=== PATIENT | female | born 1930 ===

== ENCOUNTER 2016-12-27 08:27 | Inpatient (IN) | payer MEDICARE, OTHER ==
[2016-12-27 08:30] VITALS: BMI 22.6
--- NOTE | 2016-12-27 08:39 | C.PDOC ---
History Of Present Illness LIMITED DUE TO CLIN COND BIBA FOR AMS, RESP DIST. PER EMS, PT FROM HOME. FOUND UNRESPONSIVE BY FAMILY THIS MORNING UNK DURATION. PT APNEIC, HYPOTENSIVE, UNRESPONSIVE. "FOAMING AT MOUTH". AFTER NASAL TRUMPET AND O2 SUPPORT PT W IMPROVED RESP, MENTATION. PT W DISTENDED ABD. FS WNL PER EMS. NO FAMILY AVAIL @ THIS TIME. ROS UTO EXAM MOD DIST APPEARS TOXIC HEENT R NASAL TRUMPET IN PLACE; PERRLA; MMM LUNGS TACHYPNIC, RETRACTIONS POOR EFFORT. ?BASILAR RHONCHI VS RALES CV IRREG REG TACHY ABD DISTENDED SOFT SKIN MULT BLOOD BLISTERS B/L LOWER LEGS, NO ACTIVE BLEEDING; +CELLULITIS L FOOT TO MED L THIGH. +CHRONIC WOUND L LOWER LEG. NO PRESSURE SORES EXT +PITTING EDEMA B/L PEDAL TO ABD WALL. AROM WO DIFF; ATRAUM NEURO FOCAL RESPONSE TO NAME, PAIN. NO GROSS FOCAL DEF. REMAINDER NEG Chief Complaint (Nursing): Shortness Of Breath History Per: EMS History/Exam Limitations: clinical condition Current Symptoms Are (Timing): Still Present Past Medical History Reviewed: Historical Data, Nursing Documentation, Vital Signs Vital Signs: Last Vital Signs Temp 101.0 F H 12/27/16 10:30 Pulse 96 H 12/27/16 09:00 Resp 17 12/27/16 09:48 BP 111/48 L 12/27/16 08:47 Pulse Ox 96 12/27/16 09:48 Family History: States: Unknown Family Hx Review Of Systems Review Of Systems: ROS cannot be obtained secondary to pt's inabilty to answer questions. Physical Exam - Physical Exam Appears: Toxic, Other (MODERATE DISTRESS) Skin: Dry, Other (MULT BLOOD BLISTERS B/L LOWER LEGS, NO ACTIVE BLEEDING; + CELLULITIS L FOOT TO MED L THIGH. +CHRONIC WOUND L LOWER LEG TO POSTERIOR CALF - NO EXUDATE, PURULENCE, OR FOCAL FLUCTUANCE. NO PRESSURE SORES ) Head: Atraumatic, Normacephalic Eye(s): bilateral: PERRL Ear(s): Bilateral: Normal Nose: Other (R NASAL TRUMPET IN PLACE) Oral Mucosa: Moist Chest: Symmetrical Cardiovascular: Rhythm Regular (IRREGULARLY, TACHY) Respiratory: Accessory Muscle Use, Other (TACHYPNEIC, POOR EFFORT, ?BASILAR RHONCHI VS RALES) Gastrointestinal/Abdominal: Soft, Distention Extremity: Other (PITTING EDEMA B/L PEDAL TO ABD WALL. AROM WO DIFF; ATRAUM) Neurological/Psych: Other (FOCAL RESPONSE TO NAME, PAIN. NO GROSS FOCAL DEF.) ED Course And Treatment - Laboratory Results Result Diagrams: 12/27/16 09:15 12/27/16 09:15 ECG: Interpreted By Me ECG Rhythm: Sinus Tachycardia Rate From EC - Radiology CXR: Interpreted by Me CXR Interpretation: Yes: Other (complete opacification R LUNG) Progress - Re-Evaluation Re-evaluation Note: 12/27/16 09:20 SON NOW @ BEDSIDE. PT AWOKE 0500 CO "NOT FEELING WELL", TRIED ASSISTING HER TO BATHROOM BUT PASSED OUT WHILE WALKING SO CALLED EMS. +VOMIT X 1 PUBLIC INFORMATION SPECIALIST. PT W NEW ONSET INCR ABD DISTENTION X 1 WEEK. SON STATES "THEY POPPED THIS BLISTER ON HER LEG [address] [facility]", S/P UNK ABX COMPLETED 1 MO AGO. NEW ONSET REDNESS LEFT LEG THIS MORNING. SON STATES PT PREV DX "W ONLY 1 WORKING KIDNEY", PENDING REEVAL THIS WEEK. DOES NOT KNOW IF PLAN FOR DIALYSIS. PT NORMALLY AO3, WALKS W WALKER. PMD P EVGENY ON VAPOTHERM. IMPROVED MENTATION, ALERT INTERACTIVE AND APPROPRIATE. PERSIST TACHYPNEA, IMPROVED ON VAPOTHERM. SON ADVISED NEED FOR POSSIBLE INTUBATION IF PT DETERIORATES. SON WISHES FULL RESUSC. UNABLE TO GIVE FULL CODE SEPSIS IVF PER PROTOCOL DUE TO ABN CXR FINDINGS, SEVERE GEN EDEMA AND CONCERN FOR POSSIBLE WORSENING RENAL FAILURE. 12/27/16 09:47 CODE SEPSIS ACTIVATED. PENDING CALLBACK DR YOUNG ICU 12/27/16 10:12 D/W DR MICHAEL C/F PMD WILL ADMIT. PENDING D/W DR YOUNG. PT ALERT, INTERACTIVE APPROPRIATE. IMPROVED COMPARED TO INITIAL EVAL. STABLE ON VAPOTHERM 12/27/16 10:48 dr young accepts for icu - Data Reviewed Data Reviewed: Lab, Diagnostic imaging, EKG, Old records - Critical Care Citical Care: Excluding Proc Time Critical Care Time: 120 minutes - Continuity of Care Discussed patient case with:: Family-HIPPA compliant, Other (EMS) Disposition Counseled Patient/Family Regarding: Studies Performed, Diagnosis - Disposition Disposition: HOSPITALIZED Disposition Time: 10:12 Condition: CRITICAL Forms: [employer] (Polish) - POA Core Measure Indicators: Code Sepsis - Clinical Impression Clinical Impression: Sepsis, Hypoxemia, Respiratory distress - Scribe Statement The provider has reviewed the documentation as recorded by the Scribe SM All medical record entries made by the Scribe were at my direction and personally dictated by me. I have reviewed the chart and agree that the record accurately reflects my personal performance of the history, physical exam, medical decision making, and the department course for this patient. I have also personally directed, reviewed, and agree with the discharge instructions and disposition. Decision To Admit - Pt Status Changed To: Hospital Disposition Of: Inpatient - Admit Certification Admit to Inpatient:: After my assessment, the patient will require hospitalization for at least two midnights. This is because of the severity of symptoms shown, intensity of services needed, and/or the medical risk in this patient being treated as an outpatient. - InPatient: Physician Admission Certification: I certify that this patient requires 2 or more midnights of care for the following reason:: SEE NOTE - . Bed Request Type: ICU Admitting Physician: Chuck Michael Patient Diagnosis: Sepsis, Hypoxemia, Respiratory distress PROCEDURES - EJ/Peripheral Line Consent Obtained: verbal consent Time Out Performed: Yes Skin Cleansed in Sterile Fashion: Yes Size: 20 IV Secured and Dressing Applied: Yes Patient Tolerated Procedure: Well
[2016-12-27 09:20] LABS: BASO % 0.1 % (0.0-2.0); EOS % 0.1 % (0.0-4.0); HEMATOCRIT 42.2 % (34.0-47.0); LYMPH # 0.2 K/uL (1.0-4.3); LYMPH % 1.7 % (20.0-40.0); MEAN CELL VOLUME 90.1 fL (81.0-99.0); MEAN CORPUSCULAR HEMOGLOBIN 28.3 pg (27.0-31.0); MEAN CORPUSCULAR HGB CONC 31.4 g/dL (33.0-37.0); MEAN PLATELET VOLUME 8.2 fL (7.2-11.7); MONO # 0.5 K/uL (0.0-0.8); NRBC % 0.1 % (0.0-2.0); PLATELET COUNT 174 K/uL (130-400); RED CELL DISTRIBUTION WIDTH 15.9 % (11.5-14.5); WHITE BLOOD COUNT 10.5 K/uL (4.8-10.8)
[2016-12-27 09:30] LABS: ALB/GLOB RATIO 0.9 (1.0-2.1); BILIRUBIN,TOTAL 1.4 mg/dL (0.2-1.3); TOTAL PROTEIN 6.2 g/dL (6.3-8.3)
[2016-12-27] MEDS ORDERED: Vancomycin 1 GM 1 GM/250 ML BAG IV SCH (09:30)
[2016-12-27 09:31] LABS: CALCIUM 8.1 mg/dl (8.6-10.4); MAGNESIUM 2.3 mg/dL (1.6-2.3); PHOSPHOROUS 3.9 mg/dL (2.5-4.5)
[2016-12-27 09:32] LABS: INR 1.4
--- NOTE | 2016-12-27 09:36 | RAD ---
HISTORY: Sepsis Patient COMPARISON: No prior. FINDINGS: LUNGS: Complete opacification of right sherry thorax. Apparent slight midline shift towards the left. This may be artifactual. No left-sided infiltrate. PLEURA: Possible large right pleural effusion versus consolidation or mass. CARDIOVASCULAR: Status post CABG and mitral valve replacement. OSSEOUS STRUCTURES: No significant abnormalities. VISUALIZED UPPER ABDOMEN: Normal. OTHER FINDINGS: None. IMPRESSION: Opacification of right sherry thorax with slight midline shift towards the left. Likely diffuse consolidation versus pleural effusion plus consolidation. Status post CABG and mitral valve replacement.
[2016-12-27 09:42] LABS: RBC URINE 2 /hpf (0-3); URINE BACTERIA RARE (<OCC); URINE BILIRUBIN NEGATIVE (NEGATIVE); URINE BLOOD NEGATIVE (NEGATIVE); URINE COLOR Yellow (YELLOW); URINE GLUCOSE (UA) NORMAL (Normal); URINE KETONE NEGATIVE (NEGATIVE); URINE LEUKOCYTE ESTERASE NEG Leu/uL (Negative); URINE PROTEIN 1+ mg/dL (NEGATIVE); WBC URINE 2 /hpf (0-5)
[2016-12-27 09:45] LABS: ABG ALLEN TEST NA/; DRAW SITE L/B
[2016-12-27 09:48] LABS: NEUTROPHIL 72 % (50-75); REACTIVE LYMPHOCYTES 1 % (0-0); TOTAL CELLS COUNTED 100
[2016-12-27] MEDS ORDERED: cefTRIAXone IV 1 gm in Dextros 50 ML IV ONE (09:49)
[2016-12-27] MEDS ORDERED: Azithromycin 500 MG in Sodium Chloride 0.9% 250 ML IV STA (09:49)
[2016-12-27 10:01] LABS: TROPONIN I 0.128 ng/mL (0.00-0.120)
[2016-12-27] MEDS ORDERED: Vancomycin 1 GM 1 GM/250 ML BAG IVPB ONE (10:05)
[2016-12-27] MEDS ORDERED: Azithromycin 500mg/250ML NS 500 MG/250 ML BAG IVPB ONE (10:33)
[2016-12-27] MEDS ORDERED: Sodium Chloride 0.9% 1,000 ML IV ONE ×4 (11:23→14:19)
[2016-12-27 11:59] LABS: VENOUS BLOOD GAS BASE EXCESS 0.3 mmol/L (0.0-2.0); VENOUS BLOOD GAS MODE BiPAP; VENOUS BLOOD GAS PCO2 81 mmHg (40-60); VENOUS BLOOD PH 7.19 (7.32-7.43)
[2016-12-27] MEDS ORDERED: Etomidate 20 mg/10ml Inj IV ONE (12:55)
--- NOTE | 2016-12-27 13:02 | RAD ---
HISTORY: intubation and line placement COMPARISON: Chest x-ray performed 12/27/16 TECHNIQUE: Chest, one view. FINDINGS: Endotracheal tube terminates approximately 4.9 cm above the julio cesar. Nasogastric tube extends expected location of the stomach. Right-sided central venous catheter extends expected location of the SVC. LUNGS: Extensive opacification of the right sherry thorax with minimal improved aeration within the medial left upper lobe. Left apical pleural thickening. CARDIOVASCULAR: Median sternotomy wires. Evidence of CABG. Prostatic fat cardiac valve. Partially obscured cardiac silhouette. Dense atherosclerotic calcification of the aortic knob. OSSEOUS STRUCTURES: Degenerative changes. VISUALIZED UPPER ABDOMEN: Unremarkable. OTHER FINDINGS: None. IMPRESSION: Endotracheal tube terminates approximately 4.9 cm above the julio cesar. Nasogastric tube extends expected location of the stomach. Right-sided central venous catheter extends expected location of the SVC. Extensive opacification of the right sherry thorax with minimal improved aeration within the medial left upper lobe. Left apical pleural thickening.
--- NOTE | 2016-12-27 13:06 | PCM.SEPTIC ---
Sepsis Progress Note - Reassessment Type Date of Evaluation: 12/27/16 Time of Evaluation: 10:00 Reassessment Type: Invasive reassessment - Non Invasive Reassessment Were the most recent vital sign reviewed: Yes Vital Sign (Latest): Temp Pulse Resp BP Pulse Ox 99.9 F H 90 18 70/17 L 90 L 12/27/16 11:03 12/27/16 12:38 12/27/16 12:38 12/27/16 12:38 12/27/16 12:38 Cardiovascular: Yes: Edema. No: Regular Rate, Rhythm Respiratory: Yes: Other (Intubated). No: Normal Breath Sounds Capillary Refill: Delayed Pulses: Decreased Dorsalis Pedis, Decreased Posterior Tibialis Skin: Warm, Dry Was a bedside cardiovascular ultrasound performed within 6 hours after the presentation of septic shock: Yes Type performed: Echocardiogram Was a passive leg raise performed or was a fluid challenge performed within 6 hrs of the initial fluid bolus: No Fluid Challenge performed: No
[2016-12-27] MEDS ORDERED: Dexmedetomidine Hydrochloride 100 mcg/ml (2ML) IV ONE (13:16)
[2016-12-27 13:24] LABS: ABG ALLEN TEST POS; ABG MECHANICAL RATE 16; ARTERIAL BLOOD GAS MODE PRVC; ATERIAL BLOOD GAS PEEP 5; CARBOXYHEMOGLOBIN 2.6 % (0.5-1.5); DRAW SITE RR; HHB 0.4 % (0.0-5.0)
[2016-12-27] MEDS: Dexmedetomidine Hydrochloride 200 MCG in Sodium Chloride 0.9% 48 ML IV PRN ×4 (13:40→22:16)
[2016-12-27] MEDS ORDERED: Propofol 10 mg/ml Inj (20 ML) IV ONE (13:45)
--- NOTE | 2016-12-27 14:38 | RAD ---
HISTORY: chest tube COMPARISON: Chest x-ray performed 12/27/16 at 1230 hours TECHNIQUE: Chest, one view. FINDINGS: Endotracheal tube, nasogastric tube, right-sided central venous catheter re- identified. Interval addition of right-sided pigtail catheter/chest tube. LUNGS: Small right pleural effusion, markedly decreased since prior study earlier the same day. Patchy opacities in the right sherry thorax may reflect infection or atelectasis. Left basilar atelectasis. No definite pneumothorax. Biapical pleural thickening. Please note that chest x-ray has limited sensitivity for the detection of pulmonary masses. CARDIOVASCULAR: Median sternotomy wires with evidence of CABG. Mitral valve prosthesis. Borderline cardiomegaly. OSSEOUS STRUCTURES: Degenerative changes. VISUALIZED UPPER ABDOMEN: Unremarkable. OTHER FINDINGS: None. IMPRESSION: Endotracheal tube, nasogastric tube, right-sided central venous catheter re- identified. Interval addition of right-sided pigtail catheter/chest tube. Small right pleural effusion, markedly decreased since prior study earlier the same day. Patchy opacities in the right sherry thorax may reflect infection or atelectasis. Left basilar atelectasis. Biapical pleural thickening.
[2016-12-27 14:51] LABS: BODY FLUID TYPE PLEURAL
[2016-12-27] MEDS: Albumin Human 25% (12.5 gm/50 ml) IV SCH ×2 (14:56→21:30)
[2016-12-27] MEDS: Piperacill/Tazo 2.25gm in Dex 2.25 GM/50 ML BAG IVPB SCH ×2 (15:34→23:45)
[2016-12-27 15:42] LABS: BF GROSS APPEARANCE SL CLOUDY (CLEAR)
--- NOTE | 2016-12-27 17:03 | CP.PCM.CON ---
<GemdaphneGaby morrisonSaqib - Last Filed: 12/27/16 16:51> History of Present Illness - History of Present Illness History of Present Illness: 86 year old female with medical history of HTN, CHF, CKD, and CABG, presents to the ED by ambulance with shortness of breath. The patient's son, Polo, reports she felt nauseas, feverish, and had chills this morning. As he was helping her to the restroom, patient urinated on self, passed out, and remained unresponsive. In the ED, patient was hypotensive and in respiratory distress. Code sepsis was called. Patient is consulted in the ICU for respiratory distress , hypotension, and sepsis. Patient's chest xray showed opacification of right hemithorax with midline shift. Review of systems was not obtained due to patients status. PMD: Dr. Smith PMHx: HTN, Mitral valve replacement, CABG (2016), "kidney problems, only 1 works ", CHF (chronic LE edema) SurgHx: CABG (2016), mitral valve replacement FamHx: denies SocHx: denies tobacco, alcohol, and drug use; lives with son, Polo Allergies: Fish (reaction unknown) Medications: "medication for HTN, diueretic, and cholesterol". See EMR Review of Systems - Review of Systems Systems not reviewed;Unavailable: Intubated Past Patient History - Past Social History Smoking Status: Unknown If Ever Smoked - CARDIAC Hx Cardiac Disorders: Yes Hx Hypercholesterolemia: Yes Hx Hypertension: Yes Other/Comment: heart valve surgery as per son - GENITOURINARY/GYNECOLOGICAL Hx Genitourinary Disorders: Yes - PSYCHIATRIC Hx Substance Use: No - SURGICAL HISTORY Hx Surgeries: Yes Other/Comment: cardiac surgery- valve Meds Allergies/Adverse Reactions: Allergies Allergy/AdvReac Type Severity Reaction Status Date / Time SEAFOOD Allergy Uncoded 12/27/16 08:30 - Medications Medications: Current Medications Acetaminophen (Tylenol 325 Mg Supp) 975 mg NJ ONCE PRN PRN Reason: Fever >100.4 F Last Admin: 12/27/16 10:30 Dose: 975 mg Albumin Human (Albumin Human 25% (12.5 Gm/50 Ml)) 12.5 gm IV Q8H ZAHRA Last Admin: 12/27/16 14:56 Dose: 12.5 gm Famotidine (Pepcid) 20 mg IVP DAILY [facility] Last Admin: 12/27/16 14:49 Dose: 20 mg Heparin Sodium (Porcine) (Heparin) 5,000 units SC Q8 [facility] Last Admin: 12/27/16 14:50 Dose: 5,000 units Norepinephrine Bitartrate 4 mg (/ Sodium Chloride) 254 mls @ 15.24 mls/hr IV .[id number] PRN; Protocol; 4 MCG/MIN PRN Reason: TITRATE PER MD ORDER Last Admin: 12/27/16 15:32 Dose: 20 mcg/min, 76.2 mls/hr Dexmedetomidine HCl 200 mcg/ (Sodium Chloride) 50 mls @ 3.17 mls/hr IV TITR PRN ; Protocol; 0.2 MCG/KG/HR PRN Reason: Sedation Last Titration: 12/27/16 15:00 Dose: 1 mcg/kg/hr, 15.87 mls/hr Potassium Chloride (Potassium Chloride 20 Meq/100 Ml) 20 meq in 100 mls @ 50 mls/hr IVPB Q2H [facility] Stop: 12/27/16 19:59 Last Admin: 12/27/16 15:54 Dose: 50 mls/hr Piperacillin Sod/Tazobactam Sod (Zosyn 2.25 Gm Iv Premix) 2.25 gm in 50 mls @ 100 mls/hr IVPB Q8H [facility] Last Admin: 12/27/16 15:34 Dose: 100 mls/hr Vancomycin/Sodium Chloride (Vancocin) 1 gm in 200 mls @ 133.333 mls/hr IVPB DAILY [facility] Stop: 01/02/17 10:01 Lorazepam (Ativan) 1 mg IVP Q4H PRN PRN Reason: Anxiety Last Admin: 12/27/16 16:12 Dose: 1 mg Physical Exam - Head Exam Head Exam: ATRAUMATIC, NORMAL INSPECTION - ENT Exam ENT Exam: Mucous Membranes Moist - Respiratory Exam Respiratory Exam: Rales, Rhonchi, Respiratory Distress. absent: Decreased Breath Sounds, Clear to Auscultation Bilateral - Cardiovascular Exam Cardiovascular Exam: Tachycardia, Irregular Rhythm, +S1, +S2 - GI/Abdominal Exam GI & Abdominal Exam: Distended, Firm. absent: Normal Bowel Sounds, Soft - Extremities Exam Extremities exam: Positive for: pedal edema. Negative for: normal inspection ( chronic changes secondary to edema), pedal pulses present (decreased) - Skin Additional comments: B/L LE: chronic changes secondary to edema Results - Vital Signs Recent Vital Signs: Last Vital Signs Temp 99.9 F H 12/27/16 11:03 Pulse 85 12/27/16 15:32 Resp 29 H 12/27/16 15:32 BP 103/55 L 12/27/16 15:32 Pulse Ox 88 L 12/27/16 15:32 - Labs Result Diagrams: 12/27/16 09:15 12/27/16 09:15 Labs: Laboratory Results - last 24 hr 12/27/16 12/27/16 12/27/16 11:54 13:21 14:49 Puncture Site Rr pCO2 64 H pO2 39 131 H HCO3 23.6 ABG pH 7.23 L ABG Total CO2 28.8 H ABG O2 Saturation 99.6 H ABG Base Excess -1.7 ABG Hemoglobin 11.2 L ABG Carboxyhemoglobin 2.6 H POC ABG HHb (Measured) 0.4 ABG Methemoglobin 1.0 Jordon Test Pos VBG pH 7.19 L* VBG pCO2 81 H* VBG HCO3 24.1 VBG Total CO2 33.4 H VBG O2 Sat (Calc) 70.4 H VBG Base Excess 0.3 VBG Potassium 2.7 L A-a O2 Difference 502.0 Respiratory Index 3.8 Hgb O2 Saturation 96.0 Sodium 138.0 Chloride 99.0 Glucose 77 Lactate 2.1 Vent Mode Prvc Mechanical Rate 16 FiO2 100.0 100.0 Tidal Volume 350 PEEP 5 Crit Value Called To Crit Value Called By zeyad Mac,tanbark laborer Crit Value Read Back Y Blood Gas Notified Time 1155 Venous Blood Potassium 2.7 L Fluid Source Pleural Fluid Appearance Sl cloudy Fluid WBC 99.0 Fluid RBC 2007.0 H Fluid Tot Cell Count TEST NOT PERFORMED Fluid Neutrophils 11.0 H Fluid Lymphocytes 78.0 H Fld Monocyte/Macrophag 10 H Fluid Comment Assessment & Plan - Assessment and Plan (Free Text) Assessment: 86 year old female with medical history of HTN, CHF, CKD, and CABG, presents to the ED by ambulance with shortness of breath. The patient's son, Polo, reports she felt nauseas, feverish, and had chills this morning. As he was helping her to the restroom, patient urinated on self, passed out, and remained unresponsive. In the ED, patient was hypotensive and in respiratory distress. Code sepsis was called. Patient is consulted in the ICU for respiratory distress , hypotension, and sepsis. Patient's chest xray showed opacification of right hemithorax with midline shift. Review of systems was not obtained due to patients status. Patient was intubated, pigtail chest tube placed, waterseal, and pleural fluid drained. Repeat chest xray showed improvement. Underlying infiltrate likely pneumonia- started Zosyn and Vancomycin . Patient was hypotensive, required pressors. Continue to monitor. Neuro: sedated Pulm: Respiratory distress - Intubated - CXR: opacification of right hemithorax with midline shift - Repeat CXR (post Chest tube): markedly decreased pleural effusion; patchy opacities in right hemithorax - Pigtail chest tube placed, drained pleural fluid - Pleural fluid studies: Cloudy, WBC 99, RBC 2007, Neutrophils 11, Lymphocytes 78, Monocyte/Macrophage 10 CV: Hypotensive - Central line placed - Patient on pressors - IV Fluids + Albumin - Troponin: 0.1280 - BNP: 05940 - ECHO: f/u Endo: no acute issues GI: - Distended abdomen - Attempted decompression via OG tube - Abdominal US: f/u Heme: no acute issues - Monitor H/H Renal: history of kidney disease - BUN/Cr: 35/1.7 - Monitor kidney function ID: Code Sepsis - Vandana secondary to pneumonia - Bandemia: 17 - UA: 1+ protein, 2 urobilinogen, 9 squam epith cells - Blood cx: f/u - Urine cx: f/u - Sputum cx: f/u - Started zosyn and vanco Prophylaxis: - DVT: Heparin 5,000units SC - GI: Pepcid <Brayden Chung S - Last Filed: 12/31/16 17:15> Meds - Medications Medications: Current Medications Acetaminophen (Tylenol 325 Mg Supp) 975 mg NJ ONCE PRN PRN Reason: Fever >100.4 F Last Admin: 12/27/16 10:30 Dose: 975 mg Albumin Human (Albumin Human 25% (12.5 Gm/50 Ml)) 12.5 gm IV Q8H ZAHRA Last Admin: 12/27/16 14:56 Dose: 12.5 gm Famotidine (Pepcid) 20 mg IVP DAILY [facility] Last Admin: 12/27/16 14:49 Dose: 20 mg Heparin Sodium (Porcine) (Heparin) 5,000 units SC Q8 [facility] Last Admin: 12/27/16 14:50 Dose: 5,000 units Norepinephrine Bitartrate 4 mg (/ Sodium Chloride) 254 mls @ 15.24 mls/hr IV .[id number] PRN; Protocol; 4 MCG/MIN PRN Reason: TITRATE PER MD ORDER Last Admin: 12/27/16 15:32 Dose: 20 mcg/min, 76.2 mls/hr Dexmedetomidine HCl 200 mcg/ (Sodium Chloride) 50 mls @ 3.17 mls/hr IV TITR PRN ; Protocol; 0.2 MCG/KG/HR PRN Reason: Sedation Last Admin: 12/27/16 16:58 Dose: 1 mcg/kg/hr, 15.87 mls/hr Potassium Chloride (Potassium Chloride 20 Meq/100 Ml) 20 meq in 100 mls @ 50 mls/hr IVPB Q2H [facility] Stop: 12/27/16 19:59 Last Admin: 12/27/16 17:02 Dose: 50 mls/hr Piperacillin Sod/Tazobactam Sod (Zosyn 2.25 Gm Iv Premix) 2.25 gm in 50 mls @ 100 mls/hr IVPB Q8H [facility] Last Admin: 12/27/16 15:34 Dose: 100 mls/hr Vancomycin/Sodium Chloride (Vancocin) 1 gm in 200 mls @ 133.333 mls/hr IVPB DAILY [facility] Stop: 01/02/17 10:01 Lorazepam (Ativan) 1 mg IVP Q4H PRN PRN Reason: Anxiety Last Admin: 12/27/16 16:12 Dose: 1 mg Results - Vital Signs Recent Vital Signs: Last Vital Signs Temp 99.9 F H 12/27/16 11:03 Pulse 85 12/27/16 15:32 Resp 29 H 12/27/16 15:32 BP 103/55 L 12/27/16 15:32 Pulse Ox 88 L 12/27/16 15:32 - Labs Result Diagrams: 12/31/16 06:48 12/31/16 06:48 Labs: Laboratory Results - last 24 hr 12/27/16 12/27/16 12/27/16 11:54 13:21 14:49 Puncture Site Rr pCO2 64 H pO2 39 131 H HCO3 23.6 ABG pH 7.23 L ABG Total CO2 28.8 H ABG O2 Saturation 99.6 H ABG Base Excess -1.7 ABG Hemoglobin 11.2 L ABG Carboxyhemoglobin 2.6 H POC ABG HHb (Measured) 0.4 ABG Methemoglobin 1.0 Jordon Test Pos VBG pH 7.19 L* VBG pCO2 81 H* VBG HCO3 24.1 VBG Total CO2 33.4 H VBG O2 Sat (Calc) 70.4 H VBG Base Excess 0.3 VBG Potassium 2.7 L A-a O2 Difference 502.0 Respiratory Index 3.8 Hgb O2 Saturation 96.0 Sodium 138.0 Chloride 99.0 Glucose 77 Lactate 2.1 Vent Mode Prvc Mechanical Rate 16 FiO2 100.0 100.0 Tidal Volume 350 PEEP 5 Crit Value Called To Crit Value Called By zeyad Mac,tanbark laborer Crit Value Read Back Y Blood Gas Notified Time 1155 Venous Blood Potassium 2.7 L Fluid Source Pleural Fluid Appearance Sl cloudy Fluid WBC 99.0 Fluid RBC 2007.0 H Fluid Tot Cell Count TEST NOT PERFORMED Fluid Neutrophils 11.0 H Fluid Lymphocytes 78.0 H Fld Monocyte/Macrophag 10 H Fluid Comment Attending/Attestation - Attestation I have personally seen and examined this patient.: Yes I have fully participated in the care of the patient.: Yes I have reviewed all pertinent clinical information: Yes Notes (Text): 12/27/16 17:55 Patient seen and examined. 86-year-old female admitted with hypotension, respiratory distress and large right pleural effusion Patient intubated in the intensive care unit for respiratory distress and hypercapnic respiratory failure Triple-lumen catheter inserted in the right subclavian vein under aseptic conditions Because of large right pleural effusion pigtail catheter inserted under aseptic conditions All three procedures performed by me under urgent conditions, after obtaining consent from son, no complications Patient started on IV antibiotics Fluid resuscitation and IV pressors Echocardiogram Continue ventilatory support and reduce FiO2 as tolerated DVT and stress ulcer prophylaxis
--- NOTE | 2016-12-27 17:54 | CP.PCM.HP ---
<UmbertotamikoGaby Sarah. - Last Filed: 12/27/16 17:51> History of Present Illness - History of Present Illness History of Present Illness: CC: respiratory distress, sepsis 86 year old female with medical history of HTN, CHF, CKD, and CABG, presents to the ED by ambulance with shortness of breath. The patient's son, Polo, reports she felt nauseas, feverish, and had chills this morning. As he was helping her to the restroom, patient urinated, passed out, and remained unresponsive. In the ED, patient was hypotensive and in respiratory distress. Code sepsis was called. Patient is in the ICU for respiratory distress, hypotension, and sepsis. Patient's chest xray showed opacification of right hemithorax with midline shift. Review of systems was not obtained due to patients status. PMD: Dr. Smith PMHx: HTN, Mitral valve replacement, CABG (2016), "kidney problems, only 1 works ", CHF (chronic LE edema) SurgHx: CABG (2016), mitral valve replacement FamHx: denies SocHx: denies tobacco, alcohol, and drug use; lives with son, Polo Allergies: Fish (reaction unknown) Medications: "medication for HTN, diueretic, and cholesterol". See EMR Present on Admission - Present on Admission Any Indicators Present on Admission: No Review of Systems - Review of Systems Systems not reviewed;Unavailable: Intubated Past Patient History - Past Medical History & Family History Past Medical History?: Yes - Past Social History Smoking Status: Unknown If Ever Smoked - CARDIAC Hx Cardiac Disorders: Yes Hx Hypercholesterolemia: Yes Hx Hypertension: Yes Other/Comment: heart valve surgery as per son - PULMONARY Hx Respiratory Disorders: No - NEUROLOGICAL Hx Neurological Disorder: No - HEENT Hx HEENT Problems: No - RENAL Hx Chronic Kidney Disease: No - ENDOCRINE/METABOLIC Hx Endocrine Disorders: No - HEMATOLOGICAL/ONCOLOGICAL Hx Blood Disorders: No - INTEGUMENTARY Hx Dermatological Problems: No - MUSCULOSKELETAL/RHEUMATOLOGICAL Hx Musculoskeletal Disorders: No Hx Falls: No - GASTROINTESTINAL Hx Gastrointestinal Disorders: No - GENITOURINARY/GYNECOLOGICAL Hx Genitourinary Disorders: Yes - PSYCHIATRIC Hx Substance Use: No - SURGICAL HISTORY Hx Surgeries: Yes Other/Comment: cardiac surgery- valve - ANESTHESIA Hx Anesthesia: Yes Hx Anesthesia Reactions: No Hx Malignant Hyperthermia: No Has any member of the family had a problem w/ anesthesia?: No Meds Allergies/Adverse Reactions: Allergies Allergy/AdvReac Type Severity Reaction Status Date / Time SEAFOOD Allergy Uncoded 12/27/16 08:30 Physical Exam - Head Exam Head Exam: ATRAUMATIC, NORMAL INSPECTION - ENT Exam ENT Exam: Mucous Membranes Moist Additional comments: Intubated - Respiratory Exam Respiratory Exam: Rales, Respiratory Distress. absent: Clear to Auscultation Bilateral, NORMAL BREATHING PATTERN - Cardiovascular Exam Cardiovascular Exam: Tachycardia, +S1, +S2. absent: REGULAR RHYTHM - GI/Abdominal Exam GI & Abdominal Exam: Diminished Bowel Sounds, Distended, Firm. absent: Normal Bowel Sounds, Soft - Extremities Exam Extremities exam: Positive for: pedal edema. Negative for: normal inspection, pedal pulses present (diminished) - Skin Skin Exam: Erythema, Warm Additional comments: Chronic changes due to B/L LE edema Results - Vital Signs Recent Vital Signs: Last Vital Signs Temp 99.9 F H 12/27/16 11:03 Pulse 85 12/27/16 15:32 Resp 29 H 12/27/16 15:32 BP 103/55 L 12/27/16 15:32 Pulse Ox 88 L 12/27/16 15:32 - Labs Result Diagrams: 12/27/16 09:15 12/27/16 09:15 Labs: Laboratory Results - last 24 hr 12/27/16 12/27/16 12/27/16 11:54 13:21 14:49 Puncture Site Rr pCO2 64 H pO2 39 131 H HCO3 23.6 ABG pH 7.23 L ABG Total CO2 28.8 H ABG O2 Saturation 99.6 H ABG Base Excess -1.7 ABG Hemoglobin 11.2 L ABG Carboxyhemoglobin 2.6 H POC ABG HHb (Measured) 0.4 ABG Methemoglobin 1.0 Jordon Test Pos VBG pH 7.19 L* VBG pCO2 81 H* VBG HCO3 24.1 VBG Total CO2 33.4 H VBG O2 Sat (Calc) 70.4 H VBG Base Excess 0.3 VBG Potassium 2.7 L A-a O2 Difference 502.0 Respiratory Index 3.8 Hgb O2 Saturation 96.0 Sodium 138.0 Chloride 99.0 Glucose 77 Lactate 2.1 Vent Mode Prvc Mechanical Rate 16 FiO2 100.0 100.0 Tidal Volume 350 PEEP 5 Crit Value Called To Crit Value Called By zeyad Mac,sap data analyst Crit Value Read Back Y Blood Gas Notified Time 1155 Venous Blood Potassium 2.7 L Fluid Source Pleural Fluid Appearance Sl cloudy Fluid WBC 99.0 Fluid RBC 2007.0 H Fluid Tot Cell Count TEST NOT PERFORMED Fluid Neutrophils 11.0 H Fluid Lymphocytes 78.0 H Fld Monocyte/Macrophag 10 H Fluid Comment Assessment & Plan (1) Respiratory distress Assessment and Plan: Intubated, Code Sepsis - Likely underlying pneumonia - CXR: opacification of right hemithorax with midline shift, likely diffuse consolidation vs pleural effusion with consolidation - Repeat CXR (post Chest tube): markedly decreased pleural effusion; patchy opacities in right hemithorax - Pigtail chest tube placed, drained approximately 2L of pleural fluid - Pleural fluid studies: Cloudy, WBC 99, RBC 2007, Neutrophils 11, Lymphocytes 78, Monocyte/Macrophage 10 - Pleural fluid glucose: f/u - Pleural fluid cx: f/u - Pleural fluid LDH: f/u - Serum LDH: f/u - Chest CT: f/u - Started Zosyn and Vancomycin - ID consulted: Dr. Ramires, help appreciated Status: Acute (2) Sepsis Assessment and Plan: Code Sepsis - Likely underlying pneumonia - CXR: opacification of right hemithorax with midline shift, likely diffuse consolidation vs pleural effusion with consolidation - Repeat CXR (post Chest tube): markedly decreased pleural effusion; patchy opacities in right hemithorax - Pigtail chest tube placed, drained approximately 2L of pleural fluid - Pleural fluid studies: Cloudy, WBC 99, RBC 2007, Neutrophils 11, Lymphocytes 78, Monocyte/Macrophage 10 - Pleural fluid glucose, LDH, & cx: f/u - Pleural fluid LDH: f/u - Serum LDH: f/u - Bandemia: 17 - UA: 1+ protein, 2 urobilinogen, 9 squam epith cells - Blood cx: f/u - Sputum/trach cx: f/u - Urine Cx: f/u - Started Zosyn and Vancomycin - ID consulted: Dr. Ramires, help appreciated Status: Acute (3) Hypotension Assessment and Plan: - Central line placed - Patient on pressors - IV Fluids + Albumin - Troponin: 0.1280 - BNP: 19291 - ECHO: f/u - Romis x 3: f/u - ASA 81mg - Cardiology consulted: Dr. Hill, help appreciated. Status: Acute (4) Abdominal distension Assessment and Plan: - Decompression via OG tube attempted - Abdominal US: f/u Status: Acute (5) Prophylactic measure Assessment and Plan: - DVT: Heparin 5,000units SC, SCDs - GI: Pepcid - Accuchecks Status: Acute <Chuck Michael M - Last Filed: 12/28/16 16:31> Results - Vital Signs Recent Vital Signs: Last Vital Signs Temp 97.5 F L 12/28/16 12:00 Pulse 72 12/28/16 12:20 Resp 26 H 12/28/16 12:20 BP 107/46 L 12/28/16 12:49 Pulse Ox 100 12/28/16 12:20 - Labs Result Diagrams: 12/28/16 04:35 12/28/16 04:35 Labs: Laboratory Results - last 24 hr 12/27/16 12/27/16 12/27/16 19:08 19:41 19:44 WBC RBC Hgb Hct MCV MCH MCHC RDW Plt Count MPV Neut % (Auto) Lymph % (Auto) Boyd % (Auto) Eos % (Auto) Baso % (Auto) Neut # Lymph # Boyd # Eos # Baso # Neutrophils % (Manual) Band Neutrophils % Lymphocytes % (Manual) Reactive Lymphs % Monocytes % (Manual) Platelet Estimate Large Platelets Anisocytosis (manual) Ovalocytes Puncture Site pCO2 pO2 HCO3 ABG pH ABG Total CO2 ABG O2 Saturation ABG Base Excess ABG Hemoglobin ABG Carboxyhemoglobin POC ABG HHb (Measured) ABG Methemoglobin Jordon Test A-a O2 Difference Respiratory Index Hgb O2 Saturation Vent Mode Mechanical Rate FiO2 Tidal Volume PEEP Sodium Potassium Chloride Carbon Dioxide Anion Gap BUN Creatinine Est GFR ( Amer) Est GFR (Non-Af Amer) POC Glucose (mg/dL) 60 L 162 H Random Glucose Calcium Phosphorus Magnesium Total Bilirubin AST ALT Alkaline Phosphatase Total Creatine Kinase 191 H CK-MB (Mass) 4.53 H Troponin I, Quant 0.4060 H* Total Protein Albumin Globulin Albumin/Globulin Ratio 12/28/16 12/28/16 12/28/16 00:20 04:35 04:35 WBC 16.0 H D RBC 4.55 Hgb 13.3 Hct 40.2 MCV 88.4 MCH 29.2 MCHC 33.1 RDW 15.9 H Plt Count 130 MPV 8.3 Neut % (Auto) 89.1 H Lymph % (Auto) 6.7 L Boyd % (Auto) 2.0 Eos % (Auto) 1.2 Baso % (Auto) 1.0 Neut # 14.3 H Lymph # 1.1 Boyd # 0.3 Eos # 0.2 Baso # 0.2 Neutrophils % (Manual) 75 Band Neutrophils % 18 H* Lymphocytes % (Manual) 3 L Reactive Lymphs % 1 H Monocytes % (Manual) 3 Platelet Estimate Normal Large Platelets Present Anisocytosis (manual) Slight Ovalocytes Moderate Puncture Site pCO2 pO2 HCO3 ABG pH ABG Total CO2 ABG O2 Saturation ABG Base Excess ABG Hemoglobin ABG Carboxyhemoglobin POC ABG HHb (Measured) ABG Methemoglobin Jordon Test A-a O2 Difference Respiratory Index Hgb O2 Saturation Vent Mode Mechanical Rate FiO2 Tidal Volume PEEP Sodium 139 Potassium 3.3 L Chloride 100 Carbon Dioxide 26 Anion Gap 16 BUN 31 H Creatinine 1.5 H Est GFR ( Amer) 40 Est GFR (Non-Af Amer) 33 POC Glucose (mg/dL) 81 Random Glucose 93 Calcium 7.8 L Phosphorus 2.9 Magnesium 1.9 Total Bilirubin 2.8 H AST 27 ALT 19 Alkaline Phosphatase 57 Total Creatine Kinase 153 H CK-MB (Mass) 4.64 H Troponin I, Quant 0.3270 H* Total Protein 5.3 L Albumin 2.5 L Globulin 2.8 Albumin/Globulin Ratio 0.9 L 12/28/16 12/28/16 12/28/16 05:33 06:02 12:01 WBC RBC Hgb Hct MCV MCH MCHC RDW Plt Count MPV Neut % (Auto) Lymph % (Auto) Boyd % (Auto) Eos % (Auto) Baso % (Auto) Neut # Lymph # Boyd # Eos # Baso # Neutrophils % (Manual) Band Neutrophils % Lymphocytes % (Manual) Reactive Lymphs % Monocytes % (Manual) Platelet Estimate Large Platelets Anisocytosis (manual) Ovalocytes Puncture Site Rr pCO2 32 L pO2 481 H HCO3 26.3 ABG pH 7.49 H ABG Total CO2 25.4 ABG O2 Saturation 100.4 H ABG Base Excess 1.7 ABG Hemoglobin 13.9 ABG Carboxyhemoglobin 1.8 H POC ABG HHb (Measured) -0.4 L ABG Methemoglobin 1.1 Jordon Test Pos A-a O2 Difference 192.0 Respiratory Index 0.4 Hgb O2 Saturation 97.4 Vent Mode Prvc Mechanical Rate 16 FiO2 100.0 Tidal Volume 350 PEEP 5 Sodium Potassium Chloride Carbon Dioxide Anion Gap BUN Creatinine Est GFR ( Amer) Est GFR (Non-Af Amer) POC Glucose (mg/dL) 83 79 Random Glucose Calcium Phosphorus Magnesium Total Bilirubin AST ALT Alkaline Phosphatase Total Creatine Kinase CK-MB (Mass) Troponin I, Quant Total Protein Albumin Globulin Albumin/Globulin Ratio Attending/Attestation - Attestation I have personally seen and examined this patient.: Yes I have fully participated in the care of the patient.: Yes I have reviewed all pertinent clinical information: Yes Notes (Text): 12/28/16 16:31 Patient was seen and examined at bedside in ICU Patient is intubated and sedated currently I discussed the plan of care with the ICU attending and with the ICU resident I agree with the history and physical and assessment/plan documented above.
--- NOTE | 2016-12-27 18:25 | CP.PCM.CON ---
History of Present Illness - History of Present Illness History of Present Illness: 86 year old female with medical history of HTN, CHF, CKD, and CABG, presents to the ED by ambulance with shortness of breath. The patient's son, Polo, reports she felt nauseas, feverish, and had chills this morning. As he was helping her to the restroom, patient urinated on self, passed out, and remained unresponsive. In the ED, patient was hypotensive and in respiratory distress. Code sepsis was called. Patient is consulted in the ICU for respiratory distress , hypotension, and sepsis. Patient's chest xray showed opacification of right hemithorax with midline shift. Review of systems was not obtained due to patients status. PMD: Dr. Smith PMHx: HTN, Mitral valve replacement, CABG (2016), "kidney problems, only 1 works ", CHF (chronic LE edema) SurgHx: CABG (2016), mitral valve replacement FamHx: denies SocHx: denies tobacco, alcohol, and drug use; lives with son, Polo Allergies: Fish (reaction unknown) Medications: "medication for HTN, diueretic, and cholesterol". See EMR Review of Systems - Review of Systems Systems not reviewed;Unavailable: Altered Mental Status, Intubated - Constitutional Constitutional: As Per HPI - EENT Eyes: absent: As Per HPI, Blind Spots, Blurred Vision, Change in Vision, Decreased Night Vision, Diplopia, Discharge, Dry Eye, Exophthalmos, Floaters, Irritation, Itchy Eyes, Loss of Peripheral Vision, Pain, Photophobia, Requires Corrective Lenses, Sees Flashes, Spots in Vision, Tunnel Vision, Other Visual Disturbances, Loss of Vision, Other Ears: absent: As Per HPI, Decreased Hearing, Ear Discharge, Ear Pain, Tinnitus, Abnormal Hearing, Disequilibrium, Dizziness, Other Nose/Mouth/Throat: absent: As Per HPI, Epistaxis, Nasal Congestion, Nasal Discharge, Nasal Obstruction, Nasal Trauma, Nose Pain, Post Nasal Drip, Sinus Pain, Sinus Pressure, Bleeding Gums, Change in Voice, Dental Pain, Dry Mouth, Dysphagia, Halitosis, Hoarsness, Lip Swelling, Mouth Lesions, Mouth Pain, Odynophagia, Sore Throat, Throat Swelling, Tongue Swelling, Facial Pain, Neck Pain, Neck Mass, Other - Breasts Breasts: absent: As Per HPI, Change in Shape, Mass, Pain, Nipple Discharge, Nipple Inversion, Skin Changes, Swelling, Other - Cardiovascular Cardiovascular: As Per HPI - Respiratory Respiratory: As Per HPI, Cough, Dyspnea - Gastrointestinal Gastrointestinal: absent: As Per HPI, Abdominal Pain, Belching, Bloating, Change in Bowel Habits, Change in Stool Character, Coffee Ground Emesis, Constipation, Cramping, Diarrhea, Dyspepsia, Dysphagia, Early Satiety, Excessive Flatus, Fecal Incontinence, Heartburn, Hematemesis, Hematochezia, Loose Stools, Melena, Nausea, Odynophagia, Temesmus, Vomiting, Other - Genitourinary Genitourinary: absent: As Per HPI, Change in Urinary Stream, Difficulty Urinating, Dysuria, Flank Pain, Hematuria, Pyuria, Nocturia, Urinary Incontinence, Urinary Frequency, Urinary Hesitance, Urinary Urgency, Voiding Freq/Small Amts, Freq UTI, Hx Renal/Bladder Calculi, Hx /Renal Surgery, Bladder Distension, Other - Reproductive: Female Reproductive:Female: absent: As Per HPI, Amenorrhea, Amenorrhea/ Control, Currently Menstual, Cycle <21 Days, Cycle >35 Days, Cycle Variable, Menses 1-7 Days, Menses >/= 8 Days, Menses Variable, Cycle > 4 Weeks Between, No Menses for 6 Months, Heavy Menses, Light Menses, Normal Menses, Spotting Between Cycles , S/P Hysterectomy, Menopausal, Post Menopausal, Premenarche, Abnormal Vaginal Bleeding, Dysmenorrhea, Dyspareunia, Genital Lesions, Genital Pruritis, Pelvic Pain, Prolapse Symptoms, Sexual Dysfunction, Vaginal Discharge, Vaginal Dryness , Vaginal Odor, Vaginal Pruritis, Other - Menstruation Menstruation: absent: As Per HPI, Amenorrhea, Amenorrhea/ Control, Currently Menstual, Cycle <21 Days, Cycle >35 Days, Cycle Variable, Menses 1-7 Days, Menses >/= 8 Days, Menses Variable, Cycle > 4 Weeks Between, No Menses for 6 Months, Heavy Menses, Light Menses, Normal Menses, Spotting Between Cycles , S/P Hysterectomy, Menopausal, Post Menopausal, Premenarche, Abnormal Vaginal Bleeding, Dysmenorrhea, Other - Musculoskeletal Musculoskeletal: As Per HPI - Integumentary Integumentary: As Per HPI, Skin Pain, Wounds - Neurological Neurological: As Per HPI - Psychiatric Psychiatric: absent: As Per HPI, Abnormal Sleep Pattern, Anhedonia, Anxiety, Auditory Hallucinations, Behavioral Changes, Change in Appetite, Change in Libido, Confusion, Depression, Difficulty Concentrating, Hallucinations, Homicidal Ideation, Hopelessness, Irritability, Memory Loss, Mood Swings, Panic Attacks, Paranoia, Suicidal Ideation, Visual Hallucinations, Tactile Hallucinations, Other - Endocrine Endocrine: absent: As Per HPI, Change in Body Appearance, Change in Libido, Cold Intolorance, Deepening of Voice, Excessive Sweating, Fatigue, Flushing, Heat Intolorance, Increase in Ring/Shoe/Hat Size, Palpitations, Polydipsia, Polyphagia, Polyuria, Other - Hematologic/Lymphatic Hematologic: absent: As Per HPI, Easy Bleeding, Easy Bruising, Lymphadenopathy, Other Past Patient History - Past Medical History & Family History Past Medical History?: Yes - Past Social History Smoking Status: Unknown If Ever Smoked - CARDIAC Hx Cardiac Disorders: Yes Hx Hypercholesterolemia: Yes Hx Hypertension: Yes Other/Comment: heart valve surgery as per son - PULMONARY Hx Respiratory Disorders: No - NEUROLOGICAL Hx Neurological Disorder: No - HEENT Hx HEENT Problems: No - RENAL Hx Chronic Kidney Disease: No - ENDOCRINE/METABOLIC Hx Endocrine Disorders: No - HEMATOLOGICAL/ONCOLOGICAL Hx Blood Disorders: No - INTEGUMENTARY Hx Dermatological Problems: No - MUSCULOSKELETAL/RHEUMATOLOGICAL Hx Musculoskeletal Disorders: No Hx Falls: No - GASTROINTESTINAL Hx Gastrointestinal Disorders: No - GENITOURINARY/GYNECOLOGICAL Hx Genitourinary Disorders: Yes - PSYCHIATRIC Hx Substance Use: No - SURGICAL HISTORY Hx Surgeries: Yes Other/Comment: cardiac surgery- valve - ANESTHESIA Hx Anesthesia: Yes Hx Anesthesia Reactions: No Hx Malignant Hyperthermia: No Has any member of the family had a problem w/ anesthesia?: No Meds Allergies/Adverse Reactions: Allergies Allergy/AdvReac Type Severity Reaction Status Date / Time SEAFOOD Allergy Uncoded 12/27/16 08:30 - Medications Medications: Current Medications Acetaminophen (Tylenol 325 Mg Supp) 975 mg NE ONCE PRN PRN Reason: Fever >100.4 F Last Admin: 12/27/16 10:30 Dose: 975 mg Albumin Human (Albumin Human 25% (12.5 Gm/50 Ml)) 12.5 gm IV Q8H ZAHRA Last Admin: 12/27/16 14:56 Dose: 12.5 gm Aspirin (Aspirin Chewable) 81 mg PO DAILY [facility] Famotidine (Pepcid) 20 mg IVP DAILY [facility] Last Admin: 12/27/16 14:49 Dose: 20 mg Heparin Sodium (Porcine) (Heparin) 5,000 units SC Q8 [facility] Last Admin: 12/27/16 14:50 Dose: 5,000 units Norepinephrine Bitartrate 4 mg (/ Sodium Chloride) 254 mls @ 15.24 mls/hr IV .[id number] PRN; Protocol; 4 MCG/MIN PRN Reason: TITRATE PER MD ORDER Last Admin: 12/27/16 15:32 Dose: 20 mcg/min, 76.2 mls/hr Dexmedetomidine HCl 200 mcg/ (Sodium Chloride) 50 mls @ 3.17 mls/hr IV TITR PRN ; Protocol; 0.2 MCG/KG/HR PRN Reason: Sedation Last Admin: 12/27/16 16:58 Dose: 1 mcg/kg/hr, 15.87 mls/hr Potassium Chloride (Potassium Chloride 20 Meq/100 Ml) 20 meq in 100 mls @ 50 mls/hr IVPB Q2H [facility] Stop: 12/27/16 19:59 Last Admin: 12/27/16 17:02 Dose: 50 mls/hr Piperacillin Sod/Tazobactam Sod (Zosyn 2.25 Gm Iv Premix) 2.25 gm in 50 mls @ 100 mls/hr IVPB Q8H [facility] Last Admin: 12/27/16 15:34 Dose: 100 mls/hr Vancomycin/Sodium Chloride (Vancocin) 1 gm in 200 mls @ 133.333 mls/hr IVPB DAILY [facility] Stop: 01/02/17 10:01 Lorazepam (Ativan) 1 mg IVP Q4H PRN PRN Reason: Anxiety Last Admin: 12/27/16 16:12 Dose: 1 mg Physical Exam - Constitutional Appears: Toxic, Confused, Cachectic, Chronically Ill - Head Exam Head Exam: ATRAUMATIC, NORMAL INSPECTION, NORMOCEPHALIC - Eye Exam Eye Exam: PERRL. absent: Scleral icterus - ENT Exam ENT Exam: Mucous Membranes Dry, Normal External Ear Exam - Neck Exam Neck exam: Negative for: Lymphadenopathy, Thyromegaly - Respiratory Exam Respiratory Exam: Decreased Breath Sounds, Rhonchi - Cardiovascular Exam Cardiovascular Exam: Tachycardia, REGULAR RHYTHM, +S1, +S2 - GI/Abdominal Exam GI & Abdominal Exam: Diminished Bowel Sounds, Distended, Soft. absent: Tenderness - Rectal Exam Rectal Exam: Deferred - Exam Exam: NORMAL INSPECTION - Extremities Exam Extremities exam: Positive for: pedal edema, pedal pulses present. Negative for : calf tenderness Additional comments: SKIN MULT BLOOD BLISTERS B/L LOWER LEGS, NO ACTIVE BLEEDING; +CELLULITIS L FOOT TO MED L THIGH. +CHRONIC WOUND L LOWER LEG. NO PRESSURE SORES EXT +PITTING EDEMA B/L PEDAL TO ABD WALL. A - Back Exam Back exam: absent: CVA tenderness (L), CVA tenderness (R) - Neurological Exam Neurological exam: Altered - Psychiatric Exam Psychiatric exam: Depressed - Skin Skin Exam: Dry, Intact Results - Vital Signs Recent Vital Signs: Last Vital Signs Temp 99.9 F H 12/27/16 11:03 Pulse 85 12/27/16 15:32 Resp 29 H 12/27/16 15:32 BP 103/55 L 12/27/16 15:32 Pulse Ox 88 L 12/27/16 15:32 - Labs Result Diagrams: 12/27/16 09:15 12/27/16 09:15 Labs: Laboratory Results - last 24 hr 12/27/16 12/27/16 12/27/16 11:54 13:21 14:49 Puncture Site Rr pCO2 64 H pO2 39 131 H HCO3 23.6 ABG pH 7.23 L ABG Total CO2 28.8 H ABG O2 Saturation 99.6 H ABG Base Excess -1.7 ABG Hemoglobin 11.2 L ABG Carboxyhemoglobin 2.6 H POC ABG HHb (Measured) 0.4 ABG Methemoglobin 1.0 Jordon Test Pos VBG pH 7.19 L* VBG pCO2 81 H* VBG HCO3 24.1 VBG Total CO2 33.4 H VBG O2 Sat (Calc) 70.4 H VBG Base Excess 0.3 VBG Potassium 2.7 L A-a O2 Difference 502.0 Respiratory Index 3.8 Hgb O2 Saturation 96.0 Sodium 138.0 Chloride 99.0 Glucose 77 Lactate 2.1 Vent Mode Prvc Mechanical Rate 16 FiO2 100.0 100.0 Tidal Volume 350 PEEP 5 Crit Value Called To Crit Value Called By Bubba,patl,marketing systems manager Crit Value Read Back Y Blood Gas Notified Time 1155 Venous Blood Potassium 2.7 L Fluid Source Pleural Fluid Appearance Sl cloudy Fluid WBC 99.0 Fluid RBC 2007.0 H Fluid Tot Cell Count TEST NOT PERFORMED Fluid Neutrophils 11.0 H Fluid Lymphocytes 78.0 H Fld Monocyte/Macrophag 10 H Fluid Comment Assessment & Plan (1) Hypotension Status: Acute (2) Respiratory distress Status: Acute (3) Sepsis Status: Acute (4) Pneumonia Status: Acute (5) Cellulitis and abscess of foot Status: Acute (6) Septic shock Status: Acute (7) Respiratory failure Status: Acute (8) Respiratory failure Status: Acute (9) CHF (congestive heart failure) Status: Acute (10) CHF (congestive heart failure) Status: Acute (11) H/O mitral valve replacement Status: Acute (12) Altered mental status Status: Acute - Assessment and Plan (Free Text) Assessment: multiple possible sourses for fever/ sepsis iv rx in progress
--- NOTE | 2016-12-27 18:31 | US ---
HISTORY: Abdominal distention COMPARISON: None. TECHNIQUE: Grayscale imaging was performed FINDINGS: LIVER: Measures 14.4 cm. There is diffuse increased echogenicity in the liver parenchyma with nodular contour. No mass. No intrahepatic bile duct dilatation. GALLBLADDER: There is diffuse thickening of the gallbladder wall. There are gallstones. COMMON BILE DUCT: Measures 6.0 mm. No stones. No dilatation. PANCREAS: Unremarkable as visualized. No mass. No ductal dilatation. RIGHT KIDNEY: Measures 9.2cm. There is diffuse increased echogenicity. No calculus, mass, or hydronephrosis. LEFT KIDNEY: Measures 8.7cm. There is diffuse increased echogenicity. No calculus, mass, or hydronephrosis. SPLEEN: Normal in size and contour. No mass. AORTA: No aneurysmal dilatation. IVC: Unremarkable. OTHER FINDINGS: There is large abdominal and pelvic ascites. There is also a right pleural effusion. IMPRESSION: 1. Cirrhosis of liver. 2. Large abdominal and pelvic ascites. Small right pleural effusion. 3. Cholelithiasis. Diffuse gallbladder wall thickening is likely secondary to cirrhosis of liver.
[2016-12-27] MEDS ORDERED: Dextrose 50% SYRINGE Inj (50 ml) IV STA (19:10)
[2016-12-27] MEDS ORDERED: Dextrose 50% SYRINGE Inj (50 ml) ONE (19:13)
--- NOTE | 2016-12-27 23:24 | CP.PCM.CON ---
History of Present Illness - History of Present Illness History of Present Illness: CC: Cardiac Evaluation 86 year old female with medical history of HTN, CHF, CKD, and CABG, presents to the ED by ambulance with shortness of breath. The patient's son, Polo, reports she felt nauseas, feverish, and had chills this morning. As he was helping her to the restroom, patient urinated, passed out, and remained unresponsive. In the ED, patient was hypotensive and in respiratory distress. Code sepsis was called. Patient is in the ICU for respiratory distress, hypotension, and sepsis. Patient's chest xray showed opacification of right hemithorax with midline shift. Review of systems was not obtained due to patients status. PMD: Dr. Smith PMHx: HTN, Mitral valve replacement, CABG (2016), "kidney problems, only 1 works ", CHF (chronic LE edema) SurgHx: CABG (2016), mitral valve replacement FamHx: denies SocHx: denies tobacco, alcohol, and drug use; lives with son, Polo Allergies: Fish (reaction unknown) Medications: "medication for HTN, diueretic, and cholesterol". See EMR Present on Admission - Present on Admission Any Indicators Present on Admission: No Review of Systems - Review of Systems Systems not reviewed;Unavailable: Intubated Meds Allergies/Adverse Reactions: Allergies Allergy/AdvReac Type Severity Reaction Status Date / Time SEAFOOD Allergy Uncoded 12/27/16 08:30 Physical Exam - Head Exam Head Exam: ATRAUMATIC, NORMAL INSPECTION - ENT Exam ENT Exam: Mucous Membranes Moist Additional comments: Intubated - Respiratory Exam Respiratory Exam: Rales, Respiratory Distress. absent: Clear to Auscultation Bilateral, NORMAL BREATHING PATTERN - Cardiovascular Exam Cardiovascular Exam: Tachycardia, +S1, +S2. absent: REGULAR RHYTHM - GI/Abdominal Exam GI & Abdominal Exam: Diminished Bowel Sounds, Distended, Firm. absent: Normal Bowel Sounds, Soft - Extremities Exam Extremities exam: Positive for: pedal edema. Negative for: normal inspection, pedal pulses present (diminished) - Skin Skin Exam: Erythema, Warm Additional comments: Chronic changes due to B/L LE edema Past Patient History - Past Medical History & Family History Past Medical History?: Yes - Past Social History Smoking Status: Unknown If Ever Smoked - CARDIAC Hx Cardiac Disorders: Yes Hx Hypercholesterolemia: Yes Hx Hypertension: Yes Other/Comment: heart valve surgery as per son - PULMONARY Hx Respiratory Disorders: No - NEUROLOGICAL Hx Neurological Disorder: No - HEENT Hx HEENT Problems: No - RENAL Hx Chronic Kidney Disease: No - ENDOCRINE/METABOLIC Hx Endocrine Disorders: No - HEMATOLOGICAL/ONCOLOGICAL Hx Blood Disorders: No - INTEGUMENTARY Hx Dermatological Problems: No - MUSCULOSKELETAL/RHEUMATOLOGICAL Hx Musculoskeletal Disorders: No Hx Falls: No - GASTROINTESTINAL Hx Gastrointestinal Disorders: No - GENITOURINARY/GYNECOLOGICAL Hx Genitourinary Disorders: Yes - PSYCHIATRIC Hx Substance Use: No - SURGICAL HISTORY Hx Surgeries: Yes Other/Comment: cardiac surgery- valve - ANESTHESIA Hx Anesthesia: Yes Hx Anesthesia Reactions: No Hx Malignant Hyperthermia: No Has any member of the family had a problem w/ anesthesia?: No Meds Allergies/Adverse Reactions: Allergies Allergy/AdvReac Type Severity Reaction Status Date / Time SEAFOOD Allergy Uncoded 12/27/16 08:30 - Medications Medications: Current Medications Acetaminophen (Tylenol 325 Mg Supp) 975 mg HI ONCE PRN PRN Reason: Fever >100.4 F Last Admin: 12/27/16 10:30 Dose: 975 mg Albumin Human (Albumin Human 25% (12.5 Gm/50 Ml)) 12.5 gm IV Q8H [facility] Last Admin: 12/27/16 21:30 Dose: 12.5 gm Aspirin (Aspirin Chewable) 81 mg PO DAILY [facility] Famotidine (Pepcid) 20 mg IVP DAILY [facility] Last Admin: 12/27/16 14:49 Dose: 20 mg Heparin Sodium (Porcine) (Heparin) 5,000 units SC Q8 [facility] Last Admin: 12/27/16 21:31 Dose: 5,000 units Norepinephrine Bitartrate 4 mg (/ Sodium Chloride) 254 mls @ 15.24 mls/hr IV .[id number] PRN; Protocol; 4 MCG/MIN PRN Reason: TITRATE PER MD ORDER Last Admin: 12/27/16 22:16 Dose: 15.74 mcg/min, 59.96 mls/hr Dexmedetomidine HCl 200 mcg/ (Sodium Chloride) 50 mls @ 3.17 mls/hr IV TITR PRN ; Protocol; 0.2 MCG/KG/HR PRN Reason: Sedation Last Admin: 12/27/16 22:16 Dose: 1 mcg/kg/hr, 15.87 mls/hr Piperacillin Sod/Tazobactam Sod (Zosyn 2.25 Gm Iv Premix) 2.25 gm in 50 mls @ 100 mls/hr IVPB Q8H [facility] Last Admin: 12/27/16 15:34 Dose: 100 mls/hr Vancomycin/Sodium Chloride (Vancocin) 1 gm in 200 mls @ 133.333 mls/hr IVPB DAILY [facility] Stop: 01/02/17 10:01 Lorazepam (Ativan) 1 mg IVP Q4H PRN PRN Reason: Anxiety Last Admin: 12/27/16 16:12 Dose: 1 mg Results - Vital Signs Recent Vital Signs: Last Vital Signs Temp 96.1 F L 12/27/16 20:00 Pulse 62 12/27/16 22:40 Resp 23 12/27/16 22:40 BP 120/53 L 12/27/16 22:36 Pulse Ox 92 L 12/27/16 22:40 - Labs Result Diagrams: 12/27/16 09:15 12/27/16 09:15 Labs: Laboratory Results - last 24 hr 12/27/16 12/27/16 12/27/16 11:54 13:21 14:49 Puncture Site Rr pCO2 64 H pO2 39 131 H HCO3 23.6 ABG pH 7.23 L ABG Total CO2 28.8 H ABG O2 Saturation 99.6 H ABG Base Excess -1.7 ABG Hemoglobin 11.2 L ABG Carboxyhemoglobin 2.6 H POC ABG HHb (Measured) 0.4 ABG Methemoglobin 1.0 Jordon Test Pos VBG pH 7.19 L* VBG pCO2 81 H* VBG HCO3 24.1 VBG Total CO2 33.4 H VBG O2 Sat (Calc) 70.4 H VBG Base Excess 0.3 VBG Potassium 2.7 L A-a O2 Difference 502.0 Respiratory Index 3.8 Hgb O2 Saturation 96.0 Sodium 138.0 Chloride 99.0 Glucose 77 Lactate 2.1 Vent Mode Prvc Mechanical Rate 16 FiO2 100.0 100.0 Tidal Volume 350 PEEP 5 Crit Value Called To Crit Value Called By zeyad Mac,church administrator Crit Value Read Back Y Blood Gas Notified Time 1155 POC Glucose (mg/dL) Total Creatine Kinase CK-MB (Mass) Troponin I, Quant Venous Blood Potassium 2.7 L Fluid Source Pleural Fluid Appearance Sl cloudy Fluid WBC 99.0 Fluid RBC 2007.0 H Fluid Tot Cell Count TEST NOT PERFORMED Fluid Neutrophils 11.0 H Fluid Lymphocytes 78.0 H Fld Monocyte/Macrophag 10 H Fluid Comment 12/27/16 12/27/16 12/27/16 19:08 19:41 19:44 Puncture Site pCO2 pO2 HCO3 ABG pH ABG Total CO2 ABG O2 Saturation ABG Base Excess ABG Hemoglobin ABG Carboxyhemoglobin POC ABG HHb (Measured) ABG Methemoglobin Jordon Test VBG pH VBG pCO2 VBG HCO3 VBG Total CO2 VBG O2 Sat (Calc) VBG Base Excess VBG Potassium A-a O2 Difference Respiratory Index Hgb O2 Saturation Sodium Chloride Glucose Lactate Vent Mode Mechanical Rate FiO2 Tidal Volume PEEP Crit Value Called To Crit Value Called By Crit Value Read Back Blood Gas Notified Time POC Glucose (mg/dL) 60 L 162 H Total Creatine Kinase 191 H CK-MB (Mass) 4.53 H Troponin I, Quant 0.4060 H* Venous Blood Potassium Fluid Source Fluid Appearance Fluid WBC Fluid RBC Fluid Tot Cell Count Fluid Neutrophils Fluid Lymphocytes Fld Monocyte/Macrophag Fluid Comment Assessment & Plan - Assessment and Plan (Free Text) Assessment: 1. Sepsis and Hypotension 2. CAD h/o CABG 3. Mitral valve disease s/p MVR 4. CKD 5. Respiratory failure Check ECHO
[2016-12-28] MEDS: Dexmedetomidine Hydrochloride 200 MCG in Sodium Chloride 0.9% 48 ML IV PRN ×3 (01:40→11:22)
[2016-12-28 04:48] LABS: BASO # 0.2 K/uL (0.0-0.2); EOS # 0.2 K/uL (0.0-0.7); EOS % 1.2 % (0.0-4.0); HEMATOCRIT 40.2 % (34.0-47.0); LYMPH # 1.1 K/uL (1.0-4.3); LYMPH % 6.7 % (20.0-40.0); MEAN CELL VOLUME 88.4 fL (81.0-99.0); MEAN CORPUSCULAR HEMOGLOBIN 29.2 pg (27.0-31.0); MEAN CORPUSCULAR HGB CONC 33.1 g/dL (33.0-37.0); MEAN PLATELET VOLUME 8.3 fL (7.2-11.7); MONO # 0.3 K/uL (0.0-0.8); PLATELET COUNT 130 K/uL (130-400); RED CELL DISTRIBUTION WIDTH 15.9 % (11.5-14.5)
[2016-12-28 04:54] LABS: POTASSIUM 3.3 mmol/L (3.6-5.2)
[2016-12-28 04:56] LABS: ALB/GLOB RATIO 0.9 (1.0-2.1); BILIRUBIN,TOTAL 2.8 mg/dL (0.2-1.3); CALCIUM 7.8 mg/dl (8.6-10.4); PHOSPHOROUS 2.9 mg/dL (2.5-4.5); TOTAL PROTEIN 5.3 g/dL (6.3-8.3)
[2016-12-28 04:57] LABS: MAGNESIUM 1.9 mg/dL (1.6-2.3)
[2016-12-28] MEDS: Albumin Human 25% (12.5 gm/50 ml) IV SCH ×3 (05:23→21:56)
[2016-12-28 05:44] LABS: ABG ALLEN TEST POS; ABG MECHANICAL RATE 16; ARTERIAL BLOOD GAS MODE PRVC; ARTERIAL BLOOD HGB O2 SAT 97.4 % (95.0-98.0); ATERIAL BLOOD GAS PEEP 5; CARBOXYHEMOGLOBIN 1.8 % (0.5-1.5); DRAW SITE RR; HHB -0.4 % (0.0-5.0); METHEMOGLOBIN 1.1 % (0.0-3.0)
[2016-12-28] MEDS: Piperacill/Tazo 2.25gm in Dex 2.25 GM/50 ML BAG IVPB SCH ×3 (06:26→22:48)
[2016-12-28 06:35] LABS: NEUTROPHIL 75 % (50-75); REACTIVE LYMPHOCYTES 1 % (0-0); TOTAL CELLS COUNTED 100
[2016-12-28 06:37] LABS: LARGE PLATELETS PRESENT
--- NOTE | 2016-12-28 09:09 | RAD ---
HISTORY: intubated COMPARISON: 12/27/2016 FINDINGS: The endotracheal tube terminates 3 cm proximal to the julio cesar. There is stable position of a right-sided chest tube The right subclavian line terminates in the SVC. The nasogastric tube terminates in the stomach. LUNGS: There is interval worsening of airspace disease in the right middle and lower lobes and persistent left retrocardiac opacity. There is moderate pulmonary venous congestion. PLEURA: There is a persistent moderate right pleural effusion with a loculated component along the right lateral wall. There is also layering left pleural effusion. CARDIOVASCULAR: There is persistent moderate cardiomegaly. Status post CABG. OSSEOUS STRUCTURES: No significant abnormalities. VISUALIZED UPPER ABDOMEN: Normal. OTHER FINDINGS: None. IMPRESSION: 1. Stable position of lines and tubes. 2. Worsening consolidation in the right middle and lower lobes and suspect left lower lobe atelectasis/pneumonia. Follow-up to resolution is advised. 3. Persistent right pleural effusion with a loculated component along the right lateral chest wall. Also suspected is small layering left pleural effusion.
[2016-12-28] MEDS: Vancomycin 1 gm/NS 200 ml 1 GM/200 ML BAG IVPB SCH (09:23)
--- NOTE | 2016-12-28 16:32 | CP.PCM.PN ---
Subjective - Date & Time of Evaluation Date of Evaluation: 12/29/16 Time of Evaluation: 12:00 - Subjective Subjective: Patient was seen and examined in ICU. Patient is intubated and sedated. Objective - Vital Signs/Intake and Output Vital Signs (last 24 hours): Temp Pulse Resp BP Pulse Ox 97.5 F L 72 26 H 107/46 L 100 12/28/16 12:00 12/28/16 12:20 12/28/16 12:20 12/28/16 12:49 12/28/16 12:20 Intake and Output: 12/28/16 12/28/16 06:59 18:59 Intake Total 1881.9 671 Output Total 1130 695 Balance 751.9 -24 - Medications Medications: Current Medications Acetaminophen (Tylenol 325 Mg Supp) 975 mg FL ONCE PRN PRN Reason: Fever >100.4 F Last Admin: 12/27/16 10:30 Dose: 975 mg Albumin Human (Albumin Human 25% (12.5 Gm/50 Ml)) 12.5 gm IV Q8H [facility] Last Admin: 12/28/16 14:22 Dose: 12.5 gm Aspirin (Aspirin Chewable) 81 mg PO DAILY [facility] Last Admin: 12/28/16 09:22 Dose: 81 mg Famotidine (Pepcid) 20 mg IVP DAILY [facility] Last Admin: 12/28/16 09:22 Dose: 20 mg Heparin Sodium (Porcine) (Heparin) 5,000 units SC Q8 [facility] Last Admin: 12/28/16 14:22 Dose: 5,000 units Norepinephrine Bitartrate 4 mg (/ Sodium Chloride) 254 mls @ 15.24 mls/hr IV .[id number] PRN; Protocol; 4 MCG/MIN PRN Reason: TITRATE PER MD ORDER Last Admin: 12/28/16 12:49 Dose: 12 mcg/min, 45.72 mls/hr Dexmedetomidine HCl 200 mcg/ (Sodium Chloride) 50 mls @ 3.17 mls/hr IV TITR PRN ; Protocol; 0.2 MCG/KG/HR PRN Reason: Sedation Last Admin: 12/28/16 11:22 Dose: 0.31 mcg/kg/hr, 5 mls/hr Piperacillin Sod/Tazobactam Sod (Zosyn 2.25 Gm Iv Premix) 2.25 gm in 50 mls @ 100 mls/hr IVPB Q8H [facility] Last Admin: 12/28/16 15:47 Dose: 100 mls/hr Vancomycin/Sodium Chloride (Vancocin) 1 gm in 200 mls @ 133.333 mls/hr IVPB DAILY [facility] Stop: 01/02/17 10:01 Last Admin: 12/28/16 09:23 Dose: 133.333 mls/hr Potassium Chloride (Potassium Chloride 20 Meq/100 Ml) 20 meq in 100 mls @ 50 mls/hr IVPB Q2H [facility] Stop: 12/28/16 16:59 Last Admin: 12/28/16 15:04 Dose: 50 mls/hr Lorazepam (Ativan) 1 mg IVP Q4H PRN PRN Reason: Anxiety Last Admin: 12/28/16 11:37 Dose: 1 mg - Labs Labs: 12/28/16 04:35 12/28/16 04:35 PT 15.4 SECONDS (9.7-12.2) H 12/27/16 09:15 INR 1.4 12/27/16 09:15 APTT 30 SECONDS (21-34) 12/27/16 09:15 - Head Exam Head Exam: ATRAUMATIC, NORMOCEPHALIC - Respiratory Exam Additional comments: Patient is intubated on ventilator. Transmitted breath sounds audible. - Cardiovascular Exam Cardiovascular Exam: +S1, +S2 - GI/Abdominal Exam GI & Abdominal Exam: Soft - Extremities Exam Additional comments: Bilateral lower extremity edema. Bilateral lower extremity blisters present. Assessment and Plan (1) CHF (congestive heart failure) Status: Acute (2) Cellulitis and abscess of foot Status: Acute (3) H/O mitral valve replacement Status: Acute (4) Hypotension Status: Acute (5) Pneumonia Status: Acute (6) Septic shock Status: Acute - Assessment and Plan (Free Text) Plan: Patient is currently being monitored in ICU. Continue management of septic shock curve with IV antibiotics and pressor support Patient is intubated and not a candidate for weaning at this time I discussed the plan of care with the ICU team and agree with the assessment and plan of the ICU team.
--- NOTE | 2016-12-28 17:05 | CP.CCUPN ---
CCU Objective - Vital Signs / Intake & Output Intake and Output (Last 8hrs): Intake & Output 12/28/16 12/28/16 12/28/16 06:59 14:59 22:59 Intake Total 1281.6 671 Output Total 495 695 Balance 786.6 -24 Weight 145 lb 4.8 oz Intake: IV 618 294 Intake, IV Amount 663.6 377 Right Distal Port 50 30 Subclavian Right Medial Port 480 312 Subclavian Right Proximal Port 133.6 35 Subclavian Oral 0 Output: Chest Tube Drainage 310 Right Posterior Chest 310 Urine 495 385 Urethral (More[place]) 495 385 Other: # Bowel Movements 0 - Medications Active Medications: Active Medications Generic Name Dose Route Start Last Admin Trade Name Freq PRN Reason Stop Dose Admin Acetaminophen 975 mg 12/27/16 08:39 12/27/16 10:30 Tylenol 325 Mg Supp [place] 975 mg ONCE PRN Administration Fever >100.4 F Albumin Human 12.5 gm 12/27/16 14:15 12/28/16 14:22 Albumin Human 25% (12.5 Gm/50 Ml) IV 12.5 gm Q8H [facility] Administration Aspirin 81 mg 12/28/16 10:00 12/28/16 09:22 Aspirin Chewable PO 81 mg DAILY [facility] Administration Famotidine 20 mg 12/27/16 14:30 12/28/16 09:22 Pepcid IVP 20 mg DAILY [facility] Administration Heparin Sodium (Porcine) 5,000 units 12/27/16 14:30 12/28/16 14:22 Heparin SC 5,000 units Q8 [facility] Administration Norepinephrine Bitartrate 4 mg 254 mls @ 15.24 mls/hr 12/27/16 12:10 12:49 / Sodium Chloride IV 12 mcg/min .[id number] PRN 45.72 mls/hr TITRATE PER MD ORDER Administration Protocol 4 MCG/MIN Dexmedetomidine HCl 200 mcg/ 50 mls @ 3.17 mls/hr 12/27/16 14:00 12/28/16 11: 22 Sodium Chloride IV 0.31 mcg/kg/hr TITR PRN 5 mls/hr Sedation Administration Protocol 0.2 MCG/KG/HR Piperacillin Sod/Tazobactam Sod 2.25 gm in 50 mls @ 100 mls/hr 12/27/16 15:00 12/28/16 15:47 Zosyn 2.25 Gm Iv Premix IVPB 100 mls/hr Q8H [facility] Administration Vancomycin/Sodium Chloride 1 gm in 200 mls @ 133.333 mls/hr 12/28/16 10:00 09:23 Vancocin IVPB 01/02/17 10:01 133.333 mls/hr DAILY [facility] Administration Lorazepam 1 mg 12/27/16 15:30 12/28/16 11:37 Ativan IVP 1 mg Q4H PRN Administration Anxiety - Patient Studies Lab Studies: Microbiology Studies 12/27/16 Unknown Gram Stain - Final Leg - Left Wound Culture - Preliminary Staphylococcus Aureus 12/27/16 Unknown Gram Stain - Final Pleural Fluid Body Fluid Culture - Preliminary NO GROWTH AFTER 24 HOURS 12/27/16 Unknown Gram Stain - Final Trachasp Lab Studies 12/28/16 12/28/16 12/28/16 Range/Units 12:01 06:02 05:33 WBC (4.8-10.8) K/uL RBC (3.80-5.20) Mil/uL Hgb (11.0-16.0) g/dL Hct (34.0-47.0) % MCV (81.0-99.0) fL MCH (27.0-31.0) pg MCHC (33.0-37.0) g/dL RDW (11.5-14.5) % Plt Count (130-400) K/uL MPV (7.2-11.7) fL Neut % (Auto) (50.0-75.0) % Lymph % (Auto) (20.0-40.0) % Toole % (Auto) (0.0-10.0) % Eos % (Auto) (0.0-4.0) % Baso % (Auto) (0.0-2.0) % Neut # (1.8-7.0) K/uL Lymph # (1.0-4.3) K/uL Toole # (0.0-0.8) K/uL Eos # (0.0-0.7) K/uL Baso # (0.0-0.2) K/uL Neutrophils % (Manual) (50-75) % Band Neutrophils % (0-2) % Lymphocytes % (Manual) (20-40) % Reactive Lymphs % (0-0) % Monocytes % (Manual) (0-10) % Platelet Estimate (NORMAL) Large Platelets Anisocytosis (manual) Ovalocytes Puncture Site Rr pCO2 32 L (35-45) mm/Hg pO2 481 H (80-100) mm/Hg HCO3 26.3 (21-28) mmol/L ABG pH 7.49 H (7.35-7.45) ABG Total CO2 25.4 (22-28) mmol/L ABG O2 Saturation 100.4 H (95-98) % ABG Base Excess 1.7 (-2.0-3.0) mmol/L ABG Hemoglobin 13.9 (11.7-17.4) g/dL ABG Carboxyhemoglobin 1.8 H (0.5-1.5) % POC ABG HHb (Measured) -0.4 L (0.0-5.0) % ABG Methemoglobin 1.1 (0.0-3.0) % Jordon Test Pos A-a O2 Difference 192.0 mm/Hg Respiratory Index 0.4 Hgb O2 Saturation 97.4 (95.0-98.0) % Vent Mode Prvc Mechanical Rate 16 FiO2 100.0 % Tidal Volume 350 PEEP 5 Sodium (132-148) mmol/L Potassium (3.6-5.2) mmol/L Chloride (98-107) mmol/L Carbon Dioxide (22-30) mmol/L Anion Gap (10-20) BUN (7-17) mg/dL Creatinine (0.7-1.2) MG/DL Est GFR ( Amer) Est GFR (Non-Af Amer) POC Glucose (mg/dL) 79 83 (65-110) mg/dL Random Glucose (65-105) mg/dL Calcium (8.6-10.4) mg/dl Phosphorus (2.5-4.5) mg/dL Magnesium (1.6-2.3) mg/dL Total Bilirubin (0.2-1.3) mg/dL AST (14-36) U/L ALT (9-52) U/L Alkaline Phosphatase (38-126) U/L Total Creatine Kinase (30-135) U/L CK-MB (Mass) (0.0-3.38) ng/mL Troponin I, Quant (0.00-0.120) ng/mL Total Protein (6.3-8.3) g/dL Albumin (3.5-5.0) g/dL Globulin (2.2-3.9) gm/dL Albumin/Globulin Ratio (1.0-2.1) 12/28/16 12/28/16 12/28/16 Range/Units 04:35 04:35 00:20 WBC 16.0 H D (4.8-10.8) K/uL RBC 4.55 (3.80-5.20) Mil/uL Hgb 13.3 (11.0-16.0) g/dL Hct 40.2 (34.0-47.0) % MCV 88.4 (81.0-99.0) fL MCH 29.2 (27.0-31.0) pg MCHC 33.1 (33.0-37.0) g/dL RDW 15.9 H (11.5-14.5) % Plt Count 130 (130-400) K/uL MPV 8.3 (7.2-11.7) fL Neut % (Auto) 89.1 H (50.0-75.0) % Lymph % (Auto) 6.7 L (20.0-40.0) % Toole % (Auto) 2.0 (0.0-10.0) % Eos % (Auto) 1.2 (0.0-4.0) % Baso % (Auto) 1.0 (0.0-2.0) % Neut # 14.3 H (1.8-7.0) K/uL Lymph # 1.1 (1.0-4.3) K/uL Toole # 0.3 (0.0-0.8) K/uL Eos # 0.2 (0.0-0.7) K/uL Baso # 0.2 (0.0-0.2) K/uL Neutrophils % (Manual) 75 (50-75) % Band Neutrophils % 18 H* (0-2) % Lymphocytes % (Manual) 3 L (20-40) % Reactive Lymphs % 1 H (0-0) % Monocytes % (Manual) 3 (0-10) % Platelet Estimate Normal (NORMAL) Large Platelets Present Anisocytosis (manual) Slight Ovalocytes Moderate Puncture Site pCO2 (35-45) mm/Hg pO2 (80-100) mm/Hg HCO3 (21-28) mmol/L ABG pH (7.35-7.45) ABG Total CO2 (22-28) mmol/L ABG O2 Saturation (95-98) % ABG Base Excess (-2.0-3.0) mmol/L ABG Hemoglobin (11.7-17.4) g/dL ABG Carboxyhemoglobin (0.5-1.5) % POC ABG HHb (Measured) (0.0-5.0) % ABG Methemoglobin (0.0-3.0) % Jordon Test A-a O2 Difference mm/Hg Respiratory Index Hgb O2 Saturation (95.0-98.0) % Vent Mode Mechanical Rate FiO2 % Tidal Volume PEEP Sodium 139 (132-148) mmol/L Potassium 3.3 L (3.6-5.2) mmol/L Chloride 100 (98-107) mmol/L Carbon Dioxide 26 (22-30) mmol/L Anion Gap 16 (10-20) BUN 31 H (7-17) mg/dL Creatinine 1.5 H (0.7-1.2) MG/DL Est GFR ( Amer) 40 Est GFR (Non-Af Amer) 33 POC Glucose (mg/dL) 81 (65-110) mg/dL Random Glucose 93 (65-105) mg/dL Calcium 7.8 L (8.6-10.4) mg/dl Phosphorus 2.9 (2.5-4.5) mg/dL Magnesium 1.9 (1.6-2.3) mg/dL Total Bilirubin 2.8 H (0.2-1.3) mg/dL AST 27 (14-36) U/L ALT 19 (9-52) U/L Alkaline Phosphatase 57 (38-126) U/L Total Creatine Kinase 153 H (30-135) U/L CK-MB (Mass) 4.64 H (0.0-3.38) ng/mL Troponin I, Quant 0.3270 H* (0.00-0.120) ng/mL Total Protein 5.3 L (6.3-8.3) g/dL Albumin 2.5 L (3.5-5.0) g/dL Globulin 2.8 (2.2-3.9) gm/dL Albumin/Globulin Ratio 0.9 L (1.0-2.1) 12/27/16 12/27/16 12/27/16 Range/Units 19:44 19:41 19:08 WBC (4.8-10.8) K/uL RBC (3.80-5.20) Mil/uL Hgb (11.0-16.0) g/dL Hct (34.0-47.0) % MCV (81.0-99.0) fL MCH (27.0-31.0) pg MCHC (33.0-37.0) g/dL RDW (11.5-14.5) % Plt Count (130-400) K/uL MPV (7.2-11.7) fL Neut % (Auto) (50.0-75.0) % Lymph % (Auto) (20.0-40.0) % Toole % (Auto) (0.0-10.0) % Eos % (Auto) (0.0-4.0) % Baso % (Auto) (0.0-2.0) % Neut # (1.8-7.0) K/uL Lymph # (1.0-4.3) K/uL Toole # (0.0-0.8) K/uL Eos # (0.0-0.7) K/uL Baso # (0.0-0.2) K/uL Neutrophils % (Manual) (50-75) % Band Neutrophils % (0-2) % Lymphocytes % (Manual) (20-40) % Reactive Lymphs % (0-0) % Monocytes % (Manual) (0-10) % Platelet Estimate (NORMAL) Large Platelets Anisocytosis (manual) Ovalocytes Puncture Site pCO2 (35-45) mm/Hg pO2 (80-100) mm/Hg HCO3 (21-28) mmol/L ABG pH (7.35-7.45) ABG Total CO2 (22-28) mmol/L ABG O2 Saturation (95-98) % ABG Base Excess (-2.0-3.0) mmol/L ABG Hemoglobin (11.7-17.4) g/dL ABG Carboxyhemoglobin (0.5-1.5) % POC ABG HHb (Measured) (0.0-5.0) % ABG Methemoglobin (0.0-3.0) % Jordon Test A-a O2 Difference mm/Hg Respiratory Index Hgb O2 Saturation (95.0-98.0) % Vent Mode Mechanical Rate FiO2 % Tidal Volume PEEP Sodium (132-148) mmol/L Potassium (3.6-5.2) mmol/L Chloride (98-107) mmol/L Carbon Dioxide (22-30) mmol/L Anion Gap (10-20) BUN (7-17) mg/dL Creatinine (0.7-1.2) MG/DL Est GFR ( Amer) Est GFR (Non-Af Amer) POC Glucose (mg/dL) 162 H 60 L (65-110) mg/dL Random Glucose (65-105) mg/dL Calcium (8.6-10.4) mg/dl Phosphorus (2.5-4.5) mg/dL Magnesium (1.6-2.3) mg/dL Total Bilirubin (0.2-1.3) mg/dL AST (14-36) U/L ALT (9-52) U/L Alkaline Phosphatase (38-126) U/L Total Creatine Kinase 191 H (30-135) U/L CK-MB (Mass) 4.53 H (0.0-3.38) ng/mL Troponin I, Quant 0.4060 H* (0.00-0.120) ng/mL Total Protein (6.3-8.3) g/dL Albumin (3.5-5.0) g/dL Globulin (2.2-3.9) gm/dL Albumin/Globulin Ratio (1.0-2.1) Laboratory Results - last 24 hr 12/27/16 12/27/16 12/27/16 19:08 19:41 19:44 WBC RBC Hgb Hct MCV MCH MCHC RDW Plt Count MPV Neut % (Auto) Lymph % (Auto) Toole % (Auto) Eos % (Auto) Baso % (Auto) Neut # Lymph # Toole # Eos # Baso # Neutrophils % (Manual) Band Neutrophils % Lymphocytes % (Manual) Reactive Lymphs % Monocytes % (Manual) Platelet Estimate Large Platelets Anisocytosis (manual) Ovalocytes Puncture Site pCO2 pO2 HCO3 ABG pH ABG Total CO2 ABG O2 Saturation ABG Base Excess ABG Hemoglobin ABG Carboxyhemoglobin POC ABG HHb (Measured) ABG Methemoglobin Jordon Test A-a O2 Difference Respiratory Index Hgb O2 Saturation Vent Mode Mechanical Rate FiO2 Tidal Volume PEEP Sodium Potassium Chloride Carbon Dioxide Anion Gap BUN Creatinine Est GFR ( Amer) Est GFR (Non-Af Amer) POC Glucose (mg/dL) 60 L 162 H Random Glucose Calcium Phosphorus Magnesium Total Bilirubin AST ALT Alkaline Phosphatase Total Creatine Kinase 191 H CK-MB (Mass) 4.53 H Troponin I, Quant 0.4060 H* Total Protein Albumin Globulin Albumin/Globulin Ratio 12/28/16 12/28/16 12/28/16 00:20 04:35 04:35 WBC 16.0 H D RBC 4.55 Hgb 13.3 Hct 40.2 MCV 88.4 MCH 29.2 MCHC 33.1 RDW 15.9 H Plt Count 130 MPV 8.3 Neut % (Auto) 89.1 H Lymph % (Auto) 6.7 L Toole % (Auto) 2.0 Eos % (Auto) 1.2 Baso % (Auto) 1.0 Neut # 14.3 H Lymph # 1.1 Toole # 0.3 Eos # 0.2 Baso # 0.2 Neutrophils % (Manual) 75 Band Neutrophils % 18 H* Lymphocytes % (Manual) 3 L Reactive Lymphs % 1 H Monocytes % (Manual) 3 Platelet Estimate Normal Large Platelets Present Anisocytosis (manual) Slight Ovalocytes Moderate Puncture Site pCO2 pO2 HCO3 ABG pH ABG Total CO2 ABG O2 Saturation ABG Base Excess ABG Hemoglobin ABG Carboxyhemoglobin POC ABG HHb (Measured) ABG Methemoglobin Jordon Test A-a O2 Difference Respiratory Index Hgb O2 Saturation Vent Mode Mechanical Rate FiO2 Tidal Volume PEEP Sodium 139 Potassium 3.3 L Chloride 100 Carbon Dioxide 26 Anion Gap 16 BUN 31 H Creatinine 1.5 H Est GFR ( Amer) 40 Est GFR (Non-Af Amer) 33 POC Glucose (mg/dL) 81 Random Glucose 93 Calcium 7.8 L Phosphorus 2.9 Magnesium 1.9 Total Bilirubin 2.8 H AST 27 ALT 19 Alkaline Phosphatase 57 Total Creatine Kinase 153 H CK-MB (Mass) 4.64 H Troponin I, Quant 0.3270 H* Total Protein 5.3 L Albumin 2.5 L Globulin 2.8 Albumin/Globulin Ratio 0.9 L 12/28/16 12/28/16 12/28/16 05:33 06:02 12:01 WBC RBC Hgb Hct MCV MCH MCHC RDW Plt Count MPV Neut % (Auto) Lymph % (Auto) Toole % (Auto) Eos % (Auto) Baso % (Auto) Neut # Lymph # Toole # Eos # Baso # Neutrophils % (Manual) Band Neutrophils % Lymphocytes % (Manual) Reactive Lymphs % Monocytes % (Manual) Platelet Estimate Large Platelets Anisocytosis (manual) Ovalocytes Puncture Site Rr pCO2 32 L pO2 481 H HCO3 26.3 ABG pH 7.49 H ABG Total CO2 25.4 ABG O2 Saturation 100.4 H ABG Base Excess 1.7 ABG Hemoglobin 13.9 ABG Carboxyhemoglobin 1.8 H POC ABG HHb (Measured) -0.4 L ABG Methemoglobin 1.1 Jordon Test Pos A-a O2 Difference 192.0 Respiratory Index 0.4 Hgb O2 Saturation 97.4 Vent Mode Prvc Mechanical Rate 16 FiO2 100.0 Tidal Volume 350 PEEP 5 Sodium Potassium Chloride Carbon Dioxide Anion Gap BUN Creatinine Est GFR ( Amer) Est GFR (Non-Af Amer) POC Glucose (mg/dL) 83 79 Random Glucose Calcium Phosphorus Magnesium Total Bilirubin AST ALT Alkaline Phosphatase Total Creatine Kinase CK-MB (Mass) Troponin I, Quant Total Protein Albumin Globulin Albumin/Globulin Ratio Fingerstick Blood Sugar Results: 79 Assessment/Plan (1) Respiratory distress Current Visit: Yes Status: Acute (2) Sepsis Current Visit: Yes Status: Acute (3) Hypotension Current Visit: Yes Status: Acute (4) Abdominal distension Current Visit: Yes Status: Acute (5) Prophylactic measure Current Visit: Yes Status: Acute
--- NOTE | 2016-12-28 17:59 | CT ---
CT chest without IV contrast Indication: Pleural effusion versus infiltrate Technique: Contiguous axial images were obtained through the chest without intravenous contrast enhancement. Sagittal and coronal reconstructions were generated and reviewed. This CT exam was performed using 1 or more of the falling dose reduction techniques: Automated exposure control, adjustment of the MAA and/or kV according to patient size, and/or use of iterative reconstruction technique. Radiation dose (DLP): 904.51 MGy-cm. Comparison: Chest x-ray performed 12/28/16 Findings: Tracheostomy tube terminates above the julio cesar. Nasogastric tube extends to the stomach. Right-sided PICC extends to the SVC. Visualized portions of the inferior thyroid gland appear heterogeneous. The unenhanced mediastinal and hilar vascular structures appear grossly unremarkable. Median sternotomy wires. Cardiomegaly. Valvular and coronary artery calcifications. Trace pericardial effusion. Small to moderate right and small left pleural effusions. Patchy airspace opacities within the right middle and right lower lobe compatible with pneumonia. No pneumothorax. Limited visualization of the noncontrast upper abdomen demonstrates moderate to large ascites. Nodular hepatic contour. Atrophic pancreas. IVC filter. Nodular hypertrophy of the left adrenal gland. Cholelithiasis. Degenerative changes. Impression: Tracheostomy tube terminates above the julio cesar. Nasogastric tube extends to the stomach. Right-sided PICC extends to the SVC. Small to moderate right and small left pleural effusions. Patchy airspace opacities within the right middle and right lower lobe compatible with pneumonia. Recommend follow-up to complete resolution.
--- NOTE | 2016-12-28 21:39 | CP.PCM.PN ---
Subjective - Date & Time of Evaluation Date of Evaluation: 12/28/16 Time of Evaluation: 17:00 - Subjective Subjective: Patient seen and evaluated Intubated Not in distress PMHx: HTN, Mitral valve replacement, CABG (2016), "kidney problems, only 1 works ", CHF (chronic LE edema) SurgHx: CABG (2016), mitral valve replacement FamHx: denies SocHx: denies tobacco, alcohol, and drug use; lives with sonPolo Allergies: Fish (reaction unknown) Medications: "medication for HTN, diueretic, and cholesterol". See EMR Review of Systems - Review of Systems Systems not reviewed;Unavailable: Intubated Physical Exam - Head Exam Head Exam: ATRAUMATIC, NORMAL INSPECTION - ENT Exam ENT Exam: Mucous Membranes Moist Additional comments: Intubated - Respiratory Exam Respiratory Exam: Rales, Respiratory Distress. absent: Clear to Auscultation Bilateral, NORMAL BREATHING PATTERN - Cardiovascular Exam Cardiovascular Exam: Tachycardia, +S1, +S2. absent: REGULAR RHYTHM - GI/Abdominal Exam GI & Abdominal Exam: Diminished Bowel Sounds, Distended, Firm. absent: Normal Bowel Sounds, Soft - Extremities Exam Extremities exam: Positive for: pedal edema. Negative for: normal inspection, pedal pulses present (diminished) - Skin Skin Exam: Erythema, Warm Additional comments: Chronic changes due to B/L LE edema Objective - Vital Signs/Intake and Output Vital Signs (last 24 hours): Temp Pulse Resp BP Pulse Ox 97.8 F 81 28 H 115/71 100 12/28/16 16:00 12/28/16 19:05 12/28/16 19:05 12/28/16 19:05 12/28/16 19:05 Intake and Output: 12/28/16 12/29/16 18:59 06:59 Intake Total 1129 Output Total 1560 Balance -431 - Medications Medications: Current Medications Acetaminophen (Tylenol 325 Mg Supp) 975 mg [place] ONCE PRN PRN Reason: Fever >100.4 F Last Admin: 12/27/16 10:30 Dose: 975 mg Albumin Human (Albumin Human 25% (12.5 Gm/50 Ml)) 12.5 gm IV Q8H [facility] Last Admin: 12/28/16 14:22 Dose: 12.5 gm Aspirin (Aspirin Chewable) 81 mg PO DAILY [facility] Last Admin: 12/28/16 09:22 Dose: 81 mg Famotidine (Pepcid) 20 mg IVP DAILY [facility] Last Admin: 12/28/16 09:22 Dose: 20 mg Heparin Sodium (Porcine) (Heparin) 5,000 units SC Q8 [facility] Last Admin: 12/28/16 14:22 Dose: 5,000 units Norepinephrine Bitartrate 4 mg (/ Sodium Chloride) 254 mls @ 15.24 mls/hr IV .[id number] PRN; Protocol; 4 MCG/MIN PRN Reason: TITRATE PER MD ORDER Last Admin: 12/28/16 18:56 Dose: 12 mcg/min, 45.72 mls/hr Dexmedetomidine HCl 200 mcg/ (Sodium Chloride) 50 mls @ 3.17 mls/hr IV TITR PRN ; Protocol; 0.2 MCG/KG/HR PRN Reason: Sedation Last Admin: 12/28/16 11:22 Dose: 0.31 mcg/kg/hr, 5 mls/hr Piperacillin Sod/Tazobactam Sod (Zosyn 2.25 Gm Iv Premix) 2.25 gm in 50 mls @ 100 mls/hr IVPB Q8H [facility] Last Admin: 12/28/16 15:47 Dose: 100 mls/hr Vancomycin/Sodium Chloride (Vancocin) 1 gm in 200 mls @ 133.333 mls/hr IVPB DAILY [facility] Stop: 01/02/17 10:01 Last Admin: 12/28/16 09:23 Dose: 133.333 mls/hr Lorazepam (Ativan) 1 mg IVP Q4H PRN PRN Reason: Anxiety Last Admin: 12/28/16 11:37 Dose: 1 mg - Labs Labs: 12/28/16 04:35 12/28/16 04:35 PT 15.4 SECONDS (9.7-12.2) H 12/27/16 09:15 INR 1.4 12/27/16 09:15 APTT 30 SECONDS (21-34) 12/27/16 09:15 - Head Exam Head Exam: ATRAUMATIC - Eye Exam Eye Exam: PERRL - ENT Exam ENT Exam: Mucous Membranes Moist - Respiratory Exam Respiratory Exam: NORMAL BREATHING PATTERN - Cardiovascular Exam Cardiovascular Exam: REGULAR RHYTHM, +S1, +S2 - GI/Abdominal Exam GI & Abdominal Exam: Soft, Normal Bowel Sounds - Extremities Exam Extremities Exam: Pedal Edema - Neurological Exam Additional comments: Intubated Assessment and Plan - Assessment and Plan (Free Text) Assessment: 1. Sepsis 2. Severe Pulmonary HTN 3. CAD s/p CABG 4. S/P MVR Bio) Continue current meds
[2016-12-29] MEDS: Dexmedetomidine Hydrochloride 200 MCG in Sodium Chloride 0.9% 48 ML IV PRN ×4 (04:33→21:57)
[2016-12-29] MEDS: Albumin Human 25% (12.5 gm/50 ml) IV SCH ×3 (05:18→21:15)
[2016-12-29 05:43] LABS: ABG ALLEN TEST POS; ABG MECHANICAL RATE 16; ARTERIAL BLOOD GAS MODE PRVC; ARTERIAL BLOOD HGB O2 SAT 96.7 % (95.0-98.0); ATERIAL BLOOD GAS PEEP 5; CARBOXYHEMOGLOBIN 1.9 % (0.5-1.5); DRAW SITE RR; HHB 0.1 % (0.0-5.0); METHEMOGLOBIN 1.3 % (0.0-3.0)
[2016-12-29] MEDS: Piperacill/Tazo 2.25gm in Dex 2.25 GM/50 ML BAG IVPB SCH ×3 (06:02→23:57)
[2016-12-29 06:22] LABS: BASO # 0.1 K/uL (0.0-0.2); BASO % 0.5 % (0.0-2.0); EOS # 0.1 K/uL (0.0-0.7); EOS % 0.8 % (0.0-4.0); HEMATOCRIT 37.8 % (34.0-47.0); LYMPH # 0.6 K/uL (1.0-4.3); MEAN CELL VOLUME 88.4 fL (81.0-99.0); MEAN CORPUSCULAR HGB CONC 32.8 g/dL (33.0-37.0); MEAN PLATELET VOLUME 8.5 fL (7.2-11.7); MONO # 0.6 K/uL (0.0-0.8); MONO % 4.4 % (0.0-10.0); PLATELET COUNT 111 K/uL (130-400); WHITE BLOOD COUNT 12.8 K/uL (4.8-10.8)
[2016-12-29 06:41] LABS: ALB/GLOB RATIO 1.1 (1.0-2.1); BILIRUBIN,TOTAL 2.1 mg/dL (0.2-1.3); CALCIUM 8.3 mg/dl (8.6-10.4); PHOSPHOROUS 2.7 mg/dL (2.5-4.5); POTASSIUM 3.6 mmol/L (3.6-5.2); TOTAL PROTEIN 4.7 g/dL (6.3-8.3)
[2016-12-29 08:46] LABS: EOSINOPHIL 1 % (0-4); NEUTROPHIL 67 % (50-75); TOTAL CELLS COUNTED 100
--- NOTE | 2016-12-29 09:42 | RAD ---
HISTORY: vent COMPARISON: 12/28/2016 FINDINGS: The endotracheal tube terminates 4.5 cm proximal to the julio cesar. The right PICC line terminates in the SVC. There is stable position of the right chest tube. The nasogastric tube terminates in the stomach. LUNGS: There is severe pulmonary venous congestion. There is interval significant improved aeration in the right lower lobe. PLEURA: There is a persistent small right pleural effusion with loculation along the lateral wall. There also left pleural effusion. CARDIOVASCULAR: There is persistent moderate cardiomegaly. Status post CABG. OSSEOUS STRUCTURES: No significant abnormalities. VISUALIZED UPPER ABDOMEN: Normal. OTHER FINDINGS: None. IMPRESSION: 1. Improving right lower lobe airspace disease. 2. Stable small right pleural effusion with loculated component along the right lateral wall. 3. Persistent cardiomegaly and small left pleural effusion. 4. Stable position of lines and tubes.
[2016-12-29] MEDS: Vancomycin 1 gm/NS 200 ml 1 GM/200 ML BAG IVPB SCH (09:53)
--- NOTE | 2016-12-29 10:19 | CP.PCM.CON ---
History of Present Illness - History of Present Illness History of Present Illness: Palliative consult Requested by Doctor Chung Reason: goals of care discussion I was asked by Doctor Chung to discuss goals of care with the family. Patient was about to be intubated due to acute respiratory failure and after discussing it with patient's son Mr. Hensley consent obtained. Patient is 86 yo female found at home unresponsive for unknown duration. As per report, patient was apneic with foaming at mouth. The EMS was able to improve condition with nasal trumpet and O2 supply, but abdomen remained distended. Patient than admitted to ICU for further care where her condition declined again and patient was placed on MV support. The CT chest was indicative of pneumonia. The left foot wound was positive for Staph infection. Patient diagnosed with sepsis. IV antibiotics initiated. Levophed on board for BP support. PMH: HTN, CHF, CKD Soc. Hx: single, lives at home with family Fam Hx: not documented and unable to obtain it from the patient. Patient's son is coming in for meeting today and will obtain more info. Review of Systems - Review of Systems Systems not reviewed;Unavailable: Intubated All systems: reviewed and no additional remarkable complaints except Review of Systems: As per nirsing no overnights event. Patient remained afebrile. No ROS obtained from patient due to intubation Past Patient History - Past Medical History & Family History Past Medical History?: Yes - Past Social History Smoking Status: Unknown If Ever Smoked - CARDIAC Hx Cardiac Disorders: Yes Hx Hypercholesterolemia: Yes Hx Hypertension: Yes Other/Comment: heart valve surgery as per son - PULMONARY Hx Respiratory Disorders: No - NEUROLOGICAL Hx Neurological Disorder: No - HEENT Hx HEENT Problems: No - RENAL Hx Chronic Kidney Disease: No - ENDOCRINE/METABOLIC Hx Endocrine Disorders: No - HEMATOLOGICAL/ONCOLOGICAL Hx Blood Disorders: No - INTEGUMENTARY Hx Dermatological Problems: No - MUSCULOSKELETAL/RHEUMATOLOGICAL Hx Musculoskeletal Disorders: No Hx Falls: No - GASTROINTESTINAL Hx Gastrointestinal Disorders: No - GENITOURINARY/GYNECOLOGICAL Hx Genitourinary Disorders: Yes - PSYCHIATRIC Hx Substance Use: No - SURGICAL HISTORY Hx Surgeries: Yes Other/Comment: cardiac surgery- valve - ANESTHESIA Hx Anesthesia: Yes Hx Anesthesia Reactions: No Hx Malignant Hyperthermia: No Has any member of the family had a problem w/ anesthesia?: No Meds Allergies/Adverse Reactions: Allergies Allergy/AdvReac Type Severity Reaction Status Date / Time SEAFOOD Allergy Uncoded 12/27/16 08:30 - Medications Medications: Current Medications Acetaminophen (Tylenol 325 Mg Supp) 975 mg [place] ONCE PRN PRN Reason: Fever >100.4 F Last Admin: 12/27/16 10:30 Dose: 975 mg Albumin Human (Albumin Human 25% (12.5 Gm/50 Ml)) 12.5 gm IV Q8H [facility] Last Admin: 12/29/16 05:18 Dose: 12.5 gm Aspirin (Aspirin Chewable) 81 mg PO DAILY [facility] Last Admin: 12/29/16 09:53 Dose: 81 mg Famotidine (Pepcid) 20 mg IVP DAILY [facility] Last Admin: 12/29/16 09:53 Dose: 20 mg Heparin Sodium (Porcine) (Heparin) 5,000 units SC Q8 [facility] Last Admin: 12/29/16 05:18 Dose: 5,000 units Norepinephrine Bitartrate 4 mg (/ Sodium Chloride) 254 mls @ 15.24 mls/hr IV .[id number] PRN; Protocol; 4 MCG/MIN PRN Reason: TITRATE PER MD ORDER Last Admin: 12/29/16 06:00 Dose: 13.12 mcg/min, 50 mls/hr Dexmedetomidine HCl 200 mcg/ (Sodium Chloride) 50 mls @ 3.17 mls/hr IV TITR PRN ; Protocol; 0.2 MCG/KG/HR PRN Reason: Sedation Last Admin: 12/29/16 09:54 Dose: 0.62 mcg/kg/hr, 9.84 mls/hr Piperacillin Sod/Tazobactam Sod (Zosyn 2.25 Gm Iv Premix) 2.25 gm in 50 mls @ 100 mls/hr IVPB Q8H [facility] Last Admin: 12/29/16 06:02 Dose: 100 mls/hr Vancomycin/Sodium Chloride (Vancocin) 1 gm in 200 mls @ 133.333 mls/hr IVPB DAILY [facility] Stop: 01/02/17 10:01 Last Admin: 12/29/16 09:53 Dose: 133.333 mls/hr Lorazepam (Ativan) 1 mg IVP Q4H PRN PRN Reason: Anxiety Last Admin: 12/29/16 08:03 Dose: 1 mg Physical Exam - Constitutional Appears: In Acute Distress - Head Exam Head Exam: ATRAUMATIC, NORMAL INSPECTION, NORMOCEPHALIC - Eye Exam Additional comments: sedated, not reacting to stimuli - ENT Exam Additional comments: ETT - Neck Exam Additional comments: NGT - Respiratory Exam Additional comments: On MV support - Cardiovascular Exam Cardiovascular Exam: Tachycardia, REGULAR RHYTHM - GI/Abdominal Exam GI & Abdominal Exam: Distended, Hypoactive Bowel Sounds - Rectal Exam Rectal Exam: Deferred - Extremities Exam Additional comments: left foot wound, ultiple bloody blisters to LEs, no active bleeding - Back Exam Back exam: NORMAL INSPECTION - Neurological Exam Neurological exam: Motor Sensory Deficit - Psychiatric Exam Psychiatric exam: Flat Affect - Skin Skin Exam: Normal Color, Warm Results - Vital Signs Recent Vital Signs: Last Vital Signs Temp 98 F 12/29/16 08:00 Pulse 81 12/29/16 08:59 Resp 27 H 12/29/16 08:59 BP 124/65 12/29/16 08:59 Pulse Ox 100 12/29/16 08:59 - Labs Result Diagrams: 12/29/16 06:16 12/29/16 06:16 Labs: Laboratory Results - last 24 hr 12/28/16 12/28/16 12/28/16 12:01 17:46 18:22 WBC RBC Hgb Hct MCV MCH MCHC RDW Plt Count MPV Neut % (Auto) Lymph % (Auto) [place] % (Auto) Eos % (Auto) Baso % (Auto) Neut # Lymph # [place] # Eos # Baso # Neutrophils % (Manual) Band Neutrophils % Lymphocytes % (Manual) Monocytes % (Manual) Eosinophils % (Manual) Platelet Estimate Poikilocytosis (manual Ovalocytes Scroggins Cells Puncture Site pCO2 pO2 HCO3 ABG pH ABG Total CO2 ABG O2 Saturation ABG Base Excess ABG Hemoglobin ABG Carboxyhemoglobin POC ABG HHb (Measured) ABG Methemoglobin Jordon Test A-a O2 Difference Respiratory Index Hgb O2 Saturation Vent Mode Mechanical Rate FiO2 Tidal Volume PEEP Sodium Potassium Chloride Carbon Dioxide Anion Gap BUN Creatinine Est GFR ( Amer) Est GFR (Non-Af Amer) POC Glucose (mg/dL) 79 74 85 Random Glucose Calcium Phosphorus Magnesium Total Bilirubin AST ALT Alkaline Phosphatase Total Protein Albumin Globulin Albumin/Globulin Ratio 12/29/16 12/29/16 12/29/16 00:41 05:23 05:28 WBC RBC Hgb Hct MCV MCH MCHC RDW Plt Count MPV Neut % (Auto) Lymph % (Auto) [place] % (Auto) Eos % (Auto) Baso % (Auto) Neut # Lymph # [place] # Eos # Baso # Neutrophils % (Manual) Band Neutrophils % Lymphocytes % (Manual) Monocytes % (Manual) Eosinophils % (Manual) Platelet Estimate Poikilocytosis (manual Ovalocytes Scroggins Cells Puncture Site Rr pCO2 34 L pO2 157 H HCO3 26.0 ABG pH 7.47 H ABG Total CO2 25.7 ABG O2 Saturation 99.9 H ABG Base Excess 1.4 ABG Hemoglobin 12.5 ABG Carboxyhemoglobin 1.9 H POC ABG HHb (Measured) 0.1 ABG Methemoglobin 1.3 Jordon Test Pos A-a O2 Difference 157.0 Respiratory Index 1.0 Hgb O2 Saturation 96.7 Vent Mode Prvc Mechanical Rate 16 FiO2 50.0 Tidal Volume 350 PEEP 5 Sodium Potassium Chloride Carbon Dioxide Anion Gap BUN Creatinine Est GFR ( Amer) Est GFR (Non-Af Amer) POC Glucose (mg/dL) 107 95 Random Glucose Calcium Phosphorus Magnesium Total Bilirubin AST ALT Alkaline Phosphatase Total Protein Albumin Globulin Albumin/Globulin Ratio 12/29/16 12/29/16 06:16 06:16 WBC 12.8 H RBC 4.27 Hgb 12.4 Hct 37.8 MCV 88.4 MCH 29.0 MCHC 32.8 L RDW 16.0 H Plt Count 111 L MPV 8.5 Neut % (Auto) 89.3 H Lymph % (Auto) 5.0 L [place] % (Auto) 4.4 Eos % (Auto) 0.8 Baso % (Auto) 0.5 Neut # 11.4 H Lymph # 0.6 L [place] # 0.6 Eos # 0.1 Baso # 0.1 Neutrophils % (Manual) 67 Band Neutrophils % 21 H* Lymphocytes % (Manual) 5 L Monocytes % (Manual) 6 Eosinophils % (Manual) 1 Platelet Estimate Decreased L Poikilocytosis (manual Slight Ovalocytes Slight Scroggins Cells Slight Puncture Site pCO2 pO2 HCO3 ABG pH ABG Total CO2 ABG O2 Saturation ABG Base Excess ABG Hemoglobin ABG Carboxyhemoglobin POC ABG HHb (Measured) ABG Methemoglobin Jordon Test A-a O2 Difference Respiratory Index Hgb O2 Saturation Vent Mode Mechanical Rate FiO2 Tidal Volume PEEP Sodium 137 Potassium 3.6 Chloride 101 Carbon Dioxide 24 Anion Gap 16 BUN 29 H Creatinine 1.4 H Est GFR ( Amer) 43 Est GFR (Non-Af Amer) 36 POC Glucose (mg/dL) Random Glucose 87 Calcium 8.3 L Phosphorus 2.7 Magnesium 2.0 Total Bilirubin 2.1 H AST 21 ALT 19 Alkaline Phosphatase 75 Total Protein 4.7 L Albumin 2.4 L Globulin 2.2 Albumin/Globulin Ratio 1.1 Assessment & Plan - Assessment and Plan (Free Text) Assessment: Palliative consult Code status Full Code, no advance directive on chart, PPS 10% I reviewed medical records, all diagnostic studies, eaxamined patient in the bed , discussed her condition with nursing and spoke over the phone with patient's son Mr. Hensley. Patient is intubated and sedated on vasopressors, and MV support, unresponsive to stimuli. Skin is of normal color, Hb 12.4. There are multiple bloody blister to LEs, with no active bleeding and left foot cellulitis and wound. Abdomen is distended, hypoactive bowel sounds. Breathing supported by MV. BP 124/65, RR 27. WBC trending down from 16.0 to 12.8. Zosyn and Vanco IV on board.Alb 2.4 low and is being replaced. I spoke over the phone with patient's son pradeep agreed to a family meeting today at 11 am. Impression * This is acutely ill patient on life support for acute respiratory distress * Patient's wishes for end of life care are not known * Patient unable to advocate for her self due to condition * Patient is at risk for skin injury due to limited mobility, low albumin and poor perfusion Suggestion * Symptoms management * Promote skin integrity * Oral hygiene * Family meeting for goals of care discussion
[2016-12-29 17:17] LABS: GLUCOSE PLEURAL FLUID 100 mg/dL; LDH PLEURAL FLUID 127 U/L
--- NOTE | 2016-12-29 17:37 | CP.PCM.PN ---
Subjective - Date & Time of Evaluation Date of Evaluation: 12/29/16 Time of Evaluation: 10:00 - Subjective Subjective: intubated sedated NAD Objective - Vital Signs/Intake and Output Vital Signs (last 24 hours): Temp Pulse Resp BP Pulse Ox 98.1 F 69 24 107/52 L 100 12/29/16 12:00 12/29/16 16:12 12/29/16 16:12 12/29/16 16:13 12/29/16 16:12 Intake and Output: 12/29/16 12/29/16 06:59 18:59 Intake Total 1493.0 1629 Output Total 909 305 Balance 584.0 1324 - Medications Medications: Current Medications Acetaminophen (Tylenol 325 Mg Supp) 975 mg [place] ONCE PRN PRN Reason: Fever >100.4 F Last Admin: 12/27/16 10:30 Dose: 975 mg Albumin Human (Albumin Human 25% (12.5 Gm/50 Ml)) 12.5 gm IV Q8H [facility] Last Admin: 12/29/16 13:18 Dose: 12.5 gm Aspirin (Aspirin Chewable) 81 mg PO DAILY [facility] Last Admin: 12/29/16 09:53 Dose: 81 mg Famotidine (Pepcid) 20 mg IVP DAILY [facility] Last Admin: 12/29/16 09:53 Dose: 20 mg Heparin Sodium (Porcine) (Heparin) 5,000 units SC Q12 [facility] Norepinephrine Bitartrate 4 mg (/ Sodium Chloride) 254 mls @ 15.24 mls/hr IV .[id number] PRN; Protocol; 4 MCG/MIN PRN Reason: TITRATE PER MD ORDER Last Titration: 12/29/16 14:00 Dose: 7.87 mcg/min, 30 mls/hr Dexmedetomidine HCl 200 mcg/ (Sodium Chloride) 50 mls @ 3.17 mls/hr IV TITR PRN ; Protocol; 0.2 MCG/KG/HR PRN Reason: Sedation Last Admin: 12/29/16 15:39 Dose: 0.62 mcg/kg/hr, 10 mls/hr Piperacillin Sod/Tazobactam Sod (Zosyn 2.25 Gm Iv Premix) 2.25 gm in 50 mls @ 100 mls/hr IVPB Q8H [facility] Last Admin: 12/29/16 14:17 Dose: 100 mls/hr Vancomycin/Sodium Chloride (Vancocin) 1 gm in 200 mls @ 133.333 mls/hr IVPB DAILY [facility] Stop: 01/02/17 10:01 Last Admin: 12/29/16 09:53 Dose: 133.333 mls/hr Lorazepam (Ativan) 1 mg IVP Q4H PRN PRN Reason: Anxiety Last Admin: 12/29/16 16:40 Dose: 1 mg - Labs Labs: 12/29/16 06:16 12/29/16 06:16 PT 15.4 SECONDS (9.7-12.2) H 12/27/16 09:15 INR 1.4 12/27/16 09:15 APTT 30 SECONDS (21-34) 12/27/16 09:15 - Constitutional Appears: Cachectic, Chronically Ill - Head Exam Head Exam: NORMOCEPHALIC - Eye Exam Eye Exam: absent: Scleral icterus - ENT Exam ENT Exam: Mucous Membranes Dry - Neck Exam Neck Exam: absent: Lymphadenopathy - Respiratory Exam Respiratory Exam: Decreased Breath Sounds, Rhonchi - Cardiovascular Exam Cardiovascular Exam: REGULAR RHYTHM - GI/Abdominal Exam GI & Abdominal Exam: Distended, Soft - Rectal Exam Rectal Exam: Deferred - Exam Exam: NORMAL INSPECTION - Extremities Exam Extremities Exam: Pedal Edema. absent: Calf Tenderness - Back Exam Back Exam: absent: CVA tenderness (L), CVA tenderness (R) Assessment and Plan (1) Hypotension Status: Acute (2) Respiratory distress Status: Acute (3) Sepsis Status: Acute (4) Pneumonia Status: Acute (5) Cellulitis and abscess of foot Status: Acute (6) Septic shock Status: Acute (7) Respiratory failure Status: Acute (8) Respiratory failure Status: Acute (9) CHF (congestive heart failure) Status: Acute (10) CHF (congestive heart failure) Status: Acute (11) H/O mitral valve replacement Status: Acute (12) Altered mental status Status: Acute - Assessment and Plan (Free Text) Plan: resp failure/ sepsis/ pneumonia cultures + MSSA wound left leg cont iv rx poor prognosis from outset
--- NOTE | 2016-12-29 18:26 | CP.CCUPN ---
<Gaby Zhou - Last Filed: 12/29/16 18:23> CCU Subjective - Physician Review Subjective (Free Text): Patient was seen and examined at bedside in the morning. Patient is intubated and unresponsive to questions and review of systems. 12/29/16 18:24 CCU Objective - Vital Signs / Intake & Output Vital Signs (Last 4 hours): Vital Signs Pulse Resp BP Pulse Ox 12/29/16 16:13 107/52 L 12/29/16 16:12 69 24 100 12/29/16 16:00 78 22 96 12/29/16 15:00 82 32 H 108/56 L 100 Intake and Output (Last 8hrs): Intake & Output 12/29/16 12/29/16 12/29/16 06:59 14:59 22:59 Intake Total 1231.5 1459 170 Output Total 819 245 60 Balance 412.5 1214 110 Intake: IV 554 424 50 Intake, IV Amount 557.5 775 80 Right Distal Port 50 350 Subclavian Right Medial Port 432.5 345 60 Subclavian Right Proximal Port 75 80 20 Subclavian Tube Feeding 120 160 40 Other 100 Output: Chest Tube Drainage 584 Right Posterior Chest 584 Urine 235 245 60 Urethral ([place]) 235 245 60 - Physical Exam Head: Negative for: Atraumatic, Normocephalic Mouth: Positive for: Moist Mucous Membranes Respiratory/Chest: Negative for: Rales, Rhonchi Abdomen: Positive for: Distention. Negative for: Tenderness, Normal Bowel Sounds (hypoactive) Upper Extremity: Positive for: Normal Inspection Lower Extremity: Positive for: Edema, Swelling, Other (serosanginous fluid draining from burst blister on left LE. Multple blisters notes.). Negative for : Normal Inspection Skin: Positive for: Warm, Erythematous, Other (serosanginous fluid draining from burst blister on left LE. Multple blisters notes.). Negative for: Dry, Normal Color Psychiatric: Negative for: Alert, Oriented x 3, Normal Affect, Normal Mood - Medications Active Medications: Active Medications Generic Name Dose Route Start Last Admin Trade Name Freq PRN Reason Stop Dose Admin Acetaminophen 975 mg 12/27/16 08:39 12/27/16 10:30 Tylenol 325 Mg Supp ME 975 mg ONCE PRN Administration Fever >100.4 F Albumin Human 12.5 gm 12/27/16 14:15 12/29/16 13:18 Albumin Human 25% (12.5 Gm/50 Ml) IV 12.5 gm Q8H ZAHRA Administration Aspirin 81 mg 12/28/16 10:00 12/29/16 09:53 Aspirin Chewable PO 81 mg DAILY ZAHRA Administration Famotidine 20 mg 12/27/16 14:30 12/29/16 09:53 Pepcid IVP 20 mg DAILY ZAHRA Administration Heparin Sodium (Porcine) 5,000 units 12/29/16 22:00 Heparin SC Q12 [facility] Norepinephrine Bitartrate 4 mg 254 mls @ 15.24 mls/hr 12/27/16 12:10 14:00 / Sodium Chloride IV 7.87 mcg/min .[id number] PRN 30 mls/hr TITRATE PER MD ORDER Titration Protocol 4 MCG/MIN Dexmedetomidine HCl 200 mcg/ 50 mls @ 3.17 mls/hr 12/27/16 14:00 12/29/16 15: 39 Sodium Chloride IV 0.62 mcg/kg/hr TITR PRN 10 mls/hr Sedation Administration Protocol 0.2 MCG/KG/HR Piperacillin Sod/Tazobactam Sod 2.25 gm in 50 mls @ 100 mls/hr 12/27/16 15:00 12/29/16 14:17 Zosyn 2.25 Gm Iv Premix IVPB 100 mls/hr Q8H ZAHRA Administration Vancomycin/Sodium Chloride 1 gm in 200 mls @ 133.333 mls/hr 12/28/16 10:00 09:53 Vancocin IVPB 01/02/17 10:01 133.333 mls/hr DAILY ZAHRA Administration Lorazepam 1 mg 12/27/16 15:30 12/29/16 16:40 Ativan IVP 1 mg Q4H PRN Administration Anxiety - Patient Studies Lab Studies: Microbiology Studies 12/27/16 Unknown Gram Stain - Final Trachasp Sputum Culture - Final NORMAL ORAL [place] 12/27/16 Unknown Gram Stain - Final Leg - Left Wound Culture - Final Staphylococcus Aureus 12/27/16 Unknown MRSA Culture (Admit) - Final Naris MRSA NOT DETECTED Lab Studies 12/29/16 12/29/16 12/29/16 Range/Units 17:50 11:54 06:16 WBC (4.8-10.8) K/uL RBC (3.80-5.20) Mil/uL Hgb (11.0-16.0) g/dL Hct (34.0-47.0) % MCV (81.0-99.0) fL MCH (27.0-31.0) pg MCHC (33.0-37.0) g/dL RDW (11.5-14.5) % Plt Count (130-400) K/uL MPV (7.2-11.7) fL Neut % (Auto) (50.0-75.0) % Lymph % (Auto) (20.0-40.0) % [place] % (Auto) (0.0-10.0) % Eos % (Auto) (0.0-4.0) % Baso % (Auto) (0.0-2.0) % Neut # (1.8-7.0) K/uL Lymph # (1.0-4.3) K/uL [place] # (0.0-0.8) K/uL Eos # (0.0-0.7) K/uL Baso # (0.0-0.2) K/uL Neutrophils % (Manual) (50-75) % Band Neutrophils % (0-2) % Lymphocytes % (Manual) (20-40) % Monocytes % (Manual) (0-10) % Eosinophils % (Manual) (0-4) % Platelet Estimate (NORMAL) Poikilocytosis (manual Ovalocytes [place] Cells Puncture Site pCO2 (35-45) mm/Hg pO2 (80-100) mm/Hg HCO3 (21-28) mmol/L ABG pH (7.35-7.45) ABG Total CO2 (22-28) mmol/L ABG O2 Saturation (95-98) % ABG Base Excess (-2.0-3.0) mmol/L ABG Hemoglobin (11.7-17.4) g/dL ABG Carboxyhemoglobin (0.5-1.5) % POC ABG HHb (Measured) (0.0-5.0) % ABG Methemoglobin (0.0-3.0) % Jordon Test A-a O2 Difference mm/Hg Respiratory Index Hgb O2 Saturation (95.0-98.0) % Vent Mode Mechanical Rate FiO2 % Tidal Volume PEEP Sodium 137 (132-148) mmol/L Potassium 3.6 (3.6-5.2) mmol/L Chloride 101 (98-107) mmol/L Carbon Dioxide 24 (22-30) mmol/L Anion Gap 16 (10-20) BUN 29 H (7-17) mg/dL Creatinine 1.4 H (0.7-1.2) MG/DL Est GFR ( Amer) 43 Est GFR (Non-Af Amer) 36 POC Glucose (mg/dL) 127 H 121 H (65-110) mg/dL Random Glucose 87 (65-105) mg/dL Calcium 8.3 L (8.6-10.4) mg/dl Phosphorus 2.7 (2.5-4.5) mg/dL Magnesium 2.0 (1.6-2.3) mg/dL Total Bilirubin 2.1 H (0.2-1.3) mg/dL AST 21 (14-36) U/L ALT 19 (9-52) U/L Alkaline Phosphatase 75 (38-126) U/L Total Protein 4.7 L (6.3-8.3) g/dL Albumin 2.4 L (3.5-5.0) g/dL Globulin 2.2 (2.2-3.9) gm/dL Albumin/Globulin Ratio 1.1 (1.0-2.1) Pleural Total Protein g/dL Pleural LDH U/L Pleural Glucose mg/dL 12/29/16 12/29/16 12/29/16 Range/Units 06:16 05:28 05:23 WBC 12.8 H (4.8-10.8) K/uL RBC 4.27 (3.80-5.20) Mil/uL Hgb 12.4 (11.0-16.0) g/dL Hct 37.8 (34.0-47.0) % MCV 88.4 (81.0-99.0) fL MCH 29.0 (27.0-31.0) pg MCHC 32.8 L (33.0-37.0) g/dL RDW 16.0 H (11.5-14.5) % Plt Count 111 L (130-400) K/uL MPV 8.5 (7.2-11.7) fL Neut % (Auto) 89.3 H (50.0-75.0) % Lymph % (Auto) 5.0 L (20.0-40.0) % [place] % (Auto) 4.4 (0.0-10.0) % Eos % (Auto) 0.8 (0.0-4.0) % Baso % (Auto) 0.5 (0.0-2.0) % Neut # 11.4 H (1.8-7.0) K/uL Lymph # 0.6 L (1.0-4.3) K/uL [place] # 0.6 (0.0-0.8) K/uL Eos # 0.1 (0.0-0.7) K/uL Baso # 0.1 (0.0-0.2) K/uL Neutrophils % (Manual) 67 (50-75) % Band Neutrophils % 21 H* (0-2) % Lymphocytes % (Manual) 5 L (20-40) % Monocytes % (Manual) 6 (0-10) % Eosinophils % (Manual) 1 (0-4) % Platelet Estimate Decreased L (NORMAL) Poikilocytosis (manual Slight Ovalocytes Slight [place] Cells Slight Puncture Site Rr pCO2 34 L (35-45) mm/Hg pO2 157 H (80-100) mm/Hg HCO3 26.0 (21-28) mmol/L ABG pH 7.47 H (7.35-7.45) ABG Total CO2 25.7 (22-28) mmol/L ABG O2 Saturation 99.9 H (95-98) % ABG Base Excess 1.4 (-2.0-3.0) mmol/L ABG Hemoglobin 12.5 (11.7-17.4) g/dL ABG Carboxyhemoglobin 1.9 H (0.5-1.5) % POC ABG HHb (Measured) 0.1 (0.0-5.0) % ABG Methemoglobin 1.3 (0.0-3.0) % Jordon Test Pos A-a O2 Difference 157.0 mm/Hg Respiratory Index 1.0 Hgb O2 Saturation 96.7 (95.0-98.0) % Vent Mode Prvc Mechanical Rate 16 FiO2 50.0 % Tidal Volume 350 PEEP 5 Sodium (132-148) mmol/L Potassium (3.6-5.2) mmol/L Chloride (98-107) mmol/L Carbon Dioxide (22-30) mmol/L Anion Gap (10-20) BUN (7-17) mg/dL Creatinine (0.7-1.2) MG/DL Est GFR ( Amer) Est GFR (Non-Af Amer) POC Glucose (mg/dL) 95 (65-110) mg/dL Random Glucose (65-105) mg/dL Calcium (8.6-10.4) mg/dl Phosphorus (2.5-4.5) mg/dL Magnesium (1.6-2.3) mg/dL Total Bilirubin (0.2-1.3) mg/dL AST (14-36) U/L ALT (9-52) U/L Alkaline Phosphatase (38-126) U/L Total Protein (6.3-8.3) g/dL Albumin (3.5-5.0) g/dL Globulin (2.2-3.9) gm/dL Albumin/Globulin Ratio (1.0-2.1) Pleural Total Protein g/dL Pleural LDH U/L Pleural Glucose mg/dL 12/29/16 12/28/16 12/27/16 Range/Units 00:41 18:22 14:49 WBC (4.8-10.8) K/uL RBC (3.80-5.20) Mil/uL Hgb (11.0-16.0) g/dL Hct (34.0-47.0) % MCV (81.0-99.0) fL MCH (27.0-31.0) pg MCHC (33.0-37.0) g/dL RDW (11.5-14.5) % Plt Count (130-400) K/uL MPV (7.2-11.7) fL Neut % (Auto) (50.0-75.0) % Lymph % (Auto) (20.0-40.0) % [place] % (Auto) (0.0-10.0) % Eos % (Auto) (0.0-4.0) % Baso % (Auto) (0.0-2.0) % Neut # (1.8-7.0) K/uL Lymph # (1.0-4.3) K/uL [place] # (0.0-0.8) K/uL Eos # (0.0-0.7) K/uL Baso # (0.0-0.2) K/uL Neutrophils % (Manual) (50-75) % Band Neutrophils % (0-2) % Lymphocytes % (Manual) (20-40) % Monocytes % (Manual) (0-10) % Eosinophils % (Manual) (0-4) % Platelet Estimate (NORMAL) Poikilocytosis (manual Ovalocytes [place] Cells Puncture Site pCO2 (35-45) mm/Hg pO2 (80-100) mm/Hg HCO3 (21-28) mmol/L ABG pH (7.35-7.45) ABG Total CO2 (22-28) mmol/L ABG O2 Saturation (95-98) % ABG Base Excess (-2.0-3.0) mmol/L ABG Hemoglobin (11.7-17.4) g/dL ABG Carboxyhemoglobin (0.5-1.5) % POC ABG HHb (Measured) (0.0-5.0) % ABG Methemoglobin (0.0-3.0) % Jordon Test A-a O2 Difference mm/Hg Respiratory Index Hgb O2 Saturation (95.0-98.0) % Vent Mode Mechanical Rate FiO2 % Tidal Volume PEEP Sodium (132-148) mmol/L Potassium (3.6-5.2) mmol/L Chloride (98-107) mmol/L Carbon Dioxide (22-30) mmol/L Anion Gap (10-20) BUN (7-17) mg/dL Creatinine (0.7-1.2) MG/DL Est GFR ( Amer) Est GFR (Non-Af Amer) POC Glucose (mg/dL) 107 85 (65-110) mg/dL Random Glucose (65-105) mg/dL Calcium (8.6-10.4) mg/dl Phosphorus (2.5-4.5) mg/dL Magnesium (1.6-2.3) mg/dL Total Bilirubin (0.2-1.3) mg/dL AST (14-36) U/L ALT (9-52) U/L Alkaline Phosphatase (38-126) U/L Total Protein (6.3-8.3) g/dL Albumin (3.5-5.0) g/dL Globulin (2.2-3.9) gm/dL Albumin/Globulin Ratio (1.0-2.1) Pleural Total Protein <3.0 g/dL Pleural LDH 127 U/L Pleural Glucose 100 mg/dL Laboratory Results - last 24 hr 12/27/16 12/28/16 12/29/16 14:49 18:22 00:41 WBC RBC Hgb Hct MCV MCH MCHC RDW Plt Count MPV Neut % (Auto) Lymph % (Auto) [place] % (Auto) Eos % (Auto) Baso % (Auto) Neut # Lymph # [place] # Eos # Baso # Neutrophils % (Manual) Band Neutrophils % Lymphocytes % (Manual) Monocytes % (Manual) Eosinophils % (Manual) Platelet Estimate Poikilocytosis (manual Ovalocytes [place] Cells Puncture Site pCO2 pO2 HCO3 ABG pH ABG Total CO2 ABG O2 Saturation ABG Base Excess ABG Hemoglobin ABG Carboxyhemoglobin POC ABG HHb (Measured) ABG Methemoglobin Jordon Test A-a O2 Difference Respiratory Index Hgb O2 Saturation Vent Mode Mechanical Rate FiO2 Tidal Volume PEEP Sodium Potassium Chloride Carbon Dioxide Anion Gap BUN Creatinine Est GFR ( Amer) Est GFR (Non-Af Amer) POC Glucose (mg/dL) 85 107 Random Glucose Calcium Phosphorus Magnesium Total Bilirubin AST ALT Alkaline Phosphatase Total Protein Albumin Globulin Albumin/Globulin Ratio Pleural Total Protein <3.0 Pleural LDH 127 Pleural Glucose 100 12/29/16 12/29/16 12/29/16 05:23 05:28 06:16 WBC 12.8 H RBC 4.27 Hgb 12.4 Hct 37.8 MCV 88.4 MCH 29.0 MCHC 32.8 L RDW 16.0 H Plt Count 111 L MPV 8.5 Neut % (Auto) 89.3 H Lymph % (Auto) 5.0 L [place] % (Auto) 4.4 Eos % (Auto) 0.8 Baso % (Auto) 0.5 Neut # 11.4 H Lymph # 0.6 L [place] # 0.6 Eos # 0.1 Baso # 0.1 Neutrophils % (Manual) 67 Band Neutrophils % 21 H* Lymphocytes % (Manual) 5 L Monocytes % (Manual) 6 Eosinophils % (Manual) 1 Platelet Estimate Decreased L Poikilocytosis (manual Slight Ovalocytes Slight [place] Cells Slight Puncture Site Rr pCO2 34 L pO2 157 H HCO3 26.0 ABG pH 7.47 H ABG Total CO2 25.7 ABG O2 Saturation 99.9 H ABG Base Excess 1.4 ABG Hemoglobin 12.5 ABG Carboxyhemoglobin 1.9 H POC ABG HHb (Measured) 0.1 ABG Methemoglobin 1.3 Jordon Test Pos A-a O2 Difference 157.0 Respiratory Index 1.0 Hgb O2 Saturation 96.7 Vent Mode Prvc Mechanical Rate 16 FiO2 50.0 Tidal Volume 350 PEEP 5 Sodium Potassium Chloride Carbon Dioxide Anion Gap BUN Creatinine Est GFR ( Amer) Est GFR (Non-Af Amer) POC Glucose (mg/dL) 95 Random Glucose Calcium Phosphorus Magnesium Total Bilirubin AST ALT Alkaline Phosphatase Total Protein Albumin Globulin Albumin/Globulin Ratio Pleural Total Protein Pleural LDH Pleural Glucose 12/29/16 12/29/16 12/29/16 06:16 11:54 17:50 WBC RBC Hgb Hct MCV MCH MCHC RDW Plt Count MPV Neut % (Auto) Lymph % (Auto) [place] % (Auto) Eos % (Auto) Baso % (Auto) Neut # Lymph # [place] # Eos # Baso # Neutrophils % (Manual) Band Neutrophils % Lymphocytes % (Manual) Monocytes % (Manual) Eosinophils % (Manual) Platelet Estimate Poikilocytosis (manual Ovalocytes [place] Cells Puncture Site pCO2 pO2 HCO3 ABG pH ABG Total CO2 ABG O2 Saturation ABG Base Excess ABG Hemoglobin ABG Carboxyhemoglobin POC ABG HHb (Measured) ABG Methemoglobin Jordon Test A-a O2 Difference Respiratory Index Hgb O2 Saturation Vent Mode Mechanical Rate FiO2 Tidal Volume PEEP Sodium 137 Potassium 3.6 Chloride 101 Carbon Dioxide 24 Anion Gap 16 BUN 29 H Creatinine 1.4 H Est GFR ( Amer) 43 Est GFR (Non-Af Amer) 36 POC Glucose (mg/dL) 121 H 127 H Random Glucose 87 Calcium 8.3 L Phosphorus 2.7 Magnesium 2.0 Total Bilirubin 2.1 H AST 21 ALT 19 Alkaline Phosphatase 75 Total Protein 4.7 L Albumin 2.4 L Globulin 2.2 Albumin/Globulin Ratio 1.1 Pleural Total Protein Pleural LDH Pleural Glucose Fingerstick Blood Sugar Results: 121 Review of Systems - Review of Systems Systems not reviewed;Unavailable: Intubated Critical Care Progress Note - Vent Settings TIDAL VOLUME:: 350 RESP RATE:: 16 FIO2:: 40 PEEP:: 5 Assessment/Plan (1) Respiratory distress Assessment and plan: 86 year old female with medical history of HTN, CHF, CKD, and CABG, presents to the ED by ambulance with shortness of breath. The patient's son, Polo, reports she felt nauseas, feverish, and had chills this morning. As he was helping her to the restroom, patient urinated on self, passed out, and remained unresponsive. In the ED, patient was hypotensive and in respiratory distress. Code sepsis was called. Patient is consulted in the ICU for respiratory distress , hypotension, and sepsis. Patient's chest xray showed opacification of right hemithorax with midline shift. Review of systems was not obtained due to patients status. Patient was intubated, pigtail chest tube placed, waterseal, and pleural fluid drained. Repeat chest xray showed improvement. Underlying infiltrate likely pneumonia- started Zosyn and Vancomycin . Patient was hypotensive, required pressors. Continue to monitor. Neuro: sedated Pulm: Respiratory distress - Intubated - CXR: opacification of right hemithorax with midline shift - Repeat CXR (post Chest tube): markedly decreased pleural effusion; patchy opacities in right hemithorax - CXR (12/29/16): improving right lower lobe airspace disease; stable small right pleural effusion with loculated component at right lateral wall, persistent cardiomegaly with small left pleural effusion. - Pigtail chest tube placed, drained pleural fluid - Pleural fluid studies: Cloudy, WBC 99, RBC 2007, Neutrophils 11, Lymphocytes 78, Monocyte/Macrophage 10 CV: Hypotensive - Central line placed - Patient on pressors - IV Fluids + Albumin - Troponin: 0.1280 - BNP: 16316 - ECHO: LVEF 14%, pending official report - Cardiology consulted: Dr. Hill, help appreciated - As per Dr. Hill, patient has severe pulmonary HTN, CAD s/p CABG, s/p MVR Endo: no acute issues GI: - Distended abdomen - Attempted decompression via OG tube - Abdominal US: liver cirrhosis, large abdominal/pelvic ascites, small right pleural effusion, cholelithiasis, diffuse gallbladder wall thickening likely secondary to liver cirrhosis. Heme: no acute issues - Monitor H/H Renal: history of kidney disease - BUN/Cr: 35/1.7 - Monitor kidney function ID: Code Sepsis - Vandana secondary to pneumonia - Bandemia: 17 - UA: 1+ protein, 2 urobilinogen, 9 squam epith cells - Blood cx: no growth x48hr - Urine cx: no growth - Sputum cx: normal oral [place] - Wound cx: Staph aureius + - Wound care consulted - ID consulted- Dr. Ramires, help appreciated - As per ID, Continue zosyn and zyvox; discontinued vancomycin (f/u vanco trough ) Prophylaxis: - DVT: Heparin 5,000units SC - GI: Pepcid Current Visit: Yes Status: Acute (2) Sepsis Current Visit: Yes Status: Acute (3) Hypotension Current Visit: Yes Status: Acute (4) Abdominal distension Current Visit: Yes Status: Acute <PaulaBrien M - Last Filed: 12/30/16 23:29> CCU Objective - Vital Signs / Intake & Output Vital Signs (Last 4 hours): Vital Signs Temp Pulse Resp BP Pulse Ox 12/30/16 22:47 110/53 L 12/30/16 22:00 122 H 27 H 110/53 L 100 12/30/16 21:00 114 H 26 H 108/56 L 77 L 12/30/16 20:01 123 H 29 H 101/62 100 12/30/16 20:00 98.3 F 127 H 28 H 100 Intake and Output (Last 8hrs): Intake & Output 12/30/16 12/30/16 12/31/16 14:59 22:59 06:59 Intake Total 1202.9 660.4 Output Total 485 440 Balance 717.9 220.4 Weight 154 lb 5.177 oz Intake: IV 54 200 Intake, IV Amount 758.9 140.4 Right Distal Port 600 50 Subclavian Right Medial Port 133.9 90.4 Subclavian Right Proximal Port 25 Subclavian Tube Feeding 320 320 Other 70 Output: Chest Tube Drainage 300 300 Right Posterior Chest 300 300 Urine 185 140 Urethral ([place]) 185 140 Emesis 0 0 Other: # Bowel Movements 0 0 - Medications Active Medications: Active Medications Generic Name Dose Route Start Last Admin Trade Name Freq PRN Reason Stop Dose Admin Acetaminophen 975 mg 12/27/16 08:39 12/27/16 10:30 Tylenol 325 Mg Supp ME 975 mg ONCE PRN Administration Fever >100.4 F Albumin Human 12.5 gm 12/27/16 14:15 12/30/16 21:21 Albumin Human 25% (12.5 Gm/50 Ml) IV 12.5 gm Q8H ZAHRA Administration Aspirin 81 mg 12/28/16 10:00 12/30/16 09:23 Aspirin Chewable PO 81 mg DAILY AZHRA Administration Famotidine 20 mg 12/27/16 14:30 12/30/16 09:21 Pepcid IVP 20 mg DAILY ZAHRA Administration Heparin Sodium (Porcine) 5,000 units 12/29/16 22:00 12/30/16 21:14 Heparin SC 5,000 units Q12 ZAHRA Administration Norepinephrine Bitartrate 4 mg 254 mls @ 15.24 mls/hr 12/27/16 12:10 22:47 / Sodium Chloride IV 2.96 mcg/min .[id number] PRN 11.27 mls/hr TITRATE PER MD ORDER Administration Protocol 4 MCG/MIN Piperacillin Sod/Tazobactam Sod 2.25 gm in 50 mls @ 100 mls/hr 12/27/16 15:00 12/30/16 22:49 Zosyn 2.25 Gm Iv Premix IVPB 100 mls/hr Q8H ZAHRA Administration Linezolid 600 mg in 300 mls @ 200 mls/hr 12/29/16 22:00 12/30/16 21:14 Zyvox 600mg/300ml D5w IVPB 200 mls/hr Q12 ZAHRA Administration Lorazepam 1 mg 12/30/16 19:11 12/30/16 20:56 Ativan IVP 1 mg Q2H PRN Administration Anxiety - Patient Studies Lab Studies: Microbiology Studies 12/27/16 Unknown Gram Stain - Final Pleural Fluid Body Fluid Culture - Preliminary NO GROWTH AFTER 2 DAYS Lab Studies 12/30/16 12/30/16 12/30/16 Range/Units 17:48 11:30 06:47 WBC (4.8-10.8) K/uL RBC (3.80-5.20) Mil/uL Hgb (11.0-16.0) g/dL Hct (34.0-47.0) % MCV (81.0-99.0) fL MCH (27.0-31.0) pg MCHC (33.0-37.0) g/dL RDW (11.5-14.5) % Plt Count (130-400) K/uL MPV (7.2-11.7) fL Neut % (Auto) (50.0-75.0) % Lymph % (Auto) (20.0-40.0) % [place] % (Auto) (0.0-10.0) % Eos % (Auto) (0.0-4.0) % Baso % (Auto) (0.0-2.0) % Neut # (1.8-7.0) K/uL Lymph # (1.0-4.3) K/uL [place] # (0.0-0.8) K/uL Eos # (0.0-0.7) K/uL Baso # (0.0-0.2) K/uL Neutrophils % (Manual) (50-75) % Band Neutrophils % (0-2) % Lymphocytes % (Manual) (20-40) % Monocytes % (Manual) (0-10) % Platelet Estimate (NORMAL) Hypochromasia (manual) Anisocytosis (manual) Ovalocytes Puncture Site pCO2 (35-45) mm/Hg pO2 (80-100) mm/Hg HCO3 (21-28) mmol/L ABG pH (7.35-7.45) ABG Total CO2 (22-28) mmol/L ABG O2 Saturation (95-98) % ABG Base Excess (-2.0-3.0) mmol/L ABG Hemoglobin (11.7-17.4) g/dL ABG Carboxyhemoglobin (0.5-1.5) % POC ABG HHb (Measured) (0.0-5.0) % ABG Methemoglobin (0.0-3.0) % Jordon Test A-a O2 Difference mm/Hg Respiratory Index Hgb O2 Saturation (95.0-98.0) % Vent Mode Mechanical Rate FiO2 % Tidal Volume PEEP Sodium 137 (132-148) mmol/L Potassium 3.1 L (3.6-5.2) mmol/L Chloride 102 (98-107) mmol/L Carbon Dioxide 25 (22-30) mmol/L Anion Gap 13 (10-20) BUN 27 H (7-17) mg/dL Creatinine 1.4 H (0.7-1.2) MG/DL Est GFR ( Amer) 43 Est GFR (Non-Af Amer) 36 POC Glucose (mg/dL) 122 H 124 H (65-110) mg/dL Random Glucose 112 H (65-105) mg/dL Calcium 8.1 L (8.6-10.4) mg/dl Phosphorus 2.4 L (2.5-4.5) mg/dL Magnesium 2.0 (1.6-2.3) mg/dL Total Bilirubin 1.9 H (0.2-1.3) mg/dL AST 15 (14-36) U/L ALT 21 (9-52) U/L Alkaline Phosphatase 61 (38-126) U/L Total Protein 4.6 L (6.3-8.3) g/dL Albumin 2.4 L (3.5-5.0) g/dL Globulin 2.2 (2.2-3.9) gm/dL Albumin/Globulin Ratio 1.1 (1.0-2.1) 12/30/16 12/30/16 12/30/16 Range/Units 06:47 05:58 04:40 WBC 10.0 (4.8-10.8) K/uL RBC 3.94 (3.80-5.20) Mil/uL Hgb 11.3 (11.0-16.0) g/dL Hct 34.7 (34.0-47.0) % MCV 87.9 (81.0-99.0) fL MCH 28.7 (27.0-31.0) pg MCHC 32.6 L (33.0-37.0) g/dL RDW 16.3 H (11.5-14.5) % Plt Count 81 L D (130-400) K/uL MPV 8.6 (7.2-11.7) fL Neut % (Auto) 87.3 H (50.0-75.0) % Lymph % (Auto) 5.3 L (20.0-40.0) % [place] % (Auto) 5.0 (0.0-10.0) % Eos % (Auto) 1.7 (0.0-4.0) % Baso % (Auto) 0.7 (0.0-2.0) % Neut # 8.7 H (1.8-7.0) K/uL Lymph # 0.5 L (1.0-4.3) K/uL [place] # 0.5 (0.0-0.8) K/uL Eos # 0.2 (0.0-0.7) K/uL Baso # 0.1 (0.0-0.2) K/uL Neutrophils % (Manual) 71 (50-75) % Band Neutrophils % 20 H* (0-2) % Lymphocytes % (Manual) 6 L (20-40) % Monocytes % (Manual) 3 (0-10) % Platelet Estimate Decreased L (NORMAL) Hypochromasia (manual) Slight Anisocytosis (manual) Slight Ovalocytes Slight Puncture Site Rr pCO2 41 (35-45) mm/Hg pO2 120 H (80-100) mm/Hg HCO3 24.8 (21-28) mmol/L ABG pH 7.39 (7.35-7.45) ABG Total CO2 26.1 (22-28) mmol/L ABG O2 Saturation 99.8 H (95-98) % ABG Base Excess -0.2 (-2.0-3.0) mmol/L ABG Hemoglobin 12.1 (11.7-17.4) g/dL ABG Carboxyhemoglobin 2.2 H (0.5-1.5) % POC ABG HHb (Measured) 0.2 (0.0-5.0) % ABG Methemoglobin 0.7 (0.0-3.0) % Jordon Test Pos A-a O2 Difference 114.0 mm/Hg Respiratory Index 1.0 Hgb O2 Saturation 97.0 (95.0-98.0) % Vent Mode Prvc Mechanical Rate 16 FiO2 40.0 % Tidal Volume 350 PEEP 5 Sodium (132-148) mmol/L Potassium (3.6-5.2) mmol/L Chloride (98-107) mmol/L Carbon Dioxide (22-30) mmol/L Anion Gap (10-20) BUN (7-17) mg/dL Creatinine (0.7-1.2) MG/DL Est GFR ( Amer) Est GFR (Non-Af Amer) POC Glucose (mg/dL) 124 H (65-110) mg/dL Random Glucose (65-105) mg/dL Calcium (8.6-10.4) mg/dl Phosphorus (2.5-4.5) mg/dL Magnesium (1.6-2.3) mg/dL Total Bilirubin (0.2-1.3) mg/dL AST (14-36) U/L ALT (9-52) U/L Alkaline Phosphatase (38-126) U/L Total Protein (6.3-8.3) g/dL Albumin (3.5-5.0) g/dL Globulin (2.2-3.9) gm/dL Albumin/Globulin Ratio (1.0-2.1) 12/30/16 Range/Units 00:01 WBC (4.8-10.8) K/uL RBC (3.80-5.20) Mil/uL Hgb (11.0-16.0) g/dL Hct (34.0-47.0) % MCV (81.0-99.0) fL MCH (27.0-31.0) pg MCHC (33.0-37.0) g/dL RDW (11.5-14.5) % Plt Count (130-400) K/uL MPV (7.2-11.7) fL Neut % (Auto) (50.0-75.0) % Lymph % (Auto) (20.0-40.0) % Hudson % (Auto) (0.0-10.0) % Eos % (Auto) (0.0-4.0) % Baso % (Auto) (0.0-2.0) % Neut # (1.8-7.0) K/uL Lymph # (1.0-4.3) K/uL Hudson # (0.0-0.8) K/uL Eos # (0.0-0.7) K/uL Baso # (0.0-0.2) K/uL Neutrophils % (Manual) (50-75) % Band Neutrophils % (0-2) % Lymphocytes % (Manual) (20-40) % Monocytes % (Manual) (0-10) % Platelet Estimate (NORMAL) Hypochromasia (manual) Anisocytosis (manual) Ovalocytes Puncture Site pCO2 (35-45) mm/Hg pO2 (80-100) mm/Hg HCO3 (21-28) mmol/L ABG pH (7.35-7.45) ABG Total CO2 (22-28) mmol/L ABG O2 Saturation (95-98) % ABG Base Excess (-2.0-3.0) mmol/L ABG Hemoglobin (11.7-17.4) g/dL ABG Carboxyhemoglobin (0.5-1.5) % POC ABG HHb (Measured) (0.0-5.0) % ABG Methemoglobin (0.0-3.0) % Jordon Test A-a O2 Difference mm/Hg Respiratory Index Hgb O2 Saturation (95.0-98.0) % Vent Mode Mechanical Rate FiO2 % Tidal Volume PEEP Sodium (132-148) mmol/L Potassium (3.6-5.2) mmol/L Chloride (98-107) mmol/L Carbon Dioxide (22-30) mmol/L Anion Gap (10-20) BUN (7-17) mg/dL Creatinine (0.7-1.2) MG/DL Est GFR ( Amer) Est GFR (Non-Af Amer) POC Glucose (mg/dL) 180 H (65-110) mg/dL Random Glucose (65-105) mg/dL Calcium (8.6-10.4) mg/dl Phosphorus (2.5-4.5) mg/dL Magnesium (1.6-2.3) mg/dL Total Bilirubin (0.2-1.3) mg/dL AST (14-36) U/L ALT (9-52) U/L Alkaline Phosphatase (38-126) U/L Total Protein (6.3-8.3) g/dL Albumin (3.5-5.0) g/dL Globulin (2.2-3.9) gm/dL Albumin/Globulin Ratio (1.0-2.1) Laboratory Results - last 24 hr 12/30/16 12/30/16 12/30/16 00:01 04:40 05:58 WBC RBC Hgb Hct MCV MCH MCHC RDW Plt Count MPV Neut % (Auto) Lymph % (Auto) Hudson % (Auto) Eos % (Auto) Baso % (Auto) Neut # Lymph # Hudson # Eos # Baso # Neutrophils % (Manual) Band Neutrophils % Lymphocytes % (Manual) Monocytes % (Manual) Platelet Estimate Hypochromasia (manual) Anisocytosis (manual) Ovalocytes Puncture Site Rr pCO2 41 pO2 120 H HCO3 24.8 ABG pH 7.39 ABG Total CO2 26.1 ABG O2 Saturation 99.8 H ABG Base Excess -0.2 ABG Hemoglobin 12.1 ABG Carboxyhemoglobin 2.2 H POC ABG HHb (Measured) 0.2 ABG Methemoglobin 0.7 Jordon Test Pos A-a O2 Difference 114.0 Respiratory Index 1.0 Hgb O2 Saturation 97.0 Vent Mode Prvc Mechanical Rate 16 FiO2 40.0 Tidal Volume 350 PEEP 5 Sodium Potassium Chloride Carbon Dioxide Anion Gap BUN Creatinine Est GFR ( Amer) Est GFR (Non-Af Amer) POC Glucose (mg/dL) 180 H 124 H Random Glucose Calcium Phosphorus Magnesium Total Bilirubin AST ALT Alkaline Phosphatase Total Protein Albumin Globulin Albumin/Globulin Ratio 12/30/16 12/30/16 12/30/16 06:47 06:47 11:30 WBC 10.0 RBC 3.94 Hgb 11.3 Hct 34.7 MCV 87.9 MCH 28.7 MCHC 32.6 L RDW 16.3 H Plt Count 81 L D MPV 8.6 Neut % (Auto) 87.3 H Lymph % (Auto) 5.3 L [place] % (Auto) 5.0 Eos % (Auto) 1.7 Baso % (Auto) 0.7 Neut # 8.7 H Lymph # 0.5 L [place] # 0.5 Eos # 0.2 Baso # 0.1 Neutrophils % (Manual) 71 Band Neutrophils % 20 H* Lymphocytes % (Manual) 6 L Monocytes % (Manual) 3 Platelet Estimate Decreased L Hypochromasia (manual) Slight Anisocytosis (manual) Slight Ovalocytes Slight Puncture Site pCO2 pO2 HCO3 ABG pH ABG Total CO2 ABG O2 Saturation ABG Base Excess ABG Hemoglobin ABG Carboxyhemoglobin POC ABG HHb (Measured) ABG Methemoglobin Jordon Test A-a O2 Difference Respiratory Index Hgb O2 Saturation Vent Mode Mechanical Rate FiO2 Tidal Volume PEEP Sodium 137 Potassium 3.1 L Chloride 102 Carbon Dioxide 25 Anion Gap 13 BUN 27 H Creatinine 1.4 H Est GFR ( Amer) 43 Est GFR (Non-Af Amer) 36 POC Glucose (mg/dL) 124 H Random Glucose 112 H Calcium 8.1 L Phosphorus 2.4 L Magnesium 2.0 Total Bilirubin 1.9 H AST 15 ALT 21 Alkaline Phosphatase 61 Total Protein 4.6 L Albumin 2.4 L Globulin 2.2 Albumin/Globulin Ratio 1.1 12/30/16 17:48 WBC RBC Hgb Hct MCV MCH MCHC RDW Plt Count MPV Neut % (Auto) Lymph % (Auto) [place] % (Auto) Eos % (Auto) Baso % (Auto) Neut # Lymph # [place] # Eos # Baso # Neutrophils % (Manual) Band Neutrophils % Lymphocytes % (Manual) Monocytes % (Manual) Platelet Estimate Hypochromasia (manual) Anisocytosis (manual) Ovalocytes Puncture Site pCO2 pO2 HCO3 ABG pH ABG Total CO2 ABG O2 Saturation ABG Base Excess ABG Hemoglobin ABG Carboxyhemoglobin POC ABG HHb (Measured) ABG Methemoglobin Jordon Test A-a O2 Difference Respiratory Index Hgb O2 Saturation Vent Mode Mechanical Rate FiO2 Tidal Volume PEEP Sodium Potassium Chloride Carbon Dioxide Anion Gap BUN Creatinine Est GFR ( Amer) Est GFR (Non-Af Amer) POC Glucose (mg/dL) 122 H Random Glucose Calcium Phosphorus Magnesium Total Bilirubin AST ALT Alkaline Phosphatase Total Protein Albumin Globulin Albumin/Globulin Ratio Attending/Attestation - Attestation I have personally seen and examined this patient.: Yes I have fully participated in the care of the patient.: Yes I have reviewed all pertinent clinical information: Yes Notes (Text): Today: Sunday, December 29, 2016 The Patient was seen and examined at the bedside, Medical records reviewed, and management issues were discussed and formulated. All clinical/lab/hemodynamic/radiographic data were reviewed Events reviewed Pain issues, skin care, head of the bed elevation, glycemic control were addressed. Agree with above treatment plans as transcribed in Dr. Zhou note
[2016-12-29] MEDS: Linezolid 600 mg in D5W 300 ml 600 MG/300 ML BAG IVPB SCH (21:56)
[2016-12-30] MEDS: Dexmedetomidine Hydrochloride 200 MCG in Sodium Chloride 0.9% 48 ML IV PRN (03:11)
[2016-12-30 05:07] LABS: ABG ALLEN TEST POS; ABG MECHANICAL RATE 16; ARTERIAL BLOOD GAS MODE PRVC; ATERIAL BLOOD GAS PEEP 5; CARBOXYHEMOGLOBIN 2.2 % (0.5-1.5); DRAW SITE RR; HHB 0.2 % (0.0-5.0); METHEMOGLOBIN 0.7 % (0.0-3.0)
[2016-12-30] MEDS: Albumin Human 25% (12.5 gm/50 ml) IV SCH ×3 (05:46→21:21)
[2016-12-30] MEDS: Piperacill/Tazo 2.25gm in Dex 2.25 GM/50 ML BAG IVPB SCH ×3 (06:35→22:49)
[2016-12-30 06:56] LABS: BASO # 0.1 K/uL (0.0-0.2); BASO % 0.7 % (0.0-2.0); EOS # 0.2 K/uL (0.0-0.7); EOS % 1.7 % (0.0-4.0); HEMATOCRIT 34.7 % (34.0-47.0); LYMPH # 0.5 K/uL (1.0-4.3); LYMPH % 5.3 % (20.0-40.0); MEAN CELL VOLUME 87.9 fL (81.0-99.0); MEAN CORPUSCULAR HEMOGLOBIN 28.7 pg (27.0-31.0); MEAN CORPUSCULAR HGB CONC 32.6 g/dL (33.0-37.0); MEAN PLATELET VOLUME 8.6 fL (7.2-11.7); MONO # 0.5 K/uL (0.0-0.8); PLATELET COUNT 81 K/uL (130-400); RED CELL DISTRIBUTION WIDTH 16.3 % (11.5-14.5)
[2016-12-30 07:10] LABS: ALB/GLOB RATIO 1.1 (1.0-2.1); BILIRUBIN,TOTAL 1.9 mg/dL (0.2-1.3); CALCIUM 8.1 mg/dl (8.6-10.4); PHOSPHOROUS 2.4 mg/dL (2.5-4.5); POTASSIUM 3.1 mmol/L (3.6-5.2); TOTAL PROTEIN 4.6 g/dL (6.3-8.3)
[2016-12-30] MEDS: Linezolid 600 mg in D5W 300 ml 600 MG/300 ML BAG IVPB SCH ×2 (09:18→21:14)
[2016-12-30 09:39] LABS: TOTAL CELLS COUNTED 100
[2016-12-30 09:40] LABS: NEUTROPHIL 71 % (50-75)
--- NOTE | 2016-12-30 10:03 | RAD ---
HISTORY: vent COMPARISON: Chest x-ray performed 12/29/16 TECHNIQUE: Chest, one view. FINDINGS: Endotracheal tube terminates approximately 4.8 cm above the level the julio cesar. Nasogastric tube extends expected location of the stomach. Right-sided central venous catheter extends to the cavoatrial junction. Right-sided chest tube. LUNGS: Small to moderate right pleural effusion. Small left pleural effusion. Moderate pulmonary venous congestion. No definite pneumothorax. Please note that chest x-ray has limited sensitivity for the detection of pulmonary masses. CARDIOVASCULAR: Cardiomegaly. Median sternotomy wires with evidence of CABG. Prosthetic cardiac valve. OSSEOUS STRUCTURES: Degenerative changes. Osseous demineralization. VISUALIZED UPPER ABDOMEN: Unremarkable. OTHER FINDINGS: None. IMPRESSION: Endotracheal tube terminates approximately 4.8 cm above the level the julio cesar. Nasogastric tube extends expected location of the stomach. Right-sided central venous catheter extends to the cavoatrial junction. Right-sided chest tube. Small to moderate right pleural effusion. Small left pleural effusion. Moderate pulmonary venous congestion. Cardiomegaly. Median sternotomy wires with evidence of CABG. Prosthetic cardiac valve.
--- NOTE | 2016-12-30 11:33 | CP.CCUPN ---
CCU Subjective - Physician Review Events Since Last Encounter (Free Text): 12/30/16 11:30 Patient seen and examined in the intensive care unit. Case discussed with STAFF in the morning. 86 year old female with medical history of HTN, CHF, CKD, and CABG, presents to the ED by ambulance with shortness of breath. The patient's son, Polo, reports she felt nauseas, feverish, and had chills this morning. As he was helping her to the restroom, patient urinated on self, passed out, and remained unresponsive. In the ED, patient was hypotensive and in respiratory distress. Code sepsis was called. Patient is consulted in the ICU for respiratory distress , hypotension, and sepsis. Patient's chest xray showed opacification of right hemithorax with midline shift. Review of systems was not obtained due to patients status. Patient was intubated, pigtail chest tube placed, waterseal, and pleural fluid drained. Repeat chest xray showed improvement. Underlying infiltrate likely pneumonia- started Zosyn and Vancomycin . Patient was hypotensive, required pressors. Patient is off pressors Not tolerating CPAP Off Precedex drip Pigtail catheter still draining fluid Afebrile CCU Objective - Vital Signs / Intake & Output Vital Signs (Last 4 hours): Vital Signs Temp Pulse Resp BP Pulse Ox 12/30/16 10:00 80 26 H 116/50 L 100 12/30/16 09:00 79 26 H 103/46 L 100 12/30/16 08:01 72 24 112/51 L 100 12/30/16 08:00 97.7 F 78 25 H 100 Intake and Output (Last 8hrs): Intake & Output 12/29/16 12/30/16 12/30/16 22:59 06:59 14:59 Intake Total 1154 1039.0 644 Output Total 761 930 245 Balance 393 109.0 399 Weight 154 lb 5.177 oz Intake: IV 234 304 54 Intake, IV Amount 670 450.0 360 Right Distal Port 350 100 250 Subclavian Right Medial Port 240 270.0 85 Subclavian Right Proximal Port 80 80 25 Subclavian Tube Feeding 200 285 160 Other 50 70 Output: Chest Tube Drainage 516 700 150 Right Posterior Chest 516 700 150 Urine 245 230 95 Urethral ([place]) 245 230 95 Emesis 0 Other: # Bowel Movements 0 - Physical Exam Head: Negative for: Atraumatic, Normocephalic Mouth: Positive for: Moist Mucous Membranes Respiratory/Chest: Negative for: Rales, Rhonchi Abdomen: Positive for: Distention. Negative for: Tenderness, Normal Bowel Sounds (hypoactive) Upper Extremity: Positive for: Normal Inspection Lower Extremity: Positive for: Edema, Swelling, Other (serosanginous fluid draining from burst blister on left LE. Multple blisters notes.). Negative for : Normal Inspection Skin: Positive for: Warm, Erythematous, Other (serosanginous fluid draining from burst blister on left LE. Multple blisters notes.). Negative for: Dry, Normal Color Psychiatric: Negative for: Alert, Oriented x 3, Normal Affect, Normal Mood - Medications Active Medications: Active Medications Generic Name Dose Route Start Last Admin Trade Name Freq PRN Reason Stop Dose Admin Acetaminophen 975 mg 12/27/16 08:39 12/27/16 10:30 Tylenol 325 Mg Supp OK 975 mg ONCE PRN Administration Fever >100.4 F Albumin Human 12.5 gm 12/27/16 14:15 12/30/16 05:46 Albumin Human 25% (12.5 Gm/50 Ml) IV 12.5 gm Q8H ZAHRA Administration Aspirin 81 mg 12/28/16 10:00 12/30/16 09:23 Aspirin Chewable PO 81 mg DAILY ZAHRA Administration Famotidine 20 mg 12/27/16 14:30 12/30/16 09:21 Pepcid IVP 20 mg DAILY ZAHRA Administration Heparin Sodium (Porcine) 5,000 units 12/29/16 22:00 12/30/16 09:20 Heparin SC 5,000 units Q12 ZAHRA Administration Norepinephrine Bitartrate 4 mg 254 mls @ 15.24 mls/hr 12/27/16 12:10 08:44 / Sodium Chloride IV 3.93 mcg/min .[id number] PRN 15 mls/hr TITRATE PER MD ORDER Titration Protocol 4 MCG/MIN Piperacillin Sod/Tazobactam Sod 2.25 gm in 50 mls @ 100 mls/hr 12/27/16 15:00 12/30/16 06:35 Zosyn 2.25 Gm Iv Premix IVPB 100 mls/hr Q8H ZAHRA Administration Linezolid 600 mg in 300 mls @ 200 mls/hr 12/29/16 22:00 12/30/16 09:18 Zyvox 600mg/300ml D5w IVPB 200 mls/hr Q12 ZAHRA Administration Lorazepam 1 mg 12/27/16 15:30 12/30/16 10:22 Ativan IVP 1 mg Q4H PRN Administration Anxiety - Patient Studies Lab Studies: Microbiology Studies 12/27/16 Unknown Gram Stain - Final Pleural Fluid Body Fluid Culture - Preliminary NO GROWTH AFTER 2 DAYS 12/27/16 Unknown Gram Stain - Final Trachasp Sputum Culture - Final NORMAL ORAL CARISA 12/27/16 Unknown Gram Stain - Final Leg - Left Wound Culture - Final Staphylococcus Aureus Lab Studies 12/30/16 12/30/16 12/30/16 Range/Units 06:47 06:47 05:58 WBC 10.0 (4.8-10.8) K/uL RBC 3.94 (3.80-5.20) Mil/uL Hgb 11.3 (11.0-16.0) g/dL Hct 34.7 (34.0-47.0) % MCV 87.9 (81.0-99.0) fL MCH 28.7 (27.0-31.0) pg MCHC 32.6 L (33.0-37.0) g/dL RDW 16.3 H (11.5-14.5) % Plt Count 81 L D (130-400) K/uL MPV 8.6 (7.2-11.7) fL Neut % (Auto) 87.3 H (50.0-75.0) % Lymph % (Auto) 5.3 L (20.0-40.0) % [place] % (Auto) 5.0 (0.0-10.0) % Eos % (Auto) 1.7 (0.0-4.0) % Baso % (Auto) 0.7 (0.0-2.0) % Neut # 8.7 H (1.8-7.0) K/uL Lymph # 0.5 L (1.0-4.3) K/uL [place] # 0.5 (0.0-0.8) K/uL Eos # 0.2 (0.0-0.7) K/uL Baso # 0.1 (0.0-0.2) K/uL Neutrophils % (Manual) 71 (50-75) % Band Neutrophils % 20 H* (0-2) % Lymphocytes % (Manual) 6 L (20-40) % Monocytes % (Manual) 3 (0-10) % Platelet Estimate Decreased L (NORMAL) Hypochromasia (manual) Slight Anisocytosis (manual) Slight Ovalocytes Slight Puncture Site pCO2 (35-45) mm/Hg pO2 (80-100) mm/Hg HCO3 (21-28) mmol/L ABG pH (7.35-7.45) ABG Total CO2 (22-28) mmol/L ABG O2 Saturation (95-98) % ABG Base Excess (-2.0-3.0) mmol/L ABG Hemoglobin (11.7-17.4) g/dL ABG Carboxyhemoglobin (0.5-1.5) % POC ABG HHb (Measured) (0.0-5.0) % ABG Methemoglobin (0.0-3.0) % Jordon Test A-a O2 Difference mm/Hg Respiratory Index Hgb O2 Saturation (95.0-98.0) % Vent Mode Mechanical Rate FiO2 % Tidal Volume PEEP Sodium 137 (132-148) mmol/L Potassium 3.1 L (3.6-5.2) mmol/L Chloride 102 (98-107) mmol/L Carbon Dioxide 25 (22-30) mmol/L Anion Gap 13 (10-20) BUN 27 H (7-17) mg/dL Creatinine 1.4 H (0.7-1.2) MG/DL Est GFR ( Amer) 43 Est GFR (Non-Af Amer) 36 POC Glucose (mg/dL) 124 H (65-110) mg/dL Random Glucose 112 H (65-105) mg/dL Calcium 8.1 L (8.6-10.4) mg/dl Phosphorus 2.4 L (2.5-4.5) mg/dL Magnesium 2.0 (1.6-2.3) mg/dL Total Bilirubin 1.9 H (0.2-1.3) mg/dL AST 15 (14-36) U/L ALT 21 (9-52) U/L Alkaline Phosphatase 61 (38-126) U/L Total Protein 4.6 L (6.3-8.3) g/dL Albumin 2.4 L (3.5-5.0) g/dL Globulin 2.2 (2.2-3.9) gm/dL Albumin/Globulin Ratio 1.1 (1.0-2.1) Pleural Total Protein g/dL Pleural LDH U/L Pleural Glucose mg/dL 12/30/16 12/30/16 12/29/16 Range/Units 04:40 00:01 17:50 WBC (4.8-10.8) K/uL RBC (3.80-5.20) Mil/uL Hgb (11.0-16.0) g/dL Hct (34.0-47.0) % MCV (81.0-99.0) fL MCH (27.0-31.0) pg MCHC (33.0-37.0) g/dL RDW (11.5-14.5) % Plt Count (130-400) K/uL MPV (7.2-11.7) fL Neut % (Auto) (50.0-75.0) % Lymph % (Auto) (20.0-40.0) % [place] % (Auto) (0.0-10.0) % Eos % (Auto) (0.0-4.0) % Baso % (Auto) (0.0-2.0) % Neut # (1.8-7.0) K/uL Lymph # (1.0-4.3) K/uL [place] # (0.0-0.8) K/uL Eos # (0.0-0.7) K/uL Baso # (0.0-0.2) K/uL Neutrophils % (Manual) (50-75) % Band Neutrophils % (0-2) % Lymphocytes % (Manual) (20-40) % Monocytes % (Manual) (0-10) % Platelet Estimate (NORMAL) Hypochromasia (manual) Anisocytosis (manual) Ovalocytes Puncture Site Rr pCO2 41 (35-45) mm/Hg pO2 120 H (80-100) mm/Hg HCO3 24.8 (21-28) mmol/L ABG pH 7.39 (7.35-7.45) ABG Total CO2 26.1 (22-28) mmol/L ABG O2 Saturation 99.8 H (95-98) % ABG Base Excess -0.2 (-2.0-3.0) mmol/L ABG Hemoglobin 12.1 (11.7-17.4) g/dL ABG Carboxyhemoglobin 2.2 H (0.5-1.5) % POC ABG HHb (Measured) 0.2 (0.0-5.0) % ABG Methemoglobin 0.7 (0.0-3.0) % Jordon Test Pos A-a O2 Difference 114.0 mm/Hg Respiratory Index 1.0 Hgb O2 Saturation 97.0 (95.0-98.0) % Vent Mode Prvc Mechanical Rate 16 FiO2 40.0 % Tidal Volume 350 PEEP 5 Sodium (132-148) mmol/L Potassium (3.6-5.2) mmol/L Chloride (98-107) mmol/L Carbon Dioxide (22-30) mmol/L Anion Gap (10-20) BUN (7-17) mg/dL Creatinine (0.7-1.2) MG/DL Est GFR ( Amer) Est GFR (Non-Af Amer) POC Glucose (mg/dL) 180 H 127 H (65-110) mg/dL Random Glucose (65-105) mg/dL Calcium (8.6-10.4) mg/dl Phosphorus (2.5-4.5) mg/dL Magnesium (1.6-2.3) mg/dL Total Bilirubin (0.2-1.3) mg/dL AST (14-36) U/L ALT (9-52) U/L Alkaline Phosphatase (38-126) U/L Total Protein (6.3-8.3) g/dL Albumin (3.5-5.0) g/dL Globulin (2.2-3.9) gm/dL Albumin/Globulin Ratio (1.0-2.1) Pleural Total Protein g/dL Pleural LDH U/L Pleural Glucose mg/dL 12/29/16 12/27/16 Range/Units 11:54 14:49 WBC (4.8-10.8) K/uL RBC (3.80-5.20) Mil/uL Hgb (11.0-16.0) g/dL Hct (34.0-47.0) % MCV (81.0-99.0) fL MCH (27.0-31.0) pg MCHC (33.0-37.0) g/dL RDW (11.5-14.5) % Plt Count (130-400) K/uL MPV (7.2-11.7) fL Neut % (Auto) (50.0-75.0) % Lymph % (Auto) (20.0-40.0) % [place] % (Auto) (0.0-10.0) % Eos % (Auto) (0.0-4.0) % Baso % (Auto) (0.0-2.0) % Neut # (1.8-7.0) K/uL Lymph # (1.0-4.3) K/uL [place] # (0.0-0.8) K/uL Eos # (0.0-0.7) K/uL Baso # (0.0-0.2) K/uL Neutrophils % (Manual) (50-75) % Band Neutrophils % (0-2) % Lymphocytes % (Manual) (20-40) % Monocytes % (Manual) (0-10) % Platelet Estimate (NORMAL) Hypochromasia (manual) Anisocytosis (manual) Ovalocytes Puncture Site pCO2 (35-45) mm/Hg pO2 (80-100) mm/Hg HCO3 (21-28) mmol/L ABG pH (7.35-7.45) ABG Total CO2 (22-28) mmol/L ABG O2 Saturation (95-98) % ABG Base Excess (-2.0-3.0) mmol/L ABG Hemoglobin (11.7-17.4) g/dL ABG Carboxyhemoglobin (0.5-1.5) % POC ABG HHb (Measured) (0.0-5.0) % ABG Methemoglobin (0.0-3.0) % Jordon Test A-a O2 Difference mm/Hg Respiratory Index Hgb O2 Saturation (95.0-98.0) % Vent Mode Mechanical Rate FiO2 % Tidal Volume PEEP Sodium (132-148) mmol/L Potassium (3.6-5.2) mmol/L Chloride (98-107) mmol/L Carbon Dioxide (22-30) mmol/L Anion Gap (10-20) BUN (7-17) mg/dL Creatinine (0.7-1.2) MG/DL Est GFR ( Amer) Est GFR (Non-Af Amer) POC Glucose (mg/dL) 121 H (65-110) mg/dL Random Glucose (65-105) mg/dL Calcium (8.6-10.4) mg/dl Phosphorus (2.5-4.5) mg/dL Magnesium (1.6-2.3) mg/dL Total Bilirubin (0.2-1.3) mg/dL AST (14-36) U/L ALT (9-52) U/L Alkaline Phosphatase (38-126) U/L Total Protein (6.3-8.3) g/dL Albumin (3.5-5.0) g/dL Globulin (2.2-3.9) gm/dL Albumin/Globulin Ratio (1.0-2.1) Pleural Total Protein <3.0 g/dL Pleural LDH 127 U/L Pleural Glucose 100 mg/dL Laboratory Results - last 24 hr 12/27/16 12/29/16 12/29/16 14:49 11:54 17:50 WBC RBC Hgb Hct MCV MCH MCHC RDW Plt Count MPV Neut % (Auto) Lymph % (Auto) [place] % (Auto) Eos % (Auto) Baso % (Auto) Neut # Lymph # [place] # Eos # Baso # Neutrophils % (Manual) Band Neutrophils % Lymphocytes % (Manual) Monocytes % (Manual) Platelet Estimate Hypochromasia (manual) Anisocytosis (manual) Ovalocytes Puncture Site pCO2 pO2 HCO3 ABG pH ABG Total CO2 ABG O2 Saturation ABG Base Excess ABG Hemoglobin ABG Carboxyhemoglobin POC ABG HHb (Measured) ABG Methemoglobin Jordon Test A-a O2 Difference Respiratory Index Hgb O2 Saturation Vent Mode Mechanical Rate FiO2 Tidal Volume PEEP Sodium Potassium Chloride Carbon Dioxide Anion Gap BUN Creatinine Est GFR ( Amer) Est GFR (Non-Af Amer) POC Glucose (mg/dL) 121 H 127 H Random Glucose Calcium Phosphorus Magnesium Total Bilirubin AST ALT Alkaline Phosphatase Total Protein Albumin Globulin Albumin/Globulin Ratio Pleural Total Protein <3.0 Pleural LDH 127 Pleural Glucose 100 12/30/16 12/30/16 12/30/16 00:01 04:40 05:58 WBC RBC Hgb Hct MCV MCH MCHC RDW Plt Count MPV Neut % (Auto) Lymph % (Auto) [place] % (Auto) Eos % (Auto) Baso % (Auto) Neut # Lymph # [place] # Eos # Baso # Neutrophils % (Manual) Band Neutrophils % Lymphocytes % (Manual) Monocytes % (Manual) Platelet Estimate Hypochromasia (manual) Anisocytosis (manual) Ovalocytes Puncture Site Rr pCO2 41 pO2 120 H HCO3 24.8 ABG pH 7.39 ABG Total CO2 26.1 ABG O2 Saturation 99.8 H ABG Base Excess -0.2 ABG Hemoglobin 12.1 ABG Carboxyhemoglobin 2.2 H POC ABG HHb (Measured) 0.2 ABG Methemoglobin 0.7 Jordon Test Pos A-a O2 Difference 114.0 Respiratory Index 1.0 Hgb O2 Saturation 97.0 Vent Mode Prvc Mechanical Rate 16 FiO2 40.0 Tidal Volume 350 PEEP 5 Sodium Potassium Chloride Carbon Dioxide Anion Gap BUN Creatinine Est GFR ( Amer) Est GFR (Non-Af Amer) POC Glucose (mg/dL) 180 H 124 H Random Glucose Calcium Phosphorus Magnesium Total Bilirubin AST ALT Alkaline Phosphatase Total Protein Albumin Globulin Albumin/Globulin Ratio Pleural Total Protein Pleural LDH Pleural Glucose 12/30/16 12/30/16 06:47 06:47 WBC 10.0 RBC 3.94 Hgb 11.3 Hct 34.7 MCV 87.9 MCH 28.7 MCHC 32.6 L RDW 16.3 H Plt Count 81 L D MPV 8.6 Neut % (Auto) 87.3 H Lymph % (Auto) 5.3 L [place] % (Auto) 5.0 Eos % (Auto) 1.7 Baso % (Auto) 0.7 Neut # 8.7 H Lymph # 0.5 L [place] # 0.5 Eos # 0.2 Baso # 0.1 Neutrophils % (Manual) 71 Band Neutrophils % 20 H* Lymphocytes % (Manual) 6 L Monocytes % (Manual) 3 Platelet Estimate Decreased L Hypochromasia (manual) Slight Anisocytosis (manual) Slight Ovalocytes Slight Puncture Site pCO2 pO2 HCO3 ABG pH ABG Total CO2 ABG O2 Saturation ABG Base Excess ABG Hemoglobin ABG Carboxyhemoglobin POC ABG HHb (Measured) ABG Methemoglobin Jordon Test A-a O2 Difference Respiratory Index Hgb O2 Saturation Vent Mode Mechanical Rate FiO2 Tidal Volume PEEP Sodium 137 Potassium 3.1 L Chloride 102 Carbon Dioxide 25 Anion Gap 13 BUN 27 H Creatinine 1.4 H Est GFR ( Amer) 43 Est GFR (Non-Af Amer) 36 POC Glucose (mg/dL) Random Glucose 112 H Calcium 8.1 L Phosphorus 2.4 L Magnesium 2.0 Total Bilirubin 1.9 H AST 15 ALT 21 Alkaline Phosphatase 61 Total Protein 4.6 L Albumin 2.4 L Globulin 2.2 Albumin/Globulin Ratio 1.1 Pleural Total Protein Pleural LDH Pleural Glucose Fingerstick Blood Sugar Results: 124 Review of Systems - Review of Systems Systems not reviewed;Unavailable: Intubated Critical Care Progress Note - Ventilator Checklist Head of Bed 30 Degrees: Yes Daily Sedation Vacation: Yes Daily Spontaneous Breathing Trial: Yes PUD Prophalyxis: Yes DVT Prophylaxis: Yes - Vent Settings MODE:: PRVC Assessment/Plan (1) Respiratory failure Current Visit: Yes Status: Acute Comment: Continue ventilatory support and wean as tolerated. Continue IV antibiotics Follow-up culture and sensitivity Continue with pigtail catheter Increase feeding as tolerated Ativan when necessary for agitation (2) Pneumonia Current Visit: Yes Status: Acute (3) Sepsis Current Visit: Yes Status: Acute (4) Cellulitis and abscess of foot Current Visit: Yes Status: Acute
--- NOTE | 2016-12-30 17:31 | CP.PCM.PN ---
Subjective - Date & Time of Evaluation Date of Evaluation: 12/30/16 Time of Evaluation: 15:00 - Subjective Subjective: Patient seen and examined in ICU. Patient is intubated and sedated. Objective - Vital Signs/Intake and Output Vital Signs (last 24 hours): Temp Pulse Resp BP Pulse Ox 97.4 F L 91 H 29 H 93/45 L 85 L 12/30/16 12:00 12/30/16 15:00 12/30/16 15:00 12/30/16 15:00 12/30/16 15:00 Intake and Output: 12/30/16 12/30/16 06:59 18:59 Intake Total 1719.0 1304.2 Output Total 1055 355 Balance 664.0 949.2 - Medications Medications: Current Medications Acetaminophen (Tylenol 325 Mg Supp) 975 mg MS ONCE PRN PRN Reason: Fever >100.4 F Last Admin: 12/27/16 10:30 Dose: 975 mg Albumin Human (Albumin Human 25% (12.5 Gm/50 Ml)) 12.5 gm IV Q8H [facility] Last Admin: 12/30/16 13:47 Dose: 12.5 gm Aspirin (Aspirin Chewable) 81 mg PO DAILY [facility] Last Admin: 12/30/16 09:23 Dose: 81 mg Famotidine (Pepcid) 20 mg IVP DAILY [facility] Last Admin: 12/30/16 09:21 Dose: 20 mg Heparin Sodium (Porcine) (Heparin) 5,000 units SC Q12 [facility] Last Admin: 12/30/16 09:20 Dose: 5,000 units Norepinephrine Bitartrate 4 mg (/ Sodium Chloride) 254 mls @ 15.24 mls/hr IV .[id number] PRN; Protocol; 4 MCG/MIN PRN Reason: TITRATE PER MD ORDER Last Titration: 12/30/16 12:24 Dose: 2.96 mcg/min, 11.3 mls/hr Piperacillin Sod/Tazobactam Sod (Zosyn 2.25 Gm Iv Premix) 2.25 gm in 50 mls @ 100 mls/hr IVPB Q8H [facility] Last Admin: 12/30/16 14:41 Dose: 100 mls/hr Linezolid (Zyvox 600mg/300ml D5w) 600 mg in 300 mls @ 200 mls/hr IVPB Q12 [facility] Last Admin: 12/30/16 09:18 Dose: 200 mls/hr Lorazepam (Ativan) 1 mg IVP Q4H PRN PRN Reason: Anxiety Last Admin: 12/30/16 14:40 Dose: 1 mg - Labs Labs: 12/30/16 06:47 12/30/16 06:47 PT 15.4 SECONDS (9.7-12.2) H 12/27/16 09:15 INR 1.4 12/27/16 09:15 APTT 30 SECONDS (21-34) 12/27/16 09:15 - Head Exam Head Exam: ATRAUMATIC, NORMOCEPHALIC - Eye Exam Eye Exam: Normal appearance - ENT Exam ENT Exam: Mucous Membranes Moist - Respiratory Exam Additional comments: Chest tube present. Intubated. On ventilator support. - Cardiovascular Exam Cardiovascular Exam: +S1, +S2 - GI/Abdominal Exam GI & Abdominal Exam: Soft - Extremities Exam Extremities Exam: Pedal Edema Assessment and Plan (1) CHF (congestive heart failure) Status: Acute (2) Cellulitis and abscess of foot Status: Acute (3) H/O mitral valve replacement Status: Acute (4) Hypotension Status: Acute (5) Pneumonia Status: Acute (6) Septic shock Status: Acute - Assessment and Plan (Free Text) Plan: Patient on IV antibiotics and pressor support for septic shock Patient remains intubated Not a candidate for weaning at this time Discussed with the ICU attending and agree with the plan
--- NOTE | 2016-12-30 18:18 | CARD ---
APPROVED REPORT EKG Measurement Heart [id number] <Conclusion> Atrial fibrillation with rapid ventricular response Right axis deviation Incomplete right bundle branch block ST & T wave abnormality, consider inferolateral ischemia Abnormal ECG
--- NOTE | 2016-12-30 23:15 | CP.PCM.PN ---
Subjective - Date & Time of Evaluation Date of Evaluation: 12/29/16 Time of Evaluation: 09:05 - Subjective Subjective: Patient seen and evaluated Intubated Stable hemodynamics PMHx: HTN, Mitral valve replacement, CABG (2016), "kidney problems, only 1 works ", CHF (chronic LE edema) SurgHx: CABG (2016), mitral valve replacement FamHx: denies SocHx: denies tobacco, alcohol, and drug use; lives with sonPolo Allergies: Fish (reaction unknown) Medications: "medication for HTN, diueretic, and cholesterol". See EMR Review of Systems - Review of Systems Systems not reviewed;Unavailable: Intubated Physical Exam - Head Exam Head Exam: ATRAUMATIC, NORMAL INSPECTION - ENT Exam ENT Exam: Mucous Membranes Moist Additional comments: Intubated - Respiratory Exam Respiratory Exam: Rales, Respiratory Distress. absent: Clear to Auscultation Bilateral, NORMAL BREATHING PATTERN - Cardiovascular Exam Cardiovascular Exam: Tachycardia, +S1, +S2. absent: REGULAR RHYTHM - GI/Abdominal Exam GI & Abdominal Exam: Diminished Bowel Sounds, Distended, Firm. absent: Normal Bowel Sounds, Soft - Extremities Exam Extremities exam: Positive for: pedal edema. Negative for: normal inspection, pedal pulses present (diminished) - Skin Skin Exam: Erythema, Warm Additional comments: Chronic changes due to B/L LE edema Objective - Vital Signs/Intake and Output Vital Signs (last 24 hours): Temp Pulse Resp BP Pulse Ox 98.3 F 122 H 27 H 110/53 L 100 12/30/16 20:00 12/30/16 22:00 12/30/16 22:00 12/30/16 22:47 12/30/16 22:00 Intake and Output: 12/30/16 12/31/16 18:59 06:59 Intake Total 1458.1 405.2 Output Total 865 60 Balance 593.1 345.2 - Medications Medications: Current Medications Acetaminophen (Tylenol 325 Mg Supp) 975 mg [place] ONCE PRN PRN Reason: Fever >100.4 F Last Admin: 12/27/16 10:30 Dose: 975 mg Albumin Human (Albumin Human 25% (12.5 Gm/50 Ml)) 12.5 gm IV Q8H [facility] Last Admin: 12/30/16 21:21 Dose: 12.5 gm Aspirin (Aspirin Chewable) 81 mg PO DAILY [facility] Last Admin: 12/30/16 09:23 Dose: 81 mg Famotidine (Pepcid) 20 mg IVP DAILY [facility] Last Admin: 12/30/16 09:21 Dose: 20 mg Heparin Sodium (Porcine) (Heparin) 5,000 units SC Q12 [facility] Last Admin: 12/30/16 21:14 Dose: 5,000 units Norepinephrine Bitartrate 4 mg (/ Sodium Chloride) 254 mls @ 15.24 mls/hr IV .[id number] PRN; Protocol; 4 MCG/MIN PRN Reason: TITRATE PER MD ORDER Last Admin: 12/30/16 22:47 Dose: 2.96 mcg/min, 11.27 mls/hr Piperacillin Sod/Tazobactam Sod (Zosyn 2.25 Gm Iv Premix) 2.25 gm in 50 mls @ 100 mls/hr IVPB Q8H [facility] Last Admin: 12/30/16 22:49 Dose: 100 mls/hr Linezolid (Zyvox 600mg/300ml D5w) 600 mg in 300 mls @ 200 mls/hr IVPB Q12 [facility] Last Admin: 12/30/16 21:14 Dose: 200 mls/hr Lorazepam (Ativan) 1 mg IVP Q2H PRN PRN Reason: Anxiety Last Admin: 12/30/16 20:56 Dose: 1 mg - Labs Labs: 12/30/16 06:47 12/30/16 06:47 PT 15.4 SECONDS (9.7-12.2) H 12/27/16 09:15 INR 1.4 12/27/16 09:15 APTT 30 SECONDS (21-34) 12/27/16 09:15 Assessment and Plan - Assessment and Plan (Free Text) Assessment: 1. Sepsis and Hypotension 2. CAD h/o CABG 3. Mitral valve disease s/p MVR 4. CKD 5. Respiratory failure
--- NOTE | 2016-12-30 23:17 | CP.PCM.PN ---
Subjective - Date & Time of Evaluation Date of Evaluation: 12/30/16 Time of Evaluation: 10:10 - Subjective Subjective: Patient seen and evaluated On Mechanical ventilation D/W Son at bedside about the prognosis PMHx: HTN, Mitral valve replacement, CABG (2016), "kidney problems, only 1 works ", CHF (chronic LE edema) SurgHx: CABG (2016), mitral valve replacement FamHx: denies SocHx: denies tobacco, alcohol, and drug use; lives with sonPolo Allergies: Fish (reaction unknown) Medications: "medication for HTN, diueretic, and cholesterol". See EMR Review of Systems - Review of Systems Systems not reviewed;Unavailable: Intubated Physical Exam - Head Exam Head Exam: ATRAUMATIC, NORMAL INSPECTION - ENT Exam ENT Exam: Mucous Membranes Moist Additional comments: Intubated - Respiratory Exam Respiratory Exam: Rales, Respiratory Distress. absent: Clear to Auscultation Bilateral, NORMAL BREATHING PATTERN - Cardiovascular Exam Cardiovascular Exam: Tachycardia, +S1, +S2. absent: REGULAR RHYTHM - GI/Abdominal Exam GI & Abdominal Exam: Diminished Bowel Sounds, Distended, Firm. absent: Normal Bowel Sounds, Soft - Extremities Exam Extremities exam: Positive for: pedal edema. Negative for: normal inspection, pedal pulses present (diminished) - Skin Skin Exam: Erythema, Warm Additional comments: Chronic changes due to B/L LE edema Objective - Vital Signs/Intake and Output Vital Signs (last 24 hours): Temp Pulse Resp BP Pulse Ox 98.3 F 122 H 27 H 110/53 L 100 12/30/16 20:00 12/30/16 22:00 12/30/16 22:00 12/30/16 22:47 12/30/16 22:00 Intake and Output: 12/30/16 12/31/16 18:59 06:59 Intake Total 1458.1 405.2 Output Total 865 60 Balance 593.1 345.2 - Medications Medications: Current Medications Acetaminophen (Tylenol 325 Mg Supp) 975 mg [place] ONCE PRN PRN Reason: Fever >100.4 F Last Admin: 12/27/16 10:30 Dose: 975 mg Albumin Human (Albumin Human 25% (12.5 Gm/50 Ml)) 12.5 gm IV Q8H [facility] Last Admin: 12/30/16 21:21 Dose: 12.5 gm Aspirin (Aspirin Chewable) 81 mg PO DAILY [facility] Last Admin: 12/30/16 09:23 Dose: 81 mg Famotidine (Pepcid) 20 mg IVP DAILY [facility] Last Admin: 12/30/16 09:21 Dose: 20 mg Heparin Sodium (Porcine) (Heparin) 5,000 units SC Q12 [facility] Last Admin: 12/30/16 21:14 Dose: 5,000 units Norepinephrine Bitartrate 4 mg (/ Sodium Chloride) 254 mls @ 15.24 mls/hr IV .[id number] PRN; Protocol; 4 MCG/MIN PRN Reason: TITRATE PER MD ORDER Last Admin: 12/30/16 22:47 Dose: 2.96 mcg/min, 11.27 mls/hr Piperacillin Sod/Tazobactam Sod (Zosyn 2.25 Gm Iv Premix) 2.25 gm in 50 mls @ 100 mls/hr IVPB Q8H [facility] Last Admin: 12/30/16 22:49 Dose: 100 mls/hr Linezolid (Zyvox 600mg/300ml D5w) 600 mg in 300 mls @ 200 mls/hr IVPB Q12 [facility] Last Admin: 12/30/16 21:14 Dose: 200 mls/hr Lorazepam (Ativan) 1 mg IVP Q2H PRN PRN Reason: Anxiety Last Admin: 12/30/16 20:56 Dose: 1 mg - Labs Labs: 12/30/16 06:47 12/30/16 06:47 PT 15.4 SECONDS (9.7-12.2) H 12/27/16 09:15 INR 1.4 12/27/16 09:15 APTT 30 SECONDS (21-34) 12/27/16 09:15 Assessment and Plan - Assessment and Plan (Free Text) Assessment: 1. Sepsis and Hypotension 2. CAD h/o CABG 3. Mitral valve disease s/p MVR 4. CKD 5. Respiratory failure
[2016-12-31] MEDS: Albumin Human 25% (12.5 gm/50 ml) IV SCH ×3 (05:19→21:58)
[2016-12-31 05:40] LABS: ABG ALLEN TEST POS; ABG MECHANICAL RATE 16; ARTERIAL BLOOD GAS MODE PRVC; ARTERIAL BLOOD HGB O2 SAT 96.7 % (95.0-98.0); ATERIAL BLOOD GAS PEEP 5; CARBOXYHEMOGLOBIN 2.2 % (0.5-1.5); DRAW SITE RR
[2016-12-31] MEDS: Piperacill/Tazo 2.25gm in Dex 2.25 GM/50 ML BAG IVPB SCH ×3 (06:07→22:37)
[2016-12-31 06:58] LABS: BASO # 0.1 K/uL (0.0-0.2); BASO % 0.8 % (0.0-2.0); EOS % 0.6 % (0.0-4.0); LYMPH # 0.6 K/uL (1.0-4.3); LYMPH % 8.3 % (20.0-40.0); MEAN CELL VOLUME 88.3 fL (81.0-99.0); MEAN CORPUSCULAR HEMOGLOBIN 28.5 pg (27.0-31.0); MEAN CORPUSCULAR HGB CONC 32.3 g/dL (33.0-37.0); MEAN PLATELET VOLUME 9.2 fL (7.2-11.7); MONO # 0.8 K/uL (0.0-0.8); MONO % 10.5 % (0.0-10.0); PLATELET COUNT 61 K/uL (130-400); WHITE BLOOD COUNT 7.6 K/uL (4.8-10.8)
[2016-12-31 07:10] LABS: POTASSIUM 3.7 mmol/L (3.6-5.2)
[2016-12-31 07:12] LABS: ALB/GLOB RATIO 1.1 (1.0-2.1); BILIRUBIN,TOTAL 2.1 mg/dL (0.2-1.3); PHOSPHOROUS 2.2 mg/dL (2.5-4.5); TOTAL PROTEIN 5.1 g/dL (6.3-8.3)
[2016-12-31 07:13] LABS: CALCIUM 8.1 mg/dl (8.6-10.4); MAGNESIUM 1.9 mg/dL (1.6-2.3)
[2016-12-31 08:12] LABS: BASOPHIL 1 % (0-2); NEUTROPHIL 74 % (50-75); TOTAL CELLS COUNTED 100
--- NOTE | 2016-12-31 09:07 | CP.PCM.PN ---
Subjective - Date & Time of Evaluation Date of Evaluation: 12/31/16 Time of Evaluation: 13:35 - Subjective Subjective: Patient was seen and examined at bedside in ICU. Patient is intubated and sedated. Objective - Vital Signs/Intake and Output Vital Signs (last 24 hours): Temp Pulse Resp BP Pulse Ox 98 F 103 H 26 H 111/53 L 100 12/31/16 04:00 12/31/16 08:00 12/31/16 08:00 12/31/16 08:00 12/31/16 08:00 Intake and Output: 12/31/16 12/31/16 06:59 18:59 Intake Total 882.1 58.8 Output Total 694 Balance 188.1 58.8 - Medications Medications: Current Medications Acetaminophen (Tylenol 325 Mg Supp) 975 mg [place] ONCE PRN PRN Reason: Fever >100.4 F Last Admin: 12/27/16 10:30 Dose: 975 mg Albumin Human (Albumin Human 25% (12.5 Gm/50 Ml)) 12.5 gm IV Q8H [facility] Last Admin: 12/31/16 05:19 Dose: 12.5 gm Aspirin (Aspirin Chewable) 81 mg PO DAILY [facility] Last Admin: 12/30/16 09:23 Dose: 81 mg Famotidine (Pepcid) 20 mg IVP DAILY [facility] Last Admin: 12/30/16 09:21 Dose: 20 mg Heparin Sodium (Porcine) (Heparin) 5,000 units SC Q12 [facility] Last Admin: 12/30/16 21:14 Dose: 5,000 units Norepinephrine Bitartrate 4 mg (/ Sodium Chloride) 254 mls @ 15.24 mls/hr IV .[id number] PRN; Protocol; 4 MCG/MIN PRN Reason: TITRATE PER MD ORDER Last Titration: 12/31/16 00:00 Dose: 4.93 mcg/min, 18.78 mls/hr Piperacillin Sod/Tazobactam Sod (Zosyn 2.25 Gm Iv Premix) 2.25 gm in 50 mls @ 100 mls/hr IVPB Q8H [facility] Last Admin: 12/31/16 06:07 Dose: 100 mls/hr Linezolid (Zyvox 600mg/300ml D5w) 600 mg in 300 mls @ 200 mls/hr IVPB Q12 [facility] Last Admin: 12/30/16 21:14 Dose: 200 mls/hr Potassium Phosphate 15 mmole/ (Sodium Chloride) 255 mls @ 42.5 mls/hr IVPB ONCE ONE Stop: 12/31/16 15:29 Lorazepam (Ativan) 1 mg IVP Q2H PRN PRN Reason: Anxiety Last Admin: 12/31/16 06:05 Dose: 1 mg - Labs Labs: 12/31/16 06:48 12/31/16 06:48 PT 15.4 SECONDS (9.7-12.2) H 12/27/16 09:15 INR 1.4 12/27/16 09:15 APTT 30 SECONDS (21-34) 12/27/16 09:15 - Head Exam Head Exam: ATRAUMATIC, NORMOCEPHALIC - Eye Exam Eye Exam: PERRL - ENT Exam ENT Exam: Mucous Membranes Moist - Respiratory Exam Additional comments: Patient is on ventilator support. Transmitted breath sounds audible. Chest tube is present. - Cardiovascular Exam Cardiovascular Exam: Tachycardia, +S1, +S2 - GI/Abdominal Exam GI & Abdominal Exam: Soft - Extremities Exam Extremities Exam: Pedal Edema Additional comments: Bilateral pitting edema noted. Blisters on the legs noted. - Skin Skin Exam: Vesicles Additional comments: Blisters and vesicles on the lower extremities. Assessment and Plan (1) CHF (congestive heart failure) Assessment & Plan: Follow-up echocardiogram report. Patient is on pressor support. Status: Acute (2) Cellulitis and abscess of foot Assessment & Plan: Patient is on Zosyn. We will consider surgical evaluation if no improvement. Status: Acute (3) H/O mitral valve replacement Status: Acute (4) Hypotension Assessment & Plan: Patient is on pressor support. Status: Acute (5) Pneumonia Assessment & Plan: Continue IV antibiotics as per recommendation of ID. Patient is on Zosyn. Status: Acute (6) Septic shock Assessment & Plan: Patient remains intubated and on pressor support. Not a candidate for weaning at this time. Status: Acute
[2016-12-31] MEDS ORDERED: Potassium Phosphate 15 MMOLE in Sodium Chloride 0.9% 250 ML IVPB ONE (09:30)
--- NOTE | 2016-12-31 09:31 | RAD ---
HISTORY: vent/chest tube COMPARISON: Multiple prior chest x-rays, the most recent performed 12/30/16 TECHNIQUE: Chest, one view. FINDINGS: Endotracheal tube terminates approximately 2.9 cm above the julio cesar. Terminates within the distal esophagus with the side hole terminating in the mid esophagus ; this should be repositioned to extend the on the hemidiaphragm and terminate within the stomach. Right-sided central venous catheter extends to the cavoatrial junction. Right-sided chest tube. LUNGS: Small to moderate right pleural effusion. Trace left pleural effusion. Moderate pulmonary venous congestion. No definite pneumothorax. CARDIOVASCULAR: Median sternotomy wires with evidence of CABG. Cardiomegaly. Prosthetic cardiac valve. Atherosclerotic calcification of the aortic knob. OSSEOUS STRUCTURES: Osseous demineralization. Degenerative changes. VISUALIZED UPPER ABDOMEN: Unremarkable. OTHER FINDINGS: None. IMPRESSION: Endotracheal tube terminates approximately 2.9 cm above the julio cesar. The nasogastric tube terminates within the distal esophagus with the side hole terminating in the mid esophagus ; this should be repositioned to extend to the stomach. Right-sided central venous catheter extends to the cavoatrial junction. Right-sided chest tube. Small to moderate right pleural effusion. Trace left pleural effusion. Moderate pulmonary venous congestion. NG tube placement discussed with the [place] on 12/31/16 at 9:14 a.m..
--- NOTE | 2016-12-31 13:30 | CP.CCUPN ---
CCU Subjective - Physician Review Events Since Last Encounter (Free Text): 12/31/16 13:28 Patient seen and examined in the intensive care unit. Case discussed with the staff in the morning. Remains intubated on ventilatory support not tolerating weaning Afebrile Pigtail catheter in place draining fluid On antibiotics Sedated on Ativan Tolerating feeding CCU Objective - Vital Signs / Intake & Output Intake and Output (Last 8hrs): Intake & Output 12/30/16 12/31/16 12/31/16 22:59 06:59 14:59 Intake Total 660.4 476.9 232.8 Output Total 460 614 Balance 200.4 -137.1 232.8 Intake: IV 200 14 174 Intake, IV Amount 140.4 142.9 18.8 Right Distal Port 50 Subclavian Right Medial Port 90.4 142.9 18.8 Subclavian Tube Feeding 320 320 40 Output: Chest Tube Drainage 300 454 Right Posterior Chest 300 454 Urine 160 160 Urethral ([place]) 160 160 Emesis 0 Other: # Bowel Movements 0 - Physical Exam Head: Negative for: Atraumatic, Normocephalic Mouth: Positive for: Moist Mucous Membranes Neck: Positive for: Trachea Midline Respiratory/Chest: Positive for: Decreased Breath Sounds. Negative for: Rales, Rhonchi Abdomen: Positive for: Distention. Negative for: Tenderness, Normal Bowel Sounds (hypoactive) Upper Extremity: Positive for: Normal Inspection Lower Extremity: Positive for: Edema, Swelling, Other (serosanginous fluid draining from burst blister on left LE. Multple blisters notes.). Negative for : Normal Inspection Skin: Positive for: Warm, Erythematous, Other (serosanginous fluid draining from burst blister on left LE. Multple blisters notes.). Negative for: Dry, Normal Color Psychiatric: Negative for: Alert, Oriented x 3, Normal Affect, Normal Mood - Medications Active Medications: Active Medications Generic Name Dose Route Start Last Admin Trade Name Freq PRN Reason Stop Dose Admin Acetaminophen 975 mg 12/27/16 08:39 12/27/16 10:30 Tylenol 325 Mg Supp VT 975 mg ONCE PRN Administration Fever >100.4 F Albumin Human 12.5 gm 12/27/16 14:15 12/31/16 05:19 Albumin Human 25% (12.5 Gm/50 Ml) IV 12.5 gm Q8H [facility] Administration Famotidine 20 mg 12/27/16 14:30 12/31/16 10:07 Pepcid IVP 20 mg DAILY [facility] Administration Norepinephrine Bitartrate 4 mg 254 mls @ 15.24 mls/hr 12/27/16 12:10 10:00 / Sodium Chloride IV 2.96 mcg/min .[id number] PRN 11.3 mls/hr TITRATE PER MD ORDER Titration Protocol 4 MCG/MIN Piperacillin Sod/Tazobactam Sod 2.25 gm in 50 mls @ 100 mls/hr 12/27/16 15:00 12/31/16 06:07 Zosyn 2.25 Gm Iv Premix IVPB 100 mls/hr Q8H [facility] Administration Potassium Phosphate 15 mmole/ 255 mls @ 42.5 mls/hr 12/31/16 09:30 12/31/16 10:07 Sodium Chloride IVPB 12/31/16 15:29 42.5 mls/hr ONCE ONE Administration Lorazepam 1 mg 12/30/16 19:11 12/31/16 11:55 Ativan IVP 1 mg Q2H PRN Administration Anxiety - Patient Studies Lab Studies: Microbiology Studies 12/27/16 Unknown Gram Stain - Final Pleural Fluid Body Fluid Culture - Preliminary No growth. Lab Studies 12/31/16 12/31/16 12/31/16 Range/Units 11:46 06:48 06:48 WBC 7.6 (4.8-10.8) K/uL RBC 3.62 L (3.80-5.20) Mil/uL Hgb 10.3 L (11.0-16.0) g/dL Hct 32.0 L (34.0-47.0) % MCV 88.3 (81.0-99.0) fL MCH 28.5 (27.0-31.0) pg MCHC 32.3 L (33.0-37.0) g/dL RDW 16.0 H (11.5-14.5) % Plt Count 61 L D (130-400) K/uL MPV 9.2 (7.2-11.7) fL Neut % (Auto) 79.8 H (50.0-75.0) % Lymph % (Auto) 8.3 L (20.0-40.0) % [place] % (Auto) 10.5 H (0.0-10.0) % Eos % (Auto) 0.6 (0.0-4.0) % Baso % (Auto) 0.8 (0.0-2.0) % Neut # 6.0 (1.8-7.0) K/uL Lymph # 0.6 L (1.0-4.3) K/uL [place] # 0.8 (0.0-0.8) K/uL Eos # 0.0 (0.0-0.7) K/uL Baso # 0.1 (0.0-0.2) K/uL Neutrophils % (Manual) 74 (50-75) % Band Neutrophils % 7 H (0-2) % Lymphocytes % (Manual) 12 L (20-40) % Monocytes % (Manual) 6 (0-10) % Basophils % (Manual) 1 (0-2) % Platelet Estimate Decreased L (NORMAL) Poikilocytosis (manual Slight Anisocytosis (manual) Slight Ovalocytes Slight Puncture Site pCO2 (35-45) mm/Hg pO2 (80-100) mm/Hg HCO3 (21-28) mmol/L ABG pH (7.35-7.45) ABG Total CO2 (22-28) mmol/L ABG O2 Saturation (95-98) % ABG Base Excess (-2.0-3.0) mmol/L ABG Hemoglobin (11.7-17.4) g/dL ABG Carboxyhemoglobin (0.5-1.5) % POC ABG HHb (Measured) (0.0-5.0) % ABG Methemoglobin (0.0-3.0) % Jordon Test A-a O2 Difference mm/Hg Respiratory Index Hgb O2 Saturation (95.0-98.0) % Vent Mode Mechanical Rate FiO2 % Tidal Volume PEEP Sodium 139 (132-148) mmol/L Potassium 3.7 (3.6-5.2) mmol/L Chloride 100 (98-107) mmol/L Carbon Dioxide 26 (22-30) mmol/L Anion Gap 17 (10-20) BUN 26 H (7-17) mg/dL Creatinine 1.5 H (0.7-1.2) MG/DL Est GFR ( Amer) 40 Est GFR (Non-Af Amer) 33 POC Glucose (mg/dL) 127 H (65-110) mg/dL Random Glucose 100 (65-105) mg/dL Calcium 8.1 L (8.6-10.4) mg/dl Phosphorus 2.2 L (2.5-4.5) mg/dL Magnesium 1.9 (1.6-2.3) mg/dL Total Bilirubin 2.1 H (0.2-1.3) mg/dL AST 19 (14-36) U/L ALT 25 (9-52) U/L Alkaline Phosphatase 73 (38-126) U/L Total Protein 5.1 L (6.3-8.3) g/dL Albumin 2.7 L (3.5-5.0) g/dL Globulin 2.4 (2.2-3.9) gm/dL Albumin/Globulin Ratio 1.1 (1.0-2.1) 12/31/16 12/31/16 12/30/16 Range/Units 05:25 05:22 23:43 WBC (4.8-10.8) K/uL RBC (3.80-5.20) Mil/uL Hgb (11.0-16.0) g/dL Hct (34.0-47.0) % MCV (81.0-99.0) fL MCH (27.0-31.0) pg MCHC (33.0-37.0) g/dL RDW (11.5-14.5) % Plt Count (130-400) K/uL MPV (7.2-11.7) fL Neut % (Auto) (50.0-75.0) % Lymph % (Auto) (20.0-40.0) % [place] % (Auto) (0.0-10.0) % Eos % (Auto) (0.0-4.0) % Baso % (Auto) (0.0-2.0) % Neut # (1.8-7.0) K/uL Lymph # (1.0-4.3) K/uL [place] # (0.0-0.8) K/uL Eos # (0.0-0.7) K/uL Baso # (0.0-0.2) K/uL Neutrophils % (Manual) (50-75) % Band Neutrophils % (0-2) % Lymphocytes % (Manual) (20-40) % Monocytes % (Manual) (0-10) % Basophils % (Manual) (0-2) % Platelet Estimate (NORMAL) Poikilocytosis (manual Anisocytosis (manual) Ovalocytes Puncture Site Rr pCO2 40 (35-45) mm/Hg pO2 147 H (80-100) mm/Hg HCO3 25.9 (21-28) mmol/L ABG pH 7.42 (7.35-7.45) ABG Total CO2 27.1 (22-28) mmol/L ABG O2 Saturation 100.0 H (95-98) % ABG Base Excess 1.3 (-2.0-3.0) mmol/L ABG Hemoglobin 10.4 L (11.7-17.4) g/dL ABG Carboxyhemoglobin 2.2 H (0.5-1.5) % POC ABG HHb (Measured) 0.0 (0.0-5.0) % ABG Methemoglobin 1.0 (0.0-3.0) % Jordon Test Pos A-a O2 Difference 88.0 mm/Hg Respiratory Index 0.6 Hgb O2 Saturation 96.7 (95.0-98.0) % Vent Mode Prvc Mechanical Rate 16 FiO2 40.0 % Tidal Volume 350 PEEP 5 Sodium (132-148) mmol/L Potassium (3.6-5.2) mmol/L Chloride (98-107) mmol/L Carbon Dioxide (22-30) mmol/L Anion Gap (10-20) BUN (7-17) mg/dL Creatinine (0.7-1.2) MG/DL Est GFR ( Amer) Est GFR (Non-Af Amer) POC Glucose (mg/dL) 129 H 133 H (65-110) mg/dL Random Glucose (65-105) mg/dL Calcium (8.6-10.4) mg/dl Phosphorus (2.5-4.5) mg/dL Magnesium (1.6-2.3) mg/dL Total Bilirubin (0.2-1.3) mg/dL AST (14-36) U/L ALT (9-52) U/L Alkaline Phosphatase (38-126) U/L Total Protein (6.3-8.3) g/dL Albumin (3.5-5.0) g/dL Globulin (2.2-3.9) gm/dL Albumin/Globulin Ratio (1.0-2.1) 12/30/16 Range/Units 17:48 WBC (4.8-10.8) K/uL RBC (3.80-5.20) Mil/uL Hgb (11.0-16.0) g/dL Hct (34.0-47.0) % MCV (81.0-99.0) fL MCH (27.0-31.0) pg MCHC (33.0-37.0) g/dL RDW (11.5-14.5) % Plt Count (130-400) K/uL MPV (7.2-11.7) fL Neut % (Auto) (50.0-75.0) % Lymph % (Auto) (20.0-40.0) % [place] % (Auto) (0.0-10.0) % Eos % (Auto) (0.0-4.0) % Baso % (Auto) (0.0-2.0) % Neut # (1.8-7.0) K/uL Lymph # (1.0-4.3) K/uL [place] # (0.0-0.8) K/uL Eos # (0.0-0.7) K/uL Baso # (0.0-0.2) K/uL Neutrophils % (Manual) (50-75) % Band Neutrophils % (0-2) % Lymphocytes % (Manual) (20-40) % Monocytes % (Manual) (0-10) % Basophils % (Manual) (0-2) % Platelet Estimate (NORMAL) Poikilocytosis (manual Anisocytosis (manual) Ovalocytes Puncture Site pCO2 (35-45) mm/Hg pO2 (80-100) mm/Hg HCO3 (21-28) mmol/L ABG pH (7.35-7.45) ABG Total CO2 (22-28) mmol/L ABG O2 Saturation (95-98) % ABG Base Excess (-2.0-3.0) mmol/L ABG Hemoglobin (11.7-17.4) g/dL ABG Carboxyhemoglobin (0.5-1.5) % POC ABG HHb (Measured) (0.0-5.0) % ABG Methemoglobin (0.0-3.0) % Jordon Test A-a O2 Difference mm/Hg Respiratory Index Hgb O2 Saturation (95.0-98.0) % Vent Mode Mechanical Rate FiO2 % Tidal Volume PEEP Sodium (132-148) mmol/L Potassium (3.6-5.2) mmol/L Chloride (98-107) mmol/L Carbon Dioxide (22-30) mmol/L Anion Gap (10-20) BUN (7-17) mg/dL Creatinine (0.7-1.2) MG/DL Est GFR ( Amer) Est GFR (Non-Af Amer) POC Glucose (mg/dL) 122 H (65-110) mg/dL Random Glucose (65-105) mg/dL Calcium (8.6-10.4) mg/dl Phosphorus (2.5-4.5) mg/dL Magnesium (1.6-2.3) mg/dL Total Bilirubin (0.2-1.3) mg/dL AST (14-36) U/L ALT (9-52) U/L Alkaline Phosphatase (38-126) U/L Total Protein (6.3-8.3) g/dL Albumin (3.5-5.0) g/dL Globulin (2.2-3.9) gm/dL Albumin/Globulin Ratio (1.0-2.1) Laboratory Results - last 24 hr 12/30/16 12/30/16 12/31/16 17:48 23:43 05:22 WBC RBC Hgb Hct MCV MCH MCHC RDW Plt Count MPV Neut % (Auto) Lymph % (Auto) [place] % (Auto) Eos % (Auto) Baso % (Auto) Neut # Lymph # [place] # Eos # Baso # Neutrophils % (Manual) Band Neutrophils % Lymphocytes % (Manual) Monocytes % (Manual) Basophils % (Manual) Platelet Estimate Poikilocytosis (manual Anisocytosis (manual) Ovalocytes Puncture Site pCO2 pO2 HCO3 ABG pH ABG Total CO2 ABG O2 Saturation ABG Base Excess ABG Hemoglobin ABG Carboxyhemoglobin POC ABG HHb (Measured) ABG Methemoglobin Jordon Test A-a O2 Difference Respiratory Index Hgb O2 Saturation Vent Mode Mechanical Rate FiO2 Tidal Volume PEEP Sodium Potassium Chloride Carbon Dioxide Anion Gap BUN Creatinine Est GFR ( Amer) Est GFR (Non-Af Amer) POC Glucose (mg/dL) 122 H 133 H 129 H Random Glucose Calcium Phosphorus Magnesium Total Bilirubin AST ALT Alkaline Phosphatase Total Protein Albumin Globulin Albumin/Globulin Ratio 12/31/16 12/31/16 12/31/16 05:25 06:48 06:48 WBC 7.6 RBC 3.62 L Hgb 10.3 L Hct 32.0 L MCV 88.3 MCH 28.5 MCHC 32.3 L RDW 16.0 H Plt Count 61 L D MPV 9.2 Neut % (Auto) 79.8 H Lymph % (Auto) 8.3 L [place] % (Auto) 10.5 H Eos % (Auto) 0.6 Baso % (Auto) 0.8 Neut # 6.0 Lymph # 0.6 L [place] # 0.8 Eos # 0.0 Baso # 0.1 Neutrophils % (Manual) 74 Band Neutrophils % 7 H Lymphocytes % (Manual) 12 L Monocytes % (Manual) 6 Basophils % (Manual) 1 Platelet Estimate Decreased L Poikilocytosis (manual Slight Anisocytosis (manual) Slight Ovalocytes Slight Puncture Site Rr pCO2 40 pO2 147 H HCO3 25.9 ABG pH 7.42 ABG Total CO2 27.1 ABG O2 Saturation 100.0 H ABG Base Excess 1.3 ABG Hemoglobin 10.4 L ABG Carboxyhemoglobin 2.2 H POC ABG HHb (Measured) 0.0 ABG Methemoglobin 1.0 Jordon Test Pos A-a O2 Difference 88.0 Respiratory Index 0.6 Hgb O2 Saturation 96.7 Vent Mode Prvc Mechanical Rate 16 FiO2 40.0 Tidal Volume 350 PEEP 5 Sodium 139 Potassium 3.7 Chloride 100 Carbon Dioxide 26 Anion Gap 17 BUN 26 H Creatinine 1.5 H Est GFR ( Amer) 40 Est GFR (Non-Af Amer) 33 POC Glucose (mg/dL) Random Glucose 100 Calcium 8.1 L Phosphorus 2.2 L Magnesium 1.9 Total Bilirubin 2.1 H AST 19 ALT 25 Alkaline Phosphatase 73 Total Protein 5.1 L Albumin 2.7 L Globulin 2.4 Albumin/Globulin Ratio 1.1 12/31/16 11:46 WBC RBC Hgb Hct MCV MCH MCHC RDW Plt Count MPV Neut % (Auto) Lymph % (Auto) [place] % (Auto) Eos % (Auto) Baso % (Auto) Neut # Lymph # [place] # Eos # Baso # Neutrophils % (Manual) Band Neutrophils % Lymphocytes % (Manual) Monocytes % (Manual) Basophils % (Manual) Platelet Estimate Poikilocytosis (manual Anisocytosis (manual) Ovalocytes Puncture Site pCO2 pO2 HCO3 ABG pH ABG Total CO2 ABG O2 Saturation ABG Base Excess ABG Hemoglobin ABG Carboxyhemoglobin POC ABG HHb (Measured) ABG Methemoglobin Jordon Test A-a O2 Difference Respiratory Index Hgb O2 Saturation Vent Mode Mechanical Rate FiO2 Tidal Volume PEEP Sodium Potassium Chloride Carbon Dioxide Anion Gap BUN Creatinine Est GFR ( Amer) Est GFR (Non-Af Amer) POC Glucose (mg/dL) 127 H Random Glucose Calcium Phosphorus Magnesium Total Bilirubin AST ALT Alkaline Phosphatase Total Protein Albumin Globulin Albumin/Globulin Ratio Fingerstick Blood Sugar Results: 133 Review of Systems - Review of Systems Systems not reviewed;Unavailable: Intubated Critical Care Progress Note - Ventilator Checklist Head of Bed 30 Degrees: Yes Daily Sedation Vacation: Yes Daily Spontaneous Breathing Trial: Yes Assessment/Plan (1) Respiratory failure Current Visit: Yes Status: Acute Comment: Continue ventilatory support and wean as tolerated. Continue IV antibiotics Continue with pigtail catheter Increase feeding as tolerated Ativan when necessary for agitation Case discussed with son at length Potassium and magnesium supplements (2) Pneumonia Current Visit: Yes Status: Acute (3) Sepsis Current Visit: Yes Status: Acute (4) Cellulitis and abscess of foot Current Visit: Yes Status: Acute
--- NOTE | 2016-12-31 15:14 | CP.PCM.PN ---
Subjective - Date & Time of Evaluation Date of Evaluation: 12/31/16 Time of Evaluation: 08:00 - Subjective Subjective: Remains intubated on ventilatory support not tolerating weaning Afebrile Pigtail catheter in place draining fluid On antibiotics Objective - Vital Signs/Intake and Output Vital Signs (last 24 hours): Temp Pulse Resp BP Pulse Ox 98.4 F 101 H 25 H 138/57 L 94 L 12/31/16 12:00 12/31/16 15:00 12/31/16 15:00 12/31/16 15:00 12/31/16 15:00 Intake and Output: 12/31/16 12/31/16 06:59 18:59 Intake Total 882.1 232.8 Output Total 694 Balance 188.1 232.8 - Medications Medications: Current Medications Acetaminophen (Tylenol 325 Mg Supp) 975 mg [place] ONCE PRN PRN Reason: Fever >100.4 F Last Admin: 12/27/16 10:30 Dose: 975 mg Albumin Human (Albumin Human 25% (12.5 Gm/50 Ml)) 12.5 gm IV Q8H [facility] Last Admin: 12/31/16 13:54 Dose: 12.5 gm Famotidine (Pepcid) 20 mg IVP DAILY [facility] Last Admin: 12/31/16 10:07 Dose: 20 mg Norepinephrine Bitartrate 4 mg (/ Sodium Chloride) 254 mls @ 15.24 mls/hr IV .[id number] PRN; Protocol; 4 MCG/MIN PRN Reason: TITRATE PER MD ORDER Last Titration: 12/31/16 10:00 Dose: 2.96 mcg/min, 11.3 mls/hr Piperacillin Sod/Tazobactam Sod (Zosyn 2.25 Gm Iv Premix) 2.25 gm in 50 mls @ 100 mls/hr IVPB Q8H [facility] Last Admin: 12/31/16 14:44 Dose: 100 mls/hr Potassium Phosphate 15 mmole/ (Sodium Chloride) 255 mls @ 42.5 mls/hr IVPB ONCE ONE Stop: 12/31/16 15:29 Last Admin: 12/31/16 10:07 Dose: 42.5 mls/hr Lorazepam (Ativan) 1 mg IVP Q2H PRN PRN Reason: Anxiety Last Admin: 12/31/16 11:55 Dose: 1 mg - Labs Labs: 12/31/16 06:48 12/31/16 06:48 PT 15.4 SECONDS (9.7-12.2) H 12/27/16 09:15 INR 1.4 12/27/16 09:15 APTT 30 SECONDS (21-34) 12/27/16 09:15 - Constitutional Appears: Non-toxic, Chronically Ill - Head Exam Head Exam: NORMOCEPHALIC - Eye Exam Eye Exam: PERRL - ENT Exam ENT Exam: Mucous Membranes Dry, Normal External Ear Exam - Neck Exam Neck Exam: absent: Lymphadenopathy - Respiratory Exam Respiratory Exam: Decreased Breath Sounds, Rhonchi - Cardiovascular Exam Cardiovascular Exam: REGULAR RHYTHM, +S1, +S2 - GI/Abdominal Exam GI & Abdominal Exam: Distended, Soft. absent: Tenderness - Rectal Exam Rectal Exam: Deferred - Exam Exam: NORMAL INSPECTION - Extremities Exam Extremities Exam: absent: Pedal Edema - Back Exam Back Exam: absent: CVA tenderness (L), CVA tenderness (R) - Neurological Exam Neurological Exam: Altered, Awake - Psychiatric Exam Psychiatric exam: Normal Mood - Skin Skin Exam: Dry Assessment and Plan (1) Hypotension Status: Acute (2) Respiratory distress Status: Acute (3) Sepsis Status: Acute (4) Pneumonia Status: Acute (5) Cellulitis and abscess of foot Status: Acute (6) Septic shock Status: Acute (7) Respiratory failure Status: Acute (8) Respiratory failure Status: Acute (9) CHF (congestive heart failure) Status: Acute (10) CHF (congestive heart failure) Status: Acute (11) H/O mitral valve replacement Status: Acute (12) Altered mental status Status: Acute - Assessment and Plan (Free Text) Assessment: iv antibiotics renewed zyvox d/c'd
--- NOTE | 2016-12-31 23:21 | CP.PCM.PN ---
Subjective - Date & Time of Evaluation Date of Evaluation: 12/31/16 Time of Evaluation: 08:35 - Subjective Subjective: Patient seen and evaluated Intubated Does not follow commands ECHO shows severely dilated Right heart and severe pulmonary HTN likely chronic Continue current meds' Over all prognosis is poor PMHx: HTN, Mitral valve replacement, CABG (2015), "kidney problems, only 1 works ", CHF (chronic LE edema) SurgHx: CABG (2016), mitral valve replacement FamHx: denies SocHx: denies tobacco, alcohol, and drug use; lives with sonPolo Allergies: Fish (reaction unknown) Medications: "medication for HTN, diueretic, and cholesterol". See EMR Review of Systems - Review of Systems Systems not reviewed;Unavailable: Intubated Physical Exam - Head Exam Head Exam: ATRAUMATIC, NORMAL INSPECTION - ENT Exam ENT Exam: Mucous Membranes Moist Additional comments: Intubated - Respiratory Exam Respiratory Exam: Rales, Respiratory Distress. absent: Clear to Auscultation Bilateral, NORMAL BREATHING PATTERN - Cardiovascular Exam Cardiovascular Exam: Tachycardia, +S1, +S2. absent: REGULAR RHYTHM - GI/Abdominal Exam GI & Abdominal Exam: Diminished Bowel Sounds, Distended, Firm. absent: Normal Bowel Sounds, Soft - Extremities Exam Extremities exam: Positive for: pedal edema. Negative for: normal inspection, pedal pulses present (diminished) - Skin Skin Exam: Erythema, Warm Additional comments: Chronic changes due to B/L LE edema Objective - Vital Signs/Intake and Output Vital Signs (last 24 hours): Temp Pulse Resp BP Pulse Ox 98 F 103 H 26 H 107/65 100 12/31/16 16:00 12/31/16 19:00 12/31/16 19:00 12/31/16 19:00 12/31/16 19:00 Intake and Output: 12/31/16 01/01/17 18:59 06:59 Intake Total 1242.1 120 Output Total 851 Balance 391.1 120 - Medications Medications: Current Medications Acetaminophen (Tylenol 325 Mg Supp) 975 mg [place] ONCE PRN PRN Reason: Fever >100.4 F Last Admin: 12/27/16 10:30 Dose: 975 mg Albumin Human (Albumin Human 25% (12.5 Gm/50 Ml)) 12.5 gm IV Q8H [facility] Last Admin: 12/31/16 21:58 Dose: 12.5 gm Famotidine (Pepcid) 20 mg IVP DAILY [facility] Last Admin: 12/31/16 10:07 Dose: 20 mg Norepinephrine Bitartrate 4 mg (/ Sodium Chloride) 254 mls @ 15.24 mls/hr IV .[id number] PRN; Protocol; 4 MCG/MIN PRN Reason: TITRATE PER MD ORDER Last Titration: 12/31/16 17:00 Dose: Infused Piperacillin Sod/Tazobactam Sod (Zosyn 2.25 Gm Iv Premix) 2.25 gm in 50 mls @ 100 mls/hr IVPB Q8H [facility] Last Admin: 12/31/16 22:37 Dose: 100 mls/hr Lorazepam (Ativan) 1 mg IVP Q2H PRN PRN Reason: Anxiety Last Admin: 12/31/16 21:58 Dose: 1 mg - Labs Labs: 12/31/16 06:48 12/31/16 06:48 PT 15.4 SECONDS (9.7-12.2) H 12/27/16 09:15 INR 1.4 12/27/16 09:15 APTT 30 SECONDS (21-34) 12/27/16 09:15 Assessment and Plan - Assessment and Plan (Free Text) Assessment: 1. Sepsis and Hypotension 2. CAD h/o CABG 3. Mitral valve disease s/p MVR 4. CKD 5. Respiratory failure
[2017-01-01] MEDS: Albumin Human 25% (12.5 gm/50 ml) IV SCH ×3 (05:34→22:21)
[2017-01-01] MEDS: Piperacill/Tazo 2.25gm in Dex 2.25 GM/50 ML BAG IVPB SCH ×3 (06:04→22:19)
[2017-01-01 06:16] LABS: ABG MECHANICAL RATE 16; ARTERIAL BLOOD GAS MODE PRVC; ARTERIAL BLOOD HGB O2 SAT 72.6 % (95.0-98.0); ATERIAL BLOOD GAS PEEP 5; CARBOXYHEMOGLOBIN 2.4 % (0.5-1.5); DRAW SITE LB; HHB 24.1 % (0.0-5.0); METHEMOGLOBIN 0.9 % (0.0-3.0)
[2017-01-01 06:24] LABS: BASO % 0.8 % (0.0-2.0); EOS # 0.1 K/uL (0.0-0.7); EOS % 1.6 % (0.0-4.0); HEMATOCRIT 29.3 % (34.0-47.0); LYMPH # 0.4 K/uL (1.0-4.3); LYMPH % 6.7 % (20.0-40.0); MEAN CELL VOLUME 88.5 fL (81.0-99.0); MEAN CORPUSCULAR HEMOGLOBIN 27.9 pg (27.0-31.0); MEAN CORPUSCULAR HGB CONC 31.6 g/dL (33.0-37.0); MEAN PLATELET VOLUME 9.9 fL (7.2-11.7); MONO # 0.7 K/uL (0.0-0.8); MONO % 11.6 % (0.0-10.0); PLATELET COUNT 46 K/uL (130-400); RED CELL DISTRIBUTION WIDTH 15.7 % (11.5-14.5); WHITE BLOOD COUNT 6.2 K/uL (4.8-10.8)
[2017-01-01 06:39] LABS: ALB/GLOB RATIO 1.3 (1.0-2.1); BILIRUBIN,TOTAL 1.5 mg/dL (0.2-1.3); POTASSIUM 3.6 mmol/L (3.6-5.2); TOTAL PROTEIN 4.9 g/dL (6.3-8.3)
[2017-01-01 08:20] LABS: NEUTROPHIL 90 % (50-75); TOTAL CELLS COUNTED 100
--- NOTE | 2017-01-01 08:53 | CP.PCM.PN ---
Subjective - Date & Time of Evaluation Date of Evaluation: 01/01/17 Time of Evaluation: 08:30 - Subjective Subjective: Patient was seen and examined by me. This is my first time meeting patient. Currently patient is intubated, she is not responsive to commands at this time and is on pressor medications when I examined patient. She was admitted on 12/27 with respiratory failure from sepsis as well as a large right side pleural effusion/consolidation. She now has a right chest tube. Family members were not at bedside when I came this morning, Per review of previous notes it appears the prognosis is poor at this time. Objective - Vital Signs/Intake and Output Vital Signs (last 24 hours): Temp Pulse Resp BP Pulse Ox 98.5 F 102 H 17 97/70 L 99 01/01/17 04:00 01/01/17 07:00 01/01/17 07:00 01/01/17 07:00 01/01/17 07:00 Intake and Output: 01/01/17 01/01/17 06:59 18:59 Intake Total 680 40 Output Total 270 Balance 410 40 - Medications Medications: Current Medications Acetaminophen (Tylenol 325 Mg Supp) 975 mg [place] ONCE PRN PRN Reason: Fever >100.4 F Last Admin: 12/27/16 10:30 Dose: 975 mg Albumin Human (Albumin Human 25% (12.5 Gm/50 Ml)) 12.5 gm IV Q8H [facility] Last Admin: 01/01/17 05:34 Dose: 12.5 gm Famotidine (Pepcid) 20 mg IVP DAILY [facility] Last Admin: 12/31/16 10:07 Dose: 20 mg Norepinephrine Bitartrate 4 mg (/ Sodium Chloride) 254 mls @ 15.24 mls/hr IV .[id number] PRN; Protocol; 4 MCG/MIN PRN Reason: TITRATE PER MD ORDER Last Titration: 12/31/16 17:00 Dose: Infused Piperacillin Sod/Tazobactam Sod (Zosyn 2.25 Gm Iv Premix) 2.25 gm in 50 mls @ 100 mls/hr IVPB Q8H [facility] Last Admin: 01/01/17 06:04 Dose: 100 mls/hr Lorazepam (Ativan) 1 mg IVP Q2H PRN PRN Reason: Anxiety Last Admin: 08/20/17 21:58 Dose: 1 mg - Labs Labs: 01/01/17 06:14 01/01/17 06:14 PT 15.4 SECONDS (9.7-12.2) H 12/27/16 09:15 INR 1.4 12/27/16 09:15 APTT 30 SECONDS (21-34) 12/27/16 09:15 - Constitutional Appears: Chronically Ill - Head Exam Additional comments: Intubated, subclaivian line and also OGT - ENT Exam ENT Exam: Mucous Membranes Moist - Respiratory Exam Respiratory Exam: Decreased Breath Sounds, Rales, Rhonchi Additional comments: Decreased breaths ounds and rales and rhonci right side. Chest tube - GI/Abdominal Exam GI & Abdominal Exam: Soft - Neurological Exam Neurological Exam: absent: Alert, Altered, Awake - Skin Skin Exam: Pallor, Pallor Assessment and Plan - Assessment and Plan (Free Text) Assessment: Assessment and Plan 1 Acute respiratory failure from sepsis and pleural effusion/consolidations on lungs Remains intubated at this time on PRVC settings. She currently has a chest tube at this time. The CXRAYs seem to show improvment on the right lung however the patient still appears to be very ill. There was last week a meeting with pallitative care and the patient's son. She requires IV pressor medications 2 Pneumonia Currently on IV Zosyn WBC decreased, also bandemia has decreased to 6 this morning. Prognosis is still very poor. The blood cultures have been negative 4 days and the sputum and pleural fluid negative. There is a positive from a wound culture 3 Septic shock Patient remains intubated and on pressor support. Urine output was recorded as 1150 cc yesterday 4 CHF (congestive heart failure), history of CAD and vavlular replacement Follow-up echocardiogram report. There is a preliminary reading of 14% EF Patient is on pressor support. 5 Cellulitis and abscess of foot Patient is on Zosyn. We will consider surgical evaluation if no improvement.
--- NOTE | 2017-01-01 11:27 | CARD ---
APPROVED REPORT EXAM: Two-dimensional and M-mode echocardiogram with Doppler and color Doppler. Other Information Quality : GoodRhythm : NSR INDICATION Congestive Heart Failure SEPSIS, HX OF MVR, CABG, M-Mode DIMENSIONS RVDd3.83 (2.1-3.2cm)Left Atrium (MM)5.44 (2.5-4.0cm) IVSd0.85 (0.7-1.1cm)Aortic Root2.40 (2.2-3.7cm) LVDd4.43 (4.0-5.6cm)Aortic Cusp Exc.1.64 (1.5-2.0cm) PWd0.79 (0.7-1.1cm)FS (%) 6 % LVDs4.16 (2.0-3.8cm)LVEF (%)14 (>50%) Mitral Valve MV E Ofvusfqu70.7cm/sMV E Peak Gr.3mmHgMV E Mean Gr.2mmHg MV PRE706zbY/A ratio0.0MVA (PHT)1.65cm2 TDI E/Lateral E'0.0E/Medial E'0.0 Tricuspid Valve TR Peak Onhdvymh992df/sTR Peak Gr.45cgQuQUPD38iaJg LEFT VENTRICLE The left ventricle is normal size. There is normal left ventricular wall thickness. The left ventricular function is normal. The left ventricular ejection fraction is within the normal range. There is a flattened septum consistent with right ventricle volume and pressure overload. Transmitral Doppler flow pattern is abnormal. RIGHT VENTRICLE The right ventricle is severely dilated. The right ventricle is mildly hypertrophied. Systolic function is mildly to moderately reduced. ATRIA The left atrium is severely dilated. The right atrium is severely dilated. The interatrial septum is intact with no evidence for an atrial septal defect. AORTIC VALVE The aortic valve is normal in structure. No aortic regurgitation is present. There is no aortic valvular stenosis. There is no aortic valvular vegetation. MITRAL VALVE Mitral annular calcification is moderate. The mitral valve is moderately thickened. Restriction of tne posterior mv leaflet noted. without evidence of stenosis. There is no evidence of mitral valve prolapse. There is no mitral valve stenosis. Mitral regurgitation is mild. TRICUSPID VALVE The tricuspid valve is normal in structure. There is severe tricuspid regurgitation. There is severe pulmonary hypertension. There is no tricuspid valve prolapse or vegetation. There is no tricuspid valve stenosis. PULMONIC VALVE The pulmonary valve is normal in structure. There is mild to moderate pulmonic valvular regurgitation. There is no pulmonic valvular stenosis. GREAT VESSELS The aortic root is normal in size. The ascending aorta is normal in size. There is moderate pulmonary artery dilatation. severely dilated ivc with minimal change with inspiration. <Conclusion> The left ventricular ejection fraction is within the normal range. There is a flattened septum consistent with right ventricle volume and pressure overload. Transmitral Doppler flow pattern is abnormal. The right ventricle is severely dilated. The right ventricle is mildly hypertrophied. RV Systolic function is mildly to moderately reduced. The left atrium is severely dilated. The right atrium is severely dilated. Restriction of tne posterior mv leaflet noted. without evidence of stenosis. Mitral regurgitation is mild. There is severe tricuspid regurgitation. There is severe pulmonary hypertension. There is mild to moderate pulmonic valvular regurgitation. There is moderate pulmonary artery dilatation. severely dilated ivc with minimal change with inspiration.
--- NOTE | 2017-01-01 12:07 | CP.PCM.PN ---
Subjective - Date & Time of Evaluation Date of Evaluation: 01/01/17 Time of Evaluation: 10:00 - Subjective Subjective: intubated off vanco plts low cont rx Objective - Vital Signs/Intake and Output Vital Signs (last 24 hours): Temp Pulse Resp BP Pulse Ox 98.5 F 109 H 23 95/58 L 100 01/01/17 04:00 01/01/17 10:00 01/01/17 10:00 01/01/17 10:00 01/01/17 10:00 Intake and Output: 01/01/17 01/01/17 06:59 18:59 Intake Total 680 160 Output Total 270 60 Balance 410 100 - Medications Medications: Current Medications Acetaminophen (Tylenol 325 Mg Supp) 975 mg [place] ONCE PRN PRN Reason: Fever >100.4 F Last Admin: 12/27/16 10:30 Dose: 975 mg Albumin Human (Albumin Human 25% (12.5 Gm/50 Ml)) 12.5 gm IV Q8H [facility] Last Admin: 01/01/17 05:34 Dose: 12.5 gm Famotidine (Pepcid) 20 mg IVP DAILY [facility] Last Admin: 12/31/16 10:07 Dose: 20 mg Norepinephrine Bitartrate 4 mg (/ Sodium Chloride) 254 mls @ 15.24 mls/hr IV .[id number] PRN; Protocol; 4 MCG/MIN PRN Reason: TITRATE PER MD ORDER Last Titration: 12/31/16 17:00 Dose: Infused Piperacillin Sod/Tazobactam Sod (Zosyn 2.25 Gm Iv Premix) 2.25 gm in 50 mls @ 100 mls/hr IVPB Q8H [facility] Last Admin: 01/01/17 06:04 Dose: 100 mls/hr - Labs Labs: 01/01/17 06:14 01/01/17 06:14 PT 15.4 SECONDS (9.7-12.2) H 12/27/16 09:15 INR 1.4 12/27/16 09:15 APTT 30 SECONDS (21-34) 12/27/16 09:15 - Constitutional Appears: Non-toxic, Chronically Ill - Head Exam Head Exam: NORMOCEPHALIC - Eye Exam Eye Exam: PERRL - ENT Exam ENT Exam: Normal External Ear Exam - Neck Exam Neck Exam: absent: Lymphadenopathy - Respiratory Exam Respiratory Exam: Decreased Breath Sounds - Cardiovascular Exam Cardiovascular Exam: REGULAR RHYTHM Assessment and Plan (1) Hypotension Status: Acute (2) Respiratory distress Status: Acute (3) Sepsis Status: Acute (4) Pneumonia Status: Acute (5) Cellulitis and abscess of foot Status: Acute (6) Septic shock Status: Acute (7) Respiratory failure Status: Acute (8) Respiratory failure Status: Acute (9) CHF (congestive heart failure) Status: Acute (10) CHF (congestive heart failure) Status: Acute (11) H/O mitral valve replacement Status: Acute (12) Altered mental status Status: Acute
--- NOTE | 2017-01-01 12:56 | RAD ---
HISTORY: PLEURAL EFFUSION, PNEUMONIA COMPARISON: Multiple prior chest x-rays, the most recent performed 12/31/16 TECHNIQUE: Chest, one view. FINDINGS: Endotracheal tube, nasogastric tube, right-sided central venous catheter, and right-sided chest tube are re-identified in satisfactory position. LUNGS: Moderate pulmonary venous congestion. Moderate right lower lobe consolidation and pleural effusion. Left basilar atelectasis/infiltrate. Probable small left pleural effusion. No definite pneumothorax. CARDIOVASCULAR: Median sternotomy wires with evidence of CABG. Cardiomegaly. Prosthetic cardiac valve. Dense atherosclerotic calcifications of the aortic knob. OSSEOUS STRUCTURES: Osseous demineralization. Degenerative changes. VISUALIZED UPPER ABDOMEN: Unremarkable. OTHER FINDINGS: None. IMPRESSION: Moderate pulmonary venous congestion. Moderate right lower lobe consolidation and pleural effusion. Left basilar atelectasis/infiltrate. Probable small left pleural effusion. Endotracheal tube, nasogastric tube, right-sided central venous catheter, and right-sided chest tube are re-identified in satisfactory position.
--- NOTE | 2017-01-01 14:34 | CT ---
PROCEDURE: CT HEAD WITHOUT CONTRAST. HISTORY: R/O STROKE COMPARISON: None available. TECHNIQUE: Axial computed tomography images were obtained through the head/brain without intravenous contrast. Radiation dose: Total exam DLP = 1162.23 mGy-cm. This CT exam was performed using one or more of the following dose reduction techniques: Automated exposure control, adjustment of the mA and/or kV according to patient size, and/or use of iterative reconstruction technique. FINDINGS: HEMORRHAGE: No intracranial hemorrhage. BRAIN: No mass effect or edema. Mild diffuse age-appropriate cerebral atrophy. Mild periventricular white matter lucency consistent with chronic microvascular ischemic change. No evidence of acute infarct. VENTRICLES: Unremarkable. No hydrocephalus. CALVARIUM: Unremarkable. PARANASAL SINUSES: Unremarkable as visualized. No significant inflammatory changes. MASTOID AIR CELLS: Unremarkable as visualized. No inflammatory changes. OTHER FINDINGS: Orotracheal and orogastric tubes noted. IMPRESSION: No evidence of acute infarct. No intracranial mass or hemorrhage. Age-appropriate involutional change.
--- NOTE | 2017-01-01 15:04 | CT ---
PROCEDURE: CT Chest without contrast HISTORY: pleural effusion COMPARISON: 12/28/2016 TECHNIQUE: Contiguous axial images were obtained through the chest without intravenous contrast enhancement. Sagittal and coronal reconstructions were performed. Radiation dose (DLP): 787.00 mGy-cm. This CT exam was performed using one or more of the following dose reduction techniques: Automated exposure control, adjustment of the mA and/or kV according to patient size, and/or use of iterative reconstruction technique. FINDINGS: LUNGS: Increasing atelectasis of right lower lobe compared to prior examination. Subsegmental atelectasis right middle lobe. Patchy opacities in lingular segment left upper lobe, possible pneumonia, possible atelectasis. Minimal compressive atelectasis left lower lobe. MEDIASTINUM: Unremarkable thoracic aorta. No aneurysm. Multi chamber cardiac enlargement. No pericardial effusion. CABG. Dilatation of main pulmonary artery to approximately 3.5 cm diameter. This may correlate with pulmonary arterial hypertension. No lymphadenopathy. Endotracheal tube tip 4.1 cm above tracheal julio cesar. Nasogastric tube traversing thoracic esophagus. Right internal jugular central venous catheter. PLEURA: Increasing right pleural effusion. There is mild hydro pneumothorax right anterior, grossly unchanged from prior. Right pleural pigtail catheter noted. Small left pleural effusion, unchanged. No left pneumothorax. BONES: No fracture. No destructive lesion. UPPER ABDOMEN: Ascites. Small nodular hepatic calcifications consistent with old granulomatous disease. Nodular hepatic contour suggestive of hepatic cirrhosis. OTHER FINDINGS: None. IMPRESSION: Increasing right pleural effusion. Increasing right lower lobe atelectasis. Subsegmental right middle lobe atelectasis. Patchy opacity in lingula, atelectasis versus infiltrate. Small right hydro pneumothorax, grossly unchanged. Right pleural pigtail catheter. ET tube. NG tube. Right internal jugular central venous catheter. Ascites. Hepatic cirrhosis.
--- NOTE | 2017-01-01 16:09 | CP.CCUPN ---
<Gaby Zhou - Last Filed: 01/01/17 20:32> CCU Subjective - Physician Review Subjective (Free Text): Patient was seen and examined at bedside in the morning. Patient is intubated and unresponsive to questions and review of systems. 01/01/17 16:05 CCU Objective - Vital Signs / Intake & Output Vital Signs (Last 4 hours): Vital Signs Pulse Resp BP Pulse Ox 01/01/17 15:00 97 H 18 01/01/17 14:00 106 H 12 01/01/17 13:00 103 H 22 117/61 99 Intake and Output (Last 8hrs): Intake & Output 01/01/17 01/01/17 01/01/17 06:59 14:59 22:59 Intake Total 470 370 40 Output Total 200 140 20 Balance 270 230 20 Weight 157 lb Intake: Intake, IV Amount 150 50 Right Distal Port 150 50 Subclavian Tube Feeding 320 320 40 Output: Chest Tube Drainage 20 Right Posterior Chest 20 Urine 180 140 20 Urethral (More[place]) 180 140 20 Other: # Bowel Movements 1 - Physical Exam Head: Negative for: Atraumatic, Normocephalic Extroacular Muscles: Positive for: EOMI Mouth: Positive for: Moist Mucous Membranes Neck: Positive for: Trachea Midline Respiratory/Chest: Positive for: Decreased Breath Sounds. Negative for: Rales, Rhonchi Abdomen: Positive for: Distention. Negative for: Tenderness, Normal Bowel Sounds (hypoactive) Upper Extremity: Positive for: Normal Inspection Lower Extremity: Positive for: Edema, Swelling, Other (serosanginous fluid draining from burst blister on left LE. Multple blisters notes.). Negative for : Normal Inspection Skin: Positive for: Warm, Erythematous, Other (serosanginous fluid draining from burst blister on left LE. Multple blisters notes.). Negative for: Dry, Normal Color Psychiatric: Negative for: Alert, Oriented x 3, Normal Affect, Normal Mood - Medications Active Medications: Active Medications Generic Name Dose Route Start Last Admin Trade Name Freq PRN Reason Stop Dose Admin Acetaminophen 975 mg 12/27/16 08:39 12/27/16 10:30 Tylenol 325 Mg Supp NE 975 mg ONCE PRN Administration Fever >100.4 F Albumin Human 12.5 gm 12/27/16 14:15 01/01/17 05:34 Albumin Human 25% (12.5 Gm/50 Ml) IV 12.5 gm Q8H ZAHRA Administration Famotidine 20 mg 12/27/16 14:30 12/31/16 10:07 Pepcid IVP 20 mg DAILY ZAHRA Administration Norepinephrine Bitartrate 4 mg 254 mls @ 15.24 mls/hr 12/27/16 12:10 17:00 / Sodium Chloride IV Infused .[id number] PRN Titration TITRATE PER MD ORDER Protocol 4 MCG/MIN Piperacillin Sod/Tazobactam Sod 2.25 gm in 50 mls @ 100 mls/hr 12/27/16 15:00 01/01/17 06:04 Zosyn 2.25 Gm Iv Premix IVPB 100 mls/hr Q8H ZAHRA Administration - Patient Studies Lab Studies: Microbiology Studies 12/27/16 Unknown Gram Stain - Final Pleural Fluid Body Fluid Culture - Final No growth. Lab Studies 01/01/17 01/01/17 01/01/17 Range/Units 06:14 06:14 05:28 WBC 6.2 (4.8-10.8) K/uL RBC 3.31 L (3.80-5.20) Mil/uL Hgb 9.2 L (11.0-16.0) g/dL Hct 29.3 L (34.0-47.0) % MCV 88.5 (81.0-99.0) fL MCH 27.9 (27.0-31.0) pg MCHC 31.6 L (33.0-37.0) g/dL RDW 15.7 H (11.5-14.5) % Plt Count 46 L (130-400) K/uL MPV 9.9 (7.2-11.7) fL Neut % (Auto) 79.3 H (50.0-75.0) % Lymph % (Auto) 6.7 L (20.0-40.0) % Traill % (Auto) 11.6 H (0.0-10.0) % Eos % (Auto) 1.6 (0.0-4.0) % Baso % (Auto) 0.8 (0.0-2.0) % Neut # 4.9 (1.8-7.0) K/uL Lymph # 0.4 L (1.0-4.3) K/uL Traill # 0.7 (0.0-0.8) K/uL Eos # 0.1 (0.0-0.7) K/uL Baso # 0.0 (0.0-0.2) K/uL Neutrophils % (Manual) 90 H (50-75) % Lymphocytes % (Manual) 2 L (20-40) % Monocytes % (Manual) 8 (0-10) % Platelet Estimate Decreased L (NORMAL) Hypochromasia (manual) Slight Anisocytosis (manual) Slight Ovalocytes Slight Puncture Site Lb pCO2 48 H (35-45) mm/Hg pO2 35 L* (80-100) mm/Hg HCO3 24.4 (21-28) mmol/L ABG pH 7.34 L (7.35-7.45) ABG Total CO2 27.4 (22-28) mmol/L ABG O2 Saturation 75.1 L (95-98) % ABG Base Excess -0.1 (-2.0-3.0) mmol/L ABG Hemoglobin 9.3 L (11.7-17.4) g/dL ABG Carboxyhemoglobin 2.4 H (0.5-1.5) % POC ABG HHb (Measured) 24.1 H (0.0-5.0) % ABG Methemoglobin 0.9 (0.0-3.0) % Jordon Test Na A-a O2 Difference 190.0 mm/Hg Respiratory Index 5.4 Hgb O2 Saturation 72.6 L (95.0-98.0) % Vent Mode Prvc Mechanical Rate 16 FiO2 40.0 % Tidal Volume 350 PEEP 5 Blood Gas Comments Attempted several times...mixed venous saple Crit Value Called To Callie hernandez rn Crit Value Called By Himanshu debt and budget counselor Crit Value Read Back Y Blood Gas Notified Time 615 Sodium 137 (132-148) mmol/L Potassium 3.6 (3.6-5.2) mmol/L Chloride 101 (98-107) mmol/L Carbon Dioxide 24 (22-30) mmol/L Anion Gap 16 (10-20) BUN 25 H (7-17) mg/dL Creatinine 1.5 H (0.7-1.2) MG/DL Est GFR ( Amer) 40 Est GFR (Non-Af Amer) 33 POC Glucose (mg/dL) (65-110) mg/dL Random Glucose 106 H (65-105) mg/dL Calcium 8.0 L (8.6-10.4) mg/dl Phosphorus 3.0 (2.5-4.5) mg/dL Magnesium 2.0 (1.6-2.3) mg/dL Total Bilirubin 1.5 H (0.2-1.3) mg/dL AST 18 (14-36) U/L ALT 18 (9-52) U/L Alkaline Phosphatase 58 (38-126) U/L Total Protein 4.9 L (6.3-8.3) g/dL Albumin 2.7 L (3.5-5.0) g/dL Globulin 2.1 L (2.2-3.9) gm/dL Albumin/Globulin Ratio 1.3 (1.0-2.1) 12/31/16 Range/Units 17:45 WBC (4.8-10.8) K/uL RBC (3.80-5.20) Mil/uL Hgb (11.0-16.0) g/dL Hct (34.0-47.0) % MCV (81.0-99.0) fL MCH (27.0-31.0) pg MCHC (33.0-37.0) g/dL RDW (11.5-14.5) % Plt Count (130-400) K/uL MPV (7.2-11.7) fL Neut % (Auto) (50.0-75.0) % Lymph % (Auto) (20.0-40.0) % Traill % (Auto) (0.0-10.0) % Eos % (Auto) (0.0-4.0) % Baso % (Auto) (0.0-2.0) % Neut # (1.8-7.0) K/uL Lymph # (1.0-4.3) K/uL Traill # (0.0-0.8) K/uL Eos # (0.0-0.7) K/uL Baso # (0.0-0.2) K/uL Neutrophils % (Manual) (50-75) % Lymphocytes % (Manual) (20-40) % Monocytes % (Manual) (0-10) % Platelet Estimate (NORMAL) Hypochromasia (manual) Anisocytosis (manual) Ovalocytes Puncture Site pCO2 (35-45) mm/Hg pO2 (80-100) mm/Hg HCO3 (21-28) mmol/L ABG pH (7.35-7.45) ABG Total CO2 (22-28) mmol/L ABG O2 Saturation (95-98) % ABG Base Excess (-2.0-3.0) mmol/L ABG Hemoglobin (11.7-17.4) g/dL ABG Carboxyhemoglobin (0.5-1.5) % POC ABG HHb (Measured) (0.0-5.0) % ABG Methemoglobin (0.0-3.0) % Jordon Test A-a O2 Difference mm/Hg Respiratory Index Hgb O2 Saturation (95.0-98.0) % Vent Mode Mechanical Rate FiO2 % Tidal Volume PEEP Blood Gas Comments Crit Value Called To Crit Value Called By Crit Value Read Back Blood Gas Notified Time Sodium (132-148) mmol/L Potassium (3.6-5.2) mmol/L Chloride (98-107) mmol/L Carbon Dioxide (22-30) mmol/L Anion Gap (10-20) BUN (7-17) mg/dL Creatinine (0.7-1.2) MG/DL Est GFR ( Amer) Est GFR (Non-Af Amer) POC Glucose (mg/dL) 124 H (65-110) mg/dL Random Glucose (65-105) mg/dL Calcium (8.6-10.4) mg/dl Phosphorus (2.5-4.5) mg/dL Magnesium (1.6-2.3) mg/dL Total Bilirubin (0.2-1.3) mg/dL AST (14-36) U/L ALT (9-52) U/L Alkaline Phosphatase (38-126) U/L Total Protein (6.3-8.3) g/dL Albumin (3.5-5.0) g/dL Globulin (2.2-3.9) gm/dL Albumin/Globulin Ratio (1.0-2.1) Laboratory Results - last 24 hr 12/31/16 01/01/1701/01/17 17:45 05:28 06:14 WBC 6.2 RBC 3.31 L Hgb 9.2 L Hct 29.3 L MCV 88.5 MCH 27.9 MCHC 31.6 L RDW 15.7 H Plt Count 46 L MPV 9.9 Neut % (Auto) 79.3 H Lymph % (Auto) 6.7 L Traill % (Auto) 11.6 H Eos % (Auto) 1.6 Baso % (Auto) 0.8 Neut # 4.9 Lymph # 0.4 L Traill # 0.7 Eos # 0.1 Baso # 0.0 Neutrophils % (Manual) 90 H Lymphocytes % (Manual) 2 L Monocytes % (Manual) 8 Platelet Estimate Decreased L Hypochromasia (manual) Slight Anisocytosis (manual) Slight Ovalocytes Slight Puncture Site Lb pCO2 48 H pO2 35 L* HCO3 24.4 ABG pH 7.34 L ABG Total CO2 27.4 ABG O2 Saturation 75.1 L ABG Base Excess -0.1 ABG Hemoglobin 9.3 L ABG Carboxyhemoglobin 2.4 H POC ABG HHb (Measured) 24.1 H ABG Methemoglobin 0.9 Jordon Test Na A-a O2 Difference 190.0 Respiratory Index 5.4 Hgb O2 Saturation 72.6 L Vent Mode Prvc Mechanical Rate 16 FiO2 40.0 Tidal Volume 350 PEEP 5 Blood Gas Comments Attempted several times...mixed venous saple Crit Value Called To Callie hernandez rn Crit Value Called By Himanshu debt and budget counselor Crit Value Read Back Y Blood Gas Notified Time 615 Sodium Potassium Chloride Carbon Dioxide Anion Gap BUN Creatinine Est GFR ( Amer) Est GFR (Non-Af Amer) POC Glucose (mg/dL) 124 H Random Glucose Calcium Phosphorus Magnesium Total Bilirubin AST ALT Alkaline Phosphatase Total Protein Albumin Globulin Albumin/Globulin Ratio 01/01/17 06:14 WBC RBC Hgb Hct MCV MCH MCHC RDW Plt Count MPV Neut % (Auto) Lymph % (Auto) Traill % (Auto) Eos % (Auto) Baso % (Auto) Neut # Lymph # Traill # Eos # Baso # Neutrophils % (Manual) Lymphocytes % (Manual) Monocytes % (Manual) Platelet Estimate Hypochromasia (manual) Anisocytosis (manual) Ovalocytes Puncture Site pCO2 pO2 HCO3 ABG pH ABG Total CO2 ABG O2 Saturation ABG Base Excess ABG Hemoglobin ABG Carboxyhemoglobin POC ABG HHb (Measured) ABG Methemoglobin Jordon Test A-a O2 Difference Respiratory Index Hgb O2 Saturation Vent Mode Mechanical Rate FiO2 Tidal Volume PEEP Blood Gas Comments Crit Value Called To Crit Value Called By Crit Value Read Back Blood Gas Notified Time Sodium 137 Potassium 3.6 Chloride 101 Carbon Dioxide 24 Anion Gap 16 BUN 25 H Creatinine 1.5 H Est GFR ( Amer) 40 Est GFR (Non-Af Amer) 33 POC Glucose (mg/dL) Random Glucose 106 H Calcium 8.0 L Phosphorus 3.0 Magnesium 2.0 Total Bilirubin 1.5 H AST 18 ALT 18 Alkaline Phosphatase 58 Total Protein 4.9 L Albumin 2.7 L Globulin 2.1 L Albumin/Globulin Ratio 1.3 Fingerstick Blood Sugar Results: 124 Review of Systems - Review of Systems Systems not reviewed;Unavailable: Intubated Critical Care Progress Note - Vent Settings TIDAL VOLUME:: 350 RESP RATE:: 16 FIO2:: 40 PEEP:: 5 Assessment/Plan (1) Respiratory distress Assessment and plan: 86 year old female with medical history of HTN, CHF, CKD, and CABG, presents to the ED by ambulance with shortness of breath. The patient's son, Polo, reports she felt nauseas, feverish, and had chills this morning. As he was helping her to the restroom, patient urinated on self, passed out, and remained unresponsive. In the ED, patient was hypotensive and in respiratory distress. Code sepsis was called. Patient is consulted in the ICU for respiratory distress , hypotension, and sepsis. Patient's chest xray showed opacification of right hemithorax with midline shift. Review of systems was not obtained due to patients status. Patient was intubated, pigtail chest tube placed, waterseal, and pleural fluid drained. Repeat chest xray showed improvement. Underlying infiltrate likely pneumonia- started Zosyn and Vancomycin . Patient was hypotensive, required pressors. Patient has persistent pleural effusion (01/01/17 )- pigtail chest tube likely improperly placed and/or occluded- Dr. Aragon consulted. Continue to monitor. Neuro: off sedation - prn versed for agitation Pulm: Respiratory distress - Intubated - CXR: opacification of right hemithorax with midline shift - Repeat CXR (post Chest tube): markedly decreased pleural effusion; patchy opacities in right hemithorax - CXR (12/29/16): improving right lower lobe airspace disease; stable small right pleural effusion with loculated component at right lateral wall, persistent cardiomegaly with small left pleural effusion. - Pigtail chest tube placed, drained pleural fluid - Pleural fluid studies: Cloudy, WBC 99, RBC 2007, Neutrophils 11, Lymphocytes 78, Monocyte/Macrophage 10 - Chest CT: increasing right pleural effusiong, increasing right lower lobw atelectasis; patchy opacity in lingula; small right hydro-pneumothorax; ascites , hepatic cirrhosis - Consulted Thoracis surgery regarding persistent pleural effusion: Dr. Aragon, help appreciated - Will likely replace chest tube. Current pigtail chest tube likely occluded and/or improperly placed- unable to drain residual pleural effusion CV: Hypotensive - Central line placed - Patient on pressors - IV Fluids + Albumin - Troponin: 0.1280 - BNP: 23763 - ECHO: LVEF 14%, severely dilated and mildly hypertrophied RV, RV systolic function mild-mod reduced; LA/RA severely dilated, restriction of posterior MV leaflet; mild MR; severe TR, pulm HTN, mild-mod pulmonic valvular regurgitation , mod pulmonary artery dilatation; severely dilated IVC. - Cardiology consulted: Dr. Hill, help appreciated - As per Dr. Hill, patient has severe pulmonary HTN, CAD s/p CABG, s/p MVR Endo: no acute issues GI: - Distended abdomen - Abdominal US: liver cirrhosis, large abdominal/pelvic ascites, small right pleural effusion, cholelithiasis, diffuse gallbladder wall thickening likely secondary to liver cirrhosis. Heme: thrombocytopenic - Hematology consulted- Dr. Posey, help appreciated Renal: history of kidney disease - BUN/Cr: 25/1.5 - Monitor kidney function ID: Code Sepsis - Likley secondary to pneumonia and/or LE wounds - Bandemia: 17 - UA: 1+ protein, 2 urobilinogen, 9 squam epith cells - Blood cx: no growth x5days - Urine cx: no growth - Sputum cx: normal oral [place] - Wound cx: Staph aureius + - Wound care consulted - ID consulted- Dr. Ramires, help appreciated - As per ID, Continue zosyn Prophylaxis: - DVT: Discontinued Heparin 5,000units SC (thrombocytopenia) - GI: Pepcid Current Visit: Yes Status: Acute (2) Sepsis Current Visit: Yes Status: Acute (3) Hypotension Current Visit: Yes Status: Acute (4) Abdominal distension Current Visit: Yes Status: Acute <Brien Mitchell - Last Filed: 01/04/17 16:18> CCU Objective - Vital Signs / Intake & Output Vital Signs (Last 4 hours): Vital Signs Pulse Resp BP Pulse Ox 01/04/17 14:24 105 H 15 105/64 92 L 01/04/17 14:00 107 H 18 01/04/17 13:07 126 H 14 118/87 94 L 01/04/17 13:00 96 H 18 98 01/04/17 12:06 98 H 18 110/36 L 98 Intake and Output (Last 8hrs): Intake & Output 01/04/17 01/04/17 01/04/17 06:59 14:59 22:59 Intake Total 470 470 Output Total 190 150 Balance 280 320 Weight 153 lb Intake: Intake, IV Amount 150 150 Right Distal Port 150 150 Subclavian Tube Feeding 320 320 Output: Urine 190 150 Urethral (More[place]) 190 150 Other: # Bowel Movements 1 - Medications Active Medications: Active Medications Generic Name Dose Route Start Last Admin Trade Name Freq PRN Reason Stop Dose Admin Acetaminophen 975 mg 12/27/16 08:39 12/27/16 10:30 Tylenol 325 Mg Supp NE 975 mg ONCE PRN Administration Fever >100.4 F Albumin Human 12.5 gm 12/27/16 14:15 01/04/17 14:13 Albumin Human 25% (12.5 Gm/50 Ml) IV 12.5 gm Q8H ZAHRA Administration Norepinephrine Bitartrate 4 mg 254 mls @ 15.24 mls/hr 12/27/16 12:10 17:00 / Sodium Chloride IV Infused .[id number] PRN Titration TITRATE PER MD ORDER Protocol 4 MCG/MIN Piperacillin Sod/Tazobactam Sod 2.25 gm in 50 mls @ 100 mls/hr 12/27/16 15:00 01/04/17 14:14 Zosyn 2.25 Gm Iv Premix IVPB 100 mls/hr Q8H ZAHRA Administration Lorazepam 2 mg 01/02/17 00:17 01/03/17 17:04 Ativan IVP 2 mg Q6H PRN Administration Agitation Midazolam HCl 1 mg 01/01/17 18:42 01/03/17 10:16 Versed Inj IVP 1 mg Q2H PRN Administration Agitation Morphine Sulfate 1 mg 01/04/17 11:05 01/04/17 11:49 Morphine IV 1 mg Q4 PRN Administration Pain, moderate (4-7) Pantoprazole Sodium 40 mg 01/04/17 10:00 01/04/17 09:26 Protonix Inj IVP 40 mg DAILY ZAHRA Administration - Patient Studies Lab Studies: Microbiology Studies 01/02/17 14:07 Gram Stain - Final Ascitic Fluid Body Fluid Culture - Preliminary NO GROWTH AFTER 2 DAYS Lab Studies 01/04/17 01/04/17 01/04/17 Range/Units 06:27 06:27 05:08 WBC 6.7 (4.8-10.8) K/uL RBC 3.00 L (3.80-5.20) Mil/uL Hgb 8.6 L (11.0-16.0) g/dL Hct 26.7 L (34.0-47.0) % MCV 89.0 (81.0-99.0) fL MCH 28.7 (27.0-31.0) pg MCHC 32.2 L (33.0-37.0) g/dL RDW 15.7 H (11.5-14.5) % Plt Count 63 L (130-400) K/uL MPV 9.8 (7.2-11.7) fL Neut % (Auto) 82.0 H (50.0-75.0) % Lymph % (Auto) 6.2 L (20.0-40.0) % Traill % (Auto) 8.2 (0.0-10.0) % Eos % (Auto) 2.4 (0.0-4.0) % Baso % (Auto) 1.2 (0.0-2.0) % Neut # 5.4 (1.8-7.0) K/uL Lymph # 0.4 L (1.0-4.3) K/uL Traill # 0.5 (0.0-0.8) K/uL Eos # 0.2 (0.0-0.7) K/uL Baso # 0.1 (0.0-0.2) K/uL Neutrophils % (Manual) 80 H (50-75) % Band Neutrophils % 1 (0-2) % Lymphocytes % (Manual) 7 L (20-40) % Monocytes % (Manual) 7 (0-10) % Eosinophils % (Manual) 4 (0-4) % Basophils % (Manual) 1 (0-2) % Platelet Estimate Decreased L (NORMAL) Large Platelets Present Giant Platelets Present Hypochromasia (manual) Slight Poikilocytosis (manual Slight Basophilic Stippling Slight Anisocytosis (manual) Slight Ovalocytes Slight Puncture Site R rad pCO2 43 (35-45) mm/Hg pO2 145 H (80-100) mm/Hg HCO3 25.6 (21-28) mmol/L ABG pH 7.39 (7.35-7.45) ABG Total CO2 27.3 (22-28) mmol/L ABG O2 Saturation 99.6 H (95-98) % ABG Base Excess 0.9 (-2.0-3.0) mmol/L ABG Hemoglobin 9.0 L (11.7-17.4) g/dL ABG Carboxyhemoglobin 2.2 H (0.5-1.5) % POC ABG HHb (Measured) 0.4 (0.0-5.0) % ABG Methemoglobin 1.1 (0.0-3.0) % Jordon Test Pos A-a O2 Difference 86.0 mm/Hg Respiratory Index 0.6 Hgb O2 Saturation 96.3 (95.0-98.0) % Vent Mode Prvc Mechanical Rate 16 FiO2 40.0 % Tidal Volume 350 PEEP 5 Sodium 139 (132-148) mmol/L Potassium 3.5 L (3.6-5.2) mmol/L Chloride 103 (98-107) mmol/L Carbon Dioxide 25 (22-30) mmol/L Anion Gap 15 (10-20) BUN 29 H (7-17) mg/dL Creatinine 1.4 H (0.7-1.2) MG/DL Est GFR ( Amer) 43 Est GFR (Non-Af Amer) 36 Random Glucose 101 (65-105) mg/dL Calcium 8.4 L (8.6-10.4) mg/dl Phosphorus 2.6 (2.5-4.5) mg/dL Magnesium 2.3 (1.6-2.3) mg/dL Total Bilirubin 1.2 (0.2-1.3) mg/dL AST 18 (14-36) U/L ALT 22 (9-52) U/L Alkaline Phosphatase 60 (38-126) U/L Total Protein 5.0 L (6.3-8.3) g/dL Albumin 2.9 L (3.5-5.0) g/dL Globulin 2.2 (2.2-3.9) gm/dL Albumin/Globulin Ratio 1.3 (1.0-2.1) Laboratory Results - last 24 hr 01/04/17 01/04/17 01/04/17 05:08 06:27 06:27 WBC 6.7 RBC 3.00 L Hgb 8.6 L Hct 26.7 L MCV 89.0 MCH 28.7 MCHC 32.2 L RDW 15.7 H Plt Count 63 L MPV 9.8 Neut % (Auto) 82.0 H Lymph % (Auto) 6.2 L Traill % (Auto) 8.2 Eos % (Auto) 2.4 Baso % (Auto) 1.2 Neut # 5.4 Lymph # 0.4 L Traill # 0.5 Eos # 0.2 Baso # 0.1 Neutrophils % (Manual) 80 H Band Neutrophils % 1 Lymphocytes % (Manual) 7 L Monocytes % (Manual) 7 Eosinophils % (Manual) 4 Basophils % (Manual) 1 Platelet Estimate Decreased L Large Platelets Present Giant Platelets Present Hypochromasia (manual) Slight Poikilocytosis (manual Slight Basophilic Stippling Slight Anisocytosis (manual) Slight Ovalocytes Slight Puncture Site R rad pCO2 43 pO2 145 H HCO3 25.6 ABG pH 7.39 ABG Total CO2 27.3 ABG O2 Saturation 99.6 H ABG Base Excess 0.9 ABG Hemoglobin 9.0 L ABG Carboxyhemoglobin 2.2 H POC ABG HHb (Measured) 0.4 ABG Methemoglobin 1.1 Jordon Test Pos A-a O2 Difference 86.0 Respiratory Index 0.6 Hgb O2 Saturation 96.3 Vent Mode Prvc Mechanical Rate 16 FiO2 40.0 Tidal Volume 350 PEEP 5 Sodium 139 Potassium 3.5 L Chloride 103 Carbon Dioxide 25 Anion Gap 15 BUN 29 H Creatinine 1.4 H Est GFR ( Amer) 43 Est GFR (Non-Af Amer) 36 Random Glucose 101 Calcium 8.4 L Phosphorus 2.6 Magnesium 2.3 Total Bilirubin 1.2 AST 18 ALT 22 Alkaline Phosphatase 60 Total Protein 5.0 L Albumin 2.9 L Globulin 2.2 Albumin/Globulin Ratio 1.3 Attending/Attestation - Attestation I have personally seen and examined this patient.: Yes I have fully participated in the care of the patient.: Yes I have reviewed all pertinent clinical information: Yes Notes (Text): 01/04/17 16:05 Today: Sunday, January 01, 2017 The Patient was seen and examined at the bedside, Medical records reviewed, and management issues were discussed and formulated with the house staff. I have reviewed all the relevant clinical, laboratory, hemodynamic, radiographic data and medications Events reviewed Pain issues, skin care, head of the bed elevation, glycemic control were addressed. Agree with above treatment plans as transcribed in note I concur with resident's assessment and plan of care as transcribed in Dr. Zhou note.
--- NOTE | 2017-01-01 17:44 | CP.PCM.CON ---
History of Present Illness - History of Present Illness History of Present Illness: Reason for consult: Respiratory Failure The patient is an 86 year old female who presented to the emergency department on 12/27/16 for shortness of breath, fever, altered mental status, and a syncopal episode. While in the ED the patient was hypotensive and apneic. Code sepsis was called and the patient was admitted to the ICU for sepsis and respiratory distress. CXR revealed a right sided pleural effusion. The patient was intubated and a pigtail catheter was placed to drain pleural fluid. IJ central line was also placed at that time and pressors and IV antibiotics were started for suspected pneumonia. WBC and bands have been improving since admission, but she required pressors today. Presently patient remains intubated. Loculated pleural effusion remains and chest tube drainage has decreased. Chest CT ordered and CT surgery consulted. PMHx: HTN, CHF, CKD SHx: mitral valve replacement, CABG (2016) Social Hx: denied tobacco, drug, and ETOH use Family Hx: noncontributory Allergies: Fish CXR (01/01/17): Moderate pulmonary venous congestion. Moderate right lower lobe consolidation and pleural effusion. Left basilar atelectasis/infiltrate. Probable small left pleural effusion. CXR (12/31/16): Small to moderate right pleural effusion. Trace left pleural effusion. Moderate pulmonary venous congestion. CXR (12/27/16): Extensive opacification of the right sherry thorax with minimal improved aeration within the medial left upper lobe. Left apical pleural thickening. CT Chest (12/27/16): Small to moderate right and small left pleural effusions. Patchy airspace opacities within the right middle and right lower lobe compatible with pneumonia. Recommend follow-up to complete resolution. Review of Systems - Review of Systems Systems not reviewed;Unavailable: Intubated Past Patient History - Past Medical History & Family History Past Medical History?: Yes - Past Social History Smoking Status: Unknown If Ever Smoked - CARDIAC Hx Cardiac Disorders: Yes Hx Hypercholesterolemia: Yes Hx Hypertension: Yes Other/Comment: heart valve surgery as per son - PULMONARY Hx Respiratory Disorders: No - NEUROLOGICAL Hx Neurological Disorder: No - HEENT Hx HEENT Problems: No - RENAL Hx Chronic Kidney Disease: No - ENDOCRINE/METABOLIC Hx Endocrine Disorders: No - HEMATOLOGICAL/ONCOLOGICAL Hx Blood Disorders: No - INTEGUMENTARY Hx Dermatological Problems: No - MUSCULOSKELETAL/RHEUMATOLOGICAL Hx Musculoskeletal Disorders: No Hx Falls: No - GASTROINTESTINAL Hx Gastrointestinal Disorders: No - GENITOURINARY/GYNECOLOGICAL Hx Genitourinary Disorders: Yes - PSYCHIATRIC Hx Substance Use: No - SURGICAL HISTORY Hx Surgeries: Yes Other/Comment: cardiac surgery- valve - ANESTHESIA Hx Anesthesia: Yes Hx Anesthesia Reactions: No Hx Malignant Hyperthermia: No Has any member of the family had a problem w/ anesthesia?: No Meds Allergies/Adverse Reactions: Allergies Allergy/AdvReac Type Severity Reaction Status Date / Time SEAFOOD Allergy Uncoded 12/27/16 08:30 - Medications Medications: Current Medications Acetaminophen (Tylenol 325 Mg Supp) 975 mg [place] ONCE PRN PRN Reason: Fever >100.4 F Last Admin: 12/27/16 10:30 Dose: 975 mg Albumin Human (Albumin Human 25% (12.5 Gm/50 Ml)) 12.5 gm IV Q8H [facility] Last Admin: 01/01/17 05:34 Dose: 12.5 gm Famotidine (Pepcid) 20 mg IVP DAILY [facility] Last Admin: 12/31/16 10:07 Dose: 20 mg Norepinephrine Bitartrate 4 mg (/ Sodium Chloride) 254 mls @ 15.24 mls/hr IV .[id number] PRN; Protocol; 4 MCG/MIN PRN Reason: TITRATE PER MD ORDER Last Titration: 12/31/16 17:00 Dose: Infused Piperacillin Sod/Tazobactam Sod (Zosyn 2.25 Gm Iv Premix) 2.25 gm in 50 mls @ 100 mls/hr IVPB Q8H [facility] Last Admin: 01/01/17 06:04 Dose: 100 mls/hr Physical Exam - Head Exam Head Exam: ATRAUMATIC, NORMOCEPHALIC - ENT Exam ENT Exam: Mucous Membranes Moist - Neck Exam Neck exam: Positive for: Normal Inspection - Respiratory Exam Respiratory Exam: Decreased Breath Sounds - Cardiovascular Exam Cardiovascular Exam: REGULAR RHYTHM - GI/Abdominal Exam GI & Abdominal Exam: Normal Bowel Sounds Results - Vital Signs Recent Vital Signs: Last Vital Signs Temp 98.1 F 01/01/17 16:00 Pulse 95 H 01/01/17 17:00 Resp 19 01/01/17 17:00 BP 109/58 L 01/01/17 17:00 Pulse Ox 100 01/01/17 17:00 - Labs Result Diagrams: 01/01/17 06:14 01/01/17 06:14 Labs: Laboratory Results - last 24 hr 12/31/16 01/01/17 01/01/17 17:45 05:28 06:14 WBC 6.2 RBC 3.31 L Hgb 9.2 L Hct 29.3 L MCV 88.5 MCH 27.9 MCHC 31.6 L RDW 15.7 H Plt Count 46 L MPV 9.9 Neut % (Auto) 79.3 H Lymph % (Auto) 6.7 L [place] % (Auto) 11.6 H Eos % (Auto) 1.6 Baso % (Auto) 0.8 Neut # 4.9 Lymph # 0.4 L Early # 0.7 Eos # 0.1 Baso # 0.0 Neutrophils % (Manual) 90 H Lymphocytes % (Manual) 2 L Monocytes % (Manual) 8 Platelet Estimate Decreased L Hypochromasia (manual) Slight Anisocytosis (manual) Slight Ovalocytes Slight Puncture Site Lb pCO2 48 H pO2 35 L* HCO3 24.4 ABG pH 7.34 L ABG Total CO2 27.4 ABG O2 Saturation 75.1 L ABG Base Excess -0.1 ABG Hemoglobin 9.3 L ABG Carboxyhemoglobin 2.4 H POC ABG HHb (Measured) 24.1 H ABG Methemoglobin 0.9 Jordon Test Na A-a O2 Difference 190.0 Respiratory Index 5.4 Hgb O2 Saturation 72.6 L Vent Mode Prvc Mechanical Rate 16 FiO2 40.0 Tidal Volume 350 PEEP 5 Blood Gas Comments Attempted several times...mixed venous saple Crit Value Called To Callie hernandez rn Crit Value Called By Himanshu director corporate communications Crit Value Read Back Y Blood Gas Notified Time 615 Sodium Potassium Chloride Carbon Dioxide Anion Gap BUN Creatinine Est GFR ( Amer) Est GFR (Non-Af Amer) POC Glucose (mg/dL) 124 H Random Glucose Calcium Phosphorus Magnesium Total Bilirubin AST ALT Alkaline Phosphatase Total Protein Albumin Globulin Albumin/Globulin Ratio 01/01/17 06:14 WBC RBC Hgb Hct MCV MCH MCHC RDW Plt Count MPV Neut % (Auto) Lymph % (Auto) Early % (Auto) Eos % (Auto) Baso % (Auto) Neut # Lymph # Early # Eos # Baso # Neutrophils % (Manual) Lymphocytes % (Manual) Monocytes % (Manual) Platelet Estimate Hypochromasia (manual) Anisocytosis (manual) Ovalocytes Puncture Site pCO2 pO2 HCO3 ABG pH ABG Total CO2 ABG O2 Saturation ABG Base Excess ABG Hemoglobin ABG Carboxyhemoglobin POC ABG HHb (Measured) ABG Methemoglobin Jordon Test A-a O2 Difference Respiratory Index Hgb O2 Saturation Vent Mode Mechanical Rate FiO2 Tidal Volume PEEP Blood Gas Comments Crit Value Called To Crit Value Called By Crit Value Read Back Blood Gas Notified Time Sodium 137 Potassium 3.6 Chloride 101 Carbon Dioxide 24 Anion Gap 16 BUN 25 H Creatinine 1.5 H Est GFR ( Amer) 40 Est GFR (Non-Af Amer) 33 POC Glucose (mg/dL) Random Glucose 106 H Calcium 8.0 L Phosphorus 3.0 Magnesium 2.0 Total Bilirubin 1.5 H AST 18 ALT 18 Alkaline Phosphatase 58 Total Protein 4.9 L Albumin 2.7 L Globulin 2.1 L Albumin/Globulin Ratio 1.3 Assessment & Plan (1) Pneumonia Status: Acute (2) Respiratory failure Status: Acute (3) Sepsis Status: Acute
[2017-01-01] MEDS: Midazolam 2 MG/2 ML VIAL IVP PRN ×2 (19:48→22:28)
--- NOTE | 2017-01-01 20:40 | CP.PCM.PN ---
Subjective - Date & Time of Evaluation Date of Evaluation: 01/01/17 Time of Evaluation: 11:20 - Subjective Subjective: Patient seen and evaluated Intubated Agitated and trying to pull out the tubes Hemodynamically stable Objective - Vital Signs/Intake and Output Vital Signs (last 24 hours): Temp Pulse Resp BP Pulse Ox 98.1 F 97 H 18 100/68 100 01/01/17 16:00 01/01/17 19:00 01/01/17 19:00 01/01/17 19:00 01/01/17 19:00 Intake and Output: 01/01/17 01/02/17 18:59 06:59 Intake Total 580 80 Output Total 220 60 Balance 360 20 - Medications Medications: Current Medications Acetaminophen (Tylenol 325 Mg Supp) 975 mg [place] ONCE PRN PRN Reason: Fever >100.4 F Last Admin: 12/27/16 10:30 Dose: 975 mg Albumin Human (Albumin Human 25% (12.5 Gm/50 Ml)) 12.5 gm IV Q8H [facility] Last Admin: 01/01/17 13:49 Dose: 12.5 gm Famotidine (Pepcid) 20 mg IVP DAILY [facility] Last Admin: 01/01/17 09:50 Dose: 20 mg Norepinephrine Bitartrate 4 mg (/ Sodium Chloride) 254 mls @ 15.24 mls/hr IV .[id number] PRN; Protocol; 4 MCG/MIN PRN Reason: TITRATE PER MD ORDER Last Titration: 12/31/16 17:00 Dose: Infused Piperacillin Sod/Tazobactam Sod (Zosyn 2.25 Gm Iv Premix) 2.25 gm in 50 mls @ 100 mls/hr IVPB Q8H [facility] Last Admin: 01/01/17 15:49 Dose: 100 mls/hr Midazolam HCl (Versed Inj) 1 mg IVP Q2H PRN PRN Reason: Agitation Last Admin: 01/01/17 19:48 Dose: 1 mg - Labs Labs: 01/01/17 06:14 01/01/17 06:14 PT 15.4 SECONDS (9.7-12.2) H 12/27/16 09:15 INR 1.4 12/27/16 09:15 APTT 30 SECONDS (21-34) 12/27/16 09:15 - Head Exam Head Exam: ATRAUMATIC, NORMAL INSPECTION - Eye Exam Eye Exam: PERRL Pupil Exam: NORMAL ACCOMODATION - ENT Exam ENT Exam: Mucous Membranes Moist - Neck Exam Neck Exam: Full ROM - Respiratory Exam Respiratory Exam: Rales - Cardiovascular Exam Cardiovascular Exam: Irregular Rhythm, +S1, +S2 - GI/Abdominal Exam GI & Abdominal Exam: Soft, Normal Bowel Sounds - Extremities Exam Extremities Exam: Full ROM - Neurological Exam Neurological Exam: Alert - Skin Skin Exam: Warm Assessment and Plan - Assessment and Plan (Free Text) Assessment: 1. 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 Respitratory Failure 3. Diastolic CHF 4. Ascites 5. Sepsis 6. A Fib Recommend r/o PE Anticoagulation for A Fib
--- NOTE | 2017-01-01 22:59 | CP.PCM.CON ---
History of Present Illness - History of Present Illness History of Present Illness: 86F w/ PMHx of HTN, CHF, CKD, presented to ED on 12/27/16 w/ SOB, AMS, and witnessed syncopal episode by her son. Code sepsis was called in ED. CXR and chest CT scan demonstrated extensive right pleural effusion. A right pigtail cathether was inserted which to date has drained ~1L of serosanguinous fluid. Cardiothoracic surgery was consulted for right pleural effusion. Pigtail catheter output has decreased over time however no improvement is visualized in imagining. Patient is currently intubated, FIO2 40%, PEEP 5. Patient is currently alert. PMHx: as stated above PSurgHx: CABG, mitral valve replacement Allergies: Seafood Review of Systems - Review of Systems Systems not reviewed;Unavailable: Intubated Past Patient History - Past Medical History & Family History Past Medical History?: Yes - Past Social History Smoking Status: Unknown If Ever Smoked - CARDIAC Hx Cardiac Disorders: Yes Hx Hypercholesterolemia: Yes Hx Hypertension: Yes Other/Comment: heart valve surgery as per son - PULMONARY Hx Respiratory Disorders: No - NEUROLOGICAL Hx Neurological Disorder: No - HEENT Hx HEENT Problems: No - RENAL Hx Chronic Kidney Disease: No - ENDOCRINE/METABOLIC Hx Endocrine Disorders: No - HEMATOLOGICAL/ONCOLOGICAL Hx Blood Disorders: No - INTEGUMENTARY Hx Dermatological Problems: No - MUSCULOSKELETAL/RHEUMATOLOGICAL Hx Musculoskeletal Disorders: No Hx Falls: No - GASTROINTESTINAL Hx Gastrointestinal Disorders: No - GENITOURINARY/GYNECOLOGICAL Hx Genitourinary Disorders: Yes - PSYCHIATRIC Hx Substance Use: No - SURGICAL HISTORY Hx Surgeries: Yes Other/Comment: cardiac surgery- valve - ANESTHESIA Hx Anesthesia: Yes Hx Anesthesia Reactions: No Hx Malignant Hyperthermia: No Has any member of the family had a problem w/ anesthesia?: No Meds Allergies/Adverse Reactions: Allergies Allergy/AdvReac Type Severity Reaction Status Date / Time SEAFOOD Allergy Uncoded 12/27/16 08:30 - Medications Medications: Current Medications Acetaminophen (Tylenol 325 Mg Supp) 975 mg [place] ONCE PRN PRN Reason: Fever >100.4 F Last Admin: 12/27/16 10:30 Dose: 975 mg Albumin Human (Albumin Human 25% (12.5 Gm/50 Ml)) 12.5 gm IV Q8H [facility] Last Admin: 01/01/17 22:21 Dose: 12.5 gm Famotidine (Pepcid) 20 mg IVP DAILY [facility] Last Admin: 01/01/17 09:50 Dose: 20 mg Norepinephrine Bitartrate 4 mg (/ Sodium Chloride) 254 mls @ 15.24 mls/hr IV .[id number] PRN; Protocol; 4 MCG/MIN PRN Reason: TITRATE PER MD ORDER Last Titration: 12/31/16 17:00 Dose: Infused Piperacillin Sod/Tazobactam Sod (Zosyn 2.25 Gm Iv Premix) 2.25 gm in 50 mls @ 100 mls/hr IVPB Q8H [facility] Last Admin: 01/01/17 22:19 Dose: 100 mls/hr Midazolam HCl (Versed Inj) 1 mg IVP Q2H PRN PRN Reason: Agitation Last Admin: 01/01/17 22:28 Dose: 1 mg Physical Exam - Constitutional Appears: No Acute Distress Additional comments: intubated - Head Exam Head Exam: NORMOCEPHALIC - Eye Exam Eye Exam: Normal appearance - ENT Exam ENT Exam: Mucous Membranes Moist - Respiratory Exam Respiratory Exam: Decreased Breath Sounds - Cardiovascular Exam Cardiovascular Exam: +S1, +S2 - GI/Abdominal Exam GI & Abdominal Exam: Distended, Hernia Additional comments: +ascites - Neurological Exam Neurological exam: Alert - Skin Skin Exam: Erythema Additional comments: B/l LE cellulitis w/ presence of anterior sanders hematomas Results - Vital Signs Recent Vital Signs: Last Vital Signs Temp 98.1 F 01/01/17 16:00 Pulse 93 H 01/01/17 22:00 Resp 18 01/01/17 22:00 BP 107/59 L 01/01/17 22:00 Pulse Ox 100 01/01/17 22:00 - Labs Result Diagrams: 01/01/17 06:14 01/01/17 06:14 Labs: Laboratory Results - last 24 hr 01/01/17 01/01/17 01/01/17 05:28 06:14 06:14 WBC 6.2 RBC 3.31 L Hgb 9.2 L Hct 29.3 L MCV 88.5 MCH 27.9 MCHC 31.6 L RDW 15.7 H Plt Count 46 L MPV 9.9 Neut % (Auto) 79.3 H Lymph % (Auto) 6.7 L [place] % (Auto) 11.6 H Eos % (Auto) 1.6 Baso % (Auto) 0.8 Neut # 4.9 Lymph # 0.4 L [place] # 0.7 Eos # 0.1 Baso # 0.0 Neutrophils % (Manual) 90 H Lymphocytes % (Manual) 2 L Monocytes % (Manual) 8 Platelet Estimate Decreased L Hypochromasia (manual) Slight Anisocytosis (manual) Slight Ovalocytes Slight Puncture Site Lb pCO2 48 H pO2 35 L* HCO3 24.4 ABG pH 7.34 L ABG Total CO2 27.4 ABG O2 Saturation 75.1 L ABG Base Excess -0.1 ABG Hemoglobin 9.3 L ABG Carboxyhemoglobin 2.4 H POC ABG HHb (Measured) 24.1 H ABG Methemoglobin 0.9 Jordon Test Na A-a O2 Difference 190.0 Respiratory Index 5.4 Hgb O2 Saturation 72.6 L Vent Mode Prvc Mechanical Rate 16 FiO2 40.0 Tidal Volume 350 PEEP 5 Blood Gas Comments Attempted several times...mixed venous saple Crit Value Called To Callie hernandez rn Crit Value Called By Himanshu office associate Crit Value Read Back Y Blood Gas Notified Time 615 Sodium 137 Potassium 3.6 Chloride 101 Carbon Dioxide 24 Anion Gap 16 BUN 25 H Creatinine 1.5 H Est GFR ( Amer) 40 Est GFR (Non-Af Amer) 33 Random Glucose 106 H Calcium 8.0 L Phosphorus 3.0 Magnesium 2.0 Total Bilirubin 1.5 H AST 18 ALT 18 Alkaline Phosphatase 58 Total Protein 4.9 L Albumin 2.7 L Globulin 2.1 L Albumin/Globulin Ratio 1.3 - Imaging and Cardiology CT scan - chest Status: Image reviewed by me, Report reviewed by me Assessment & Plan - Assessment and Plan (Free Text) Assessment: 86F w/ increasing right pleural effusion s/p pigtail catheter insertion -Recommend insertion of 28FR chest tube -Due to patient's current medical state, Insertion of chest tube may have to be done in [place] -Medical management as per ICU team -Further recs per Dr. Aragon -D/w Dr. Mahesh Pittman PGY-2
--- NOTE | 2017-01-02 04:35 | CP.PCM.CON ---
History of Present Illness - History of Present Illness History of Present Illness: 86 year old female with a history of HTN, CKD, CAD s/p CAGG, admitted post syncopal episode, AMS, respiratory failure, currently vented s/p pigtail catheter for large pleural effusion, code sepsis, with anemia and thrombocytopenia. The patient is currently vented and I am unable to obtain a history. Review of her records shows she was admitted with a normal plt count which has nadired today at 47,000. She does have scatterred ecchymosis but no overt signs of bleeding. Past medical, surgical, family, social history cannot be obtained from the patient. Allergies: Per documentation seafood Review of systems cannot be obtained. Past Patient History - Past Medical History & Family History Past Medical History?: Yes - Past Social History Smoking Status: Unknown If Ever Smoked - CARDIAC Hx Cardiac Disorders: Yes Hx Hypercholesterolemia: Yes Hx Hypertension: Yes Other/Comment: heart valve surgery as per son - PULMONARY Hx Respiratory Disorders: No - NEUROLOGICAL Hx Neurological Disorder: No - HEENT Hx HEENT Problems: No - RENAL Hx Chronic Kidney Disease: No - ENDOCRINE/METABOLIC Hx Endocrine Disorders: No - HEMATOLOGICAL/ONCOLOGICAL Hx Blood Disorders: No - INTEGUMENTARY Hx Dermatological Problems: No - MUSCULOSKELETAL/RHEUMATOLOGICAL Hx Musculoskeletal Disorders: No Hx Falls: No - GASTROINTESTINAL Hx Gastrointestinal Disorders: No - GENITOURINARY/GYNECOLOGICAL Hx Genitourinary Disorders: Yes - PSYCHIATRIC Hx Substance Use: No - SURGICAL HISTORY Hx Surgeries: Yes Other/Comment: cardiac surgery- valve - ANESTHESIA Hx Anesthesia: Yes Hx Anesthesia Reactions: No Hx Malignant Hyperthermia: No Has any member of the family had a problem w/ anesthesia?: No Meds Allergies/Adverse Reactions: Allergies Allergy/AdvReac Type Severity Reaction Status Date / Time SEAFOOD Allergy Uncoded 12/27/16 08:30 - Medications Medications: Current Medications Acetaminophen (Tylenol 325 Mg Supp) 975 mg [place] ONCE PRN PRN Reason: Fever >100.4 F Last Admin: 12/27/16 10:30 Dose: 975 mg Albumin Human (Albumin Human 25% (12.5 Gm/50 Ml)) 12.5 gm IV Q8H [facility] Last Admin: 01/01/17 22:21 Dose: 12.5 gm Famotidine (Pepcid) 20 mg IVP DAILY [facility] Last Admin: 01/01/17 09:50 Dose: 20 mg Norepinephrine Bitartrate 4 mg (/ Sodium Chloride) 254 mls @ 15.24 mls/hr IV .[id number] PRN; Protocol; 4 MCG/MIN PRN Reason: TITRATE PER MD ORDER Last Titration: 12/31/16 17:00 Dose: Infused Piperacillin Sod/Tazobactam Sod (Zosyn 2.25 Gm Iv Premix) 2.25 gm in 50 mls @ 100 mls/hr IVPB Q8H [facility] Last Admin: 01/01/17 22:19 Dose: 100 mls/hr Lorazepam (Ativan) 2 mg IVP Q6H PRN PRN Reason: Agitation Last Admin: 01/02/17 00:58 Dose: 2 mg Midazolam HCl (Versed Inj) 1 mg IVP Q2H PRN PRN Reason: Agitation Last Admin: 01/01/17 22:28 Dose: 1 mg Physical Exam - Head Exam Head Exam: ATRAUMATIC - Eye Exam Eye Exam: Normal appearance - ENT Exam ENT Exam: Mucous Membranes Dry - Respiratory Exam Respiratory Exam: NORMAL BREATHING PATTERN - Cardiovascular Exam Cardiovascular Exam: +S1, +S2 - GI/Abdominal Exam GI & Abdominal Exam: Normal Bowel Sounds - Extremities Exam Extremities exam: Positive for: pedal edema - Skin Skin Exam: Warm Results - Vital Signs Recent Vital Signs: Last Vital Signs Temp 97.5 F L 01/02/17 04:00 Pulse 89 01/02/17 04:00 Resp 17 01/02/17 04:00 BP 113/61 01/02/17 04:00 Pulse Ox 100 01/02/17 04:00 - Labs Result Diagrams: 01/01/17 06:14 01/01/17 06:14 Labs: Laboratory Results - last 24 hr 01/01/17 01/01/17 01/01/17 05:28 06:14 06:14 WBC 6.2 RBC 3.31 L Hgb 9.2 L Hct 29.3 L MCV 88.5 MCH 27.9 MCHC 31.6 L RDW 15.7 H Plt Count 46 L MPV 9.9 Neut % (Auto) 79.3 H Lymph % (Auto) 6.7 L [place] % (Auto) 11.6 H Eos % (Auto) 1.6 Baso % (Auto) 0.8 Neut # 4.9 Lymph # 0.4 L [place] # 0.7 Eos # 0.1 Baso # 0.0 Neutrophils % (Manual) 90 H Lymphocytes % (Manual) 2 L Monocytes % (Manual) 8 Platelet Estimate Decreased L Hypochromasia (manual) Slight Anisocytosis (manual) Slight Ovalocytes Slight Puncture Site Lb pCO2 48 H pO2 35 L* HCO3 24.4 ABG pH 7.34 L ABG Total CO2 27.4 ABG O2 Saturation 75.1 L ABG Base Excess -0.1 ABG Hemoglobin 9.3 L ABG Carboxyhemoglobin 2.4 H POC ABG HHb (Measured) 24.1 H ABG Methemoglobin 0.9 Jordon Test Na A-a O2 Difference 190.0 Respiratory Index 5.4 Hgb O2 Saturation 72.6 L Vent Mode Prvc Mechanical Rate 16 FiO2 40.0 Tidal Volume 350 PEEP 5 Blood Gas Comments Attempted several times...mixed venous saple Crit Value Called To Callie hernandez rn Crit Value Called By Himanshu art editor Crit Value Read Back Y Blood Gas Notified Time 615 Sodium 137 Potassium 3.6 Chloride 101 Carbon Dioxide 24 Anion Gap 16 BUN 25 H Creatinine 1.5 H Est GFR ( Amer) 40 Est GFR (Non-Af Amer) 33 Random Glucose 106 H Calcium 8.0 L Phosphorus 3.0 Magnesium 2.0 Total Bilirubin 1.5 H AST 18 ALT 18 Alkaline Phosphatase 58 Total Protein 4.9 L Albumin 2.7 L Globulin 2.1 L Albumin/Globulin Ratio 1.3 Assessment & Plan (1) Thrombocytopenia Assessment and Plan: suspect sepsis related rule out DIC; will check coags and fibrinogen med history shows heparin ordered and discontinued; will check heparin Ab will review peripheral smear Status: Acute (2) Coagulopathy Assessment and Plan: rule out DIC repeat PT/PTT and fibrinogen may have nutritional component Status: Acute (3) Anemia Assessment and Plan: will check ferritin, retic count, b12, folate to further characterize element of anemia of CKD Thank you for this interesting consult. Status: Acute
[2017-01-02 05:56] LABS: ABG MECHANICAL RATE 16; ARTERIAL BLOOD GAS MODE PRVC; ARTERIAL BLOOD HGB O2 SAT 96.1 % (95.0-98.0); ATERIAL BLOOD GAS PEEP 5; CARBOXYHEMOGLOBIN 2.7 % (0.5-1.5); DRAW SITE RB; METHEMOGLOBIN 1.3 % (0.0-3.0)
[2017-01-02] MEDS: Piperacill/Tazo 2.25gm in Dex 2.25 GM/50 ML BAG IVPB SCH ×3 (06:42→22:30)
[2017-01-02] MEDS: Albumin Human 25% (12.5 gm/50 ml) IV SCH ×3 (06:42→21:20)
[2017-01-02 06:43] LABS: BASO # 0.1 K/uL (0.0-0.2); BASO % 1.1 % (0.0-2.0); EOS # 0.2 K/uL (0.0-0.7); EOS % 3.6 % (0.0-4.0); HEMATOCRIT 31.6 % (34.0-47.0); LYMPH # 0.5 K/uL (1.0-4.3); LYMPH % 9.3 % (20.0-40.0); MEAN CELL VOLUME 89.5 fL (81.0-99.0); MEAN CORPUSCULAR HEMOGLOBIN 28.2 pg (27.0-31.0); MEAN CORPUSCULAR HGB CONC 31.5 g/dL (33.0-37.0); MEAN PLATELET VOLUME 9.2 fL (7.2-11.7); MONO # 0.6 K/uL (0.0-0.8); MONO % 10.3 % (0.0-10.0); NRBC % 0.1 % (0.0-2.0); PLATELET COUNT 46 K/uL (130-400); RED CELL DISTRIBUTION WIDTH 16.4 % (11.5-14.5); WHITE BLOOD COUNT 5.6 K/uL (4.8-10.8)
[2017-01-02 06:50] LABS: INR 1.2
[2017-01-02 07:05] LABS: ALB/GLOB RATIO 1.2 (1.0-2.1); BILIRUBIN,DIRECT 0.7 mg/dL (0.0-0.4); BILIRUBIN,TOTAL 1.5 mg/dL (0.2-1.3); CALCIUM 8.3 mg/dl (8.6-10.4); MAGNESIUM 2.2 mg/dL (1.6-2.3); PHOSPHOROUS 3.2 mg/dL (2.5-4.5); POTASSIUM 3.6 mmol/L (3.6-5.2); TOTAL PROTEIN 5.3 g/dL (6.3-8.3)
[2017-01-02 08:01] LABS: FOLATE 10.4 ng/mL
[2017-01-02 08:21] LABS: EOSINOPHIL 6 % (0-4); NEUTROPHIL 75 % (50-75); TOTAL CELLS COUNTED 100
--- NOTE | 2017-01-02 10:18 | RAD ---
HISTORY: intubated COMPARISON: Portable chest 01/01/2017 FINDINGS: LUNGS: Endotracheal tube and right central venous line unchanged in position. Right-sided chest tube is unchanged in position as well. Nasogastric tube is again identified placed. Bilateral basilar opacity is not significantly changed in the interval dominated by a right pleural effusion with a minimal left pleural effusion not excluded. Atelectasis or infiltrate at the right base persists and remains limited at the left base medially. No interval pneumothorax. PLEURA: As per above CARDIOVASCULAR: Cardiac silhouette appears stable with likely diminishing pulmonary venous congestion. Sternotomy wires and prosthetic cardiac valve again evident. OSSEOUS STRUCTURES: No significant abnormalities. VISUALIZED UPPER ABDOMEN: Normal. OTHER FINDINGS: None. IMPRESSION: Improved CHF pattern is present. No significant interval change in moderate right pleural effusion and potential minimal left pleural effusion. Right basilar atelectasis or infiltrate persists with limited low similar but lesser changes at the left base.
[2017-01-02] MEDS: Midazolam 2 MG/2 ML VIAL IVP PRN ×2 (10:40→21:21)
[2017-01-02] MEDS ORDERED: Midazolam 2 MG/2 ML VIAL IVP ONE (11:34)
--- NOTE | 2017-01-02 12:28 | CP.PCM.PN ---
Subjective - Date & Time of Evaluation Date of Evaluation: 01/02/17 Time of Evaluation: 12:30 - Subjective Subjective: Patient remains intubated at this time. Per discussion with staff pending CT surgery evaluation due to the persistent pleural effusion of right lung, she had a CT scan of chest yesterday. The chest tube R had 300 drainage. Echo results also showing a lot of findings: severe dilatation of right ventricle and hypertrophy. There is severe pulmonary HTN found as well. Furthermore there was findings of severe regurgitation tricupsid and pulmonary valves. Objective - Vital Signs/Intake and Output Vital Signs (last 24 hours): Temp Pulse Resp BP Pulse Ox 98 F 97 H 25 H 101/50 L 74 L 01/02/17 12:00 01/02/17 12:00 01/02/17 12:00 01/02/17 12:00 01/02/17 12:00 Intake and Output: 01/02/17 01/02/17 06:59 18:59 Intake Total 720 200 Output Total 580 145 Balance 140 55 - Medications Medications: Current Medications Acetaminophen (Tylenol 325 Mg Supp) 975 mg CA ONCE PRN PRN Reason: Fever >100.4 F Last Admin: 12/27/16 10:30 Dose: 975 mg Albumin Human (Albumin Human 25% (12.5 Gm/50 Ml)) 12.5 gm IV Q8H [facility] Last Admin: 01/02/17 06:42 Dose: 12.5 gm Famotidine (Pepcid) 20 mg IVP DAILY [facility] Last Admin: 01/02/17 11:03 Dose: 20 mg Norepinephrine Bitartrate 4 mg (/ Sodium Chloride) 254 mls @ 15.24 mls/hr IV .[id number] PRN; Protocol; 4 MCG/MIN PRN Reason: TITRATE PER MD ORDER Last Titration: 12/31/16 17:00 Dose: Infused Piperacillin Sod/Tazobactam Sod (Zosyn 2.25 Gm Iv Premix) 2.25 gm in 50 mls @ 100 mls/hr IVPB Q8H [facility] Last Admin: 01/02/17 06:42 Dose: 100 mls/hr Lorazepam (Ativan) 2 mg IVP Q6H PRN PRN Reason: Agitation Last Admin: 01/02/17 00:58 Dose: 2 mg Midazolam HCl (Versed Inj) 1 mg IVP Q2H PRN PRN Reason: Agitation Last Admin: 01/02/17 10:40 Dose: 1 mg - Labs Labs: 01/02/17 06:32 01/02/17 06:32 PT 13.5 SECONDS (9.7-12.2) H 01/02/17 06:32 INR 1.2 01/02/17 06:32 APTT 42 SECONDS (21-34) H 01/02/17 06:32 - Constitutional Appears: Chronically Ill - ENT Exam ENT Exam: Mucous Membranes Moist - Respiratory Exam Respiratory Exam: Decreased Breath Sounds - Cardiovascular Exam Cardiovascular Exam: Irregular Rhythm - GI/Abdominal Exam GI & Abdominal Exam: Soft, Normal Bowel Sounds. absent: Guarding, Rigid, Tenderness - Neurological Exam Neurological Exam: Altered - Skin Skin Exam: Pallor, Pallor Assessment and Plan - Assessment and Plan (Free Text) Assessment: Assessment and Plan 1 Acute respiratory failure from sepsis and pleural effusion/consolidations on lungs 01/02: Pending CT surgery evaluation. Imaging showing persistent right pleural fluid. 01/01:Remains intubated at this time on PRVC settings. She currently has a chest tube at this time. The CXRAYs seem to show improvment on the right lung however the patient still appears to be very ill. There was last week a meeting with pallitative care and the patient's son. She requires IV pressor medications 2 Pneumonia 01/02 WBC decreased, afebrile. No left shift on lab work today 01/01:Currently on IV Zosyn WBC decreased, also bandemia has decreased to 6 this morning. Prognosis is still very poor. The blood cultures have been negative 4 days and the sputum and pleural fluid negative. There is a positive from a wound culture 3 Septic shock 01/02: IV albumin given today. Systolic BPs in the 100s 01/01: Patient remains intubated and on pressor support. Urine output was recorded as 1150 cc yesterday 4 CHF (congestive heart failure), history of CAD and mitral vavlular replacement 01/02: Echo showing severe dilatation of right ventricle and hypertrophy. There is severe pulmonary HTN found as well. Furthermore there was findings of severe regurgitation tricupsid and pulmonary valves. 5 Cellulitis and abscess of foot Patient is on Zosyn. We will consider surgical evaluation if no improvement.
--- NOTE | 2017-01-02 13:58 | CP.PCM.PN ---
Subjective - Date & Time of Evaluation Date of Evaluation: 01/02/17 Time of Evaluation: 07:40 - Subjective Subjective: Pt S&E this AM. Remains intubated FIO2 40%, PEEP5. Patient is alert. Pigtail catheter output: 300ccs/24hr serosanguinous. No acute events over night. Objective - Vital Signs/Intake and Output Vital Signs (last 24 hours): Temp Pulse Resp BP Pulse Ox 98 F 97 H 25 H 101/50 L 74 L 01/02/17 12:00 01/02/17 12:00 01/02/17 12:00 01/02/17 12:00 01/02/17 12:00 Intake and Output: 01/02/17 01/02/17 06:59 18:59 Intake Total 720 200 Output Total 580 145 Balance 140 55 - Medications Medications: Current Medications Acetaminophen (Tylenol 325 Mg Supp) 975 mg [place] ONCE PRN PRN Reason: Fever >100.4 F Last Admin: 12/27/16 10:30 Dose: 975 mg Albumin Human (Albumin Human 25% (12.5 Gm/50 Ml)) 12.5 gm IV Q8H [facility] Last Admin: 01/02/17 06:42 Dose: 12.5 gm Famotidine (Pepcid) 20 mg IVP DAILY [facility] Last Admin: 01/02/17 11:03 Dose: 20 mg Norepinephrine Bitartrate 4 mg (/ Sodium Chloride) 254 mls @ 15.24 mls/hr IV .[id number] PRN; Protocol; 4 MCG/MIN PRN Reason: TITRATE PER MD ORDER Last Titration: 12/31/16 17:00 Dose: Infused Piperacillin Sod/Tazobactam Sod (Zosyn 2.25 Gm Iv Premix) 2.25 gm in 50 mls @ 100 mls/hr IVPB Q8H [facility] Last Admin: 01/02/17 06:42 Dose: 100 mls/hr Lorazepam (Ativan) 2 mg IVP Q6H PRN PRN Reason: Agitation Last Admin: 01/02/17 00:58 Dose: 2 mg Midazolam HCl (Versed Inj) 1 mg IVP Q2H PRN PRN Reason: Agitation Last Admin: 01/02/17 10:40 Dose: 1 mg - Labs Labs: 01/02/17 06:32 01/02/17 06:32 PT 13.5 SECONDS (9.7-12.2) H 01/02/17 06:32 INR 1.2 01/02/17 06:32 APTT 42 SECONDS (21-34) H 01/02/17 06:32 - Constitutional Appears: No Acute Distress - Head Exam Head Exam: NORMOCEPHALIC - Eye Exam Eye Exam: Normal appearance - ENT Exam ENT Exam: Mucous Membranes Moist - Respiratory Exam Respiratory Exam: Decreased Breath Sounds, NORMAL BREATHING PATTERN - Cardiovascular Exam Cardiovascular Exam: +S1, +S2 - Extremities Exam Additional comments: Blisters along anterior sanders b/l. - Neurological Exam Neurological Exam: Alert, Awake - Skin Skin Exam: Erythema, Warm Assessment and Plan - Assessment and Plan (Free Text) Assessment: 86F w/ right pleural effusion s/p pigtail catheter insertion -After reviewing images, insertion of chest tube will not improve patient's condition. Pigtail catheter is still draining. -If patient were to develop empyema a decortication would be indicated. At this point in time there is no indication for thoracic surgery. -Will sign off, please re-consult as needed, thank you. -Medical management as per ICU team -Further recs per Dr. Aragon -D/w Dr. Mahesh Pittman PGY-2
[2017-01-02 14:53] LABS: BODY FLUID TYPE PERITONEAL/ASCITES
[2017-01-02 15:24] LABS: BF GROSS APPEARANCE SL CLOUDY (CLEAR)
[2017-01-02 15:25] LABS: BODY FLUID TOTAL COUNT 100 (0-0)
--- NOTE | 2017-01-02 18:30 | CP.CCUPN ---
CCU Subjective - Physician Review Events Since Last Encounter (Free Text): 01/02/17 18:27 Patient seen and examined in the intensive care unit. Case discussed with house staff in the morning rounds. Remains intubated on ventilatory support not tolerating weaning Chest tube in place draining fluid Status post paracentesis and 2 L of fluid removed Response to vocal commands by opening eyes Tolerating feeding CCU Objective - Vital Signs / Intake & Output Vital Signs (Last 4 hours): Vital Signs Temp Pulse Resp BP Pulse Ox 01/02/17 17:00 98 H 16 100 01/02/17 16:00 97.4 F L 96 H 16 100 01/02/17 15:00 102 H 11 L 120/60 100 Intake and Output (Last 8hrs): Intake & Output 01/02/17 01/02/17 01/02/17 06:59 14:59 22:59 Intake Total 510 200 220 Output Total 480 2200 65 Balance 30 -1999 155 Weight 151 lb 3.794 oz 151 lb 3 oz Intake: Intake, IV Amount 100 100 Right Distal Port 100 Subclavian Right Medial Port 50 Subclavian Right Proximal Port 50 Subclavian Oral 40 120 Tube Feeding 360 160 Other 50 Output: Chest Tube Drainage 320 Right Posterior Chest 320 Urine 160 200 65 Urethral ([place]) 160 200 65 Other 2000 Other: # Bowel Movements 1 - Physical Exam Head: Negative for: Atraumatic, Normocephalic Extroacular Muscles: Positive for: EOMI Mouth: Positive for: Moist Mucous Membranes Neck: Positive for: Trachea Midline Respiratory/Chest: Positive for: Decreased Breath Sounds. Negative for: Rales, Rhonchi Abdomen: Positive for: Distention. Negative for: Tenderness, Normal Bowel Sounds (hypoactive) Upper Extremity: Positive for: Normal Inspection Lower Extremity: Positive for: Edema, Swelling, Other (serosanginous fluid draining from burst blister on left LE. Multple blisters notes.). Negative for : Normal Inspection Skin: Positive for: Warm, Erythematous, Other (serosanginous fluid draining from burst blister on left LE. Multple blisters notes.). Negative for: Dry, Normal Color Psychiatric: Negative for: Alert, Oriented x 3, Normal Affect, Normal Mood - Medications Active Medications: Active Medications Generic Name Dose Route Start Last Admin Trade Name Freq PRN Reason Stop Dose Admin Acetaminophen 975 mg 12/27/16 08:39 08/16/17 10:30 Tylenol 325 Mg Supp [place] 975 mg ONCE PRN Administration Fever >100.4 F Albumin Human 12.5 gm 12/27/16 14:15 01/02/17 15:02 Albumin Human 25% (12.5 Gm/50 Ml) IV 12.5 gm Q8H [facility] Administration Famotidine 20 mg 12/27/16 14:30 01/02/17 11:03 Pepcid IVP 20 mg DAILY [facility] Administration Norepinephrine Bitartrate 4 mg 254 mls @ 15.24 mls/hr 12/27/16 12:10 17:00 / Sodium Chloride IV Infused .[id number] PRN Titration TITRATE PER MD ORDER Protocol 4 MCG/MIN Piperacillin Sod/Tazobactam Sod 2.25 gm in 50 mls @ 100 mls/hr 12/27/16 15:00 01/02/17 15:03 Zosyn 2.25 Gm Iv Premix IVPB 100 mls/hr Q8H [facility] Administration Lorazepam 2 mg 01/02/17 00:17 01/02/17 00:58 Ativan IVP 2 mg Q6H PRN Administration Agitation Midazolam HCl 1 mg 01/01/17 18:42 01/02/17 10:40 Versed Inj IVP 1 mg Q2H PRN Administration Agitation - Patient Studies Lab Studies: Lab Studies 01/02/17 01/02/17 01/02/17 Range/Units 14:52 06:32 06:32 WBC (4.8-10.8) K/uL RBC (3.80-5.20) Mil/uL Hgb (11.0-16.0) g/dL Hct (34.0-47.0) % MCV (81.0-99.0) fL MCH (27.0-31.0) pg MCHC (33.0-37.0) g/dL RDW (11.5-14.5) % Plt Count (130-400) K/uL MPV (7.2-11.7) fL Neut % (Auto) (50.0-75.0) % Lymph % (Auto) (20.0-40.0) % [place] % (Auto) (0.0-10.0) % Eos % (Auto) (0.0-4.0) % Baso % (Auto) (0.0-2.0) % Neut # (1.8-7.0) K/uL Lymph # (1.0-4.3) K/uL [place] # (0.0-0.8) K/uL Eos # (0.0-0.7) K/uL Baso # (0.0-0.2) K/uL Neutrophils % (Manual) (50-75) % Lymphocytes % (Manual) (20-40) % Monocytes % (Manual) (0-10) % Eosinophils % (Manual) (0-4) % Platelet Estimate (NORMAL) Hypochromasia (manual) Poikilocytosis (manual Anisocytosis (manual) Tear Drop Cells Ovalocytes Retic Count 0.8 (0.5-1.5) % PT 13.5 H (9.7-12.2) SECONDS INR 1.2 APTT 42 H (21-34) SECONDS Fibrinogen 303 (200-400) mg/dL Puncture Site pCO2 (35-45) mm/Hg pO2 (80-100) mm/Hg HCO3 (21-28) mmol/L ABG pH (7.35-7.45) ABG Total CO2 (22-28) mmol/L ABG O2 Saturation (95-98) % ABG Base Excess (-2.0-3.0) mmol/L ABG Hemoglobin (11.7-17.4) g/dL ABG Carboxyhemoglobin (0.5-1.5) % POC ABG HHb (Measured) (0.0-5.0) % ABG Methemoglobin (0.0-3.0) % Jordon Test A-a O2 Difference mm/Hg Respiratory Index Hgb O2 Saturation (95.0-98.0) % Vent Mode Mechanical Rate FiO2 % Tidal Volume PEEP Sodium (132-148) mmol/L Potassium (3.6-5.2) mmol/L Chloride (98-107) mmol/L Carbon Dioxide (22-30) mmol/L Anion Gap (10-20) BUN (7-17) mg/dL Creatinine (0.7-1.2) MG/DL Est GFR ( Amer) Est GFR (Non-Af Amer) Random Glucose (65-105) mg/dL Calcium (8.6-10.4) mg/dl Phosphorus (2.5-4.5) mg/dL Magnesium (1.6-2.3) mg/dL Ferritin ng/mL Total Bilirubin (0.2-1.3) mg/dL Direct Bilirubin (0.0-0.4) mg/dL AST (14-36) U/L ALT (9-52) U/L Alkaline Phosphatase (38-126) U/L Total Protein (6.3-8.3) g/dL Albumin (3.5-5.0) g/dL Globulin (2.2-3.9) gm/dL Albumin/Globulin Ratio (1.0-2.1) Vitamin B12 (239-931) pg/mL Folate ng/mL Fluid Source Peritoneal/ascites Fluid Appearance Sl cloudy (CLEAR) Fluid WBC 98.0 (0.0-300.0) /mm3 Fluid RBC 8529.0 H (0.0-0.0) /mm3 Fluid Tot Cell Count 100 H (0-0) Fluid Neutrophils 69.0 H (0-0) % Fluid Lymphocytes 30.0 H (0-0) % Fld Monocyte/Macrophag 1 H (0-0) % Fluid Comment 01/02/17 01/02/17 01/02/17 Range/Units 06:32 06:32 05:42 WBC 5.6 (4.8-10.8) K/uL RBC 3.53 L (3.80-5.20) Mil/uL Hgb 9.9 L (11.0-16.0) g/dL Hct 31.6 L (34.0-47.0) % MCV 89.5 (81.0-99.0) fL MCH 28.2 (27.0-31.0) pg MCHC 31.5 L (33.0-37.0) g/dL RDW 16.4 H (11.5-14.5) % Plt Count 46 L (130-400) K/uL MPV 9.2 (7.2-11.7) fL Neut % (Auto) 75.7 H (50.0-75.0) % Lymph % (Auto) 9.3 L (20.0-40.0) % [place] % (Auto) 10.3 H (0.0-10.0) % Eos % (Auto) 3.6 (0.0-4.0) % Baso % (Auto) 1.1 (0.0-2.0) % Neut # 4.2 (1.8-7.0) K/uL Lymph # 0.5 L (1.0-4.3) K/uL [place] # 0.6 (0.0-0.8) K/uL Eos # 0.2 (0.0-0.7) K/uL Baso # 0.1 (0.0-0.2) K/uL Neutrophils % (Manual) 75 (50-75) % Lymphocytes % (Manual) 10 L (20-40) % Monocytes % (Manual) 9 (0-10) % Eosinophils % (Manual) 6 H (0-4) % Platelet Estimate Decreased L (NORMAL) Hypochromasia (manual) Slight Poikilocytosis (manual Slight Anisocytosis (manual) Slight Tear Drop Cells Slight Ovalocytes Slight Retic Count (0.5-1.5) % PT (9.7-12.2) SECONDS INR APTT (21-34) SECONDS Fibrinogen (200-400) mg/dL Puncture Site Rb pCO2 41 (35-45) mm/Hg pO2 148 H (80-100) mm/Hg HCO3 24.8 (21-28) mmol/L ABG pH 7.39 (7.35-7.45) ABG Total CO2 26.1 (22-28) mmol/L ABG O2 Saturation 100.0 H (95-98) % ABG Base Excess -0.2 (-2.0-3.0) mmol/L ABG Hemoglobin 9.6 L (11.7-17.4) g/dL ABG Carboxyhemoglobin 2.7 H (0.5-1.5) % POC ABG HHb (Measured) 0.0 (0.0-5.0) % ABG Methemoglobin 1.3 (0.0-3.0) % Jordon Test Na A-a O2 Difference 86.0 mm/Hg Respiratory Index 0.6 Hgb O2 Saturation 96.1 (95.0-98.0) % Vent Mode Prvc Mechanical Rate 16 FiO2 40.0 % Tidal Volume 350 PEEP 5 Sodium 138 (132-148) mmol/L Potassium 3.6 (3.6-5.2) mmol/L Chloride 100 (98-107) mmol/L Carbon Dioxide 26 (22-30) mmol/L Anion Gap 15 (10-20) BUN 26 H (7-17) mg/dL Creatinine 1.5 H (0.7-1.2) MG/DL Est GFR ( Amer) 40 Est GFR (Non-Af Amer) 33 Random Glucose 97 (65-105) mg/dL Calcium 8.3 L (8.6-10.4) mg/dl Phosphorus 3.2 (2.5-4.5) mg/dL Magnesium 2.2 (1.6-2.3) mg/dL Ferritin 62.4 ng/mL Total Bilirubin 1.5 H (0.2-1.3) mg/dL Direct Bilirubin 0.7 H (0.0-0.4) mg/dL AST 17 (14-36) U/L ALT 20 (9-52) U/L Alkaline Phosphatase 61 (38-126) U/L Total Protein 5.3 L (6.3-8.3) g/dL Albumin 2.9 L (3.5-5.0) g/dL Globulin 2.4 (2.2-3.9) gm/dL Albumin/Globulin Ratio 1.2 (1.0-2.1) Vitamin B12 868 (239-931) pg/mL Folate 10.4 ng/mL Fluid Source Fluid Appearance (CLEAR) Fluid WBC (0.0-300.0) /mm3 Fluid RBC (0.0-0.0) /mm3 Fluid Tot Cell Count (0-0) Fluid Neutrophils (0-0) % Fluid Lymphocytes (0-0) % Fld Monocyte/Macrophag (0-0) % Fluid Comment Laboratory Results - last 24 hr 01/02/17 01/02/17 01/02/17 05:42 06:32 06:32 WBC 5.6 RBC 3.53 L Hgb 9.9 L Hct 31.6 L MCV 89.5 MCH 28.2 MCHC 31.5 L RDW 16.4 H Plt Count 46 L MPV 9.2 Neut % (Auto) 75.7 H Lymph % (Auto) 9.3 L [place] % (Auto) 10.3 H Eos % (Auto) 3.6 Baso % (Auto) 1.1 Neut # 4.2 Lymph # 0.5 L [place] # 0.6 Eos # 0.2 Baso # 0.1 Neutrophils % (Manual) 75 Lymphocytes % (Manual) 10 L Monocytes % (Manual) 9 Eosinophils % (Manual) 6 H Platelet Estimate Decreased L Hypochromasia (manual) Slight Poikilocytosis (manual Slight Anisocytosis (manual) Slight Tear Drop Cells Slight Ovalocytes Slight Retic Count PT INR APTT Fibrinogen Puncture Site Rb pCO2 41 pO2 148 H HCO3 24.8 ABG pH 7.39 ABG Total CO2 26.1 ABG O2 Saturation 100.0 H ABG Base Excess -0.2 ABG Hemoglobin 9.6 L ABG Carboxyhemoglobin 2.7 H POC ABG HHb (Measured) 0.0 ABG Methemoglobin 1.3 Jordon Test Na A-a O2 Difference 86.0 Respiratory Index 0.6 Hgb O2 Saturation 96.1 Vent Mode Prvc Mechanical Rate 16 FiO2 40.0 Tidal Volume 350 PEEP 5 Sodium 138 Potassium 3.6 Chloride 100 Carbon Dioxide 26 Anion Gap 15 BUN 26 H Creatinine 1.5 H Est GFR ( Amer) 40 Est GFR (Non-Af Amer) 33 Random Glucose 97 Calcium 8.3 L Phosphorus 3.2 Magnesium 2.2 Ferritin 62.4 Total Bilirubin 1.5 H Direct Bilirubin 0.7 H AST 17 ALT 20 Alkaline Phosphatase 61 Total Protein 5.3 L Albumin 2.9 L Globulin 2.4 Albumin/Globulin Ratio 1.2 Vitamin B12 868 Folate 10.4 Fluid Source Fluid Appearance Fluid WBC Fluid RBC Fluid Tot Cell Count Fluid Neutrophils Fluid Lymphocytes Fld Monocyte/Macrophag Fluid Comment 01/02/17 01/02/17 01/02/17 06:32 06:32 14:52 WBC RBC Hgb Hct MCV MCH MCHC RDW Plt Count MPV Neut % (Auto) Lymph % (Auto) [place] % (Auto) Eos % (Auto) Baso % (Auto) Neut # Lymph # [place] # Eos # Baso # Neutrophils % (Manual) Lymphocytes % (Manual) Monocytes % (Manual) Eosinophils % (Manual) Platelet Estimate Hypochromasia (manual) Poikilocytosis (manual Anisocytosis (manual) Tear Drop Cells Ovalocytes Retic Count 0.8 PT 13.5 H INR 1.2 APTT 42 H Fibrinogen 303 Puncture Site pCO2 pO2 HCO3 ABG pH ABG Total CO2 ABG O2 Saturation ABG Base Excess ABG Hemoglobin ABG Carboxyhemoglobin POC ABG HHb (Measured) ABG Methemoglobin Jordon Test A-a O2 Difference Respiratory Index Hgb O2 Saturation Vent Mode Mechanical Rate FiO2 Tidal Volume PEEP Sodium Potassium Chloride Carbon Dioxide Anion Gap BUN Creatinine Est GFR ( Amer) Est GFR (Non-Af Amer) Random Glucose Calcium Phosphorus Magnesium Ferritin Total Bilirubin Direct Bilirubin AST ALT Alkaline Phosphatase Total Protein Albumin Globulin Albumin/Globulin Ratio Vitamin B12 Folate Fluid Source Peritoneal/ascites Fluid Appearance Sl cloudy Fluid WBC 98.0 Fluid RBC 8529.0 H Fluid Tot Cell Count 100 H Fluid Neutrophils 69.0 H Fluid Lymphocytes 30.0 H Fld Monocyte/Macrophag 1 H Fluid Comment Fingerstick Blood Sugar Results: 124 Review of Systems - Review of Systems Systems not reviewed;Unavailable: Intubated Critical Care Progress Note - Ventilator Checklist Head of Bed 30 Degrees: Yes Daily Sedation Vacation: Yes Daily Spontaneous Breathing Trial: Yes PUD Prophalyxis: Yes DVT Prophylaxis: Yes Assessment/Plan (1) Respiratory failure Current Visit: Yes Status: Acute Comment: Continue ventilatory support and wean as tolerated. Continue IV antibiotics Continue with pigtail catheter Increase feeding as tolerated Status post paracentesis NG feeding IV albumin Case discussed with son at length Potassium and magnesium supplements (2) Pneumonia Current Visit: Yes Status: Acute (3) Sepsis Current Visit: Yes Status: Acute
--- NOTE | 2017-01-02 18:56 | US ---
PROCEDURE: Limited abdominal ultrasound HISTORY: ASCITES COMPARISON: Not available TECHNIQUE: Transabdominal FINDINGS: The examination was performed to kamran an appropriate point of entry for percutaneous paracentesis. This was not performed by the Radiology Department. Images of ascites in the lower abdomen are supplied. IMPRESSION: Ascites.
--- NOTE | 2017-01-02 20:52 | CP.PCM.PN ---
Subjective - Date & Time of Evaluation Date of Evaluation: 01/02/17 Time of Evaluation: 13:05 - Subjective Subjective: Patient seen and evaluated Intubated Unresponsive to verbal commands Objective - Vital Signs/Intake and Output Vital Signs (last 24 hours): Temp Pulse Resp BP Pulse Ox 98.1 F 100 H 17 102/50 L 100 01/02/17 20:00 01/02/17 20:00 01/02/17 20:00 01/02/17 19:42 01/02/17 20:00 Intake and Output: 01/02/17 01/03/17 18:59 06:59 Intake Total 460 80 Output Total 2265 50 Balance -1805 30 - Medications Medications: Current Medications Acetaminophen (Tylenol 325 Mg Supp) 975 mg [place] ONCE PRN PRN Reason: Fever >100.4 F Last Admin: 12/27/16 10:30 Dose: 975 mg Albumin Human (Albumin Human 25% (12.5 Gm/50 Ml)) 12.5 gm IV Q8H [facility] Last Admin: 01/02/17 15:02 Dose: 12.5 gm Famotidine (Pepcid) 20 mg IVP DAILY [facility] Last Admin: 01/02/17 11:03 Dose: 20 mg Norepinephrine Bitartrate 4 mg (/ Sodium Chloride) 254 mls @ 15.24 mls/hr IV .[id number] PRN; Protocol; 4 MCG/MIN PRN Reason: TITRATE PER MD ORDER Last Titration: 12/31/16 17:00 Dose: Infused Piperacillin Sod/Tazobactam Sod (Zosyn 2.25 Gm Iv Premix) 2.25 gm in 50 mls @ 100 mls/hr IVPB Q8H [facility] Last Admin: 01/02/17 15:03 Dose: 100 mls/hr Lorazepam (Ativan) 2 mg IVP Q6H PRN PRN Reason: Agitation Last Admin: 01/02/17 00:58 Dose: 2 mg Midazolam HCl (Versed Inj) 1 mg IVP Q2H PRN PRN Reason: Agitation Last Admin: 01/02/17 10:40 Dose: 1 mg - Labs Labs: 01/02/17 06:32 01/02/17 06:32 PT 13.5 SECONDS (9.7-12.2) H 01/02/17 06:32 INR 1.2 01/02/17 06:32 APTT 42 SECONDS (21-34) H 01/02/17 06:32 - Head Exam Head Exam: ATRAUMATIC - Eye Exam Eye Exam: EOMI, PERRL - ENT Exam ENT Exam: Mucous Membranes Moist - Respiratory Exam Additional comments: Decreased breath sounds - Cardiovascular Exam Cardiovascular Exam: Irregular Rhythm, +S1, +S2 - GI/Abdominal Exam GI & Abdominal Exam: Soft - Skin Skin Exam: Warm Assessment and Plan - Assessment and Plan (Free Text) Assessment: 1. Respiratory failure/Vent dependant 2. Sepsis 3. A Fib 4. CAD 5. Severe Pulmonary HTN Poor prognosis D/W son at bedside
[2017-01-03] MEDS: Albumin Human 25% (12.5 gm/50 ml) IV SCH ×3 (05:16→21:15)
[2017-01-03 06:11] LABS: BASO # 0.1 K/uL (0.0-0.2); BASO % 0.9 % (0.0-2.0); EOS # 0.2 K/uL (0.0-0.7); EOS % 3.9 % (0.0-4.0); HEMATOCRIT 28.2 % (34.0-47.0); LYMPH # 0.4 K/uL (1.0-4.3); LYMPH % 7.6 % (20.0-40.0); MEAN CELL VOLUME 89.1 fL (81.0-99.0); MEAN CORPUSCULAR HEMOGLOBIN 28.5 pg (27.0-31.0); MEAN PLATELET VOLUME 9.7 fL (7.2-11.7); MONO # 0.4 K/uL (0.0-0.8); MONO % 7.4 % (0.0-10.0); NRBC % 0.1 % (0.0-2.0); PLATELET COUNT 52 K/uL (130-400); RED CELL DISTRIBUTION WIDTH 15.9 % (11.5-14.5); WHITE BLOOD COUNT 5.4 K/uL (4.8-10.8)
[2017-01-03] MEDS: Piperacill/Tazo 2.25gm in Dex 2.25 GM/50 ML BAG IVPB SCH ×3 (06:23→23:45)
[2017-01-03 06:32] LABS: ALB/GLOB RATIO 1.3 (1.0-2.1); BILIRUBIN,TOTAL 1.2 mg/dL (0.2-1.3); CALCIUM 8.4 mg/dl (8.6-10.4); MAGNESIUM 2.2 mg/dL (1.6-2.3); PHOSPHOROUS 3.2 mg/dL (2.5-4.5); POTASSIUM 3.3 mmol/L (3.6-5.2); TOTAL PROTEIN 5.1 g/dL (6.3-8.3)
[2017-01-03 06:34] LABS: ABG ALLEN TEST POS; ABG MECHANICAL RATE 16; ARTERIAL BLOOD GAS MODE PRVC; ARTERIAL BLOOD HGB O2 SAT 96.8 % (95.0-98.0); ATERIAL BLOOD GAS PEEP 5; CARBOXYHEMOGLOBIN 2.7 % (0.5-1.5); DRAW SITE R RAD; HHB -0.4 % (0.0-5.0)
[2017-01-03 08:21] LABS: EOSINOPHIL 2 % (0-4); NEUTROPHIL 85 % (50-75); TOTAL CELLS COUNTED 100
--- NOTE | 2017-01-03 10:09 | RAD ---
HISTORY: Restore insufficiency COMPARISON: Portable chest 01/02/2017 FINDINGS: LUNGS: [id number] pleural effusions not simply changed. No definite left pleural effusion is appreciate this time. Patchy infiltrate or atelectasis in the right base appears somewhat less prominent. Limited linear atelectasis is appreciate the medial left base. No definite left-sided infiltrate. No pneumothorax bilaterally. Endotracheal tube and NG tube again identified not grossly changed in position as well as right central venous line. PLEURA: As discussed above CARDIOVASCULAR: Prominent cardiac silhouette is unchanged with prosthetic cardiac valve again noted. Right wires. OSSEOUS STRUCTURES: No significant abnormalities. VISUALIZED UPPER ABDOMEN: Normal. OTHER FINDINGS: None. IMPRESSION: Mild decrease in right basilar atelectasis or infiltrate with unchanged right pleural effusion. No definite left pleural effusion is appreciated however. Additional findings as noted above.
[2017-01-03] MEDS: Midazolam 2 MG/2 ML VIAL IVP PRN (10:16)
--- NOTE | 2017-01-03 12:06 | CP.PCM.PN ---
Subjective - Date & Time of Evaluation Date of Evaluation: 01/03/17 Time of Evaluation: 11:30 - Subjective Subjective: Patient remains intubated at this time. When I saw and examined the patient she was only responsive to sternal rub. She moved her hand to try to prevent this. According to the medical staff the patient was more awake and interactive earlier. The pig tail catheter did not have any output. As mentioned previously, prognosis appears to be very poor at this time. Objective - Vital Signs/Intake and Output Vital Signs (last 24 hours): Temp Pulse Resp BP Pulse Ox 97.9 F 100 H 20 107/50 L 98 01/03/17 08:00 01/03/17 11:06 01/03/17 11:06 01/03/17 11:06 01/03/17 11:06 Intake and Output: 01/03/17 01/03/17 06:59 18:59 Intake Total 630 250 Output Total 300 105 Balance 330 145 - Medications Medications: Current Medications Acetaminophen (Tylenol 325 Mg Supp) 975 mg MA ONCE PRN PRN Reason: Fever >100.4 F Last Admin: 12/27/16 10:30 Dose: 975 mg Albumin Human (Albumin Human 25% (12.5 Gm/50 Ml)) 12.5 gm IV Q8H [facility] Last Admin: 01/03/17 05:16 Dose: 12.5 gm Famotidine (Pepcid) 20 mg IVP DAILY [facility] Last Admin: 01/03/17 10:19 Dose: 20 mg Norepinephrine Bitartrate 4 mg (/ Sodium Chloride) 254 mls @ 15.24 mls/hr IV .[id number] PRN; Protocol; 4 MCG/MIN PRN Reason: TITRATE PER MD ORDER Last Titration: 12/31/16 17:00 Dose: Infused Piperacillin Sod/Tazobactam Sod (Zosyn 2.25 Gm Iv Premix) 2.25 gm in 50 mls @ 100 mls/hr IVPB Q8H [facility] Last Admin: 01/03/17 06:23 Dose: 100 mls/hr Potassium Chloride (Potassium Chloride 20 Meq/100 Ml) 20 meq in 100 mls @ 50 mls/hr IVPB Q2H [facility] Stop: 01/03/17 13:59 Last Admin: 01/03/17 10:25 Dose: 50 mls/hr Lorazepam (Ativan) 2 mg IVP Q6H PRN PRN Reason: Agitation Last Admin: 01/03/17 10:30 Dose: 2 mg Midazolam HCl (Versed Inj) 1 mg IVP Q2H PRN PRN Reason: Agitation Last Admin: 01/03/17 10:16 Dose: 1 mg - Labs Labs: 01/03/17 05:59 01/03/17 05:59 PT 13.5 SECONDS (9.7-12.2) H 01/02/17 06:32 INR 1.2 01/02/17 06:32 APTT 42 SECONDS (21-34) H 01/02/17 06:32 - Constitutional Appears: Unkempt, Cachectic, Chronically Ill - ENT Exam ENT Exam: Mucous Membranes Moist - Respiratory Exam Respiratory Exam: Decreased Breath Sounds, Rales, Rhonchi Additional comments: Decreased bilateral breath sounds, R > L - Cardiovascular Exam Cardiovascular Exam: Tachycardia - GI/Abdominal Exam GI & Abdominal Exam: Soft Additional comments: S/P paracentesis - Neurological Exam Neurological Exam: absent: Alert, Awake, Oriented x3 - Skin Skin Exam: Pallor, Warm Assessment and Plan - Assessment and Plan (Free Text) Assessment: Assessment and Plan 1 Acute respiratory failure from sepsis and pleural effusion/consolidations on lungs 01/03: The out put from the pig tail catheter is zero today. Possible replacement of catheter 01/02: Pending CT surgery evaluation. Imaging showing persistent right pleural fluid. 01/01:Remains intubated at this time on PRVC settings. She currently has a chest tube at this time. The CXRAYs seem to show improvment on the right lung however the patient still appears to be very ill. There was last week a meeting with pallitative care and the patient's son. She requires IV pressor medications 2 Pneumonia 01/03 WBC again decreased. 01/02 WBC decreased, afebrile. No left shift on lab work today 01/01:Currently on IV Zosyn WBC decreased, also bandemia has decreased to 6 this morning. Prognosis is still very poor. The blood cultures have been negative 4 days and the sputum and pleural fluid negative. There is a positive from a wound culture 3 Septic shock 01/02: IV albumin given today. Systolic BPs in the 100s 01/01: Patient remains intubated and on pressor support. Urine output was recorded as 1150 cc yesterday 4 CHF (congestive heart failure), history of CAD and mitral vavlular replacement 01/02: Echo showing severe dilatation of right ventricle and hypertrophy. There is severe pulmonary HTN found as well. Furthermore there was findings of severe regurgitation tricupsid and pulmonary valves. 5 Cellulitis and abscess of foot Patient is on Zosyn. We will consider surgical evaluation if no improvement.
--- NOTE | 2017-01-03 16:46 | CP.CCUPN ---
<Gaby Zhou - Last Filed: 01/03/17 16:43> CCU Subjective - Physician Review Subjective (Free Text): Patient was seen and examined at bedside in the morning. Patient is awake and alert. Patient is intubated, unable to obtain review of systems. 01/03/17 16:43 CCU Objective - Vital Signs / Intake & Output Vital Signs (Last 4 hours): Vital Signs Temp Pulse Resp BP Pulse Ox 01/03/17 16:06 105 H 24 104/74 01/03/17 16:00 98.3 F 110 H 20 98 01/03/17 15:06 105 H 21 115/66 01/03/17 15:00 98 H 17 100 01/03/17 14:06 110 H 15 107/58 L 01/03/17 14:00 104 H 19 100 01/03/17 13:06 106 H 18 109/65 100 01/03/17 13:00 106 H 20 100 Intake and Output (Last 8hrs): Intake & Output 01/03/17 01/03/17 01/03/17 06:59 14:59 22:59 Intake Total 420 620 90 Output Total 185 145 Balance 235 475 90 Intake: Intake, IV Amount 100 300 50 Right Distal Port 100 300 50 Subclavian Tube Feeding 320 320 40 Output: Urine 185 145 Urethral ([place]) 185 145 - Physical Exam Head: Negative for: Atraumatic, Normocephalic Extroacular Muscles: Positive for: EOMI Mouth: Positive for: Moist Mucous Membranes, Other (intubated) Respiratory/Chest: Positive for: Decreased Breath Sounds. Negative for: Rales, Rhonchi Cardiovascular: Positive for: Normal S1, S2, Irregular Rhythm, Tachycardic Abdomen: Positive for: Distention. Negative for: Tenderness, Normal Bowel Sounds (hypoactive) Upper Extremity: Positive for: Normal Inspection Lower Extremity: Positive for: Edema, Swelling, Other (serosanginous fluid draining from blisters on LE). Negative for: Normal Inspection Skin: Positive for: Warm, Erythematous, Other (serosanginous fluid draining blisters on LE.). Negative for: Dry, Normal Color Psychiatric: Positive for: Alert - Medications Active Medications: Active Medications Generic Name Dose Route Start Last Admin Trade Name Freq PRN Reason Stop Dose Admin Acetaminophen 975 mg 12/27/16 08:39 12/27/16 10:30 Tylenol 325 Mg Supp VT 975 mg ONCE PRN Administration Fever >100.4 F Albumin Human 12.5 gm 12/27/16 14:15 01/03/17 13:43 Albumin Human 25% (12.5 Gm/50 Ml) IV 12.5 gm Q8H ZAHRA Administration Famotidine 20 mg 12/27/16 14:30 01/03/17 10:19 Pepcid IVP 20 mg DAILY ZAHRA Administration Norepinephrine Bitartrate 4 mg 254 mls @ 15.24 mls/hr 12/27/16 12:10 17:00 / Sodium Chloride IV Infused .[id number] PRN Titration TITRATE PER MD ORDER Protocol 4 MCG/MIN Piperacillin Sod/Tazobactam Sod 2.25 gm in 50 mls @ 100 mls/hr 12/27/16 15:00 01/03/17 15:24 Zosyn 2.25 Gm Iv Premix IVPB 100 mls/hr Q8H ZAHRA Administration Lorazepam 2 mg 01/02/17 00:17 01/03/17 10:30 Ativan IVP 2 mg Q6H PRN Administration Agitation Midazolam HCl 1 mg 01/01/17 18:42 01/03/17 10:16 Versed Inj IVP 1 mg Q2H PRN Administration Agitation - Patient Studies Lab Studies: Microbiology Studies 01/02/17 14:07 Gram Stain - Final Ascitic Fluid Lab Studies 01/03/17 01/03/17 01/03/17 Range/Units 05:59 05:59 05:59 WBC 5.4 (4.8-10.8) K/uL RBC 3.16 L (3.80-5.20) Mil/uL Hgb 9.0 L (11.0-16.0) g/dL Hct 28.2 L (34.0-47.0) % MCV 89.1 (81.0-99.0) fL MCH 28.5 (27.0-31.0) pg MCHC 32.0 L (33.0-37.0) g/dL RDW 15.9 H (11.5-14.5) % Plt Count 52 L (130-400) K/uL MPV 9.7 (7.2-11.7) fL Neut % (Auto) 80.2 H (50.0-75.0) % Lymph % (Auto) 7.6 L (20.0-40.0) % [place] % (Auto) 7.4 (0.0-10.0) % Eos % (Auto) 3.9 (0.0-4.0) % Baso % (Auto) 0.9 (0.0-2.0) % Neut # 4.4 (1.8-7.0) K/uL Lymph # 0.4 L (1.0-4.3) K/uL [place] # 0.4 (0.0-0.8) K/uL Eos # 0.2 (0.0-0.7) K/uL Baso # 0.1 (0.0-0.2) K/uL Neutrophils % (Manual) 85 H (50-75) % Lymphocytes % (Manual) 6 L (20-40) % Monocytes % (Manual) 7 (0-10) % Eosinophils % (Manual) 2 (0-4) % Platelet Estimate Decreased L (NORMAL) Hypochromasia (manual) Slight Anisocytosis (manual) Slight Ovalocytes Slight Puncture Site pCO2 (35-45) mm/Hg pO2 (80-100) mm/Hg HCO3 (21-28) mmol/L ABG pH (7.35-7.45) ABG Total CO2 (22-28) mmol/L ABG O2 Saturation (95-98) % ABG Base Excess (-2.0-3.0) mmol/L ABG Hemoglobin (11.7-17.4) g/dL ABG Carboxyhemoglobin (0.5-1.5) % POC ABG HHb (Measured) (0.0-5.0) % ABG Methemoglobin (0.0-3.0) % Jordon Test A-a O2 Difference mm/Hg Respiratory Index Hgb O2 Saturation (95.0-98.0) % Vent Mode Mechanical Rate FiO2 % Tidal Volume PEEP Sodium 138 (132-148) mmol/L Potassium 3.3 L (3.6-5.2) mmol/L Chloride 101 (98-107) mmol/L Carbon Dioxide 26 (22-30) mmol/L Anion Gap 14 (10-20) BUN 28 H (7-17) mg/dL Creatinine 1.5 H (0.7-1.2) MG/DL Est GFR ( Amer) 40 Est GFR (Non-Af Amer) 33 Random Glucose 89 (65-105) mg/dL Calcium 8.4 L (8.6-10.4) mg/dl Phosphorus 3.2 (2.5-4.5) mg/dL Magnesium 2.2 (1.6-2.3) mg/dL Total Bilirubin 1.2 (0.2-1.3) mg/dL AST 15 (14-36) U/L ALT 17 (9-52) U/L Alkaline Phosphatase 55 (38-126) U/L Lactate Dehydrogenase 259 L (313-618) U/L Total Protein 5.1 L (6.3-8.3) g/dL Albumin 2.9 L (3.5-5.0) g/dL Globulin 2.2 (2.2-3.9) gm/dL Albumin/Globulin Ratio 1.3 (1.0-2.1) 01/03/17 Range/Units 05:10 WBC (4.8-10.8) K/uL RBC (3.80-5.20) Mil/uL Hgb (11.0-16.0) g/dL Hct (34.0-47.0) % MCV (81.0-99.0) fL MCH (27.0-31.0) pg MCHC (33.0-37.0) g/dL RDW (11.5-14.5) % Plt Count (130-400) K/uL MPV (7.2-11.7) fL Neut % (Auto) (50.0-75.0) % Lymph % (Auto) (20.0-40.0) % [place] % (Auto) (0.0-10.0) % Eos % (Auto) (0.0-4.0) % Baso % (Auto) (0.0-2.0) % Neut # (1.8-7.0) K/uL Lymph # (1.0-4.3) K/uL [place] # (0.0-0.8) K/uL Eos # (0.0-0.7) K/uL Baso # (0.0-0.2) K/uL Neutrophils % (Manual) (50-75) % Lymphocytes % (Manual) (20-40) % Monocytes % (Manual) (0-10) % Eosinophils % (Manual) (0-4) % Platelet Estimate (NORMAL) Hypochromasia (manual) Anisocytosis (manual) Ovalocytes Puncture Site R rad pCO2 41 (35-45) mm/Hg pO2 189 H (80-100) mm/Hg HCO3 24.3 (21-28) mmol/L ABG pH 7.38 (7.35-7.45) ABG Total CO2 25.6 (22-28) mmol/L ABG O2 Saturation 100.4 H (95-98) % ABG Base Excess -0.8 (-2.0-3.0) mmol/L ABG Hemoglobin 8.6 L (11.7-17.4) g/dL ABG Carboxyhemoglobin 2.7 H (0.5-1.5) % POC ABG HHb (Measured) -0.4 L (0.0-5.0) % ABG Methemoglobin 1.0 (0.0-3.0) % Jordon Test Pos A-a O2 Difference 45.0 mm/Hg Respiratory Index 0.2 Hgb O2 Saturation 96.8 (95.0-98.0) % Vent Mode Prvc Mechanical Rate 16 FiO2 40.0 % Tidal Volume 350 PEEP 5 Sodium (132-148) mmol/L Potassium (3.6-5.2) mmol/L Chloride (98-107) mmol/L Carbon Dioxide (22-30) mmol/L Anion Gap (10-20) BUN (7-17) mg/dL Creatinine (0.7-1.2) MG/DL Est GFR ( Amer) Est GFR (Non-Af Amer) Random Glucose (65-105) mg/dL Calcium (8.6-10.4) mg/dl Phosphorus (2.5-4.5) mg/dL Magnesium (1.6-2.3) mg/dL Total Bilirubin (0.2-1.3) mg/dL AST (14-36) U/L ALT (9-52) U/L Alkaline Phosphatase (38-126) U/L Lactate Dehydrogenase (313-618) U/L Total Protein (6.3-8.3) g/dL Albumin (3.5-5.0) g/dL Globulin (2.2-3.9) gm/dL Albumin/Globulin Ratio (1.0-2.1) Laboratory Results - last 24 hr 01/03/17 01/03/17 01/03/17 05:10 05:59 05:59 WBC 5.4 RBC 3.16 L Hgb 9.0 L Hct 28.2 L MCV 89.1 MCH 28.5 MCHC 32.0 L RDW 15.9 H Plt Count 52 L MPV 9.7 Neut % (Auto) 80.2 H Lymph % (Auto) 7.6 L [place] % (Auto) 7.4 Eos % (Auto) 3.9 Baso % (Auto) 0.9 Neut # 4.4 Lymph # 0.4 L [place] # 0.4 Eos # 0.2 Baso # 0.1 Neutrophils % (Manual) 85 H Lymphocytes % (Manual) 6 L Monocytes % (Manual) 7 Eosinophils % (Manual) 2 Platelet Estimate Decreased L Hypochromasia (manual) Slight Anisocytosis (manual) Slight Ovalocytes Slight Puncture Site R rad pCO2 41 pO2 189 H HCO3 24.3 ABG pH 7.38 ABG Total CO2 25.6 ABG O2 Saturation 100.4 H ABG Base Excess -0.8 ABG Hemoglobin 8.6 L ABG Carboxyhemoglobin 2.7 H POC ABG HHb (Measured) -0.4 L ABG Methemoglobin 1.0 Jordon Test Pos A-a O2 Difference 45.0 Respiratory Index 0.2 Hgb O2 Saturation 96.8 Vent Mode Prvc Mechanical Rate 16 FiO2 40.0 Tidal Volume 350 PEEP 5 Sodium Potassium Chloride Carbon Dioxide Anion Gap BUN Creatinine Est GFR ( Amer) Est GFR (Non-Af Amer) Random Glucose Calcium Phosphorus Magnesium Total Bilirubin AST ALT Alkaline Phosphatase Lactate Dehydrogenase 259 L Total Protein Albumin Globulin Albumin/Globulin Ratio 01/03/17 05:59 WBC RBC Hgb Hct MCV MCH MCHC RDW Plt Count MPV Neut % (Auto) Lymph % (Auto) [place] % (Auto) Eos % (Auto) Baso % (Auto) Neut # Lymph # [place] # Eos # Baso # Neutrophils % (Manual) Lymphocytes % (Manual) Monocytes % (Manual) Eosinophils % (Manual) Platelet Estimate Hypochromasia (manual) Anisocytosis (manual) Ovalocytes Puncture Site pCO2 pO2 HCO3 ABG pH ABG Total CO2 ABG O2 Saturation ABG Base Excess ABG Hemoglobin ABG Carboxyhemoglobin POC ABG HHb (Measured) ABG Methemoglobin Jordon Test A-a O2 Difference Respiratory Index Hgb O2 Saturation Vent Mode Mechanical Rate FiO2 Tidal Volume PEEP Sodium 138 Potassium 3.3 L Chloride 101 Carbon Dioxide 26 Anion Gap 14 BUN 28 H Creatinine 1.5 H Est GFR ( Amer) 40 Est GFR (Non-Af Amer) 33 Random Glucose 89 Calcium 8.4 L Phosphorus 3.2 Magnesium 2.2 Total Bilirubin 1.2 AST 15 ALT 17 Alkaline Phosphatase 55 Lactate Dehydrogenase Total Protein 5.1 L Albumin 2.9 L Globulin 2.2 Albumin/Globulin Ratio 1.3 Fingerstick Blood Sugar Results: 124 Review of Systems - Review of Systems Systems not reviewed;Unavailable: Intubated Critical Care Progress Note - Vent Settings TIDAL VOLUME:: 350 RESP RATE:: 16 FIO2:: 40 PEEP:: 5 Assessment/Plan (1) Respiratory distress Assessment and plan: 86 year old female with medical history of HTN, CHF, CKD, and CABG, presents to the ED by ambulance with shortness of breath. The patient's son, Polo, reports she felt nauseas, feverish, and had chills this morning. As he was helping her to the restroom, patient urinated on self, passed out, and remained unresponsive. In the ED, patient was hypotensive and in respiratory distress. Code sepsis was called. Patient is consulted in the ICU for respiratory distress , hypotension, and sepsis. Patient's chest xray showed opacification of right hemithorax with midline shift. Review of systems was not obtained due to patients status. Patient was intubated, pigtail chest tube placed, waterseal, and pleural fluid drained. Repeat chest xray showed improvement. Underlying infiltrate likely pneumonia- started Zosyn and Vancomycin . Patient was hypotensive, required pressors. Patient has persistent pleural effusion - consider chest tube replacement if drainage of residual pleural effusion stops. Patient's leukocytosis and bandemia are improving. Patient still poor prognosis. Continue to monitor. Neuro: off sedation - prn versed for agitation Pulm: Respiratory distress - Intubated - CXR: opacification of right hemithorax with midline shift - Repeat CXR (post Chest tube): markedly decreased pleural effusion; patchy opacities in right hemithorax - CXR (12/29/16): improving right lower lobe airspace disease; stable small right pleural effusion with loculated component at right lateral wall, persistent cardiomegaly with small left pleural effusion. - Pigtail chest tube placed, drained pleural fluid - Pleural fluid studies: Cloudy, WBC 99, RBC 2007, Neutrophils 11, Lymphocytes 78, Monocyte/Macrophage 10 - Chest CT: increasing right pleural effusion, increasing right lower lobe atelectasis; patchy opacity in lingula; small right hydro-pneumothorax; ascites , hepatic cirrhosis - Consulted Thoracic surgery regarding persistent pleural effusion: Dr. Aragon, help appreciated - No intervention at this time. - Consider chest tube replacement if current tube does not drain residual pleural effusion CV: Hypotensive, CHF - Central line placed - Patient on pressors - IV Fluids + Albumin - Troponin: 0.1280 - BNP: 82252 - ECHO: LVEF 14%, severely dilated and mildly hypertrophied RV, RV systolic function mild-mod reduced; LA/RA severely dilated, restriction of posterior MV leaflet; mild MR; severe TR, pulm HTN, mild-mod pulmonic valvular regurgitation , mod pulmonary artery dilatation; severely dilated IVC. - Cardiology consulted: Dr. Hill, help appreciated - As per Dr. Hill, patient has severe pulmonary HTN, CAD s/p CABG, s/p MVR Endo: no acute issues GI: - Tube feeding - Distended abdomen - Abdominal US: liver cirrhosis, large abdominal/pelvic ascites, small right pleural effusion, cholelithiasis, diffuse gallbladder wall thickening likely secondary to liver cirrhosis. - s/p Paracentesis (01/02/17)- removed 2L fluid. - Fluid analysis: pending LDH, albumin, cx; Fluid RBCs- 8529, Total cell count- 100, Neutrophil- 69, Lymphocytes-30, monocyte/macro 1. Heme: thrombocytopenic - Hematology consulted- Dr. Posey, help appreciated Renal: history of kidney disease - BUN/Cr: 28/1.5 - Monitor kidney function - Hypokalemic- gave KCl ID: Code Sepsis - Likley secondary to pneumonia and/or LE cellulitis - Bandemia: improving - UA: 1+ protein, 2 urobilinogen, 9 squam epith cells - Blood cx: no growth x5days - Urine cx: no growth - Sputum cx: normal oral [place] - Wound cx: Staph aureius + - Wound care consulted - ID consulted- Dr. Ramires, help appreciated - As per ID, Continue zosyn Prophylaxis: - DVT: Discontinued Heparin 5,000units SC (thrombocytopenia) - GI: Protonix Current Visit: Yes Status: Acute (2) Sepsis Current Visit: Yes Status: Acute (3) Hypotension Current Visit: Yes Status: Acute (4) Abdominal distension Current Visit: Yes Status: Acute <Danelle Chungudhry S - Last Filed: 01/03/17 17:58> CCU Objective - Vital Signs / Intake & Output Vital Signs (Last 4 hours): Vital Signs Temp Pulse Resp BP Pulse Ox 01/03/17 17:06 130 H 35 H 122/77 98 01/03/17 17:00 122 H 29 H 99 01/03/17 16:06 105 H 24 104/74 01/03/17 16:00 98.3 F 110 H 20 98 01/03/17 15:06 105 H 21 115/66 01/03/17 15:00 98 H 17 100 01/03/17 14:06 110 H 15 107/58 L 01/03/17 14:00 104 H 19 100 Intake and Output (Last 8hrs): Intake & Output 01/03/17 01/03/17 01/03/17 06:59 14:59 22:59 Intake Total 420 620 170 Output Total 185 175 70 Balance 235 445 100 Intake: Intake, IV Amount 100 300 50 Right Distal Port 100 300 50 Subclavian Tube Feeding 320 320 120 Output: Urine 185 175 70 Urethral ([place]) 185 175 70 Other: # Bowel Movements 1 1 - Medications Active Medications: Active Medications Generic Name Dose Route Start Last Admin Trade Name Freq PRN Reason Stop Dose Admin Acetaminophen 975 mg 12/27/16 08:39 12/27/16 10:30 Tylenol 325 Mg Supp VT 975 mg ONCE PRN Administration Fever >100.4 F Albumin Human 12.5 gm 12/27/16 14:15 01/03/17 13:43 Albumin Human 25% (12.5 Gm/50 Ml) IV 12.5 gm Q8H ZAHRA Administration Famotidine 20 mg 12/27/16 14:30 01/03/17 10:19 Pepcid IVP 20 mg DAILY ZAHRA Administration Norepinephrine Bitartrate 4 mg 254 mls @ 15.24 mls/hr 12/27/16 12:10 17:00 / Sodium Chloride IV Infused .[id number] PRN Titration TITRATE PER MD ORDER Protocol 4 MCG/MIN Piperacillin Sod/Tazobactam Sod 2.25 gm in 50 mls @ 100 mls/hr 12/27/16 15:00 01/03/17 15:24 Zosyn 2.25 Gm Iv Premix IVPB 100 mls/hr Q8H ZAHRA Administration Lorazepam 2 mg 01/02/17 00:17 01/03/17 17:04 Ativan IVP 2 mg Q6H PRN Administration Agitation Midazolam HCl 1 mg 01/01/17 18:42 01/03/17 10:16 Versed Inj IVP 1 mg Q2H PRN Administration Agitation Pantoprazole Sodium 40 mg 01/04/17 10:00 Protonix Inj IVP DAILY ZAHRA - Patient Studies Lab Studies: Microbiology Studies 01/02/17 14:07 Gram Stain - Final Ascitic Fluid Lab Studies 01/03/17 01/03/17 01/03/17 Range/Units 05:59 05:59 05:59 WBC 5.4 (4.8-10.8) K/uL RBC 3.16 L (3.80-5.20) Mil/uL Hgb 9.0 L (11.0-16.0) g/dL Hct 28.2 L (34.0-47.0) % MCV 89.1 (81.0-99.0) fL MCH 28.5 (27.0-31.0) pg MCHC 32.0 L (33.0-37.0) g/dL RDW 15.9 H (11.5-14.5) % Plt Count 52 L (130-400) K/uL MPV 9.7 (7.2-11.7) fL Neut % (Auto) 80.2 H (50.0-75.0) % Lymph % (Auto) 7.6 L (20.0-40.0) % [place] % (Auto) 7.4 (0.0-10.0) % Eos % (Auto) 3.9 (0.0-4.0) % Baso % (Auto) 0.9 (0.0-2.0) % Neut # 4.4 (1.8-7.0) K/uL Lymph # 0.4 L (1.0-4.3) K/uL [place] # 0.4 (0.0-0.8) K/uL Eos # 0.2 (0.0-0.7) K/uL Baso # 0.1 (0.0-0.2) K/uL Neutrophils % (Manual) 85 H (50-75) % Lymphocytes % (Manual) 6 L (20-40) % Monocytes % (Manual) 7 (0-10) % Eosinophils % (Manual) 2 (0-4) % Platelet Estimate Decreased L (NORMAL) Hypochromasia (manual) Slight Anisocytosis (manual) Slight Ovalocytes Slight Puncture Site pCO2 (35-45) mm/Hg pO2 (80-100) mm/Hg HCO3 (21-28) mmol/L ABG pH (7.35-7.45) ABG Total CO2 (22-28) mmol/L ABG O2 Saturation (95-98) % ABG Base Excess (-2.0-3.0) mmol/L ABG Hemoglobin (11.7-17.4) g/dL ABG Carboxyhemoglobin (0.5-1.5) % POC ABG HHb (Measured) (0.0-5.0) % ABG Methemoglobin (0.0-3.0) % Jordon Test A-a O2 Difference mm/Hg Respiratory Index Hgb O2 Saturation (95.0-98.0) % Vent Mode Mechanical Rate FiO2 % Tidal Volume PEEP Sodium 138 (132-148) mmol/L Potassium 3.3 L (3.6-5.2) mmol/L Chloride 101 (98-107) mmol/L Carbon Dioxide 26 (22-30) mmol/L Anion Gap 14 (10-20) BUN 28 H (7-17) mg/dL Creatinine 1.5 H (0.7-1.2) MG/DL Est GFR ( Amer) 40 Est GFR (Non-Af Amer) 33 Random Glucose 89 (65-105) mg/dL Calcium 8.4 L (8.6-10.4) mg/dl Phosphorus 3.2 (2.5-4.5) mg/dL Magnesium 2.2 (1.6-2.3) mg/dL Total Bilirubin 1.2 (0.2-1.3) mg/dL AST 15 (14-36) U/L ALT 17 (9-52) U/L Alkaline Phosphatase 55 (38-126) U/L Lactate Dehydrogenase 259 L (313-618) U/L Total Protein 5.1 L (6.3-8.3) g/dL Albumin 2.9 L (3.5-5.0) g/dL Globulin 2.2 (2.2-3.9) gm/dL Albumin/Globulin Ratio 1.3 (1.0-2.1) 01/03/17 Range/Units 05:10 WBC (4.8-10.8) K/uL RBC (3.80-5.20) Mil/uL Hgb (11.0-16.0) g/dL Hct (34.0-47.0) % MCV (81.0-99.0) fL MCH (27.0-31.0) pg MCHC (33.0-37.0) g/dL RDW (11.5-14.5) % Plt Count (130-400) K/uL MPV (7.2-11.7) fL Neut % (Auto) (50.0-75.0) % Lymph % (Auto) (20.0-40.0) % [place] % (Auto) (0.0-10.0) % Eos % (Auto) (0.0-4.0) % Baso % (Auto) (0.0-2.0) % Neut # (1.8-7.0) K/uL Lymph # (1.0-4.3) K/uL [place] # (0.0-0.8) K/uL Eos # (0.0-0.7) K/uL Baso # (0.0-0.2) K/uL Neutrophils % (Manual) (50-75) % Lymphocytes % (Manual) (20-40) % Monocytes % (Manual) (0-10) % Eosinophils % (Manual) (0-4) % Platelet Estimate (NORMAL) Hypochromasia (manual) Anisocytosis (manual) Ovalocytes Puncture Site R rad pCO2 41 (35-45) mm/Hg pO2 189 H (80-100) mm/Hg HCO3 24.3 (21-28) mmol/L ABG pH 7.38 (7.35-7.45) ABG Total CO2 25.6 (22-28) mmol/L ABG O2 Saturation 100.4 H (95-98) % ABG Base Excess -0.8 (-2.0-3.0) mmol/L ABG Hemoglobin 8.6 L (11.7-17.4) g/dL ABG Carboxyhemoglobin 2.7 H (0.5-1.5) % POC ABG HHb (Measured) -0.4 L (0.0-5.0) % ABG Methemoglobin 1.0 (0.0-3.0) % Jordon Test Pos A-a O2 Difference 45.0 mm/Hg Respiratory Index 0.2 Hgb O2 Saturation 96.8 (95.0-98.0) % Vent Mode Prvc Mechanical Rate 16 FiO2 40.0 % Tidal Volume 350 PEEP 5 Sodium (132-148) mmol/L Potassium (3.6-5.2) mmol/L Chloride (98-107) mmol/L Carbon Dioxide (22-30) mmol/L Anion Gap (10-20) BUN (7-17) mg/dL Creatinine (0.7-1.2) MG/DL Est GFR ( Amer) Est GFR (Non-Af Amer) Random Glucose (65-105) mg/dL Calcium (8.6-10.4) mg/dl Phosphorus (2.5-4.5) mg/dL Magnesium (1.6-2.3) mg/dL Total Bilirubin (0.2-1.3) mg/dL AST (14-36) U/L ALT (9-52) U/L Alkaline Phosphatase (38-126) U/L Lactate Dehydrogenase (313-618) U/L Total Protein (6.3-8.3) g/dL Albumin (3.5-5.0) g/dL Globulin (2.2-3.9) gm/dL Albumin/Globulin Ratio (1.0-2.1) Laboratory Results - last 24 hr 01/03/17 01/03/17 01/03/17 05:10 05:59 05:59 WBC 5.4 RBC 3.16 L Hgb 9.0 L Hct 28.2 L MCV 89.1 MCH 28.5 MCHC 32.0 L RDW 15.9 H Plt Count 52 L MPV 9.7 Neut % (Auto) 80.2 H Lymph % (Auto) 7.6 L [place] % (Auto) 7.4 Eos % (Auto) 3.9 Baso % (Auto) 0.9 Neut # 4.4 Lymph # 0.4 L [place] # 0.4 Eos # 0.2 Baso # 0.1 Neutrophils % (Manual) 85 H Lymphocytes % (Manual) 6 L Monocytes % (Manual) 7 Eosinophils % (Manual) 2 Platelet Estimate Decreased L Hypochromasia (manual) Slight Anisocytosis (manual) Slight Ovalocytes Slight Puncture Site R rad pCO2 41 pO2 189 H HCO3 24.3 ABG pH 7.38 ABG Total CO2 25.6 ABG O2 Saturation 100.4 H ABG Base Excess -0.8 ABG Hemoglobin 8.6 L ABG Carboxyhemoglobin 2.7 H POC ABG HHb (Measured) -0.4 L ABG Methemoglobin 1.0 Jordon Test Pos A-a O2 Difference 45.0 Respiratory Index 0.2 Hgb O2 Saturation 96.8 Vent Mode Prvc Mechanical Rate 16 FiO2 40.0 Tidal Volume 350 PEEP 5 Sodium Potassium Chloride Carbon Dioxide Anion Gap BUN Creatinine Est GFR ( Amer) Est GFR (Non-Af Amer) Random Glucose Calcium Phosphorus Magnesium Total Bilirubin AST ALT Alkaline Phosphatase Lactate Dehydrogenase 259 L Total Protein Albumin Globulin Albumin/Globulin Ratio 01/03/17 05:59 WBC RBC Hgb Hct MCV MCH MCHC RDW Plt Count MPV Neut % (Auto) Lymph % (Auto) [place] % (Auto) Eos % (Auto) Baso % (Auto) Neut # Lymph # [place] # Eos # Baso # Neutrophils % (Manual) Lymphocytes % (Manual) Monocytes % (Manual) Eosinophils % (Manual) Platelet Estimate Hypochromasia (manual) Anisocytosis (manual) Ovalocytes Puncture Site pCO2 pO2 HCO3 ABG pH ABG Total CO2 ABG O2 Saturation ABG Base Excess ABG Hemoglobin ABG Carboxyhemoglobin POC ABG HHb (Measured) ABG Methemoglobin Jordon Test A-a O2 Difference Respiratory Index Hgb O2 Saturation Vent Mode Mechanical Rate FiO2 Tidal Volume PEEP Sodium 138 Potassium 3.3 L Chloride 101 Carbon Dioxide 26 Anion Gap 14 BUN 28 H Creatinine 1.5 H Est GFR ( Amer) 40 Est GFR (Non-Af Amer) 33 Random Glucose 89 Calcium 8.4 L Phosphorus 3.2 Magnesium 2.2 Total Bilirubin 1.2 AST 15 ALT 17 Alkaline Phosphatase 55 Lactate Dehydrogenase Total Protein 5.1 L Albumin 2.9 L Globulin 2.2 Albumin/Globulin Ratio 1.3 Assessment/Plan (1) Respiratory failure Current Visit: Yes Status: Acute Comment: Continue ventilatory support and wean as tolerated. Continue IV antibiotics Continue with pigtail catheter Increase feeding as tolerated Status post paracentesis NG feeding IV albumin Case discussed with son at length Potassium and magnesium supplements (2) Pneumonia Current Visit: Yes Status: Acute (3) Sepsis Current Visit: Yes Status: Acute Attending/Attestation - Attestation I have personally seen and examined this patient.: Yes I have fully participated in the care of the patient.: Yes I have reviewed all pertinent clinical information: Yes Notes (Text): 01/03/17 17:57 Patient seen and examined in the intensive care unit. Case discussed with all staff in the morning. He remains intubated on ventilatory support Increased drainage of fluid noted from RIGHT pigtail catheter after it was flushed Continue antibiotics Continue NG tube feeding Follow-up culture and sensitivity of peritoneal fluid
--- NOTE | 2017-01-03 21:00 | CP.PCM.PN ---
Subjective - Date & Time of Evaluation Date of Evaluation: 01/03/17 Time of Evaluation: 11:10 - Subjective Subjective: Patient seen and evaluated On Mechanical ventilation No response to verbal commands Objective - Vital Signs/Intake and Output Vital Signs (last 24 hours): Temp Pulse Resp BP Pulse Ox 98 F 103 H 18 108/64 100 01/03/17 20:00 01/03/17 20:06 01/03/17 20:06 01/03/17 20:06 01/03/17 20:00 Intake and Output: 01/03/17 01/04/17 18:59 06:59 Intake Total 830 80 Output Total 280 Balance 550 80 - Medications Medications: Current Medications Acetaminophen (Tylenol 325 Mg Supp) 975 mg [place] ONCE PRN PRN Reason: Fever >100.4 F Last Admin: 12/27/16 10:30 Dose: 975 mg Albumin Human (Albumin Human 25% (12.5 Gm/50 Ml)) 12.5 gm IV Q8H [facility] Last Admin: 01/03/17 13:43 Dose: 12.5 gm Famotidine (Pepcid) 20 mg IVP DAILY [facility] Last Admin: 01/03/17 10:19 Dose: 20 mg Norepinephrine Bitartrate 4 mg (/ Sodium Chloride) 254 mls @ 15.24 mls/hr IV .[id number] PRN; Protocol; 4 MCG/MIN PRN Reason: TITRATE PER MD ORDER Last Titration: 12/31/16 17:00 Dose: Infused Piperacillin Sod/Tazobactam Sod (Zosyn 2.25 Gm Iv Premix) 2.25 gm in 50 mls @ 100 mls/hr IVPB Q8H [facility] Last Admin: 01/03/17 15:24 Dose: 100 mls/hr Lorazepam (Ativan) 2 mg IVP Q6H PRN PRN Reason: Agitation Last Admin: 01/03/17 17:04 Dose: 2 mg Midazolam HCl (Versed Inj) 1 mg IVP Q2H PRN PRN Reason: Agitation Last Admin: 01/03/17 10:16 Dose: 1 mg Pantoprazole Sodium (Protonix Inj) 40 mg IVP DAILY [facility] - Labs Labs: 01/03/17 05:59 01/03/17 05:59 PT 13.5 SECONDS (9.7-12.2) H 01/02/17 06:32 INR 1.2 01/02/17 06:32 APTT 42 SECONDS (21-34) H 01/02/17 06:32 - Head Exam Head Exam: ATRAUMATIC - Eye Exam Eye Exam: PERRL - ENT Exam ENT Exam: Mucous Membranes Moist - Neck Exam Neck Exam: Normal Inspection - Respiratory Exam Additional comments: Decreased beasl breath sounds - Cardiovascular Exam Cardiovascular Exam: Irregular Rhythm, +S1, +S2 - GI/Abdominal Exam GI & Abdominal Exam: Distended - Skin Skin Exam: Warm Assessment and Plan - Assessment and Plan (Free Text) Assessment: 1, Res[facility] 2. Sepsis 3. CHF 4. Severe Pulmonary HTN 5. S/P MVR (Bio) 6. Encephalopathy Guarded prognosis Continue all meds
[2017-01-04] MEDS: Albumin Human 25% (12.5 gm/50 ml) IV SCH ×3 (05:43→22:02)
[2017-01-04] MEDS: Piperacill/Tazo 2.25gm in Dex 2.25 GM/50 ML BAG IVPB SCH ×3 (06:10→22:06)
[2017-01-04 06:34] LABS: ABG ALLEN TEST POS; ABG MECHANICAL RATE 16; ARTERIAL BLOOD GAS MODE PRVC; ARTERIAL BLOOD HGB O2 SAT 96.3 % (95.0-98.0); ATERIAL BLOOD GAS PEEP 5; CARBOXYHEMOGLOBIN 2.2 % (0.5-1.5); DRAW SITE R RAD; HHB 0.4 % (0.0-5.0); METHEMOGLOBIN 1.1 % (0.0-3.0)
[2017-01-04 06:40] LABS: BASO # 0.1 K/uL (0.0-0.2); BASO % 1.2 % (0.0-2.0); EOS # 0.2 K/uL (0.0-0.7); EOS % 2.4 % (0.0-4.0); HEMATOCRIT 26.7 % (34.0-47.0); LYMPH # 0.4 K/uL (1.0-4.3); LYMPH % 6.2 % (20.0-40.0); MEAN CORPUSCULAR HEMOGLOBIN 28.7 pg (27.0-31.0); MEAN CORPUSCULAR HGB CONC 32.2 g/dL (33.0-37.0); MEAN PLATELET VOLUME 9.8 fL (7.2-11.7); MONO # 0.5 K/uL (0.0-0.8); MONO % 8.2 % (0.0-10.0); PLATELET COUNT 63 K/uL (130-400); RED CELL DISTRIBUTION WIDTH 15.7 % (11.5-14.5); WHITE BLOOD COUNT 6.7 K/uL (4.8-10.8)
[2017-01-04 06:59] LABS: ALB/GLOB RATIO 1.3 (1.0-2.1); BILIRUBIN,TOTAL 1.2 mg/dL (0.2-1.3); CALCIUM 8.4 mg/dl (8.6-10.4); MAGNESIUM 2.3 mg/dL (1.6-2.3); PHOSPHOROUS 2.6 mg/dL (2.5-4.5)
[2017-01-04 07:02] LABS: POTASSIUM 3.5 mmol/L (3.6-5.2)
[2017-01-04 08:55] LABS: BASOPHIL 1 % (0-2); EOSINOPHIL 4 % (0-4); TOTAL CELLS COUNTED 100
[2017-01-04 08:56] LABS: NEUTROPHIL 80 % (50-75)
[2017-01-04 08:57] LABS: GIANT PLATELETS PRESENT; LARGE PLATELETS PRESENT
--- NOTE | 2017-01-04 09:14 | RAD ---
HISTORY: intubation COMPARISON: Portable chest 01/03/2017 FINDINGS: LUNGS: Right central venous line and right-sided chest tube are unchanged in position as well as endotracheal tube. A nasogastric tube is again identified entering into the left sherry abdomen with the tip again not identified off the inferior margins of the image. Prostatic cardiac valve is again noted as well as sternotomy. A small right pleural effusion is unchanged. Trace of pleural effusion difficult to exclude at this time. No definite left-sided infiltrate. Underlying atelectasis or infiltrate is not excluded the right base. Cardiac size remains prominent. Pulmonary vascular pattern appears stable no gross cephalization. PLEURA: No significant pleural effusion identified, no pneumothorax apparent. CARDIOVASCULAR: As above OSSEOUS STRUCTURES: As above VISUALIZED UPPER ABDOMEN: As above. OTHER FINDINGS: None. IMPRESSION: Stable chest radiography is identified identifying a mild right pleural effusion with unchanged apparent right chest tube placement. Underlying atelectasis infiltrate remains with to exclude the right base. Trace of pleural effusion is in question.
--- NOTE | 2017-01-04 10:46 | CP.PCM.PN ---
Subjective - Date & Time of Evaluation Date of Evaluation: 01/04/17 Time of Evaluation: 09:00 - Subjective Subjective: patient seen and examined in the intensive care unit. Recommend intubated on ventilatory support No drainage from right pigtail catheter Afebrile Sedated Poor urine output Objective - Vital Signs/Intake and Output Vital Signs (last 24 hours): Temp Pulse Resp BP Pulse Ox 98 F 95 H 17 110/58 L 99 01/04/17 08:00 01/04/17 10:00 01/04/17 10:00 01/04/17 09:06 01/04/17 10:00 Intake and Output: 01/04/17 01/04/17 06:59 18:59 Intake Total 630 210 Output Total 265 105 Balance 365 105 - Medications Medications: Current Medications Acetaminophen (Tylenol 325 Mg Supp) 975 mg [place] ONCE PRN PRN Reason: Fever >100.4 F Last Admin: 12/27/16 10:30 Dose: 975 mg Albumin Human (Albumin Human 25% (12.5 Gm/50 Ml)) 12.5 gm IV Q8H [facility] Last Admin: 01/04/17 05:43 Dose: 12.5 gm Famotidine (Pepcid) 20 mg IVP DAILY [facility] Last Admin: 01/03/17 10:19 Dose: 20 mg Norepinephrine Bitartrate 4 mg (/ Sodium Chloride) 254 mls @ 15.24 mls/hr IV .[id number] PRN; Protocol; 4 MCG/MIN PRN Reason: TITRATE PER MD ORDER Last Titration: 12/31/16 17:00 Dose: Infused Piperacillin Sod/Tazobactam Sod (Zosyn 2.25 Gm Iv Premix) 2.25 gm in 50 mls @ 100 mls/hr IVPB Q8H [facility] Last Admin: 01/04/17 06:10 Dose: 100 mls/hr Lorazepam (Ativan) 2 mg IVP Q6H PRN PRN Reason: Agitation Last Admin: 01/03/17 17:04 Dose: 2 mg Midazolam HCl (Versed Inj) 1 mg IVP Q2H PRN PRN Reason: Agitation Last Admin: 01/03/17 10:16 Dose: 1 mg Pantoprazole Sodium (Protonix Inj) 40 mg IVP DAILY [facility] Last Admin: 01/04/17 09:26 Dose: 40 mg - Labs Labs: 01/04/17 06:27 01/04/17 06:27 PT 13.5 SECONDS (9.7-12.2) H 01/02/17 06:32 INR 1.2 01/02/17 06:32 APTT 42 SECONDS (21-34) H 01/02/17 06:32 - Head Exam Head Exam: ATRAUMATIC, NORMOCEPHALIC - ENT Exam ENT Exam: Mucous Membranes Moist - Neck Exam Neck Exam: Normal Inspection - Respiratory Exam Respiratory Exam: Decreased Breath Sounds - Cardiovascular Exam Cardiovascular Exam: REGULAR RHYTHM - GI/Abdominal Exam GI & Abdominal Exam: Soft, Normal Bowel Sounds - Extremities Exam Extremities Exam: Pedal Edema Assessment and Plan (1) Respiratory failure Assessment & Plan: Continue ventilatory support and try weaning as tolerated Continue NG tube feeding Consider to change it to chest tube Internal antibiotics, albumin Status: Acute (2) Pneumonia Status: Acute (3) Sepsis Status: Acute
[2017-01-04] MEDS ORDERED: Potassium Chloride 20 mEq/15 ml LIQ UD PO ONE (11:45)
--- NOTE | 2017-01-04 11:46 | CP.PCM.PN ---
Subjective - Date & Time of Evaluation Date of Evaluation: 01/04/17 Time of Evaluation: 11:30 - Subjective Subjective: Patient remains intubated at this time on PRVC settings Patient was awake today - this is my first time seeing the patient awake. She was able to look at me when name called. I spoke with the patient's son at bedside today. To help explain the situation I jasmin out a diagram to show the pleural effsion with the catheter to help answer some of his questions. I explained to the patient's son that the patient had a very weak right side heart function, including severely dialted atrium and ventricles and that there were many valvular problems contributing to this as well. Of note is the history of valve replacement. Son understands the prognosis is very poor. I very carefully asked him about code status and he explains that he wants to continue patient as full code at this time. Objective - Vital Signs/Intake and Output Vital Signs (last 24 hours): Temp Pulse Resp BP Pulse Ox 98 F 95 H 17 110/58 L 99 01/04/17 08:00 01/04/17 10:00 01/04/17 10:00 01/04/17 09:06 01/04/17 10:00 Intake and Output: 01/04/17 01/04/17 06:59 18:59 Intake Total 630 210 Output Total 265 105 Balance 365 105 - Medications Medications: Current Medications Acetaminophen (Tylenol 325 Mg Supp) 975 mg [place] ONCE PRN PRN Reason: Fever >100.4 F Last Admin: 12/27/16 10:30 Dose: 975 mg Albumin Human (Albumin Human 25% (12.5 Gm/50 Ml)) 12.5 gm IV Q8H [facility] Last Admin: 01/04/17 05:43 Dose: 12.5 gm Norepinephrine Bitartrate 4 mg (/ Sodium Chloride) 254 mls @ 15.24 mls/hr IV .[id number] PRN; Protocol; 4 MCG/MIN PRN Reason: TITRATE PER MD ORDER Last Titration: 12/31/16 17:00 Dose: Infused Piperacillin Sod/Tazobactam Sod (Zosyn 2.25 Gm Iv Premix) 2.25 gm in 50 mls @ 100 mls/hr IVPB Q8H [facility] Last Admin: 01/04/17 06:10 Dose: 100 mls/hr Lorazepam (Ativan) 2 mg IVP Q6H PRN PRN Reason: Agitation Last Admin: 01/03/17 17:04 Dose: 2 mg Midazolam HCl (Versed Inj) 1 mg IVP Q2H PRN PRN Reason: Agitation Last Admin: 01/03/17 10:16 Dose: 1 mg Morphine Sulfate (Morphine) 1 mg IV Q4 PRN PRN Reason: Pain, moderate (4-7) Pantoprazole Sodium (Protonix Inj) 40 mg IVP DAILY [facility] Last Admin: 01/04/17 09:26 Dose: 40 mg Potassium Chloride (Potassium Chloride Oral Soln) 40 meq PO ONCE ONE Stop: 01/04/17 11:46 - Labs Labs: 01/04/17 06:27 01/04/17 06:27 PT 13.5 SECONDS (9.7-12.2) H 01/02/17 06:32 INR 1.2 01/02/17 06:32 APTT 42 SECONDS (21-34) H 01/02/17 06:32 - Constitutional Appears: In Acute Distress, Unkempt, Cachectic, Chronically Ill - Head Exam Head Exam: absent: NORMAL INSPECTION, NORMOCEPHALIC - Eye Exam Eye Exam: absent: EOMI, Normal appearance - ENT Exam ENT Exam: Mucous Membranes Moist - Respiratory Exam Respiratory Exam: Decreased Breath Sounds, Rales, Rhonchi - GI/Abdominal Exam GI & Abdominal Exam: Soft. absent: Firm, Guarding, Rigid, Tenderness - Neurological Exam Neurological Exam: Altered, Awake - Skin Skin Exam: Pallor, Pallor Assessment and Plan - Assessment and Plan (Free Text) Assessment: 1 Acute respiratory failure from sepsis and pleural effusion/consolidations on lungs 01/04: Again output of the right cathter is zero. I discussed with the patient's son at bedside and explained to him the overall prognosis is not. Good, he states he understands but wants her to remain full code at this time. 01/03: The out put from the pig tail catheter is zero today. Possible replacement of catheter 01/02: Pending CT surgery evaluation. Imaging showing persistent right pleural fluid. 01/01:Remains intubated at this time on PRVC settings. She currently has a chest tube at this time. The CXRAYs seem to show improvment on the right lung however the patient still appears to be very ill. There was last week a meeting with pallitative care and the patient's son. She requires IV pressor medications 2 Pneumonia 01/03 WBC again decreased. 01/02 WBC decreased, afebrile. No left shift on lab work today 01/01:Currently on IV Zosyn WBC decreased, also bandemia has decreased to 6 this morning. Prognosis is still very poor. The blood cultures have been negative 4 days and the sputum and pleural fluid negative. There is a positive from a wound culture 3 Septic shock 01/02: IV albumin given today. Systolic BPs in the 100s 01/01: Patient remains intubated and on pressor support. Urine output was recorded as 1150 cc yesterday 4 CHF (congestive heart failure), history of CAD and mitral vavlular replacement 01/02: Echo showing severe dilatation of right ventricle and hypertrophy. There is severe pulmonary HTN found as well. Furthermore there was findings of severe regurgitation tricupsid and pulmonary valves. 5 Cellulitis and abscess of foot Patient is on Zosyn. We will consider surgical evaluation if no improvement.
--- NOTE | 2017-01-04 14:23 | CP.PCM.PN ---
Subjective - Date & Time of Evaluation Date of Evaluation: 01/04/17 Time of Evaluation: 12:00 - Subjective Subjective: Patient remains unresponsive to stimulus Objective - Vital Signs/Intake and Output Vital Signs (last 24 hours): Temp Pulse Resp BP Pulse Ox 98.5 F 98 H 18 110/36 L 98 01/04/17 12:00 01/04/17 12:06 01/04/17 12:06 01/04/17 12:06 01/04/17 12:06 Intake and Output: 01/04/17 01/04/17 06:59 18:59 Intake Total 630 290 Output Total 265 125 Balance 365 165 - Medications Medications: Current Medications Acetaminophen (Tylenol 325 Mg Supp) 975 mg [place] ONCE PRN PRN Reason: Fever >100.4 F Last Admin: 12/27/16 10:30 Dose: 975 mg Albumin Human (Albumin Human 25% (12.5 Gm/50 Ml)) 12.5 gm IV Q8H [facility] Last Admin: 01/04/17 05:43 Dose: 12.5 gm Norepinephrine Bitartrate 4 mg (/ Sodium Chloride) 254 mls @ 15.24 mls/hr IV .[id number] PRN; Protocol; 4 MCG/MIN PRN Reason: TITRATE PER MD ORDER Last Titration: 12/31/16 17:00 Dose: Infused Piperacillin Sod/Tazobactam Sod (Zosyn 2.25 Gm Iv Premix) 2.25 gm in 50 mls @ 100 mls/hr IVPB Q8H [facility] Last Admin: 01/04/17 06:10 Dose: 100 mls/hr Lorazepam (Ativan) 2 mg IVP Q6H PRN PRN Reason: Agitation Last Admin: 01/03/17 17:04 Dose: 2 mg Midazolam HCl (Versed Inj) 1 mg IVP Q2H PRN PRN Reason: Agitation Last Admin: 01/03/17 10:16 Dose: 1 mg Morphine Sulfate (Morphine) 1 mg IV Q4 PRN PRN Reason: Pain, moderate (4-7) Last Admin: 01/04/17 11:49 Dose: 1 mg Pantoprazole Sodium (Protonix Inj) 40 mg IVP DAILY [facility] Last Admin: 01/04/17 09:26 Dose: 40 mg - Labs Labs: 01/04/17 06:27 01/04/17 06:27 PT 13.5 SECONDS (9.7-12.2) H 01/02/17 06:32 INR 1.2 01/02/17 06:32 APTT 42 SECONDS (21-34) H 01/02/17 06:32 - Constitutional Appears: In Acute Distress - Head Exam Head Exam: ATRAUMATIC, NORMAL INSPECTION, NORMOCEPHALIC - Eye Exam Eye Exam: Normal appearance, PERRL Pupil Exam: NORMAL ACCOMODATION - ENT Exam Additional comments: gag reflex absent - Neck Exam Neck Exam: Normal Inspection - Respiratory Exam Additional comments: On MV - Cardiovascular Exam Cardiovascular Exam: Tachycardia, Irregular Rhythm - GI/Abdominal Exam GI & Abdominal Exam: Normal Bowel Sounds - Rectal Exam Rectal Exam: Deferred - Extremities Exam Extremities Exam: Pedal Edema - Back Exam Back Exam: NORMAL INSPECTION - Neurological Exam Neurological Exam: Motor Sensory Deficit Neuro motor strength exam: Left Upper Extremity: 0, Right Upper Extremity: 0, Left Lower Extremity: 0, Right Lower Extremity: 0 - Psychiatric Exam Psychiatric exam: Flat Affect - Skin Skin Exam: Pallor Assessment and Plan - Assessment and Plan (Free Text) Assessment: patient remains on full life support unresponsive ro stimulus. Pupils are reactive to light but gag reflex is absent. Family was here yesterday and was under the impression that patient was responding to them by eye moments. They feel patient was trying hard to fight her disease. I discuss patient's presentation with Doctor Pulido, than with son Cole. I explained to the son that at this point we had to run a few more exams before any decision is made. I especially discussed the possibility of trach and PEG insertion as patient most likely was not to resume her ability to swallow and maintain airway open. The son showed understanding and hope. Impression * Patient remains unresponsive , on full life support * Family is very realistic and cooperative * No any final decision made yet regarding goals of care; Doctor Olga is suggesting the fallow up CT brain Suggestion * Supportive treatment * promote skin integrity * Prevent aspiration I will fallow up ith family during this decision making process
--- NOTE | 2017-01-04 17:59 | CP.PCM.PN ---
Subjective - Date & Time of Evaluation Date of Evaluation: 01/04/17 Time of Evaluation: 08:00 - Subjective Subjective: events noted iv rx in prgress opens eyes responds to name intubated Objective - Vital Signs/Intake and Output Vital Signs (last 24 hours): Temp Pulse Resp BP Pulse Ox 98.1 F 96 H 15 100/44 L 97 01/04/17 16:00 01/04/17 16:06 01/04/17 16:06 01/04/17 16:06 01/04/17 16:06 Intake and Output: 01/04/17 01/04/17 06:59 18:59 Intake Total 630 550 Output Total 265 180 Balance 365 370 - Medications Medications: Current Medications Acetaminophen (Tylenol 325 Mg Supp) 975 mg [place] ONCE PRN PRN Reason: Fever >100.4 F Last Admin: 12/27/16 10:30 Dose: 975 mg Albumin Human (Albumin Human 25% (12.5 Gm/50 Ml)) 12.5 gm IV Q8H [facility] Last Admin: 01/04/17 14:13 Dose: 12.5 gm Norepinephrine Bitartrate 4 mg (/ Sodium Chloride) 254 mls @ 15.24 mls/hr IV .[id number] PRN; Protocol; 4 MCG/MIN PRN Reason: TITRATE PER MD ORDER Last Titration: 12/31/16 17:00 Dose: Infused Piperacillin Sod/Tazobactam Sod (Zosyn 2.25 Gm Iv Premix) 2.25 gm in 50 mls @ 100 mls/hr IVPB Q8H [facility] Last Admin: 01/04/17 14:14 Dose: 100 mls/hr Lorazepam (Ativan) 2 mg IVP Q6H PRN PRN Reason: Agitation Last Admin: 01/03/17 17:04 Dose: 2 mg Midazolam HCl (Versed Inj) 1 mg IVP Q2H PRN PRN Reason: Agitation Last Admin: 01/03/17 10:16 Dose: 1 mg Morphine Sulfate (Morphine) 1 mg IV Q4 PRN PRN Reason: Pain, moderate (4-7) Last Admin: 01/04/17 11:49 Dose: 1 mg Pantoprazole Sodium (Protonix Inj) 40 mg IVP DAILY [facility] Last Admin: 01/04/17 09:26 Dose: 40 mg - Labs Labs: 01/04/17 06:27 01/04/17 06:27 PT 13.5 SECONDS (9.7-12.2) H 01/02/17 06:32 INR 1.2 01/02/17 06:32 APTT 42 SECONDS (21-34) H 01/02/17 06:32 - Constitutional Appears: Non-toxic - Head Exam Head Exam: NORMOCEPHALIC - Eye Exam Eye Exam: PERRL - ENT Exam ENT Exam: Mucous Membranes Dry - Neck Exam Neck Exam: absent: Lymphadenopathy - Respiratory Exam Respiratory Exam: Decreased Breath Sounds - Cardiovascular Exam Cardiovascular Exam: REGULAR RHYTHM - GI/Abdominal Exam GI & Abdominal Exam: Distended - Rectal Exam Rectal Exam: Deferred - Exam Exam: NORMAL INSPECTION - Extremities Exam Extremities Exam: absent: Pedal Edema - Back Exam Back Exam: absent: CVA tenderness (L), CVA tenderness (R) - Neurological Exam Neurological Exam: Altered - Skin Skin Exam: Dry, Erythema Additional comments: bilat leg swelling/erythema Assessment and Plan (1) Hypotension Status: Acute (2) Respiratory distress Status: Acute (3) Sepsis Status: Acute (4) Pneumonia Status: Acute (5) Cellulitis and abscess of foot Status: Acute (6) Septic shock Status: Acute (7) Respiratory failure Status: Acute (8) Respiratory failure Status: Acute (9) CHF (congestive heart failure) Status: Acute (10) CHF (congestive heart failure) Status: Acute (11) H/O mitral valve replacement Status: Acute (12) Altered mental status Status: Acute
--- NOTE | 2017-01-04 18:36 | CP.CCUPN ---
<Gaby Zhou - Last Filed: 01/04/17 18:29> CCU Subjective - Physician Review Subjective (Free Text): Patient was seen and examined at bedside in the morning. Patient is sleeping during examination. Patient is intubated, unable to obtain review of systems. 01/04/17 18:29 CCU Objective - Vital Signs / Intake & Output Vital Signs (Last 4 hours): Vital Signs Temp Pulse Resp BP Pulse Ox 01/04/17 16:06 96 H 15 100/44 L 97 01/04/17 16:00 98.1 F 93 H 18 98 01/04/17 15:06 113 H 17 96/45 L 93 L 01/04/17 15:00 107 H 18 100 Intake and Output (Last 8hrs): Intake & Output 01/04/17 01/04/17 01/04/17 06:59 14:59 22:59 Intake Total 470 470 80 Output Total 190 150 30 Balance 280 320 50 Weight 153 lb Intake: Intake, IV Amount 150 150 Right Distal Port 150 150 Subclavian Tube Feeding 320 320 80 Output: Urine 190 150 30 Urethral (Moreno) 190 150 30 Other: # Bowel Movements 1 - Physical Exam Head: Negative for: Atraumatic, Normocephalic Extroacular Muscles: Positive for: EOMI Mouth: Positive for: Moist Mucous Membranes Respiratory/Chest: Positive for: Decreased Breath Sounds. Negative for: Rales, Rhonchi Cardiovascular: Positive for: Normal S1, S2, Irregular Rhythm, Tachycardic Abdomen: Positive for: Distention. Negative for: Tenderness, Normal Bowel Sounds (hypoactive) Upper Extremity: Positive for: Normal Inspection Lower Extremity: Positive for: Edema, Swelling, Other (serosanginous fluid blisters on LE B/L). Negative for: Normal Inspection Skin: Positive for: Warm, Erythematous, Other (serosanginous fluid blisters on LE B/L). Negative for: Dry, Normal Color Psychiatric: Negative for: Alert, Oriented x 3, Normal Affect, Normal Mood - Medications Active Medications: Active Medications Generic Name Dose Route Start Last Admin Trade Name Freq PRN Reason Stop Dose Admin Acetaminophen 975 mg 12/27/16 08:39 12/27/16 10:30 Tylenol 325 Mg Supp MN 975 mg ONCE PRN Administration Fever >100.4 F Albumin Human 12.5 gm 12/27/16 14:15 01/04/17 14:13 Albumin Human 25% (12.5 Gm/50 Ml) IV 12.5 gm Q8H ZAHRA Administration Norepinephrine Bitartrate 4 mg 254 mls @ 15.24 mls/hr 12/27/16 12:10 17:00 / Sodium Chloride IV Infused .[id number] PRN Titration TITRATE PER MD ORDER Protocol 4 MCG/MIN Piperacillin Sod/Tazobactam Sod 2.25 gm in 50 mls @ 100 mls/hr 12/27/16 15:00 01/04/17 14:14 Zosyn 2.25 Gm Iv Premix IVPB 100 mls/hr Q8H ZAHRA Administration Lorazepam 2 mg 01/02/17 00:17 01/03/17 17:04 Ativan IVP 2 mg Q6H PRN Administration Agitation Midazolam HCl 1 mg 01/01/17 18:42 01/03/17 10:16 Versed Inj IVP 1 mg Q2H PRN Administration Agitation Morphine Sulfate 1 mg 01/04/17 11:05 01/04/17 11:49 Morphine IV 1 mg Q4 PRN Administration Pain, moderate (4-7) Pantoprazole Sodium 40 mg 01/04/17 10:00 01/04/17 09:26 Protonix Inj IVP 40 mg DAILY ZAHRA Administration - Patient Studies Lab Studies: Microbiology Studies 01/02/17 14:07 Gram Stain - Final Ascitic Fluid Body Fluid Culture - Preliminary NO GROWTH AFTER 2 DAYS Lab Studies 01/04/17 01/04/17 01/04/17 Range/Units 06:27 06:27 05:08 WBC 6.7 (4.8-10.8) K/uL RBC 3.00 L (3.80-5.20) Mil/uL Hgb 8.6 L (11.0-16.0) g/dL Hct 26.7 L (34.0-47.0) % MCV 89.0 (81.0-99.0) fL MCH 28.7 (27.0-31.0) pg MCHC 32.2 L (33.0-37.0) g/dL RDW 15.7 H (11.5-14.5) % Plt Count 63 L (130-400) K/uL MPV 9.8 (7.2-11.7) fL Neut % (Auto) 82.0 H (50.0-75.0) % Lymph % (Auto) 6.2 L (20.0-40.0) % Childress % (Auto) 8.2 (0.0-10.0) % Eos % (Auto) 2.4 (0.0-4.0) % Baso % (Auto) 1.2 (0.0-2.0) % Neut # 5.4 (1.8-7.0) K/uL Lymph # 0.4 L (1.0-4.3) K/uL Childress # 0.5 (0.0-0.8) K/uL Eos # 0.2 (0.0-0.7) K/uL Baso # 0.1 (0.0-0.2) K/uL Neutrophils % (Manual) 80 H (50-75) % Band Neutrophils % 1 (0-2) % Lymphocytes % (Manual) 7 L (20-40) % Monocytes % (Manual) 7 (0-10) % Eosinophils % (Manual) 4 (0-4) % Basophils % (Manual) 1 (0-2) % Platelet Estimate Decreased L (NORMAL) Large Platelets Present Giant Platelets Present Hypochromasia (manual) Slight Poikilocytosis (manual Slight Basophilic Stippling Slight Anisocytosis (manual) Slight Ovalocytes Slight Puncture Site R rad pCO2 43 (35-45) mm/Hg pO2 145 H (80-100) mm/Hg HCO3 25.6 (21-28) mmol/L ABG pH 7.39 (7.35-7.45) ABG Total CO2 27.3 (22-28) mmol/L ABG O2 Saturation 99.6 H (95-98) % ABG Base Excess 0.9 (-2.0-3.0) mmol/L ABG Hemoglobin 9.0 L (11.7-17.4) g/dL ABG Carboxyhemoglobin 2.2 H (0.5-1.5) % POC ABG HHb (Measured) 0.4 (0.0-5.0) % ABG Methemoglobin 1.1 (0.0-3.0) % Jordon Test Pos A-a O2 Difference 86.0 mm/Hg Respiratory Index 0.6 Hgb O2 Saturation 96.3 (95.0-98.0) % Vent Mode Prvc Mechanical Rate 16 FiO2 40.0 % Tidal Volume 350 PEEP 5 Sodium 139 (132-148) mmol/L Potassium 3.5 L (3.6-5.2) mmol/L Chloride 103 (98-107) mmol/L Carbon Dioxide 25 (22-30) mmol/L Anion Gap 15 (10-20) BUN 29 H (7-17) mg/dL Creatinine 1.4 H (0.7-1.2) MG/DL Est GFR ( Amer) 43 Est GFR (Non-Af Amer) 36 Random Glucose 101 (65-105) mg/dL Calcium 8.4 L (8.6-10.4) mg/dl Phosphorus 2.6 (2.5-4.5) mg/dL Magnesium 2.3 (1.6-2.3) mg/dL Total Bilirubin 1.2 (0.2-1.3) mg/dL AST 18 (14-36) U/L ALT 22 (9-52) U/L Alkaline Phosphatase 60 (38-126) U/L Total Protein 5.0 L (6.3-8.3) g/dL Albumin 2.9 L (3.5-5.0) g/dL Globulin 2.2 (2.2-3.9) gm/dL Albumin/Globulin Ratio 1.3 (1.0-2.1) Laboratory Results - last 24 hr 01/04/17 01/04/17 01/04/17 05:08 06:27 06:27 WBC 6.7 RBC 3.00 L Hgb 8.6 L Hct 26.7 L MCV 89.0 MCH 28.7 MCHC 32.2 L RDW 15.7 H Plt Count 63 L MPV 9.8 Neut % (Auto) 82.0 H Lymph % (Auto) 6.2 L Childress % (Auto) 8.2 Eos % (Auto) 2.4 Baso % (Auto) 1.2 Neut # 5.4 Lymph # 0.4 L Childress # 0.5 Eos # 0.2 Baso # 0.1 Neutrophils % (Manual) 80 H Band Neutrophils % 1 Lymphocytes % (Manual) 7 L Monocytes % (Manual) 7 Eosinophils % (Manual) 4 Basophils % (Manual) 1 Platelet Estimate Decreased L Large Platelets Present Giant Platelets Present Hypochromasia (manual) Slight Poikilocytosis (manual Slight Basophilic Stippling Slight Anisocytosis (manual) Slight Ovalocytes Slight Puncture Site R rad pCO2 43 pO2 145 H HCO3 25.6 ABG pH 7.39 ABG Total CO2 27.3 ABG O2 Saturation 99.6 H ABG Base Excess 0.9 ABG Hemoglobin 9.0 L ABG Carboxyhemoglobin 2.2 H POC ABG HHb (Measured) 0.4 ABG Methemoglobin 1.1 Jordon Test Pos A-a O2 Difference 86.0 Respiratory Index 0.6 Hgb O2 Saturation 96.3 Vent Mode Prvc Mechanical Rate 16 FiO2 40.0 Tidal Volume 350 PEEP 5 Sodium 139 Potassium 3.5 L Chloride 103 Carbon Dioxide 25 Anion Gap 15 BUN 29 H Creatinine 1.4 H Est GFR ( Amer) 43 Est GFR (Non-Af Amer) 36 Random Glucose 101 Calcium 8.4 L Phosphorus 2.6 Magnesium 2.3 Total Bilirubin 1.2 AST 18 ALT 22 Alkaline Phosphatase 60 Total Protein 5.0 L Albumin 2.9 L Globulin 2.2 Albumin/Globulin Ratio 1.3 Fingerstick Blood Sugar Results: 124 Review of Systems - Review of Systems Systems not reviewed;Unavailable: Intubated Assessment/Plan (1) Respiratory distress Assessment and plan: 86 year old female with medical history of HTN, CHF, CKD, and CABG, presents to the ED by ambulance with shortness of breath. The patient's son, Polo, reports she felt nauseas, feverish, and had chills this morning. As he was helping her to the restroom, patient urinated on self, passed out, and remained unresponsive. In the ED, patient was hypotensive and in respiratory distress. Code sepsis was called. Patient is consulted in the ICU for respiratory distress , hypotension, and sepsis. Patient's chest xray showed opacification of right hemithorax with midline shift. Review of systems was not obtained due to patients status. Patient was intubated, pigtail chest tube placed, waterseal, and pleural fluid drained. Repeat chest xray showed improvement. Underlying infiltrate likely pneumonia- started Zosyn and Vancomycin . Patient was hypotensive, required pressors. Patient has persistent pleural effusion - consider chest tube replacement if drainage of residual pleural effusion stops. Patient's leukocytosis and bandemia are improving. As per cardiology, patient may go for CT angio to rule out PE, and if negative, possibly start patient on inotropic medication for CHF/Right heart dysfunction. Decision pending on discussion with family. Patient still poor prognosis. Continue to monitor. Neuro: off sedation - prn versed for agitation Pulm: Respiratory distress - Intubated - CXR: opacification of right hemithorax with midline shift - Repeat CXR (post Chest tube): markedly decreased pleural effusion; patchy opacities in right hemithorax - CXR (12/29/16): improving right lower lobe airspace disease; stable small right pleural effusion with loculated component at right lateral wall, persistent cardiomegaly with small left pleural effusion. - Pigtail chest tube placed, drained pleural fluid - Pleural fluid studies: Cloudy, WBC 99, RBC 2007, Neutrophils 11, Lymphocytes 78, Monocyte/Macrophage 10 - Chest CT: increasing right pleural effusion, increasing right lower lobe atelectasis; patchy opacity in lingula; small right hydro-pneumothorax; ascites , hepatic cirrhosis - Consulted Thoracic surgery regarding persistent pleural effusion: Dr. Aragon, help appreciated - No intervention at this time. - Consider chest tube replacement if current tube does not drain residual pleural effusion CV: Hypotensive, CHF - Central line placed - Patient on pressors - IV Fluids + Albumin - Troponin: 0.1280 - BNP: 03089 - ECHO: LVEF 14%, severely dilated and mildly hypertrophied RV, RV systolic function mild-mod reduced; LA/RA severely dilated, restriction of posterior MV leaflet; mild MR; severe TR, pulm HTN, mild-mod pulmonic valvular regurgitation , mod pulmonary artery dilatation; severely dilated IVC. - Cardiology consulted: Dr. Hill, help appreciated - As per Dr. Hill, patient has severe pulmonary HTN, CAD s/p CABG, s/p MVR - Venous dupluex LE B/L: no DVTs Endo: no acute issues GI: - Tube feeding - Distended abdomen - Abdominal US: liver cirrhosis, large abdominal/pelvic ascites, small right pleural effusion, cholelithiasis, diffuse gallbladder wall thickening likely secondary to liver cirrhosis. - s/p Paracentesis (01/02/17)- removed 2L fluid. - Fluid analysis: pending LDH, albumin, cx; Fluid RBCs- 8529, Total cell count- 100, Neutrophil- 69, Lymphocytes-30, monocyte/macro 1. Heme: thrombocytopenic - Hematology consulted- Dr. oPsey, help appreciated Renal: history of kidney disease - BUN/Cr: 28/1.5 - Monitor kidney function - Hypokalemic- gave KCl ID: Code Sepsis - Shivaley secondary to pneumonia and/or LE cellulitis - Bandemia: improving - UA: 1+ protein, 2 urobilinogen, 9 squam epith cells - Blood cx: no growth x5days - Urine cx: no growth - Sputum cx: normal oral [place] - Wound cx: Staph aureius + - Wound care consulted - ID consulted- Dr. Ramires, help appreciated - As per ID, Continue zosyn Prophylaxis: - DVT: Discontinued Heparin 5,000units SC (thrombocytopenia) - GI: Protonix Current Visit: Yes Status: Acute (2) Sepsis Current Visit: Yes Status: Acute (3) Hypotension Current Visit: Yes Status: Acute (4) Abdominal distension Current Visit: Yes Status: Acute <Sj Dorsey P - Last Filed: 01/05/17 01:14> CCU Objective - Vital Signs / Intake & Output Vital Signs (Last 4 hours): Vital Signs Temp Pulse Resp BP Pulse Ox 01/05/17 00:06 90 16 92/38 L 96 01/05/17 00:00 98.2 F 01/04/17 23:06 94 H 16 90/42 L 95 01/04/17 22:06 90 16 89/42 L 94 L 01/04/17 21:07 114 H 14 115/70 86 L Intake and Output (Last 8hrs): Intake & Output 01/04/17 01/04/17 01/05/17 14:59 22:59 06:59 Intake Total 470 410 130 Output Total 200 193 35 Balance 270 217 95 Intake: Intake, IV Amount 150 50 50 Right Distal Port 150 50 50 Subclavian Tube Feeding 320 360 80 Output: Chest Tube Drainage 18 Right Posterior Chest 18 Urine 200 175 35 Urethral (Moreno) 200 175 35 - Medications Active Medications: Active Medications Generic Name Dose Route Start Last Admin Trade Name Freq PRN Reason Stop Dose Admin Acetaminophen 975 mg 12/27/16 08:39 12/27/16 10:30 Tylenol 325 Mg Supp MN 975 mg ONCE PRN Administration Fever >100.4 F Albumin Human 12.5 gm 12/27/16 14:15 01/04/17 22:02 Albumin Human 25% (12.5 Gm/50 Ml) IV 12.5 gm Q8H ZAHRA Administration Norepinephrine Bitartrate 4 mg 254 mls @ 15.24 mls/hr 12/27/16 12:10 17:00 / Sodium Chloride IV Infused .[id number] PRN Titration TITRATE PER MD ORDER Protocol 4 MCG/MIN Piperacillin Sod/Tazobactam Sod 2.25 gm in 50 mls @ 100 mls/hr 12/27/16 15:00 01/04/17 22:06 Zosyn 2.25 Gm Iv Premix IVPB 100 mls/hr Q8H ZAHRA Administration Lorazepam 2 mg 01/02/17 00:17 01/03/17 17:04 Ativan IVP 2 mg Q6H PRN Administration Agitation Midazolam HCl 1 mg 01/01/17 18:42 01/03/17 10:16 Versed Inj IVP 1 mg Q2H PRN Administration Agitation Morphine Sulfate 1 mg 01/04/17 11:05 01/04/17 20:29 Morphine IV 1 mg Q4 PRN Administration Pain, moderate (4-7) Pantoprazole Sodium 40 mg 01/04/17 10:00 01/04/17 09:26 Protonix Inj IVP 40 mg DAILY ZAHRA Administration - Patient Studies Lab Studies: Microbiology Studies 01/02/17 14:07 Gram Stain - Final Ascitic Fluid Body Fluid Culture - Preliminary NO GROWTH AFTER 2 DAYS Lab Studies 01/04/17 01/04/17 01/04/17 Range/Units 06:27 06:27 05:08 WBC 6.7 (4.8-10.8) K/uL RBC 3.00 L (3.80-5.20) Mil/uL Hgb 8.6 L (11.0-16.0) g/dL Hct 26.7 L (34.0-47.0) % MCV 89.0 (81.0-99.0) fL MCH 28.7 (27.0-31.0) pg MCHC 32.2 L (33.0-37.0) g/dL RDW 15.7 H (11.5-14.5) % Plt Count 63 L (130-400) K/uL MPV 9.8 (7.2-11.7) fL Neut % (Auto) 82.0 H (50.0-75.0) % Lymph % (Auto) 6.2 L (20.0-40.0) % Childress % (Auto) 8.2 (0.0-10.0) % Eos % (Auto) 2.4 (0.0-4.0) % Baso % (Auto) 1.2 (0.0-2.0) % Neut # 5.4 (1.8-7.0) K/uL Lymph # 0.4 L (1.0-4.3) K/uL Childress # 0.5 (0.0-0.8) K/uL Eos # 0.2 (0.0-0.7) K/uL Baso # 0.1 (0.0-0.2) K/uL Neutrophils % (Manual) 80 H (50-75) % Band Neutrophils % 1 (0-2) % Lymphocytes % (Manual) 7 L (20-40) % Monocytes % (Manual) 7 (0-10) % Eosinophils % (Manual) 4 (0-4) % Basophils % (Manual) 1 (0-2) % Platelet Estimate Decreased L (NORMAL) Large Platelets Present Giant Platelets Present Hypochromasia (manual) Slight Poikilocytosis (manual Slight Basophilic Stippling Slight Anisocytosis (manual) Slight Ovalocytes Slight Puncture Site R rad pCO2 43 (35-45) mm/Hg pO2 145 H (80-100) mm/Hg HCO3 25.6 (21-28) mmol/L ABG pH 7.39 (7.35-7.45) ABG Total CO2 27.3 (22-28) mmol/L ABG O2 Saturation 99.6 H (95-98) % ABG Base Excess 0.9 (-2.0-3.0) mmol/L ABG Hemoglobin 9.0 L (11.7-17.4) g/dL ABG Carboxyhemoglobin 2.2 H (0.5-1.5) % POC ABG HHb (Measured) 0.4 (0.0-5.0) % ABG Methemoglobin 1.1 (0.0-3.0) % Jordon Test Pos A-a O2 Difference 86.0 mm/Hg Respiratory Index 0.6 Hgb O2 Saturation 96.3 (95.0-98.0) % Vent Mode Prvc Mechanical Rate 16 FiO2 40.0 % Tidal Volume 350 PEEP 5 Sodium 139 (132-148) mmol/L Potassium 3.5 L (3.6-5.2) mmol/L Chloride 103 (98-107) mmol/L Carbon Dioxide 25 (22-30) mmol/L Anion Gap 15 (10-20) BUN 29 H (7-17) mg/dL Creatinine 1.4 H (0.7-1.2) MG/DL Est GFR ( Amer) 43 Est GFR (Non-Af Amer) 36 Random Glucose 101 (65-105) mg/dL Calcium 8.4 L (8.6-10.4) mg/dl Phosphorus 2.6 (2.5-4.5) mg/dL Magnesium 2.3 (1.6-2.3) mg/dL Total Bilirubin 1.2 (0.2-1.3) mg/dL AST 18 (14-36) U/L ALT 22 (9-52) U/L Alkaline Phosphatase 60 (38-126) U/L Total Protein 5.0 L (6.3-8.3) g/dL Albumin 2.9 L (3.5-5.0) g/dL Globulin 2.2 (2.2-3.9) gm/dL Albumin/Globulin Ratio 1.3 (1.0-2.1) Heparin-induced Plt Ab (Negative) 01/02/17 Range/Units 07:33 WBC (4.8-10.8) K/uL RBC (3.80-5.20) Mil/uL Hgb (11.0-16.0) g/dL Hct (34.0-47.0) % MCV (81.0-99.0) fL MCH (27.0-31.0) pg MCHC (33.0-37.0) g/dL RDW (11.5-14.5) % Plt Count (130-400) K/uL MPV (7.2-11.7) fL Neut % (Auto) (50.0-75.0) % Lymph % (Auto) (20.0-40.0) % Childress % (Auto) (0.0-10.0) % Eos % (Auto) (0.0-4.0) % Baso % (Auto) (0.0-2.0) % Neut # (1.8-7.0) K/uL Lymph # (1.0-4.3) K/uL Childress # (0.0-0.8) K/uL Eos # (0.0-0.7) K/uL Baso # (0.0-0.2) K/uL Neutrophils % (Manual) (50-75) % Band Neutrophils % (0-2) % Lymphocytes % (Manual) (20-40) % Monocytes % (Manual) (0-10) % Eosinophils % (Manual) (0-4) % Basophils % (Manual) (0-2) % Platelet Estimate (NORMAL) Large Platelets Giant Platelets Hypochromasia (manual) Poikilocytosis (manual Basophilic Stippling Anisocytosis (manual) Ovalocytes Puncture Site pCO2 (35-45) mm/Hg pO2 (80-100) mm/Hg HCO3 (21-28) mmol/L ABG pH (7.35-7.45) ABG Total CO2 (22-28) mmol/L ABG O2 Saturation (95-98) % ABG Base Excess (-2.0-3.0) mmol/L ABG Hemoglobin (11.7-17.4) g/dL ABG Carboxyhemoglobin (0.5-1.5) % POC ABG HHb (Measured) (0.0-5.0) % ABG Methemoglobin (0.0-3.0) % Jordon Test A-a O2 Difference mm/Hg Respiratory Index Hgb O2 Saturation (95.0-98.0) % Vent Mode Mechanical Rate FiO2 % Tidal Volume PEEP Sodium (132-148) mmol/L Potassium (3.6-5.2) mmol/L Chloride (98-107) mmol/L Carbon Dioxide (22-30) mmol/L Anion Gap (10-20) BUN (7-17) mg/dL Creatinine (0.7-1.2) MG/DL Est GFR ( Amer) Est GFR (Non-Af Amer) Random Glucose (65-105) mg/dL Calcium (8.6-10.4) mg/dl Phosphorus (2.5-4.5) mg/dL Magnesium (1.6-2.3) mg/dL Total Bilirubin (0.2-1.3) mg/dL AST (14-36) U/L ALT (9-52) U/L Alkaline Phosphatase (38-126) U/L Total Protein (6.3-8.3) g/dL Albumin (3.5-5.0) g/dL Globulin (2.2-3.9) gm/dL Albumin/Globulin Ratio (1.0-2.1) Heparin-induced Plt Ab Negative (Negative) Laboratory Results - last 24 hr 01/02/17 01/04/17 01/04/17 07:33 05:08 06:27 WBC 6.7 RBC 3.00 L Hgb 8.6 L Hct 26.7 L MCV 89.0 MCH 28.7 MCHC 32.2 L RDW 15.7 H Plt Count 63 L MPV 9.8 Neut % (Auto) 82.0 H Lymph % (Auto) 6.2 L Child[place] % (Auto) 8.2 Eos % (Auto) 2.4 Baso % (Auto) 1.2 Neut # 5.4 Lymph # 0.4 L Childress # 0.5 Eos # 0.2 Baso # 0.1 Neutrophils % (Manual) 80 H Band Neutrophils % 1 Lymphocytes % (Manual) 7 L Monocytes % (Manual) 7 Eosinophils % (Manual) 4 Basophils % (Manual) 1 Platelet Estimate Decreased L Large Platelets Present Giant Platelets Present Hypochromasia (manual) Slight Poikilocytosis (manual Slight Basophilic Stippling Slight Anisocytosis (manual) Slight Ovalocytes Slight Puncture Site R rad pCO2 43 pO2 145 H HCO3 25.6 ABG pH 7.39 ABG Total CO2 27.3 ABG O2 Saturation 99.6 H ABG Base Excess 0.9 ABG Hemoglobin 9.0 L ABG Carboxyhemoglobin 2.2 H POC ABG HHb (Measured) 0.4 ABG Methemoglobin 1.1 Jordon Test Pos A-a O2 Difference 86.0 Respiratory Index 0.6 Hgb O2 Saturation 96.3 Vent Mode Prvc Mechanical Rate 16 FiO2 40.0 Tidal Volume 350 PEEP 5 Sodium Potassium Chloride Carbon Dioxide Anion Gap BUN Creatinine Est GFR ( Amer) Est GFR (Non-Af Amer) Random Glucose Calcium Phosphorus Magnesium Total Bilirubin AST ALT Alkaline Phosphatase Total Protein Albumin Globulin Albumin/Globulin Ratio Heparin-induced Plt Ab Negative 01/04/17 06:27 WBC RBC Hgb Hct MCV MCH MCHC RDW Plt Count MPV Neut % (Auto) Lymph % (Auto) Childress % (Auto) Eos % (Auto) Baso % (Auto) Neut # Lymph # Childress # Eos # Baso # Neutrophils % (Manual) Band Neutrophils % Lymphocytes % (Manual) Monocytes % (Manual) Eosinophils % (Manual) Basophils % (Manual) Platelet Estimate Large Platelets Giant Platelets Hypochromasia (manual) Poikilocytosis (manual Basophilic Stippling Anisocytosis (manual) Ovalocytes Puncture Site pCO2 pO2 HCO3 ABG pH ABG Total CO2 ABG O2 Saturation ABG Base Excess ABG Hemoglobin ABG Carboxyhemoglobin POC ABG HHb (Measured) ABG Methemoglobin Jordon Test A-a O2 Difference Respiratory Index Hgb O2 Saturation Vent Mode Mechanical Rate FiO2 Tidal Volume PEEP Sodium 139 Potassium 3.5 L Chloride 103 Carbon Dioxide 25 Anion Gap 15 BUN 29 H Creatinine 1.4 H Est GFR ( Amer) 43 Est GFR (Non-Af Amer) 36 Random Glucose 101 Calcium 8.4 L Phosphorus 2.6 Magnesium 2.3 Total Bilirubin 1.2 AST 18 ALT 22 Alkaline Phosphatase 60 Total Protein 5.0 L Albumin 2.9 L Globulin 2.2 Albumin/Globulin Ratio 1.3 Heparin-induced Plt Ab Attending/Attestation - Attestation I have personally seen and examined this patient.: Yes I have fully participated in the care of the patient.: Yes I have reviewed all pertinent clinical information: Yes Notes (Text): Patient presented with severe 3rd spacing with right complete pl effusion, ascitis, leg edema and hypotension. W/u showed severe RV failure and normal LV on echo this admission. Pleural ascitic tap has been done but noticed reaccumulation of the fluid. Patient has hemorrhagic blisters in the leg likely due to severe back pressure. Patient remained on vent. Weaning trial once 3rd spacing is more in control. D/w Dr Hill may benefit with ionotrpic meds but RV obstruction will need to be r/u. CTA PE study will be needed to r/u, worrisome about reduced renal function, but RV failure treatment could not be started otherwise. CTA will be ordered for the am.
--- NOTE | 2017-01-04 23:26 | CP.PCM.PN ---
Subjective - Date & Time of Evaluation Date of Evaluation: 01/04/17 Time of Evaluation: 09:35 - Subjective Subjective: Patient seen and evaluated No improvement in progress noted Objective - Vital Signs/Intake and Output Vital Signs (last 24 hours): Temp Pulse Resp BP Pulse Ox 98.5 F 90 16 89/42 L 94 L 01/04/17 20:00 01/04/17 22:06 01/04/17 22:06 01/04/17 22:06 01/04/17 22:06 Intake and Output: 01/04/17 01/05/17 18:59 06:59 Intake Total 670 40 Output Total 318 10 Balance 352 30 - Medications Medications: Current Medications Acetaminophen (Tylenol 325 Mg Supp) 975 mg [place] ONCE PRN PRN Reason: Fever >100.4 F Last Admin: 12/27/16 10:30 Dose: 975 mg Albumin Human (Albumin Human 25% (12.5 Gm/50 Ml)) 12.5 gm IV Q8H [facility] Last Admin: 01/04/17 22:02 Dose: 12.5 gm Norepinephrine Bitartrate 4 mg (/ Sodium Chloride) 254 mls @ 15.24 mls/hr IV .[id number] PRN; Protocol; 4 MCG/MIN PRN Reason: TITRATE PER MD ORDER Last Titration: 12/31/16 17:00 Dose: Infused Piperacillin Sod/Tazobactam Sod (Zosyn 2.25 Gm Iv Premix) 2.25 gm in 50 mls @ 100 mls/hr IVPB Q8H [facility] Last Admin: 01/04/17 22:06 Dose: 100 mls/hr Lorazepam (Ativan) 2 mg IVP Q6H PRN PRN Reason: Agitation Last Admin: 01/03/17 17:04 Dose: 2 mg Midazolam HCl (Versed Inj) 1 mg IVP Q2H PRN PRN Reason: Agitation Last Admin: 01/03/17 10:16 Dose: 1 mg Morphine Sulfate (Morphine) 1 mg IV Q4 PRN PRN Reason: Pain, moderate (4-7) Last Admin: 01/04/17 20:29 Dose: 1 mg Pantoprazole Sodium (Protonix Inj) 40 mg IVP DAILY [facility] Last Admin: 01/04/17 09:26 Dose: 40 mg - Labs Labs: 01/04/17 06:27 01/04/17 06:27 PT 13.5 SECONDS (9.7-12.2) H 01/02/17 06:32 INR 1.2 01/02/17 06:32 APTT 42 SECONDS (21-34) H 01/02/17 06:32 - Head Exam Head Exam: ATRAUMATIC - Eye Exam Eye Exam: EOMI, PERRL - ENT Exam ENT Exam: Mucous Membranes Moist - Neck Exam Neck Exam: Full ROM - Respiratory Exam Respiratory Exam: NORMAL BREATHING PATTERN - Cardiovascular Exam Cardiovascular Exam: REGULAR RHYTHM, +S1, +S2 - Neurological Exam Neurological Exam: Alert - Skin Skin Exam: Warm Assessment and Plan - Assessment and Plan (Free Text) Assessment: 1. Respiratory failure/Vent dependant 2. Sepsis 3. A Fib 4. CAD 5. Severe Pulmonary HTN
[2017-01-05 00:04] LABS: HEPARIN-IND PLATELET AB Negative (Negative)
[2017-01-05] MEDS: Midazolam 2 MG/2 ML VIAL IVP PRN ×2 (03:54→22:39)
[2017-01-05 06:14] LABS: BASO # 0.1 K/uL (0.0-0.2); BASO % 0.9 % (0.0-2.0); EOS # 0.2 K/uL (0.0-0.7); HEMATOCRIT 28.2 % (34.0-47.0); LYMPH # 0.5 K/uL (1.0-4.3); LYMPH % 5.5 % (20.0-40.0); MEAN CELL VOLUME 89.3 fL (81.0-99.0); MEAN CORPUSCULAR HEMOGLOBIN 28.4 pg (27.0-31.0); MEAN CORPUSCULAR HGB CONC 31.8 g/dL (33.0-37.0); MEAN PLATELET VOLUME 9.7 fL (7.2-11.7); MONO # 0.6 K/uL (0.0-0.8); MONO % 7.2 % (0.0-10.0); NRBC % 0.1 % (0.0-2.0); PLATELET COUNT 77 K/uL (130-400); RED CELL DISTRIBUTION WIDTH 16.2 % (11.5-14.5); WHITE BLOOD COUNT 8.3 K/uL (4.8-10.8)
[2017-01-05] MEDS: Piperacill/Tazo 2.25gm in Dex 2.25 GM/50 ML BAG IVPB SCH ×3 (06:17→22:30)
[2017-01-05] MEDS: Albumin Human 25% (12.5 gm/50 ml) IV SCH ×3 (06:18→22:00)
[2017-01-05 06:32] LABS: ABG ALLEN TEST POS; ABG MECHANICAL RATE 16; ARTERIAL BLOOD GAS MODE PRVC; ARTERIAL BLOOD HGB O2 SAT 96.2 % (95.0-98.0); ATERIAL BLOOD GAS PEEP 5; CARBOXYHEMOGLOBIN 2.7 % (0.5-1.5); DRAW SITE R RA; HHB 0.2 % (0.0-5.0); METHEMOGLOBIN 0.8 % (0.0-3.0)
[2017-01-05 06:38] LABS: ALB/GLOB RATIO 1.2 (1.0-2.1); BILIRUBIN,TOTAL 1.1 mg/dL (0.2-1.3); TOTAL PROTEIN 5.3 g/dL (6.3-8.3)
[2017-01-05 06:39] LABS: CALCIUM 8.2 mg/dl (8.6-10.4); MAGNESIUM 2.2 mg/dL (1.6-2.3); PHOSPHOROUS 2.7 mg/dL (2.5-4.5)
[2017-01-05 07:01] LABS: UFH SRA RESULT Negative (Negative)
[2017-01-05 08:46] LABS: EOSINOPHIL 2 % (0-4); NEUTROPHIL 85 % (50-75); TOTAL CELLS COUNTED 100
--- NOTE | 2017-01-05 09:45 | RAD ---
HISTORY: intubated COMPARISON: 01/04/2017 FINDINGS: LUNGS: There is mild consolidation of the right lung base, unchanged. Air bronchograms are identified. There is no left-sided consolidation appreciated. PLEURA: There is small to moderate right pleural effusion. There is no left pleural effusion. There is no pneumothorax. CARDIOVASCULAR: Mild cardiomegaly. Status post CABG. Status post mitral valve replacement. ET tube, NG tube and right PICC catheter are all unchanged. OSSEOUS STRUCTURES: No significant abnormalities. VISUALIZED UPPER ABDOMEN: Normal. OTHER FINDINGS: None. IMPRESSION: Small to moderate right pleural effusion unchanged. Consolidation at right base unchanged. Cardiomegaly. CABG. Lines and tubes unchanged.
--- NOTE | 2017-01-05 09:52 | CP.PCM.PN ---
Subjective - Date & Time of Evaluation Date of Evaluation: 01/05/17 Time of Evaluation: 09:30 - Subjective Subjective: Patient remains intubated at this time on PRVC settings She was awake and alert - she also was able to move her hands and seemed to appear to indicate she wanted her intubation out. When asked if she had chest pain she seemed to indicate no. Also seemed to indicate that she did not have abdominal pain. I asked in both [place]ian and [place]an. This being said I was not able to communicate more with patient. Yesterday I spoke with the son. Currently family not present. The out put from the right chest cathter was recorded as 18 cc yesterday Objective - Vital Signs/Intake and Output Vital Signs (last 24 hours): Temp Pulse Resp BP Pulse Ox 98 F 90 16 89/47 L 100 01/05/17 08:00 01/05/17 07:06 01/05/17 07:06 01/05/17 07:06 01/05/17 07:06 Intake and Output: 01/05/17 01/05/17 06:59 18:59 Intake Total 680 80 Output Total 280 30 Balance 400 50 - Medications Medications: Current Medications Acetaminophen (Tylenol 325 Mg Supp) 975 mg DE ONCE PRN PRN Reason: Fever >100.4 F Last Admin: 12/27/16 10:30 Dose: 975 mg Albumin Human (Albumin Human 25% (12.5 Gm/50 Ml)) 12.5 gm IV Q8H [facility] Last Admin: 01/05/17 06:18 Dose: 12.5 gm Norepinephrine Bitartrate 4 mg (/ Sodium Chloride) 254 mls @ 15.24 mls/hr IV .[id number] PRN; Protocol; 4 MCG/MIN PRN Reason: TITRATE PER MD ORDER Last Titration: 12/31/16 17:00 Dose: Infused Piperacillin Sod/Tazobactam Sod (Zosyn 2.25 Gm Iv Premix) 2.25 gm in 50 mls @ 100 mls/hr IVPB Q8H [facility] Last Admin: 01/05/17 06:17 Dose: 100 mls/hr Lorazepam (Ativan) 2 mg IVP Q6H PRN PRN Reason: Agitation Last Admin: 01/03/17 17:04 Dose: 2 mg Midazolam HCl (Versed Inj) 1 mg IVP Q2H PRN PRN Reason: Agitation Last Admin: 01/05/17 03:54 Dose: 1 mg Morphine Sulfate (Morphine) 1 mg IV Q4 PRN PRN Reason: Pain, moderate (4-7) Last Admin: 01/04/17 20:29 Dose: 1 mg Pantoprazole Sodium (Protonix Inj) 40 mg IVP DAILY [facility] Last Admin: 01/05/17 09:33 Dose: 40 mg - Labs Labs: 01/05/17 06:08 01/05/17 06:10 PT 13.5 SECONDS (9.7-12.2) H 01/02/17 06:32 INR 1.2 01/02/17 06:32 APTT 42 SECONDS (21-34) H 01/02/17 06:32 - Constitutional Appears: Unkempt, Older Than Stated Age, Confused, Cachectic, Chronically Ill - ENT Exam ENT Exam: Mucous Membranes Dry - Respiratory Exam Respiratory Exam: Decreased Breath Sounds, Rales, Rhonchi - Cardiovascular Exam Cardiovascular Exam: Irregular Rhythm, Murmur - GI/Abdominal Exam GI & Abdominal Exam: Distended, Soft. absent: Firm, Guarding, Rigid, Tenderness - Neurological Exam Neurological Exam: Alert, Altered, Awake Neuro motor strength exam: Left Upper Extremity: 3, Right Upper Extremity: 3 - Psychiatric Exam Psychiatric exam: Depressed - Skin Skin Exam: Pallor, Pallor Assessment and Plan - Assessment and Plan (Free Text) Assessment: Overall: 86 year old female with acute respiratory failure with unfortunately very prognosis at this time. She has extensive right heart disease that is contributing to CHF/pleural effusions. Despite chest tube drainage there is still some pleural effusion on CXRAY making it harder to wean off of ventilator. Family is aware of the poor prognosis at this time. They still want full code. Palliative care has spoken with them twice. 1 Acute respiratory failure from sepsis and pleural effusion/consolidations on lungs 01/05: 18 cc output recorded for yesterday total. There is a CTA ordered by ICU 01/04: Again output of the right cathter is zero. I discussed with the patient's son at bedside and explained to him the overall prognosis is not. Good, he states he understands but wants her to remain full code at this time. 01/03: The out put from the pig tail catheter is zero today. Possible replacement of catheter 01/02: Pending CT surgery evaluation. Imaging showing persistent right pleural fluid. 01/01:Remains intubated at this time on PRVC settings. She currently has a chest tube at this time. The CXRAYs seem to show improvment on the right lung however the patient still appears to be very ill. There was last week a meeting with pallitative care and the patient's son. She requires IV pressor medications 2 Pneumonia 01/03 WBC again decreased. 01/02 WBC decreased, afebrile. No left shift on lab work today 01/01:Currently on IV Zosyn WBC decreased, also bandemia has decreased to 6 this morning. Prognosis is still very poor. The blood cultures have been negative 4 days and the sputum and pleural fluid negative. There is a positive from a wound culture 3 Septic shock 01/05: The ascities fluid cultures are negative three days. Has not had elevated temperature in past few days. 01/02: IV albumin given today. Systolic BPs in the 100s 01/01: Patient remains intubated and on pressor support. Urine output was recorded as 1150 cc yesterday 4 CHF (congestive heart failure), history of CAD and mitral vavlular replacement 01/05: Family members made aware that there is a lot of right heart weakness and this is contributing to the pleural effusions as well as difficulty with weaning off the ventilator. 01/02: Echo showing severe dilatation of right ventricle and hypertrophy. There is severe pulmonary HTN found as well. Furthermore there was findings of severe regurgitation tricupsid and pulmonary valves. 5 Cellulitis and abscess of foot Patient is on Zosyn. We will consider surgical evaluation if no improvement.
--- NOTE | 2017-01-05 13:33 | CP.PCM.PN ---
Subjective - Date & Time of Evaluation Date of Evaluation: 01/05/17 Time of Evaluation: 13:20 - Subjective Subjective: Vented, awake Objective - Vital Signs/Intake and Output Vital Signs (last 24 hours): Temp Pulse Resp BP Pulse Ox 98 F 105 H 21 108/59 L 100 01/05/17 08:00 01/05/17 10:08 01/05/17 10:08 01/05/17 10:08 01/05/17 10:08 Intake and Output: 01/05/17 01/05/17 06:59 18:59 Intake Total 680 160 Output Total 280 75 Balance 400 85 - Medications Medications: Current Medications Acetaminophen (Tylenol 325 Mg Supp) 975 mg [place] ONCE PRN PRN Reason: Fever >100.4 F Last Admin: 12/27/16 10:30 Dose: 975 mg Albumin Human (Albumin Human 25% (12.5 Gm/50 Ml)) 12.5 gm IV Q8H [facility] Last Admin: 01/05/17 06:18 Dose: 12.5 gm Diphenhydramine HCl (Benadryl) 50 mg IVP ONCE ONE Stop: 01/05/17 16:31 Norepinephrine Bitartrate 4 mg (/ Sodium Chloride) 254 mls @ 15.24 mls/hr IV .[id number] PRN; Protocol; 4 MCG/MIN PRN Reason: TITRATE PER MD ORDER Last Titration: 12/31/16 17:00 Dose: Infused Piperacillin Sod/Tazobactam Sod (Zosyn 2.25 Gm Iv Premix) 2.25 gm in 50 mls @ 100 mls/hr IVPB Q8H [facility] Last Admin: 01/05/17 06:17 Dose: 100 mls/hr Lorazepam (Ativan) 2 mg IVP Q6H PRN PRN Reason: Agitation Last Admin: 01/05/17 13:01 Dose: 2 mg Midazolam HCl (Versed Inj) 1 mg IVP Q2H PRN PRN Reason: Agitation Last Admin: 01/05/17 03:54 Dose: 1 mg Morphine Sulfate (Morphine) 1 mg IV Q4 PRN PRN Reason: Pain, moderate (4-7) Last Admin: 01/04/17 20:29 Dose: 1 mg Pantoprazole Sodium (Protonix Inj) 40 mg IVP DAILY [facility] Last Admin: 01/05/17 09:33 Dose: 40 mg - Labs Labs: 01/05/17 06:08 01/05/17 06:10 PT 13.5 SECONDS (9.7-12.2) H 01/02/17 06:32 INR 1.2 01/02/17 06:32 APTT 42 SECONDS (21-34) H 01/02/17 06:32 - Head Exam Head Exam: ATRAUMATIC - Eye Exam Eye Exam: Normal appearance - ENT Exam ENT Exam: Mucous Membranes Dry - Respiratory Exam Respiratory Exam: NORMAL BREATHING PATTERN - Cardiovascular Exam Cardiovascular Exam: +S1, +S2 - GI/Abdominal Exam GI & Abdominal Exam: Normal Bowel Sounds Assessment and Plan (1) Thrombocytopenia Assessment & Plan: secondary to sepsis improved Status: Acute (2) Coagulopathy Assessment & Plan: nutritional Status: Acute (3) Anemia Assessment & Plan: chronic disease Status: Acute
--- NOTE | 2017-01-05 15:46 | CP.CCUPN ---
<Nishant Mosqueda - Last Filed: 01/05/17 16:00> CCU Subjective - Physician Review Events Since Last Encounter (Free Text): CCM chart reviewed. Pt examined.discussed with housestaff Intubated, responisive/ no pain or nausea now Neck- no jvd Lungs- bilat bs Heart-irreg irreg Abd-benign eXt- bilat edema, dressings intact Labs, [id number] A&P Reps Failure Sepsis Anasarca CHF R heart failure A-fib HTN CKD CABG/MVR s/p thoracentesis/ Paracentecis cont vent support and meds Pt will get CTA to r/o PE contributing to R heart failure/ Risks vs benefits in setting of stable CKD with creat 1.5 assessed and pt being premedicated with solumedrol /benedryl maintain optimal lytes cont Ab f/u cultures Will consider trial Inotropes post CTA results 01/05/17 15:56 01/05/17 16:00 CCU Objective - Vital Signs / Intake & Output Vital Signs (Last 4 hours): Vital Signs Temp Pulse Resp BP Pulse Ox 01/05/17 15:06 90 16 95/54 L 100 01/05/17 15:00 96 H 18 97 01/05/17 14:15 95 H 16 110/65 100 01/05/17 14:00 99 H 15 100 01/05/17 13:00 106 H 8 L 99 01/05/17 12:06 94 H 17 106/53 L 100 01/05/17 12:00 98.4 F 97 H 21 100 Intake and Output (Last 8hrs): Intake & Output 01/05/17 01/05/17 01/05/17 06:59 14:59 22:59 Intake Total 470 370 90 Output Total 205 110 10 Balance 265 260 80 Intake: Intake, IV Amount 100 50 50 Right Distal Port 100 0 Subclavian Right Medial Port 50 50 Subclavian Tube Feeding 320 320 40 Albumin 50 Output: Urine 205 110 10 Urethral ([place]) 205 110 10 - Medications Active Medications: Active Medications Generic Name Dose Route Start Last Admin Trade Name Freq PRN Reason Stop Dose Admin Acetaminophen 975 mg 12/27/16 08:39 12/27/16 10:30 Tylenol 325 Mg Supp ND 975 mg ONCE PRN Administration Fever >100.4 F Albumin Human 12.5 gm 12/27/16 14:15 01/05/17 14:21 Albumin Human 25% (12.5 Gm/50 Ml) IV 12.5 gm Q8H ZAHRA Administration Diphenhydramine HCl 50 mg 01/05/17 16:30 Benadryl IVP 01/05/17 16:31 ONCE ONE Norepinephrine Bitartrate 4 mg 254 mls @ 15.24 mls/hr 12/27/16 12:10 17:00 / Sodium Chloride IV Infused .[id number] PRN Titration TITRATE PER MD ORDER Protocol 4 MCG/MIN Piperacillin Sod/Tazobactam Sod 2.25 gm in 50 mls @ 100 mls/hr 12/27/16 15:00 01/05/17 14:26 Zosyn 2.25 Gm Iv Premix IVPB 100 mls/hr Q8H ZAHRA Administration Lorazepam 2 mg 01/02/17 00:17 01/05/17 13:01 Ativan IVP 2 mg Q6H PRN Administration Agitation Midazolam HCl 1 mg 01/01/17 18:42 01/05/17 03:54 Versed Inj IVP 1 mg Q2H PRN Administration Agitation Morphine Sulfate 1 mg 01/04/17 11:05 01/04/17 20:29 Morphine IV 1 mg Q4 PRN Administration Pain, moderate (4-7) Pantoprazole Sodium 40 mg 01/04/17 10:00 01/05/17 09:33 Protonix Inj IVP 40 mg DAILY ZAHRA Administration - Patient Studies Lab Studies: Microbiology Studies 01/02/17 14:07 Gram Stain - Final Ascitic Fluid Body Fluid Culture - Preliminary NO GROWTH AFTER 3 DAYS Lab Studies 01/05/17 01/05/17 01/05/17 Range/Units 06:10 06:08 05:18 WBC 8.3 (4.8-10.8) K/uL RBC 3.16 L (3.80-5.20) Mil/uL Hgb 9.0 L (11.0-16.0) g/dL Hct 28.2 L (34.0-47.0) % MCV 89.3 (81.0-99.0) fL MCH 28.4 (27.0-31.0) pg MCHC 31.8 L (33.0-37.0) g/dL RDW 16.2 H (11.5-14.5) % Plt Count 77 L (130-400) K/uL MPV 9.7 (7.2-11.7) fL Neut % (Auto) 83.4 H (50.0-75.0) % Lymph % (Auto) 5.5 L (20.0-40.0) % Taney % (Auto) 7.2 (0.0-10.0) % Eos % (Auto) 3.0 (0.0-4.0) % Baso % (Auto) 0.9 (0.0-2.0) % Neut # 6.9 (1.8-7.0) K/uL Lymph # 0.5 L (1.0-4.3) K/uL Taney # 0.6 (0.0-0.8) K/uL Eos # 0.2 (0.0-0.7) K/uL Baso # 0.1 (0.0-0.2) K/uL Neutrophils % (Manual) 85 H (50-75) % Band Neutrophils % 1 (0-2) % Lymphocytes % (Manual) 6 L (20-40) % Monocytes % (Manual) 6 (0-10) % Eosinophils % (Manual) 2 (0-4) % Platelet Estimate Decreased L (NORMAL) Polychromasia Slight Hypochromasia (manual) Slight Anisocytosis (manual) Slight Ovalocytes Slight Puncture Site R ra pCO2 54 H (35-45) mm/Hg pO2 132 H (80-100) mm/Hg HCO3 25.8 (21-28) mmol/L ABG pH 7.32 L (7.35-7.45) ABG Total CO2 29.5 H (22-28) mmol/L ABG O2 Saturation 99.8 H (95-98) % ABG Base Excess 1.1 (-2.0-3.0) mmol/L ABG Hemoglobin 10.0 L (11.7-17.4) g/dL ABG Carboxyhemoglobin 2.7 H (0.5-1.5) % POC ABG HHb (Measured) 0.2 (0.0-5.0) % ABG Methemoglobin 0.8 (0.0-3.0) % Jordon Test Pos A-a O2 Difference 86.0 mm/Hg Respiratory Index 0.7 Hgb O2 Saturation 96.2 (95.0-98.0) % Vent Mode Prvc Mechanical Rate 16 FiO2 40.0 % Tidal Volume 350 PEEP 5 Sodium 141 (132-148) mmol/L Potassium 4.0 (3.6-5.2) mmol/L Chloride 105 (98-107) mmol/L Carbon Dioxide 28 (22-30) mmol/L Anion Gap 12 (10-20) BUN 27 H (7-17) mg/dL Creatinine 1.5 H (0.7-1.2) MG/DL Est GFR ( Amer) 40 Est GFR (Non-Af Amer) 33 Random Glucose 125 H (65-105) mg/dL Calcium 8.2 L (8.6-10.4) mg/dl Phosphorus 2.7 (2.5-4.5) mg/dL Magnesium 2.2 (1.6-2.3) mg/dL Total Bilirubin 1.1 (0.2-1.3) mg/dL AST 16 (14-36) U/L ALT 20 (9-52) U/L Alkaline Phosphatase 57 (38-126) U/L Total Protein 5.3 L (6.3-8.3) g/dL Albumin 2.9 L (3.5-5.0) g/dL Globulin 2.4 (2.2-3.9) gm/dL Albumin/Globulin Ratio 1.2 (1.0-2.1) UF Heparin Interp (Negative) Fluid Albumin g/dL Peritoneal LDH (<63) U/L Heparin-induced Plt Ab (Negative) KATRIN UFH Low Dose 0.1 % Release KATRIN UFH Low Dose 0.5 % Release KATRIN UFH High Dose 100 % Release 01/02/17 01/02/17 01/02/17 Range/Units 14:52 14:52 07:33 WBC (4.8-10.8) K/uL RBC (3.80-5.20) Mil/uL Hgb (11.0-16.0) g/dL Hct (34.0-47.0) % MCV (81.0-99.0) fL MCH (27.0-31.0) pg MCHC (33.0-37.0) g/dL RDW (11.5-14.5) % Plt Count (130-400) K/uL MPV (7.2-11.7) fL Neut % (Auto) (50.0-75.0) % Lymph % (Auto) (20.0-40.0) % Taney % (Auto) (0.0-10.0) % Eos % (Auto) (0.0-4.0) % Baso % (Auto) (0.0-2.0) % Neut # (1.8-7.0) K/uL Lymph # (1.0-4.3) K/uL Taney # (0.0-0.8) K/uL Eos # (0.0-0.7) K/uL Baso # (0.0-0.2) K/uL Neutrophils % (Manual) (50-75) % Band Neutrophils % (0-2) % Lymphocytes % (Manual) (20-40) % Monocytes % (Manual) (0-10) % Eosinophils % (Manual) (0-4) % Platelet Estimate (NORMAL) Polychromasia Hypochromasia (manual) Anisocytosis (manual) Ovalocytes Puncture Site pCO2 (35-45) mm/Hg pO2 (80-100) mm/Hg HCO3 (21-28) mmol/L ABG pH (7.35-7.45) ABG Total CO2 (22-28) mmol/L ABG O2 Saturation (95-98) % ABG Base Excess (-2.0-3.0) mmol/L ABG Hemoglobin (11.7-17.4) g/dL ABG Carboxyhemoglobin (0.5-1.5) % POC ABG HHb (Measured) (0.0-5.0) % ABG Methemoglobin (0.0-3.0) % Jordon Test A-a O2 Difference mm/Hg Respiratory Index Hgb O2 Saturation (95.0-98.0) % Vent Mode Mechanical Rate FiO2 % Tidal Volume PEEP Sodium (132-148) mmol/L Potassium (3.6-5.2) mmol/L Chloride (98-107) mmol/L Carbon Dioxide (22-30) mmol/L Anion Gap (10-20) BUN (7-17) mg/dL Creatinine (0.7-1.2) MG/DL Est GFR ( Amer) Est GFR (Non-Af Amer) Random Glucose (65-105) mg/dL Calcium (8.6-10.4) mg/dl Phosphorus (2.5-4.5) mg/dL Magnesium (1.6-2.3) mg/dL Total Bilirubin (0.2-1.3) mg/dL AST (14-36) U/L ALT (9-52) U/L Alkaline Phosphatase (38-126) U/L Total Protein (6.3-8.3) g/dL Albumin (3.5-5.0) g/dL Globulin (2.2-3.9) gm/dL Albumin/Globulin Ratio (1.0-2.1) UF Heparin Interp Negative (Negative) Fluid Albumin 1.5 g/dL Peritoneal LDH 81 H (<63) U/L Heparin-induced Plt Ab Negative (Negative) KATRIN UFH Low Dose 0.1 0 % Release KATRIN UFH Low Dose 0.5 0 % Release KATRIN UFH High Dose 100 0 % Release Laboratory Results - last 24 hr 01/02/17 01/02/17 01/02/17 07:33 14:52 14:52 WBC RBC Hgb Hct MCV MCH MCHC RDW Plt Count MPV Neut % (Auto) Lymph % (Auto) Taney % (Auto) Eos % (Auto) Baso % (Auto) Neut # Lymph # Taney # Eos # Baso # Neutrophils % (Manual) Band Neutrophils % Lymphocytes % (Manual) Monocytes % (Manual) Eosinophils % (Manual) Platelet Estimate Polychromasia Hypochromasia (manual) Anisocytosis (manual) Ovalocytes Puncture Site pCO2 pO2 HCO3 ABG pH ABG Total CO2 ABG O2 Saturation ABG Base Excess ABG Hemoglobin ABG Carboxyhemoglobin POC ABG HHb (Measured) ABG Methemoglobin Jordon Test A-a O2 Difference Respiratory Index Hgb O2 Saturation Vent Mode Mechanical Rate FiO2 Tidal Volume PEEP Sodium Potassium Chloride Carbon Dioxide Anion Gap BUN Creatinine Est GFR ( Amer) Est GFR (Non-Af Amer) Random Glucose Calcium Phosphorus Magnesium Total Bilirubin AST ALT Alkaline Phosphatase Total Protein Albumin Globulin Albumin/Globulin Ratio UF Heparin Interp Negative Fluid Albumin 1.5 Peritoneal LDH 81 H Heparin-induced Plt Ab Negative KATRIN UFH Low Dose 0.1 0 KATRIN UFH Low Dose 0.5 0 KATRIN UFH High Dose 100 0 08/25/17 08/25/17 08/25/17 05:18 06:08 06:10 WBC 8.3 RBC 3.16 L Hgb 9.0 L Hct 28.2 L MCV 89.3 MCH 28.4 MCHC 31.8 L RDW 16.2 H Plt Count 77 L MPV 9.7 Neut % (Auto) 83.4 H Lymph % (Auto) 5.5 L Taney % (Auto) 7.2 Eos % (Auto) 3.0 Baso % (Auto) 0.9 Neut # 6.9 Lymph # 0.5 L Taney # 0.6 Eos # 0.2 Baso # 0.1 Neutrophils % (Manual) 85 H Band Neutrophils % 1 Lymphocytes % (Manual) 6 L Monocytes % (Manual) 6 Eosinophils % (Manual) 2 Platelet Estimate Decreased L Polychromasia Slight Hypochromasia (manual) Slight Anisocytosis (manual) Slight Ovalocytes Slight Puncture Site R ra pCO2 54 H pO2 132 H HCO3 25.8 ABG pH 7.32 L ABG Total CO2 29.5 H ABG O2 Saturation 99.8 H ABG Base Excess 1.1 ABG Hemoglobin 10.0 L ABG Carboxyhemoglobin 2.7 H POC ABG HHb (Measured) 0.2 ABG Methemoglobin 0.8 Jordon Test Pos A-a O2 Difference 86.0 Respiratory Index 0.7 Hgb O2 Saturation 96.2 Vent Mode Prvc Mechanical Rate 16 FiO2 40.0 Tidal Volume 350 PEEP 5 Sodium 141 Potassium 4.0 Chloride 105 Carbon Dioxide 28 Anion Gap 12 BUN 27 H Creatinine 1.5 H Est GFR ( Amer) 40 Est GFR (Non-Af Amer) 33 Random Glucose 125 H Calcium 8.2 L Phosphorus 2.7 Magnesium 2.2 Total Bilirubin 1.1 AST 16 ALT 20 Alkaline Phosphatase 57 Total Protein 5.3 L Albumin 2.9 L Globulin 2.4 Albumin/Globulin Ratio 1.2 UF Heparin Interp Fluid Albumin Peritoneal LDH Heparin-induced Plt Ab KATRIN UFH Low Dose 0.1 KATRIN UFH Low Dose 0.5 KATRIN UFH High Dose 100 <Gaby Zhou - Last Filed: 01/05/17 16:38> CCU Subjective - Physician Review Subjective (Free Text): Patient was seen and examined at bedside in the morning. Patient is awake and alert during examination. Patient is intubated, unable to obtain review of systems. 01/05/17 15:45 CCU Objective - Vital Signs / Intake & Output Vital Signs (Last 4 hours): Vital Signs Temp Pulse Resp BP Pulse Ox 01/05/17 15:06 90 16 95/54 L 100 01/05/17 15:00 96 H 18 97 01/05/17 14:15 95 H 16 110/65 100 01/05/17 14:00 99 H 15 100 01/05/17 13:00 106 H 8 L 99 01/05/17 12:06 94 H 17 106/53 L 100 01/05/17 12:00 98.4 F 97 H 21 100 Intake and Output (Last 8hrs): Intake & Output 01/05/17 01/05/17 01/05/17 06:59 14:59 22:59 Intake Total 470 370 90 Output Total 205 110 10 Balance 265 260 80 Intake: Intake, IV Amount 100 50 50 Right Distal Port 100 0 Subclavian Right Medial Port 50 50 Subclavian Tube Feeding 320 320 40 Albumin 50 Output: Urine 205 110 10 Urethral ([place]) 205 110 10 - Physical Exam Head: Negative for: Atraumatic, Normocephalic Pupils: Positive for: PERRL Extroacular Muscles: Positive for: EOMI Mouth: Positive for: Moist Mucous Membranes Respiratory/Chest: Positive for: Decreased Breath Sounds. Negative for: Rales, Rhonchi Cardiovascular: Positive for: Normal S1, S2, Irregular Rhythm, Tachycardic Abdomen: Positive for: Distention. Negative for: Tenderness, Normal Bowel Sounds (hypoactive) Upper Extremity: Positive for: Normal Inspection Lower Extremity: Positive for: Edema, Swelling, Other (serosanginous fluid blisters on LE B/L). Negative for: Normal Inspection Skin: Positive for: Warm, Erythematous, Other (serosanginous fluid blisters on LE B/L). Negative for: Dry, Normal Color Psychiatric: Positive for: Alert - Medications Active Medications: Active Medications Generic Name Dose Route Start Last Admin Trade Name Freq PRN Reason Stop Dose Admin Acetaminophen 975 mg 12/27/16 08:39 12/27/16 10:30 Tylenol 325 Mg Supp ND 975 mg ONCE PRN Administration Fever >100.4 F Albumin Human 12.5 gm 12/27/16 14:15 01/05/17 14:21 Albumin Human 25% (12.5 Gm/50 Ml) IV 12.5 gm Q8H ZAHRA Administration Diphenhydramine HCl 50 mg 01/05/17 16:30 Benadryl IVP 01/05/17 16:31 ONCE ONE Norepinephrine Bitartrate 4 mg 254 mls @ 15.24 mls/hr 12/27/16 12:10 17:00 / Sodium Chloride IV Infused .[id number] PRN Titration TITRATE PER MD ORDER Protocol 4 MCG/MIN Piperacillin Sod/Tazobactam Sod 2.25 gm in 50 mls @ 100 mls/hr 12/27/16 15:00 01/05/17 14:26 Zosyn 2.25 Gm Iv Premix IVPB 100 mls/hr Q8H ZAHRA Administration Lorazepam 2 mg 01/02/17 00:17 01/05/17 13:01 Ativan IVP 2 mg Q6H PRN Administration Agitation Midazolam HCl 1 mg 01/01/17 18:42 01/05/17 03:54 Versed Inj IVP 1 mg Q2H PRN Administration Agitation Morphine Sulfate 1 mg 01/04/17 11:05 01/04/17 20:29 Morphine IV 1 mg Q4 PRN Administration Pain, moderate (4-7) Pantoprazole Sodium 40 mg 01/04/17 10:00 01/05/17 09:33 Protonix Inj IVP 40 mg DAILY ZAHRA Administration - Patient Studies Lab Studies: Microbiology Studies 01/02/17 14:07 Gram Stain - Final Ascitic Fluid Body Fluid Culture - Preliminary NO GROWTH AFTER 3 DAYS Lab Studies 01/05/17 01/05/17 01/05/17 Range/Units 06:10 06:08 05:18 WBC 8.3 (4.8-10.8) K/uL RBC 3.16 L (3.80-5.20) Mil/uL Hgb 9.0 L (11.0-16.0) g/dL Hct 28.2 L (34.0-47.0) % MCV 89.3 (81.0-99.0) fL MCH 28.4 (27.0-31.0) pg MCHC 31.8 L (33.0-37.0) g/dL RDW 16.2 H (11.5-14.5) % Plt Count 77 L (130-400) K/uL MPV 9.7 (7.2-11.7) fL Neut % (Auto) 83.4 H (50.0-75.0) % Lymph % (Auto) 5.5 L (20.0-40.0) % Taney % (Auto) 7.2 (0.0-10.0) % Eos % (Auto) 3.0 (0.0-4.0) % Baso % (Auto) 0.9 (0.0-2.0) % Neut # 6.9 (1.8-7.0) K/uL Lymph # 0.5 L (1.0-4.3) K/uL Taney # 0.6 (0.0-0.8) K/uL Eos # 0.2 (0.0-0.7) K/uL Baso # 0.1 (0.0-0.2) K/uL Neutrophils % (Manual) 85 H (50-75) % Band Neutrophils % 1 (0-2) % Lymphocytes % (Manual) 6 L (20-40) % Monocytes % (Manual) 6 (0-10) % Eosinophils % (Manual) 2 (0-4) % Platelet Estimate Decreased L (NORMAL) Polychromasia Slight Hypochromasia (manual) Slight Anisocytosis (manual) Slight Ovalocytes Slight Puncture Site R ra pCO2 54 H (35-45) mm/Hg pO2 132 H (80-100) mm/Hg HCO3 25.8 (21-28) mmol/L ABG pH 7.32 L (7.35-7.45) ABG Total CO2 29.5 H (22-28) mmol/L ABG O2 Saturation 99.8 H (95-98) % ABG Base Excess 1.1 (-2.0-3.0) mmol/L ABG Hemoglobin 10.0 L (11.7-17.4) g/dL ABG Carboxyhemoglobin 2.7 H (0.5-1.5) % POC ABG HHb (Measured) 0.2 (0.0-5.0) % ABG Methemoglobin 0.8 (0.0-3.0) % Jordon Test Pos A-a O2 Difference 86.0 mm/Hg Respiratory Index 0.7 Hgb O2 Saturation 96.2 (95.0-98.0) % Vent Mode Prvc Mechanical Rate 16 FiO2 40.0 % Tidal Volume 350 PEEP 5 Sodium 141 (132-148) mmol/L Potassium 4.0 (3.6-5.2) mmol/L Chloride 105 (98-107) mmol/L Carbon Dioxide 28 (22-30) mmol/L Anion Gap 12 (10-20) BUN 27 H (7-17) mg/dL Creatinine 1.5 H (0.7-1.2) MG/DL Est GFR ( Amer) 40 Est GFR (Non-Af Amer) 33 Random Glucose 125 H (65-105) mg/dL Calcium 8.2 L (8.6-10.4) mg/dl Phosphorus 2.7 (2.5-4.5) mg/dL Magnesium 2.2 (1.6-2.3) mg/dL Total Bilirubin 1.1 (0.2-1.3) mg/dL AST 16 (14-36) U/L ALT 20 (9-52) U/L Alkaline Phosphatase 57 (38-126) U/L Total Protein 5.3 L (6.3-8.3) g/dL Albumin 2.9 L (3.5-5.0) g/dL Globulin 2.4 (2.2-3.9) gm/dL Albumin/Globulin Ratio 1.2 (1.0-2.1) UF Heparin Interp (Negative) Fluid Albumin g/dL Peritoneal LDH (<63) U/L Heparin-induced Plt Ab (Negative) KATRIN UFH Low Dose 0.1 % Release KATRIN UFH Low Dose 0.5 % Release KATRIN UFH High Dose 100 % Release 01/02/17 01/02/17 01/02/17 Range/Units 14:52 14:52 07:33 WBC (4.8-10.8) K/uL RBC (3.80-5.20) Mil/uL Hgb (11.0-16.0) g/dL Hct (34.0-47.0) % MCV (81.0-99.0) fL MCH (27.0-31.0) pg MCHC (33.0-37.0) g/dL RDW (11.5-14.5) % Plt Count (130-400) K/uL MPV (7.2-11.7) fL Neut % (Auto) (50.0-75.0) % Lymph % (Auto) (20.0-40.0) % Taney % (Auto) (0.0-10.0) % Eos % (Auto) (0.0-4.0) % Baso % (Auto) (0.0-2.0) % Neut # (1.8-7.0) K/uL Lymph # (1.0-4.3) K/uL Taney # (0.0-0.8) K/uL Eos # (0.0-0.7) K/uL Baso # (0.0-0.2) K/uL Neutrophils % (Manual) (50-75) % Band Neutrophils % (0-2) % Lymphocytes % (Manual) (20-40) % Monocytes % (Manual) (0-10) % Eosinophils % (Manual) (0-4) % Platelet Estimate (NORMAL) Polychromasia Hypochromasia (manual) Anisocytosis (manual) Ovalocytes Puncture Site pCO2 (35-45) mm/Hg pO2 (80-100) mm/Hg HCO3 (21-28) mmol/L ABG pH (7.35-7.45) ABG Total CO2 (22-28) mmol/L ABG O2 Saturation (95-98) % ABG Base Excess (-2.0-3.0) mmol/L ABG Hemoglobin (11.7-17.4) g/dL ABG Carboxyhemoglobin (0.5-1.5) % POC ABG HHb (Measured) (0.0-5.0) % ABG Methemoglobin (0.0-3.0) % Jordon Test A-a O2 Difference mm/Hg Respiratory Index Hgb O2 Saturation (95.0-98.0) % Vent Mode Mechanical Rate FiO2 % Tidal Volume PEEP Sodium (132-148) mmol/L Potassium (3.6-5.2) mmol/L Chloride (98-107) mmol/L Carbon Dioxide (22-30) mmol/L Anion Gap (10-20) BUN (7-17) mg/dL Creatinine (0.7-1.2) MG/DL Est GFR ( Amer) Est GFR (Non-Af Amer) Random Glucose (65-105) mg/dL Calcium (8.6-10.4) mg/dl Phosphorus (2.5-4.5) mg/dL Magnesium (1.6-2.3) mg/dL Total Bilirubin (0.2-1.3) mg/dL AST (14-36) U/L ALT (9-52) U/L Alkaline Phosphatase (38-126) U/L Total Protein (6.3-8.3) g/dL Albumin (3.5-5.0) g/dL Globulin (2.2-3.9) gm/dL Albumin/Globulin Ratio (1.0-2.1) UF Heparin Interp Negative (Negative) Fluid Albumin 1.5 g/dL Peritoneal LDH 81 H (<63) U/L Heparin-induced Plt Ab Negative (Negative) KATRIN UFH Low Dose 0.1 0 % Release KATRIN UFH Low Dose 0.5 0 % Release KATRIN UFH High Dose 100 0 % Release Laboratory Results - last 24 hr 01/02/17 01/02/17 01/02/17 07:33 14:52 14:52 WBC RBC Hgb Hct MCV MCH MCHC RDW Plt Count MPV Neut % (Auto) Lymph % (Auto) Taney % (Auto) Eos % (Auto) Baso % (Auto) Neut # Lymph # Taney # Eos # Baso # Neutrophils % (Manual) Band Neutrophils % Lymphocytes % (Manual) Monocytes % (Manual) Eosinophils % (Manual) Platelet Estimate Polychromasia Hypochromasia (manual) Anisocytosis (manual) Ovalocytes Puncture Site pCO2 pO2 HCO3 ABG pH ABG Total CO2 ABG O2 Saturation ABG Base Excess ABG Hemoglobin ABG Carboxyhemoglobin POC ABG HHb (Measured) ABG Methemoglobin Jordon Test A-a O2 Difference Respiratory Index Hgb O2 Saturation Vent Mode Mechanical Rate FiO2 Tidal Volume PEEP Sodium Potassium Chloride Carbon Dioxide Anion Gap BUN Creatinine Est GFR ( Amer) Est GFR (Non-Af Amer) Random Glucose Calcium Phosphorus Magnesium Total Bilirubin AST ALT Alkaline Phosphatase Total Protein Albumin Globulin Albumin/Globulin Ratio UF Heparin Interp Negative Fluid Albumin 1.5 Peritoneal LDH 81 H Heparin-induced Plt Ab Negative KATRIN UFH Low Dose 0.1 0 KATRIN UFH Low Dose 0.5 0 KATRIN UFH High Dose 100 0 01/05/17 01/05/17 01/05/17 05:18 06:08 06:10 WBC 8.3 RBC 3.16 L Hgb 9.0 L Hct 28.2 L MCV 89.3 MCH 28.4 MCHC 31.8 L RDW 16.2 H Plt Count 77 L MPV 9.7 Neut % (Auto) 83.4 H Lymph % (Auto) 5.5 L Taney % (Auto) 7.2 Eos % (Auto) 3.0 Baso % (Auto) 0.9 Neut # 6.9 Lymph # 0.5 L Taney # 0.6 Eos # 0.2 Baso # 0.1 Neutrophils % (Manual) 85 H Band Neutrophils % 1 Lymphocytes % (Manual) 6 L Monocytes % (Manual) 6 Eosinophils % (Manual) 2 Platelet Estimate Decreased L Polychromasia Slight Hypochromasia (manual) Slight Anisocytosis (manual) Slight Ovalocytes Slight Puncture Site R ra pCO2 54 H pO2 132 H HCO3 25.8 ABG pH 7.32 L ABG Total CO2 29.5 H ABG O2 Saturation 99.8 H ABG Base Excess 1.1 ABG Hemoglobin 10.0 L ABG Carboxyhemoglobin 2.7 H POC ABG HHb (Measured) 0.2 ABG Methemoglobin 0.8 Jordon Test Pos A-a O2 Difference 86.0 Respiratory Index 0.7 Hgb O2 Saturation 96.2 Vent Mode Prvc Mechanical Rate 16 FiO2 40.0 Tidal Volume 350 PEEP 5 Sodium 141 Potassium 4.0 Chloride 105 Carbon Dioxide 28 Anion Gap 12 BUN 27 H Creatinine 1.5 H Est GFR ( Amer) 40 Est GFR (Non-Af Amer) 33 Random Glucose 125 H Calcium 8.2 L Phosphorus 2.7 Magnesium 2.2 Total Bilirubin 1.1 AST 16 ALT 20 Alkaline Phosphatase 57 Total Protein 5.3 L Albumin 2.9 L Globulin 2.4 Albumin/Globulin Ratio 1.2 UF Heparin Interp Fluid Albumin Peritoneal LDH Heparin-induced Plt Ab KATRIN UFH Low Dose 0.1 KATRIN UFH Low Dose 0.5 KATRIN UFH High Dose 100 Fingerstick Blood Sugar Results: 124 Review of Systems - Review of Systems Systems not reviewed;Unavailable: Intubated Critical Care Progress Note - Vent Settings TIDAL VOLUME:: 350 RESP RATE:: 16 FIO2:: 40 PEEP:: 5 Assessment/Plan (1) Respiratory distress Assessment and plan: 86 year old female with medical history of HTN, CHF, CKD, and CABG, presents to the ED by ambulance with shortness of breath. The patient's son, Polo, reports she felt nauseas, feverish, and had chills this morning. As he was helping her to the restroom, patient urinated on self, passed out, and remained unresponsive. In the ED, patient was hypotensive and in respiratory distress. Code sepsis was called. Patient is consulted in the ICU for respiratory distress , hypotension, and sepsis. Patient's chest xray showed opacification of right hemithorax with midline shift. Review of systems was not obtained due to patients status. Patient was intubated, pigtail chest tube placed, waterseal, and pleural fluid drained. Repeat chest xray showed improvement. Underlying infiltrate likely pneumonia- started Zosyn and Vancomycin . Patient was hypotensive, required pressors. Patient has persistent pleural effusion - consider chest tube replacement if drainage of residual pleural effusion stops. Patient's leukocytosis and bandemia are improving. As per cardiology, patient should have CT angio to rule out PE, and if negative, possibly start patient on inotropic medication for CHF/Right heart dysfunction. CT Angio done on 01/05/17. Patient still poor prognosis. Continue to monitor. Neuro: off sedation - prn versed for agitation Pulm: Respiratory distress - Intubated - CXR: opacification of right hemithorax with midline shift - Repeat CXR (post Chest tube): markedly decreased pleural effusion; patchy opacities in right hemithorax - CXR (12/29/16): improving right lower lobe airspace disease; stable small right pleural effusion with loculated component at right lateral wall, persistent cardiomegaly with small left pleural effusion. - Pigtail chest tube placed, drained pleural fluid - Pleural fluid studies: Cloudy, WBC 99, RBC 2007, Neutrophils 11, Lymphocytes 78, Monocyte/Macrophage 10 - Chest CT: increasing right pleural effusion, increasing right lower lobe atelectasis; patchy opacity in lingula; small right hydro-pneumothorax; ascites , hepatic cirrhosis - Consulted Thoracic surgery regarding persistent pleural effusion: Dr. Aragon, help appreciated - No intervention at this time. - Consider chest tube replacement if current tube does not drain residual pleural effusion - CT Angio to r/o PE: f/u CV: Hypotensive, CHF, Afib - Central line placed - Patient on pressors - IV Fluids + Albumin - Troponin: 0.1280 - BNP: 96191 - ECHO: LVEF 14%, severely dilated and mildly hypertrophied RV, RV systolic function mild-mod reduced; LA/RA severely dilated, restriction of posterior MV leaflet; mild MR; severe TR, pulm HTN, mild-mod pulmonic valvular regurgitation , mod pulmonary artery dilatation; severely dilated IVC. - Cardiology consulted: Dr. Hill, help appreciated - As per Dr. Hill, patient has severe pulmonary HTN, CAD s/p CABG, s/p MVR - Venous dupluex LE B/L: no DVTs - Afib: rate-controlled Endo: no acute issues GI: - Tube feeding - Distended abdomen - Abdominal US: liver cirrhosis, large abdominal/pelvic ascites, small right pleural effusion, cholelithiasis, diffuse gallbladder wall thickening likely secondary to liver cirrhosis. - s/p Paracentesis (01/02/17)- removed 2L fluid. - Fluid analysis: LDH 81, albumin 1.5, Fluid RBCs- 8529, Total cell count- 100, Neutrophil- 69, Lymphocytes-30, monocyte/macro 1. - Peritoneal cx: no growth x 3days Heme: thrombocytopenic - Hematology consulted- Dr. Posey, help appreciated Renal: history of kidney disease - BUN/Cr: 28/1.5 - Monitor kidney function - Hypokalemic- gave KCl ID: Code Sepsis - Likely secondary to pneumonia and/or LE cellulitis - Bandemia: improving - UA: 1+ protein, 2 urobilinogen, 9 squam epith cells - Blood cx: no growth x5days - Urine cx: no growth - Sputum cx: normal oral [place] - Wound cx: Stapk[employer] aureius + - Wound care consulted - ID consulted- Dr. Ramires, help appreciated - As per ID, Continue zosyn Prophylaxis: - DVT: Discontinued Heparin 5,000units SC (thrombocytopenia) - GI: Protonix Current Visit: Yes Status: Acute (2) Sepsis Current Visit: Yes Status: Acute (3) Hypotension Current Visit: Yes Status: Acute (4) Abdominal distension Current Visit: Yes Status: Acute
[2017-01-05] MEDS ORDERED: DiphenhydrAMINE 50 mg/ml Inj IVP ONE (16:30)
--- NOTE | 2017-01-05 18:24 | CP.PCM.PN ---
Subjective - Date & Time of Evaluation Date of Evaluation: 01/05/17 Time of Evaluation: 09:00 - Subjective Subjective: iv rx in progress intubated Objective - Vital Signs/Intake and Output Vital Signs (last 24 hours): Temp Pulse Resp BP Pulse Ox 98.3 F 96 H 22 106/52 L 99 01/05/17 16:00 01/05/17 18:06 01/05/17 18:06 01/05/17 18:06 01/05/17 18:06 Intake and Output: 01/05/17 01/05/17 06:59 18:59 Intake Total 680 580 Output Total 280 160 Balance 400 420 - Medications Medications: Current Medications Acetaminophen (Tylenol 325 Mg Supp) 975 mg [place] ONCE PRN PRN Reason: Fever >100.4 F Last Admin: 12/27/16 10:30 Dose: 975 mg Albumin Human (Albumin Human 25% (12.5 Gm/50 Ml)) 12.5 gm IV Q8H [facility] Last Admin: 01/05/17 14:21 Dose: 12.5 gm Norepinephrine Bitartrate 4 mg (/ Sodium Chloride) 254 mls @ 15.24 mls/hr IV .[id number] PRN; Protocol; 4 MCG/MIN PRN Reason: TITRATE PER MD ORDER Last Titration: 12/31/16 17:00 Dose: Infused Piperacillin Sod/Tazobactam Sod (Zosyn 2.25 Gm Iv Premix) 2.25 gm in 50 mls @ 100 mls/hr IVPB Q8H [facility] Last Admin: 01/05/17 14:26 Dose: 100 mls/hr Lorazepam (Ativan) 2 mg IVP Q6H PRN PRN Reason: Agitation Last Admin: 01/05/17 13:01 Dose: 2 mg Midazolam HCl (Versed Inj) 1 mg IVP Q2H PRN PRN Reason: Agitation Last Admin: 01/05/17 03:54 Dose: 1 mg Morphine Sulfate (Morphine) 1 mg IV Q4 PRN PRN Reason: Pain, moderate (4-7) Last Admin: 01/04/17 20:29 Dose: 1 mg Pantoprazole Sodium (Protonix Inj) 40 mg IVP DAILY [facility] Last Admin: 01/05/17 09:33 Dose: 40 mg - Labs Labs: 01/05/17 06:08 01/05/17 06:10 PT 13.5 SECONDS (9.7-12.2) H 01/02/17 06:32 INR 1.2 01/02/17 06:32 APTT 42 SECONDS (21-34) H 01/02/17 06:32 - Constitutional Appears: Non-toxic, Cachectic, Chronically Ill - Head Exam Head Exam: NORMOCEPHALIC - Eye Exam Eye Exam: absent: Scleral icterus - ENT Exam ENT Exam: Mucous Membranes Dry - Neck Exam Neck Exam: absent: Lymphadenopathy - Respiratory Exam Respiratory Exam: Decreased Breath Sounds - Cardiovascular Exam Cardiovascular Exam: REGULAR RHYTHM - GI/Abdominal Exam GI & Abdominal Exam: Distended - Exam Exam: NORMAL INSPECTION Assessment and Plan (1) Hypotension Status: Acute (2) Respiratory distress Status: Acute (3) Sepsis Status: Acute (4) Pneumonia Status: Acute (5) Cellulitis and abscess of foot Status: Acute (6) Septic shock Status: Acute (7) Respiratory failure Status: Acute (8) Respiratory failure Status: Acute (9) CHF (congestive heart failure) Status: Acute (10) CHF (congestive heart failure) Status: Acute (11) H/O mitral valve replacement Status: Acute (12) Altered mental status Status: Acute - Assessment and Plan (Free Text) Assessment: Reps Failure Sepsis Anasarca CHF R heart failure A-fib HTN CKD CABG/MVR s/p thoracentesis/ Paracentecis sacral ulcer cellulitis iv rx renewed
[2017-01-06] MEDS: Midazolam 2 MG/2 ML VIAL IVP PRN (04:30)
[2017-01-06] MEDS: Albumin Human 25% (12.5 gm/50 ml) IV SCH (05:45)
[2017-01-06 05:57] LABS: ABG ALLEN TEST POS; ABG MECHANICAL RATE 16; ARTERIAL BLOOD GAS MODE PRVC; ARTERIAL BLOOD HGB O2 SAT 96.4 % (95.0-98.0); ATERIAL BLOOD GAS PEEP 5; CARBOXYHEMOGLOBIN 2.3 % (0.5-1.5); DRAW SITE RR; HHB 0.1 % (0.0-5.0); METHEMOGLOBIN 1.2 % (0.0-3.0)
[2017-01-06] MEDS: Piperacill/Tazo 2.25gm in Dex 2.25 GM/50 ML BAG IVPB SCH ×3 (06:06→22:55)
[2017-01-06 06:29] LABS: BASO % 0.2 % (0.0-2.0); HEMATOCRIT 25.9 % (34.0-47.0); LYMPH # 0.2 K/uL (1.0-4.3); LYMPH % 3.7 % (20.0-40.0); MEAN CORPUSCULAR HEMOGLOBIN 28.6 pg (27.0-31.0); MEAN CORPUSCULAR HGB CONC 32.1 g/dL (33.0-37.0); MEAN PLATELET VOLUME 9.7 fL (7.2-11.7); MONO # 0.2 K/uL (0.0-0.8); PLATELET COUNT 93 K/uL (130-400); RED CELL DISTRIBUTION WIDTH 15.9 % (11.5-14.5); WHITE BLOOD COUNT 6.2 K/uL (4.8-10.8)
[2017-01-06 06:41] LABS: POTASSIUM 4.2 mmol/L (3.6-5.2)
[2017-01-06 06:43] LABS: ALB/GLOB RATIO 1.3 (1.0-2.1); BILIRUBIN,TOTAL 1.1 mg/dL (0.2-1.3); TOTAL PROTEIN 5.6 g/dL (6.3-8.3)
[2017-01-06 06:44] LABS: CALCIUM 8.6 mg/dl (8.6-10.4); MAGNESIUM 2.4 mg/dL (1.6-2.3); PHOSPHOROUS 2.8 mg/dL (2.5-4.5)
[2017-01-06] MEDS: Albuterol-Ipratrop 3 mg / 0.5 (3 ml) UD INH SCH ×2 (07:36→22:06)
[2017-01-06 08:59] LABS: LARGE PLATELETS PRESENT; NEUTROPHIL 87 % (50-75); TOTAL CELLS COUNTED 100
--- NOTE | 2017-01-06 12:21 | RAD ---
HISTORY: intubated COMPARISON: Portable chest 01/05/2017 FINDINGS: LUNGS: Endotracheal tube and right central venous line as well as right chest tube are unchanged in position. A NG tube is again identified placed a directed into the with the tip off the image in the but in the abdomen with tip off image. Atelectasis not excluded at the right base versus infiltrate. Linear atelectasis is again noted at the left base without infiltrate. PLEURA: Mild right pleural effusion is unchanged, borderline on the left. . CARDIOVASCULAR: Stable prominent cardiac silhouette again noted without definite pulmonary vascular derangement. Prosthetic cardiac valve again noted. OSSEOUS STRUCTURES: No significant abnormalities. VISUALIZED UPPER ABDOMEN: Normal. OTHER FINDINGS: None. IMPRESSION: No significant change overall including right basilar consolidation and pleural effusion with trace left pleural effusion again evident.
--- NOTE | 2017-01-06 12:37 | CP.PCM.PN ---
Subjective - Date & Time of Evaluation Date of Evaluation: 01/06/17 Time of Evaluation: 12:00 - Subjective Subjective: Patient remain intubated at this time, when I saw her she was on pressure support settings She is awake, not as interactive as before. She seemed to indicate she was in pain when I asked her. Family currently not present. Objective - Vital Signs/Intake and Output Vital Signs (last 24 hours): Temp Pulse Resp BP Pulse Ox 98.0 F 93 H 15 114/53 L 100 01/06/17 04:00 01/06/17 10:07 01/06/17 10:07 01/06/17 10:17 01/06/17 10:00 Intake and Output: 01/06/17 01/06/17 06:59 18:59 Intake Total 580 160 Output Total 174 65 Balance 406 95 - Medications Medications: Current Medications Albuterol/Ipratropium (Duoneb 3 Mg/0.5 Mg (3 Ml) Ud) 3 ml INH RQ6 [facility] Piperacillin Sod/Tazobactam Sod (Zosyn 2.25 Gm Iv Premix) 2.25 gm in 50 mls @ 100 mls/hr IVPB Q8H [facility] Last Admin: 01/06/17 06:06 Dose: 100 mls/hr Lorazepam (Ativan) 2 mg IVP Q6H PRN PRN Reason: Agitation Last Admin: 01/05/17 20:00 Dose: 2 mg Morphine Sulfate (Morphine) 1 mg IV Q4 PRN PRN Reason: Pain, moderate (4-7) Last Admin: 01/06/17 05:40 Dose: 1 mg Pantoprazole Sodium (Protonix Inj) 40 mg IVP DAILY [facility] Last Admin: 01/06/17 10:17 Dose: 40 mg - Labs Labs: 01/06/17 06:20 01/06/17 06:20 PT 13.5 SECONDS (9.7-12.2) H 01/02/17 06:32 INR 1.2 01/02/17 06:32 APTT 42 SECONDS (21-34) H 01/02/17 06:32 - Constitutional Appears: Unkempt, Confused, Cachectic, Chronically Ill - ENT Exam ENT Exam: Mucous Membranes Moist - Respiratory Exam Respiratory Exam: Decreased Breath Sounds, Rales, Rhonchi - GI/Abdominal Exam GI & Abdominal Exam: Distended, Soft, Normal Bowel Sounds. absent: Firm, Guarding, Tenderness - Neurological Exam Neurological Exam: Alert, Altered, Awake Neuro motor strength exam: Left Upper Extremity: 3, Right Upper Extremity: 3 - Skin Skin Exam: Pallor, Pallor Assessment and Plan - Assessment and Plan (Free Text) Assessment: Overall: 86 year old female with acute respiratory failure with unfortunately very prognosis at this time. She has extensive right heart disease that is contributing to CHF/pleural effusions. Despite chest tube drainage there is still some pleural effusion on CXRAY making it harder to wean off of ventilator. Family is aware of the poor prognosis at this time. They still want full code. Palliative care has spoken with them twice. 1 Acute respiratory failure from sepsis and pleural effusion/consolidations on lungs 01/06: Has not gotten the CTA yet due to CKD. Recived IV benadryl and solumedrol. Today was on pressue support settings 01/05: 18 cc output recorded for yesterday total. There is a CTA ordered by ICU 01/04: Again output of the right cathter is zero. I discussed with the patient's son at bedside and explained to him the overall prognosis is not. Good, he states he understands but wants her to remain full code at this time. 01/03: The out put from the pig tail catheter is zero today. Possible replacement of catheter 01/02: Pending CT surgery evaluation. Imaging showing persistent right pleural fluid. 01/01:Remains intubated at this time on PRVC settings. She currently has a chest tube at this time. The CXRAYs seem to show improvment on the right lung however the patient still appears to be very ill. There was last week a meeting with pallitative care and the patient's son. She requires IV pressor medications 2 Septic shock 01/05: The ascities fluid cultures are negative three days. Has not had elevated temperature in past few days. 01/02: IV albumin given today. Systolic BPs in the 100s 01/01: Patient remains intubated and on pressor support. Urine output was recorded as 1150 cc yesterday 3 Pneumonia 01/03 WBC again decreased. 01/02 WBC decreased, afebrile. No left shift on lab work today 01/01:Currently on IV Zosyn WBC decreased, also bandemia has decreased to 6 this morning. Prognosis is still very poor. The blood cultures have been negative 4 days and the sputum and pleural fluid negative. There is a positive from a wound culture 4 CHF (congestive heart failure), history of CAD and mitral vavlular replacement 01/05: Family members made aware that there is a lot of right heart weakness and this is contributing to the pleural effusions as well as difficulty with weaning off the ventilator. 01/02: Echo showing severe dilatation of right ventricle and hypertrophy. There is severe pulmonary HTN found as well. Furthermore there was findings of severe regurgitation tricupsid and pulmonary valves. 5 Cellulitis and abscess of foot Patient is on Zosyn. We will consider surgical evaluation if no improvement.
--- NOTE | 2017-01-06 18:00 | CP.CCUPN ---
CCU Subjective - Physician Review Events Since Last Encounter (Free Text): 01/06/17 17:59 Patient is a 86-year-old female with history of hypertension heart failure renal insufficiency coronary it to bypass grafting admitted with acute septic shock. Code sepsis. Respiratory failure intubated. Currently patient is awake and responding. Distress noted with the ventilator. No fever today. Endotracheal secretions is less On examination: Vital signs stable. Chest good air entry regular heart sound nontender abdomen extremities edema 1+ noted Labs reviewed Chest x-ray bilateral lower lobe atelectatic changes noted. Patient tolerated the CPAP very short time today Assessment and recommendation: 86-year-old female admitted with acute septic shock, complicated with acute respiratory failure on ventilator now. We'll continue to monitor the patient. CPAP trial as tolerated, possible extubation when she stable CCU Objective - Vital Signs / Intake & Output Intake and Output (Last 8hrs): Intake & Output 01/06/17 01/06/17 01/06/17 06:59 14:59 22:59 Intake Total 370 160 Output Total 124 65 Balance 246 95 Intake: Intake, IV Amount 50 Right Proximal Port 50 Subclavian Tube Feeding 320 160 Output: Chest Tube Drainage 4 Right Posterior Chest 4 Urine 120 65 Urethral (Moreno) 120 65 Other: # Bowel Movements 1 - Physical Exam Head: Negative for: Atraumatic, Normocephalic Pupils: Positive for: PERRL Extroacular Muscles: Positive for: EOMI Mouth: Positive for: Moist Mucous Membranes Neck: Positive for: Trachea Midline Respiratory/Chest: Positive for: Decreased Breath Sounds. Negative for: Rales, Rhonchi Cardiovascular: Positive for: Normal S1, S2, Irregular Rhythm, Tachycardic Abdomen: Positive for: Distention. Negative for: Tenderness, Normal Bowel Sounds (hypoactive) Upper Extremity: Positive for: Normal Inspection Lower Extremity: Positive for: Edema, Swelling, Other (serosanginous fluid blisters on LE B/L). Negative for: Normal Inspection Skin: Positive for: Warm, Erythematous, Other (serosanginous fluid blisters on LE B/L). Negative for: Dry, Normal Color Psychiatric: Positive for: Alert - Medications Active Medications: Active Medications Generic Name Dose Route Start Last Admin Trade Name Freq PRN Reason Stop Dose Admin Albuterol/Ipratropium 3 ml 01/06/17 14:00 Duoneb 3 Mg/0.5 Mg (3 Ml) Ud INH RQ6 [facility] Piperacillin Sod/Tazobactam Sod 2.25 gm in 50 mls @ 100 mls/hr 12/27/16 15:00 01/06/17 15:15 Zosyn 2.25 Gm Iv Premix IVPB 100 mls/hr Q8H [facility] Administration Lorazepam 2 mg 01/02/17 00:17 01/05/17 20:00 Ativan IVP 2 mg Q6H PRN Administration Agitation Morphine Sulfate 1 mg 01/04/17 11:05 01/06/17 15:15 Morphine IV 1 mg Q4 PRN Administration Pain, moderate (4-7) Pantoprazole Sodium 40 mg 01/04/17 10:00 01/06/17 10:17 Protonix Inj IVP 40 mg DAILY [facility] Administration - Patient Studies Lab Studies: Microbiology Studies 01/02/17 14:07 Gram Stain - Final Ascitic Fluid Body Fluid Culture - Final No growth. Lab Studies 01/06/17 01/06/17 01/06/17 Range/Units 06:20 06:20 05:00 WBC 6.2 (4.8-10.8) K/uL RBC 2.91 L (3.80-5.20) Mil/uL Hgb 8.3 L (11.0-16.0) g/dL Hct 25.9 L (34.0-47.0) % MCV 89.0 (81.0-99.0) fL MCH 28.6 (27.0-31.0) pg MCHC 32.1 L (33.0-37.0) g/dL RDW 15.9 H (11.5-14.5) % Plt Count 93 L (130-400) K/uL MPV 9.7 (7.2-11.7) fL Neut % (Auto) 93.1 H (50.0-75.0) % Lymph % (Auto) 3.7 L (20.0-40.0) % [place] % (Auto) 3.0 (0.0-10.0) % Eos % (Auto) 0.0 (0.0-4.0) % Baso % (Auto) 0.2 (0.0-2.0) % Neut # 5.7 (1.8-7.0) K/uL Lymph # 0.2 L (1.0-4.3) K/uL [place] # 0.2 (0.0-0.8) K/uL Eos # 0.0 (0.0-0.7) K/uL Baso # 0.0 (0.0-0.2) K/uL Neutrophils % (Manual) 87 H (50-75) % Band Neutrophils % 3 H (0-2) % Lymphocytes % (Manual) 6 L (20-40) % Monocytes % (Manual) 4 (0-10) % Toxic Granulation Present Platelet Estimate Decreased L (NORMAL) Large Platelets Present Polychromasia Slight Hypochromasia (manual) Slight Poikilocytosis (manual Slight Basophilic Stippling Slight Anisocytosis (manual) Slight Ovalocytes Slight Puncture Site Rr pCO2 43 (35-45) mm/Hg pO2 193 H (80-100) mm/Hg HCO3 25.0 (21-28) mmol/L ABG pH 7.38 (7.35-7.45) ABG Total CO2 26.7 (22-28) mmol/L ABG O2 Saturation 99.9 H (95-98) % ABG Base Excess 0.1 (-2.0-3.0) mmol/L ABG Hemoglobin 11.5 L (11.7-17.4) g/dL ABG Carboxyhemoglobin 2.3 H (0.5-1.5) % POC ABG HHb (Measured) 0.1 (0.0-5.0) % ABG Methemoglobin 1.2 (0.0-3.0) % Jordon Test Pos A-a O2 Difference 38.0 mm/Hg Respiratory Index 0.2 Hgb O2 Saturation 96.4 (95.0-98.0) % Vent Mode Prvc Mechanical Rate 16 FiO2 40.0 % Tidal Volume 350 PEEP 5 Sodium 144 (132-148) mmol/L Potassium 4.2 (3.6-5.2) mmol/L Chloride 104 (98-107) mmol/L Carbon Dioxide 26 (22-30) mmol/L Anion Gap 19 (10-20) BUN 33 H (7-17) mg/dL Creatinine 1.5 H (0.7-1.2) MG/DL Est GFR ( Amer) 40 Est GFR (Non-Af Amer) 33 Random Glucose 163 H (65-105) mg/dL Calcium 8.6 (8.6-10.4) mg/dl Phosphorus 2.8 (2.5-4.5) mg/dL Magnesium 2.4 H (1.6-2.3) mg/dL Total Bilirubin 1.1 (0.2-1.3) mg/dL AST 16 (14-36) U/L ALT 21 (9-52) U/L Alkaline Phosphatase 52 (38-126) U/L Total Protein 5.6 L (6.3-8.3) g/dL Albumin 3.2 L (3.5-5.0) g/dL Globulin 2.4 (2.2-3.9) gm/dL Albumin/Globulin Ratio 1.3 (1.0-2.1) Laboratory Results - last 24 hr 01/06/17 01/06/17 01/06/17 05:00 06:20 06:20 WBC 6.2 RBC 2.91 L Hgb 8.3 L Hct 25.9 L MCV 89.0 MCH 28.6 MCHC 32.1 L RDW 15.9 H Plt Count 93 L MPV 9.7 Neut % (Auto) 93.1 H Lymph % (Auto) 3.7 L [place] % (Auto) 3.0 Eos % (Auto) 0.0 Baso % (Auto) 0.2 Neut # 5.7 Lymph # 0.2 L [place] # 0.2 Eos # 0.0 Baso # 0.0 Neutrophils % (Manual) 87 H Band Neutrophils % 3 H Lymphocytes % (Manual) 6 L Monocytes % (Manual) 4 Toxic Granulation Present Platelet Estimate Decreased L Large Platelets Present Polychromasia Slight Hypochromasia (manual) Slight Poikilocytosis (manual Slight Basophilic Stippling Slight Anisocytosis (manual) Slight Ovalocytes Slight Puncture Site Rr pCO2 43 pO2 193 H HCO3 25.0 ABG pH 7.38 ABG Total CO2 26.7 ABG O2 Saturation 99.9 H ABG Base Excess 0.1 ABG Hemoglobin 11.5 L ABG Carboxyhemoglobin 2.3 H POC ABG HHb (Measured) 0.1 ABG Methemoglobin 1.2 Jordon Test Pos A-a O2 Difference 38.0 Respiratory Index 0.2 Hgb O2 Saturation 96.4 Vent Mode Prvc Mechanical Rate 16 FiO2 40.0 Tidal Volume 350 PEEP 5 Sodium 144 Potassium 4.2 Chloride 104 Carbon Dioxide 26 Anion Gap 19 BUN 33 H Creatinine 1.5 H Est GFR ( Amer) 40 Est GFR (Non-Af Amer) 33 Random Glucose 163 H Calcium 8.6 Phosphorus 2.8 Magnesium 2.4 H Total Bilirubin 1.1 AST 16 ALT 21 Alkaline Phosphatase 52 Total Protein 5.6 L Albumin 3.2 L Globulin 2.4 Albumin/Globulin Ratio 1.3 Fingerstick Blood Sugar Results: 124
--- NOTE | 2017-01-06 20:07 | CP.PCM.PN ---
Subjective - Date & Time of Evaluation Date of Evaluation: 01/06/17 Time of Evaluation: 18:00 - Subjective Subjective: Vented Objective - Vital Signs/Intake and Output Vital Signs (last 24 hours): Temp Pulse Resp BP Pulse Ox 97.5 F L 75 17 97/59 L 99 01/06/17 16:00 01/06/17 19:06 01/06/17 19:06 01/06/17 19:06 01/06/17 19:06 Intake and Output: 01/06/17 01/07/17 18:59 06:59 Intake Total 580 40 Output Total 200 20 Balance 380 20 - Medications Medications: Current Medications Albuterol/Ipratropium (Duoneb 3 Mg/0.5 Mg (3 Ml) Ud) 3 ml INH RQ6 [facility] Piperacillin Sod/Tazobactam Sod (Zosyn 2.25 Gm Iv Premix) 2.25 gm in 50 mls @ 100 mls/hr IVPB Q8H [facility] Last Admin: 01/06/17 15:15 Dose: 100 mls/hr Lorazepam (Ativan) 2 mg IVP Q6H PRN PRN Reason: Agitation Last Admin: 01/05/17 20:00 Dose: 2 mg Morphine Sulfate (Morphine) 1 mg IV Q4 PRN PRN Reason: Pain, moderate (4-7) Last Admin: 01/06/17 15:15 Dose: 1 mg Pantoprazole Sodium (Protonix Inj) 40 mg IVP DAILY [facility] Last Admin: 01/06/17 10:17 Dose: 40 mg - Labs Labs: 01/06/17 06:20 01/06/17 06:20 PT 13.5 SECONDS (9.7-12.2) H 01/02/17 06:32 INR 1.2 01/02/17 06:32 APTT 42 SECONDS (21-34) H 01/02/17 06:32 - Head Exam Head Exam: ATRAUMATIC - Eye Exam Eye Exam: Normal appearance - ENT Exam ENT Exam: Mucous Membranes Dry - Respiratory Exam Respiratory Exam: NORMAL BREATHING PATTERN - Cardiovascular Exam Cardiovascular Exam: +S1, +S2 - GI/Abdominal Exam GI & Abdominal Exam: Normal Bowel Sounds Assessment and Plan (1) Thrombocytopenia Assessment & Plan: secondary to sepsis improving Status: Acute (2) Coagulopathy Assessment & Plan: nutritional Status: Acute (3) Anemia Status: Acute
--- NOTE | 2017-01-06 21:43 | CP.PCM.PN ---
Subjective - Date & Time of Evaluation Date of Evaluation: 01/05/17 Time of Evaluation: 08:00 - Subjective Subjective: Patient seen and evaluated On Mechanical ventilation Objective - Vital Signs/Intake and Output Vital Signs (last 24 hours): Temp Pulse Resp BP Pulse Ox 97.4 F L 83 13 101/57 L 98 01/06/17 20:00 01/06/17 21:06 01/06/17 21:06 01/06/17 21:06 01/06/17 21:06 Intake and Output: 01/06/17 01/07/17 18:59 06:59 Intake Total 580 120 Output Total 200 45 Balance 380 75 - Medications Medications: Current Medications Albuterol/Ipratropium (Duoneb 3 Mg/0.5 Mg (3 Ml) Ud) 3 ml INH RQ6 [facility] Piperacillin Sod/Tazobactam Sod (Zosyn 2.25 Gm Iv Premix) 2.25 gm in 50 mls @ 100 mls/hr IVPB Q8H [facility] Last Admin: 01/06/17 15:15 Dose: 100 mls/hr Lorazepam (Ativan) 2 mg IVP Q6H PRN PRN Reason: Agitation Last Admin: 01/05/17 20:00 Dose: 2 mg Morphine Sulfate (Morphine) 1 mg IV Q4 PRN PRN Reason: Pain, moderate (4-7) Last Admin: 01/06/17 15:15 Dose: 1 mg Pantoprazole Sodium (Protonix Inj) 40 mg IVP DAILY [facility] Last Admin: 01/06/17 10:17 Dose: 40 mg - Labs Labs: 01/06/17 06:20 01/06/17 06:20 PT 13.5 SECONDS (9.7-12.2) H 01/02/17 06:32 INR 1.2 01/02/17 06:32 APTT 42 SECONDS (21-34) H 01/02/17 06:32 - Head Exam Head Exam: ATRAUMATIC, NORMAL INSPECTION - Eye Exam Eye Exam: EOMI, PERRL - ENT Exam ENT Exam: Mucous Membranes Moist - Neck Exam Neck Exam: Full ROM - Respiratory Exam Respiratory Exam: NORMAL BREATHING PATTERN - Cardiovascular Exam Cardiovascular Exam: REGULAR RHYTHM, +S1, +S2 - Extremities Exam Extremities Exam: Full ROM - Neurological Exam Neurological Exam: Alert - Skin Skin Exam: Warm Assessment and Plan - Assessment and Plan (Free Text) Assessment: 1. Respiratory failure/Vent dependant 2. Sepsis 3. A Fib 4. CAD 5. Severe Pulmonary HTN
--- NOTE | 2017-01-06 21:45 | CP.PCM.PN ---
Subjective - Date & Time of Evaluation Date of Evaluation: 01/06/17 Time of Evaluation: 10:40 - Subjective Subjective: Patient seen and evaluated Intubated Awake Objective - Vital Signs/Intake and Output Vital Signs (last 24 hours): Temp Pulse Resp BP Pulse Ox 97.4 F L 83 13 101/57 L 98 01/06/17 20:00 01/06/17 21:06 01/06/17 21:06 01/06/17 21:06 01/06/17 21:06 Intake and Output: 01/06/17 01/07/17 18:59 06:59 Intake Total 580 120 Output Total 200 45 Balance 380 75 - Medications Medications: Current Medications Albuterol/Ipratropium (Duoneb 3 Mg/0.5 Mg (3 Ml) Ud) 3 ml INH RQ6 [facility] Piperacillin Sod/Tazobactam Sod (Zosyn 2.25 Gm Iv Premix) 2.25 gm in 50 mls @ 100 mls/hr IVPB Q8H [facility] Last Admin: 01/06/17 15:15 Dose: 100 mls/hr Lorazepam (Ativan) 2 mg IVP Q6H PRN PRN Reason: Agitation Last Admin: 01/05/17 20:00 Dose: 2 mg Morphine Sulfate (Morphine) 1 mg IV Q4 PRN PRN Reason: Pain, moderate (4-7) Last Admin: 01/06/17 15:15 Dose: 1 mg Pantoprazole Sodium (Protonix Inj) 40 mg IVP DAILY [facility] Last Admin: 01/06/17 10:17 Dose: 40 mg - Labs Labs: 01/06/17 06:20 01/06/17 06:20 PT 13.5 SECONDS (9.7-12.2) H 01/02/17 06:32 INR 1.2 01/02/17 06:32 APTT 42 SECONDS (21-34) H 01/02/17 06:32 - Head Exam Head Exam: ATRAUMATIC, NORMAL INSPECTION - Eye Exam Eye Exam: EOMI, PERRL - ENT Exam ENT Exam: Mucous Membranes Moist - Neck Exam Neck Exam: Full ROM - Respiratory Exam Respiratory Exam: NORMAL BREATHING PATTERN - Cardiovascular Exam Cardiovascular Exam: REGULAR RHYTHM, +S1, +S2 - GI/Abdominal Exam GI & Abdominal Exam: Soft, Normal Bowel Sounds - Neurological Exam Neurological Exam: Alert - Skin Skin Exam: Warm Assessment and Plan - Assessment and Plan (Free Text) Assessment: 1. Respiratory failure/Vent dependant 2. Sepsis 3. A Fib 4. CAD 5. Severe Pulmonary HTN
[2017-01-07] MEDS: Albuterol-Ipratrop 3 mg / 0.5 (3 ml) UD INH SCH ×4 (01:17→19:42)
[2017-01-07 05:05] LABS: ABG ALLEN TEST POS; ABG MECHANICAL RATE 16; ARTERIAL BLOOD GAS MODE PRVC; ARTERIAL BLOOD HGB O2 SAT 96.9 % (95.0-98.0); ATERIAL BLOOD GAS PEEP 5; CARBOXYHEMOGLOBIN 2.2 % (0.5-1.5); DRAW SITE RR; HHB 0.2 % (0.0-5.0); METHEMOGLOBIN 0.7 % (0.0-3.0)
[2017-01-07] MEDS: Piperacill/Tazo 2.25gm in Dex 2.25 GM/50 ML BAG IVPB SCH ×3 (06:25→22:23)
[2017-01-07 06:38] LABS: BASO % 0.5 % (0.0-2.0); EOS # 0.1 K/uL (0.0-0.7); EOS % 0.8 % (0.0-4.0); HEMATOCRIT 27.7 % (34.0-47.0); LYMPH # 0.5 K/uL (1.0-4.3); LYMPH % 6.2 % (20.0-40.0); MEAN CELL VOLUME 90.3 fL (81.0-99.0); MEAN CORPUSCULAR HEMOGLOBIN 28.6 pg (27.0-31.0); MEAN CORPUSCULAR HGB CONC 31.7 g/dL (33.0-37.0); MEAN PLATELET VOLUME 9.9 fL (7.2-11.7); MONO # 0.6 K/uL (0.0-0.8); MONO % 6.4 % (0.0-10.0); PLATELET COUNT 157 K/uL (130-400); RED CELL DISTRIBUTION WIDTH 15.6 % (11.5-14.5); WHITE BLOOD COUNT 8.7 K/uL (4.8-10.8)
[2017-01-07 06:45] LABS: POTASSIUM 3.9 mmol/L (3.6-5.2)
[2017-01-07 06:47] LABS: ALB/GLOB RATIO 1.3 (1.0-2.1); BILIRUBIN,TOTAL 0.8 mg/dL (0.2-1.3); TOTAL PROTEIN 4.9 g/dL (6.3-8.3)
[2017-01-07 06:48] LABS: CALCIUM 8.1 mg/dl (8.6-10.4); MAGNESIUM 2.4 mg/dL (1.6-2.3); PHOSPHOROUS 2.8 mg/dL (2.5-4.5)
--- NOTE | 2017-01-07 08:10 | RAD ---
PROCEDURE: CHEST RADIOGRAPH, 1 VIEW HISTORY: intubated patient COMPARISON: Portable chest 01/06/2017 FINDINGS: LUNGS: Endotracheal and right chest tubes are unchanged in appearance is with nasogastric tube again identified. Prosthetic cardiac valve again evident. Right subclavian central venous line unchanged. Cardiomegaly appears stable, no pulmonary vascular derangement. There is interval silhouetting left ureter suggesting atelectasis though developing infiltrate is not excluded here. Diminished right pleural effusion the loculation may be developing. Medial right basilar atelectasis or infiltrate is diminished. No pneumothorax. PLEURA: As above. CARDIOVASCULAR: As above. OSSEOUS STRUCTURES: No significant abnormalities. VISUALIZED UPPER ABDOMEN: Normal. OTHER FINDINGS: None. IMPRESSION: Stable cardiomegaly with developing atelectasis or infiltrate at the left base in diminishing right basilar patchy density. Question loculated but small right pleural effusion.
[2017-01-07 09:20] LABS: BASOPHIL 1 % (0-2); EOSINOPHIL 2 % (0-4); NEUTROPHIL 85 % (50-75); TOTAL CELLS COUNTED 100
[2017-01-07 09:22] LABS: LARGE PLATELETS PRESENT
--- NOTE | 2017-01-07 11:16 | CP.PCM.PN ---
Subjective - Date & Time of Evaluation Date of Evaluation: 01/07/17 Time of Evaluation: 11:00 - Subjective Subjective: Patient seen and examined Remains intubated at this time. Back on [facility] settings when I saw her. They say she only lasted a few hours on the weaning trial yesterday. Objective - Vital Signs/Intake and Output Vital Signs (last 24 hours): Temp Pulse Resp BP Pulse Ox 97.5 F L 89 19 99/49 L 100 01/06/17 23:44 01/07/17 06:06 01/07/17 06:06 01/07/17 06:06 01/07/17 06:06 Intake and Output: 01/07/17 01/07/17 06:59 18:59 Intake Total 670 Output Total 195 Balance 475 - Medications Medications: Current Medications Albuterol/Ipratropium (Duoneb 3 Mg/0.5 Mg (3 Ml) Ud) 3 ml INH RQ6 [facility] Last Admin: 01/07/17 07:36 Dose: 3 ml Piperacillin Sod/Tazobactam Sod (Zosyn 2.25 Gm Iv Premix) 2.25 gm in 50 mls @ 100 mls/hr IVPB Q8H [facility] Last Admin: 01/07/17 06:25 Dose: 100 mls/hr Lorazepam (Ativan) 2 mg IVP Q6H PRN PRN Reason: Agitation Last Admin: 01/07/17 06:24 Dose: 2 mg Morphine Sulfate (Morphine) 1 mg IV Q4 PRN PRN Reason: Pain, moderate (4-7) Last Admin: 01/07/17 09:57 Dose: 1 mg Pantoprazole Sodium (Protonix Inj) 40 mg IVP DAILY [facility] Last Admin: 01/07/17 09:56 Dose: 40 mg - Labs Labs: 01/07/17 06:24 01/07/17 06:19 PT 13.5 SECONDS (9.7-12.2) H 01/02/17 06:32 INR 1.2 01/02/17 06:32 APTT 42 SECONDS (21-34) H 01/02/17 06:32 - Constitutional Appears: Unkempt, Confused, Cachectic, Chronically Ill - Head Exam Additional comments: Very dry, sunken eye appearance, bruises - Eye Exam Additional comments: As above - ENT Exam ENT Exam: Mucous Membranes Dry Additional comments: Currently with ET, OT - Respiratory Exam Respiratory Exam: Decreased Breath Sounds, Rales, Rhonchi Additional comments: Remains on mechanical ventilation - Neurological Exam Neuro motor strength exam: Left Upper Extremity: 4, Right Upper Extremity: 4 - Psychiatric Exam Psychiatric exam: Depressed, Flat Affect - Skin Skin Exam: Pallor, Pallor Assessment and Plan - Assessment and Plan (Free Text) Assessment: Overall: 86 year old female with acute respiratory failure with unfortunately very prognosis at this time. She has extensive right heart disease that is contributing to CHF/pleural effusions. As of 01/07, despite chest tube drainage there is still some pleural effusion on CXRAY making it harder to wean off of ventilator. Family is aware of the poor prognosis at this time. They still want full code. Palliative care has spoken with them twice. 1 Acute respiratory failure from sepsis and pleural effusion/consolidations on lungs 01/07: Back on PRVC today. Did not last long on weaning trial. 01/06: Has not gotten the CTA yet due to CKD. Recived IV benadryl and solumedrol. Today was on pressue support settings 01/05: 18 cc output recorded for yesterday total. There is a CTA ordered by ICU 01/04: Again output of the right cathter is zero. I discussed with the patient's son at bedside and explained to him the overall prognosis is not. Good, he states he understands but wants her to remain full code at this time. 01/03: The out put from the pig tail catheter is zero today. Possible replacement of catheter 01/02: Pending CT surgery evaluation. Imaging showing persistent right pleural fluid. 01/01:Remains intubated at this time on PRVC settings. She currently has a chest tube at this time. The CXRAYs seem to show improvment on the right lung however the patient still appears to be very ill. There was last week a meeting with pallitative care and the patient's son. She requires IV pressor medications 2 Septic shock 01/07: blood pressure, HR stable, WBC decreased. 01/05: The ascities fluid cultures are negative three days. Has not had elevated temperature in past few days. 01/02: IV albumin given today. Systolic BPs in the 100s 01/01: Patient remains intubated and on pressor support. Urine output was recorded as 1150 cc yesterday 3 Pneumonia 01/03 WBC again decreased. 01/02 WBC decreased, afebrile. No left shift on lab work today 01/01:Currently on IV Zosyn WBC decreased, also bandemia has decreased to 6 this morning. Prognosis is still very poor. The blood cultures have been negative 4 days and the sputum and pleural fluid negative. There is a positive from a wound culture 4 CHF (congestive heart failure), history of CAD and mitral vavlular replacement 01/07: 01/05: Family members made aware that there is a lot of right heart weakness and this is contributing to the pleural effusions as well as difficulty with weaning off the ventilator. 01/02: Echo showing severe dilatation of right ventricle and hypertrophy. There is severe pulmonary HTN found as well. Furthermore there was findings of severe regurgitation tricupsid and pulmonary valves. 5 Cellulitis and abscess of foot Patient is on Zosyn. We will consider surgical evaluation if no improvement.
--- NOTE | 2017-01-07 15:12 | CP.PCM.PN ---
Subjective - Date & Time of Evaluation Date of Evaluation: 01/07/17 Time of Evaluation: 10:00 - Subjective Subjective: wounds improving cellulitis less drains / tubes in place iv rx renewed still vented slow progress Objective - Vital Signs/Intake and Output Vital Signs (last 24 hours): Temp Pulse Resp BP Pulse Ox 97.5 F L 92 H 24 115/55 L 95 01/06/17 23:44 01/07/17 13:06 01/07/17 13:06 01/07/17 13:06 01/07/17 12:06 Intake and Output: 01/07/17 01/07/17 06:59 18:59 Intake Total 670 0 Output Total 195 850 Balance 475 -850 - Medications Medications: Current Medications Albuterol/Ipratropium (Duoneb 3 Mg/0.5 Mg (3 Ml) Ud) 3 ml INH RQ6 [facility] Last Admin: 01/07/17 14:03 Dose: 3 ml Piperacillin Sod/Tazobactam Sod (Zosyn 2.25 Gm Iv Premix) 2.25 gm in 50 mls @ 100 mls/hr IVPB Q8H [facility] Last Admin: 01/07/17 06:25 Dose: 100 mls/hr Lorazepam (Ativan) 2 mg IVP Q6H PRN PRN Reason: Agitation Last Admin: 01/07/17 06:24 Dose: 2 mg Morphine Sulfate (Morphine) 1 mg IV Q4 PRN PRN Reason: Pain, moderate (4-7) Last Admin: 01/07/17 09:57 Dose: 1 mg Pantoprazole Sodium (Protonix Inj) 40 mg IVP DAILY [facility] Last Admin: 01/07/17 09:56 Dose: 40 mg - Labs Labs: 01/07/17 06:24 01/07/17 06:19 PT 13.5 SECONDS (9.7-12.2) H 01/02/17 06:32 INR 1.2 01/02/17 06:32 APTT 42 SECONDS (21-34) H 01/02/17 06:32 - Constitutional Appears: Non-toxic, Cachectic, Chronically Ill - Head Exam Head Exam: NORMOCEPHALIC - Eye Exam Eye Exam: PERRL - ENT Exam ENT Exam: Mucous Membranes Dry, Normal External Ear Exam - Neck Exam Neck Exam: absent: Lymphadenopathy - Respiratory Exam Respiratory Exam: Decreased Breath Sounds - Cardiovascular Exam Cardiovascular Exam: REGULAR RHYTHM - GI/Abdominal Exam GI & Abdominal Exam: Distended, Soft - Rectal Exam Rectal Exam: Deferred - Exam Exam: NORMAL INSPECTION Assessment and Plan (1) Hypotension Status: Acute (2) Respiratory distress Status: Acute (3) Sepsis Status: Acute (4) Pneumonia Status: Acute (5) Cellulitis and abscess of foot Status: Acute (6) Septic shock Status: Acute (7) Respiratory failure Status: Acute (8) Respiratory failure Status: Acute (9) CHF (congestive heart failure) Status: Acute (10) CHF (congestive heart failure) Status: Acute (11) H/O mitral valve replacement Status: Acute (12) Altered mental status Status: Acute
--- NOTE | 2017-01-07 18:07 | CP.CCUPN ---
CCU Subjective - Physician Review Events Since Last Encounter (Free Text): 01/07/17 18:07 Patient is a 86-year-old female with history of hypertension heart failure renal insufficiency coronary it to bypass grafting admitted with acute septic shock. Code sepsis. Respiratory failure intubated. Currently patient is awake and responding. Distress noted with the ventilator. No fever today. Endotracheal secretions is less On examination: Vital signs stable. Chest good air entry regular heart sound nontender abdomen extremities edema 1+ noted Labs reviewed Chest x-ray bilateral lower lobe atelectatic changes noted. Patient tolerated the CPAP very short time today Assessment and recommendation: 86-year-old female admitted with acute septic shock, complicated with acute respiratory failure on ventilator now. We'll continue to monitor the patient. CPAP trial as tolerated, possible extubation when she stable CCU Objective - Vital Signs / Intake & Output Vital Signs (Last 4 hours): Vital Signs Temp Pulse Resp BP Pulse Ox 01/07/17 16:06 97 H 28 H 122/60 96 01/07/17 16:00 98 F 103 H 24 98 01/07/17 15:07 98 H 26 H 114/66 75 L 01/07/17 15:00 96 H 34 H 86 L Intake and Output (Last 8hrs): Intake & Output 01/07/17 01/07/17 01/07/17 06:59 14:59 22:59 Intake Total 510 0 0 Output Total 120 850 150 Balance 390 -850 -150 Weight 165 lb 2.02 oz 164 lb Intake: Intake, IV Amount 150 Right Distal Port 150 Subclavian Oral 0 0 Tube Feeding 360 Output: Chest Tube Drainage 15 Right Posterior Chest 15 Urine 105 550 150 Urethral (Morneo) 105 550 150 Stool 300 - Physical Exam Head: Negative for: Atraumatic, Normocephalic Pupils: Positive for: PERRL Extroacular Muscles: Positive for: EOMI Mouth: Positive for: Moist Mucous Membranes Neck: Positive for: Trachea Midline Respiratory/Chest: Positive for: Decreased Breath Sounds. Negative for: Rales, Rhonchi Cardiovascular: Positive for: Normal S1, S2, Irregular Rhythm, Tachycardic Abdomen: Positive for: Distention. Negative for: Tenderness, Normal Bowel Sounds (hypoactive) Upper Extremity: Positive for: Normal Inspection Lower Extremity: Positive for: Edema, Swelling, Other (serosanginous fluid blisters on LE B/L). Negative for: Normal Inspection Skin: Positive for: Warm, Erythematous, Other (serosanginous fluid blisters on LE B/L). Negative for: Dry, Normal Color Psychiatric: Positive for: Alert - Medications Active Medications: Active Medications Generic Name Dose Route Start Last Admin Trade Name Freq PRN Reason Stop Dose Admin Albuterol/Ipratropium 3 ml 01/06/17 14:00 01/07/17 14:03 Duoneb 3 Mg/0.5 Mg (3 Ml) Ud INH 3 ml RQ6 [facility] Administration Piperacillin Sod/Tazobactam Sod 2.25 gm in 50 mls @ 100 mls/hr 12/27/16 15:00 01/07/17 15:00 Zosyn 2.25 Gm Iv Premix IVPB 100 mls/hr Q8H [facility] Administration Lorazepam 2 mg 01/02/17 00:17 01/07/17 06:24 Ativan IVP 2 mg Q6H PRN Administration Agitation Morphine Sulfate 1 mg 01/04/17 11:05 01/07/17 16:43 Morphine IV 1 mg Q4 PRN Administration Pain, moderate (4-7) Pantoprazole Sodium 40 mg 01/04/17 10:00 01/07/17 09:56 Protonix Inj IVP 40 mg DAILY [facility] Administration - Patient Studies Lab Studies: Lab Studies 01/07/17 01/07/17 01/07/17 Range/Units 06:24 06:19 04:45 WBC 8.7 (4.8-10.8) K/uL RBC 3.06 L (3.80-5.20) Mil/uL Hgb 8.8 L (11.0-16.0) g/dL Hct 27.7 L (34.0-47.0) % MCV 90.3 (81.0-99.0) fL MCH 28.6 (27.0-31.0) pg MCHC 31.7 L (33.0-37.0) g/dL RDW 15.6 H (11.5-14.5) % Plt Count 157 (130-400) K/uL MPV 9.9 (7.2-11.7) fL Neut % (Auto) 86.1 H (50.0-75.0) % Lymph % (Auto) 6.2 L (20.0-40.0) % Baker % (Auto) 6.4 (0.0-10.0) % Eos % (Auto) 0.8 (0.0-4.0) % Baso % (Auto) 0.5 (0.0-2.0) % Neut # 7.5 H (1.8-7.0) K/uL Lymph # 0.5 L (1.0-4.3) K/uL Baker # 0.6 (0.0-0.8) K/uL Eos # 0.1 (0.0-0.7) K/uL Baso # 0.0 (0.0-0.2) K/uL Neutrophils % (Manual) 85 H (50-75) % Band Neutrophils % 2 (0-2) % Lymphocytes % (Manual) 4 L (20-40) % Monocytes % (Manual) 6 (0-10) % Eosinophils % (Manual) 2 (0-4) % Basophils % (Manual) 1 (0-2) % Toxic Granulation Present Platelet Estimate Normal (NORMAL) Large Platelets Present Polychromasia Slight Hypochromasia (manual) Slight Poikilocytosis (manual Slight Basophilic Stippling Slight Anisocytosis (manual) Slight Ovalocytes Slight Puncture Site Rr pCO2 45 (35-45) mm/Hg pO2 150 H (80-100) mm/Hg HCO3 25.3 (21-28) mmol/L ABG pH 7.37 (7.35-7.45) ABG Total CO2 27.4 (22-28) mmol/L ABG O2 Saturation 99.8 H (95-98) % ABG Base Excess 0.5 (-2.0-3.0) mmol/L ABG Hemoglobin 9.4 L (11.7-17.4) g/dL ABG Carboxyhemoglobin 2.2 H (0.5-1.5) % POC ABG HHb (Measured) 0.2 (0.0-5.0) % ABG Methemoglobin 0.7 (0.0-3.0) % Jordon Test Pos A-a O2 Difference 79.0 mm/Hg Respiratory Index 0.5 Hgb O2 Saturation 96.9 (95.0-98.0) % Vent Mode Prvc Mechanical Rate 16 FiO2 40.0 % Tidal Volume 350 PEEP 5 Sodium 144 (132-148) mmol/L Potassium 3.9 (3.6-5.2) mmol/L Chloride 104 (98-107) mmol/L Carbon Dioxide 24 (22-30) mmol/L Anion Gap 20 (10-20) BUN 40 H (7-17) mg/dL Creatinine 1.4 H (0.7-1.2) MG/DL Est GFR ( Amer) 43 Est GFR (Non-Af Amer) 36 Random Glucose 121 H (65-105) mg/dL Calcium 8.1 L (8.6-10.4) mg/dl Phosphorus 2.8 (2.5-4.5) mg/dL Magnesium 2.4 H (1.6-2.3) mg/dL Total Bilirubin 0.8 (0.2-1.3) mg/dL AST 13 L (14-36) U/L ALT 19 (9-52) U/L Alkaline Phosphatase 54 (38-126) U/L Total Protein 4.9 L (6.3-8.3) g/dL Albumin 2.8 L (3.5-5.0) g/dL Globulin 2.1 L (2.2-3.9) gm/dL Albumin/Globulin Ratio 1.3 (1.0-2.1) Laboratory Results - last 24 hr 01/07/17 01/07/17 01/07/17 04:45 06:19 06:24 WBC 8.7 RBC 3.06 L Hgb 8.8 L Hct 27.7 L MCV 90.3 MCH 28.6 MCHC 31.7 L RDW 15.6 H Plt Count 157 MPV 9.9 Neut % (Auto) 86.1 H Lymph % (Auto) 6.2 L Baker % (Auto) 6.4 Eos % (Auto) 0.8 Baso % (Auto) 0.5 Neut # 7.5 H Lymph # 0.5 L Baker # 0.6 Eos # 0.1 Baso # 0.0 Neutrophils % (Manual) 85 H Band Neutrophils % 2 Lymphocytes % (Manual) 4 L Monocytes % (Manual) 6 Eosinophils % (Manual) 2 Basophils % (Manual) 1 Toxic Granulation Present Platelet Estimate Normal Large Platelets Present Polychromasia Slight Hypochromasia (manual) Slight Poikilocytosis (manual Slight Basophilic Stippling Slight Anisocytosis (manual) Slight Ovalocytes Slight Puncture Site Rr pCO2 45 pO2 150 H HCO3 25.3 ABG pH 7.37 ABG Total CO2 27.4 ABG O2 Saturation 99.8 H ABG Base Excess 0.5 ABG Hemoglobin 9.4 L ABG Carboxyhemoglobin 2.2 H POC ABG HHb (Measured) 0.2 ABG Methemoglobin 0.7 Jordon Test Pos A-a O2 Difference 79.0 Respiratory Index 0.5 Hgb O2 Saturation 96.9 Vent Mode Prvc Mechanical Rate 16 FiO2 40.0 Tidal Volume 350 PEEP 5 Sodium 144 Potassium 3.9 Chloride 104 Carbon Dioxide 24 Anion Gap 20 BUN 40 H Creatinine 1.4 H Est GFR ( Amer) 43 Est GFR (Non-Af Amer) 36 Random Glucose 121 H Calcium 8.1 L Phosphorus 2.8 Magnesium 2.4 H Total Bilirubin 0.8 AST 13 L ALT 19 Alkaline Phosphatase 54 Total Protein 4.9 L Albumin 2.8 L Globulin 2.1 L Albumin/Globulin Ratio 1.3 Fingerstick Blood Sugar Results: 124
--- NOTE | 2017-01-07 20:08 | CP.PCM.PN ---
Subjective - Date & Time of Evaluation Date of Evaluation: 01/07/17 Time of Evaluation: 12:15 - Subjective Subjective: Patient seen and evaluated Intubated Awake Not in distress Objective - Vital Signs/Intake and Output Vital Signs (last 24 hours): Temp Pulse Resp BP Pulse Ox 98 F 86 21 101/58 L 90 L 01/07/17 16:00 01/07/17 19:06 01/07/17 19:06 01/07/17 19:06 01/07/17 17:08 Intake and Output: 01/07/17 01/08/17 18:59 06:59 Intake Total 0 Output Total 1030 50 Balance -1030 -50 - Medications Medications: Current Medications Albuterol/Ipratropium (Duoneb 3 Mg/0.5 Mg (3 Ml) Ud) 3 ml INH RQ6 [facility] Last Admin: 01/07/17 19:42 Dose: 3 ml Piperacillin Sod/Tazobactam Sod (Zosyn 2.25 Gm Iv Premix) 2.25 gm in 50 mls @ 100 mls/hr IVPB Q8H [facility] Last Admin: 01/07/17 15:00 Dose: 100 mls/hr Lorazepam (Ativan) 2 mg IVP Q6H PRN PRN Reason: Agitation Last Admin: 01/07/17 19:56 Dose: 2 mg Morphine Sulfate (Morphine) 1 mg IV Q4 PRN PRN Reason: Pain, moderate (4-7) Last Admin: 01/07/17 16:43 Dose: 1 mg Pantoprazole Sodium (Protonix Inj) 40 mg IVP DAILY [facility] Last Admin: 01/07/17 09:56 Dose: 40 mg - Labs Labs: 01/07/17 06:24 01/07/17 06:19 PT 13.5 SECONDS (9.7-12.2) H 01/02/17 06:32 INR 1.2 01/02/17 06:32 APTT 42 SECONDS (21-34) H 01/02/17 06:32 - Head Exam Head Exam: ATRAUMATIC, NORMAL INSPECTION - Eye Exam Eye Exam: EOMI, PERRL - ENT Exam ENT Exam: Mucous Membranes Moist - Neck Exam Neck Exam: Full ROM - Respiratory Exam Respiratory Exam: Clear to Ausculation Bilateral, NORMAL BREATHING PATTERN - Cardiovascular Exam Cardiovascular Exam: REGULAR RHYTHM, +S1, +S2 - Extremities Exam Extremities Exam: Full ROM - Neurological Exam Neurological Exam: Alert - Skin Skin Exam: Warm Assessment and Plan - Assessment and Plan (Free Text) Assessment: Patient is a 86-year-old female with history of hypertension heart failure renal insufficiency coronary it to bypass grafting admitted with acute septic shock. Code sepsis. Respiratory failure intubated. CAD Hx of CABG Severe Pulmonary HTN Continue current medications
--- NOTE | 2017-01-07 20:39 | CP.PCM.PN ---
Subjective - Date & Time of Evaluation Date of Evaluation: 01/07/17 Time of Evaluation: 16:00 - Subjective Subjective: Vented Objective - Vital Signs/Intake and Output Vital Signs (last 24 hours): Temp Pulse Resp BP Pulse Ox 98 F 113 H 21 77/62 L 76 L 01/07/17 16:00 01/07/17 20:07 01/07/17 20:07 01/07/17 20:07 01/07/17 20:07 Intake and Output: 01/07/17 01/08/17 18:59 06:59 Intake Total 0 40 Output Total 1030 50 Balance -1030 -10 - Medications Medications: Current Medications Albuterol/Ipratropium (Duoneb 3 Mg/0.5 Mg (3 Ml) Ud) 3 ml INH RQ6 [facility] Last Admin: 01/07/17 19:42 Dose: 3 ml Piperacillin Sod/Tazobactam Sod (Zosyn 2.25 Gm Iv Premix) 2.25 gm in 50 mls @ 100 mls/hr IVPB Q8H [facility] Last Admin: 01/07/17 15:00 Dose: 100 mls/hr Lorazepam (Ativan) 2 mg IVP Q6H PRN PRN Reason: Agitation Last Admin: 01/07/17 19:56 Dose: 2 mg Morphine Sulfate (Morphine) 1 mg IV Q4 PRN PRN Reason: Pain, moderate (4-7) Last Admin: 01/07/17 16:43 Dose: 1 mg Pantoprazole Sodium (Protonix Inj) 40 mg IVP DAILY [facility] Last Admin: 01/07/17 09:56 Dose: 40 mg - Labs Labs: 01/07/17 06:24 01/07/17 06:19 PT 13.5 SECONDS (9.7-12.2) H 01/02/17 06:32 INR 1.2 01/02/17 06:32 APTT 42 SECONDS (21-34) H 01/02/17 06:32 - Head Exam Head Exam: ATRAUMATIC - Eye Exam Eye Exam: Normal appearance - ENT Exam ENT Exam: Mucous Membranes Dry - Respiratory Exam Respiratory Exam: NORMAL BREATHING PATTERN - Cardiovascular Exam Cardiovascular Exam: +S1, +S2 - GI/Abdominal Exam GI & Abdominal Exam: Normal Bowel Sounds Assessment and Plan (1) Anemia Assessment & Plan: chronic disease CKD Status: Acute (2) Coagulopathy Assessment & Plan: nutritional improved Status: Acute (3) Thrombocytopenia Assessment & Plan: resolved Status: Acute
[2017-01-08] MEDS: Albuterol-Ipratrop 3 mg / 0.5 (3 ml) UD INH SCH ×4 (01:06→19:06)
[2017-01-08 04:49] LABS: ABG MECHANICAL RATE 16; ARTERIAL BLOOD GAS MODE PRVC; ARTERIAL BLOOD HGB O2 SAT 96.6 % (95.0-98.0); ATERIAL BLOOD GAS PEEP 5; CARBOXYHEMOGLOBIN 2.2 % (0.5-1.5); DRAW SITE RB; HHB 0.2 % (0.0-5.0)
[2017-01-08] MEDS: Piperacill/Tazo 2.25gm in Dex 2.25 GM/50 ML BAG IVPB SCH ×3 (06:22→22:00)
[2017-01-08 06:39] LABS: BASO # 0.1 K/uL (0.0-0.2); BASO % 1.3 % (0.0-2.0); EOS # 0.3 K/uL (0.0-0.7); EOS % 3.3 % (0.0-4.0); HEMATOCRIT 28.9 % (34.0-47.0); LYMPH # 0.6 K/uL (1.0-4.3); LYMPH % 7.9 % (20.0-40.0); MEAN CELL VOLUME 90.6 fL (81.0-99.0); MEAN CORPUSCULAR HEMOGLOBIN 29.3 pg (27.0-31.0); MEAN CORPUSCULAR HGB CONC 32.4 g/dL (33.0-37.0); MEAN PLATELET VOLUME 9.2 fL (7.2-11.7); MONO # 0.6 K/uL (0.0-0.8); MONO % 7.6 % (0.0-10.0); NRBC % 0.1 % (0.0-2.0); PLATELET COUNT 195 K/uL (130-400); RED CELL DISTRIBUTION WIDTH 16.8 % (11.5-14.5); WHITE BLOOD COUNT 8.1 K/uL (4.8-10.8)
[2017-01-08 06:59] LABS: ALB/GLOB RATIO 1.3 (1.0-2.1); BILIRUBIN,TOTAL 0.9 mg/dL (0.2-1.3); CALCIUM 8.5 mg/dl (8.6-10.4); MAGNESIUM 2.6 mg/dL (1.6-2.3); POTASSIUM 4.1 mmol/L (3.6-5.2); TOTAL PROTEIN 5.5 g/dL (6.3-8.3)
[2017-01-08 08:30] LABS: EOSINOPHIL 6 % (0-4); NEUTROPHIL 79 % (50-75); TOTAL CELLS COUNTED 100
--- NOTE | 2017-01-08 09:43 | VASCLAB ---
PROCEDURE: Lower Extremity Venous Duplex Exam. HISTORY: Leg pain PRIORS: None. TECHNIQUE: Bilateral common femoral, femoral, popliteal and posterior tibial, peroneal and great saphenous veins were evaluated. Flow was assessed with color Doppler, compressibility, assessment of phasic flow and augmentation response. Report prepared by RUBIO Gray, RVT FINDINGS: RIGHT: 1. Common Femoral Vein: 1.1. Compressibility - Fully compressible: Thrombus - None : Flow - Phasic: Augmentation -Normal: Reflux - None. 2. Femoral Vein: 2.1. Compressibility - Fully compressible: Thrombus - None : Flow - Phasic: Augmentation -Normal: Reflux - None. 3. Popliteal Vein: 3.1. Compressibility - Fully compressible: Thrombus - None : Flow - Phasic: Augmentation -Normal: Reflux - None. 4. Posterior Tibial Vein: 4.1. Compressibility - : Thrombus - : Flow - : Augmentation -: Reflux - . 5. Peroneal Vein: 5.1. Compressibility - : Thrombus - : Flow - : Augmentation -: Reflux - . 6. Great Saphenous Vein: 6.1. Compressibility - Fully compressible: Thrombus - None: Flow - Phasic: Augmentation - Normal: Reflux - None. LEFT: 1. Common Femoral Vein: 1.1. Compressibility - Fully compressible: Thrombus - None: Flow - Phasic: Augmentation -Normal: Reflux - None. 2. Femoral Vein: 2.1. Compressibility - Fully compressible: Thrombus - None: Flow - Phasic: Augmentation -Normal: Reflux - None. 3. Popliteal Vein: 3.1. Compressibility - Fully compressible: Thrombus - None : Flow - Phasic: Augmentation -Normal: Reflux - None. 4. Posterior Tibial Vein: 4.1. Compressibility - : Thrombus - : Flow - : Augmentation -: Reflux - . 5. Peroneal Vein: 5.1. Compressibility - : Thrombus - : Flow - : Augmentation -: Reflux - . 6. Great Saphenous Vein: 6.1. Compressibility - : Thrombus - : Flow - : Augmentation - : Reflux - . OTHER FINDINGS: Due to swelling in the calves, bilateral peroneal and posterior tibial vein are not visualized. The left greater saphenous vein has been previously removed. IMPRESSION: Right: No evidence of deep or superficial vein thrombosis of the right lower extremity. Normal valve function noted of the right side. Left: No evidence of deep or superficial vein thrombosis of the left lower extremity. Normal valve function noted of the left side.
--- NOTE | 2017-01-08 09:53 | RAD ---
PROCEDURE: CHEST RADIOGRAPH, 1 VIEW HISTORY: intubated patient COMPARISON: 01/07/2017 FINDINGS: LUNGS: No infiltrate PLEURA: Persistent small to moderate right pleural effusion. No pneumothorax. No left pleural effusion. CARDIOVASCULAR: Mild cardiomegaly accentuated by portable technique. Status post mitral valve replacement. ET tube and NG tube unchanged. Right PICC catheter unchanged. Right pleural pigtail catheter unchanged. OSSEOUS STRUCTURES: No significant abnormalities. VISUALIZED UPPER ABDOMEN: Normal. OTHER FINDINGS: None. IMPRESSION: No significant change from 01/07/2017.
--- NOTE | 2017-01-08 12:32 | CP.PCM.CON ---
<Gaby ZhouSaqib - Last Filed: 01/08/17 15:49> History of Present Illness - History of Present Illness History of Present Illness: 86 year old female with medical history of HTN, CHF, CKD, and CABG, presented to the ED by ambulance with shortness of breath. She complained of feeling nauseas, feverish, and had chills. She then became unresponsive. In the ED, patient was hypotensive and in respiratory distress. Code sepsis was called. Patient is in the ICU for respiratory distress, hypotension, and sepsis. Patient has been treated for respiratory failure, sepsis, atrial fibrillation, bilateral cellulitis of lower extremities. Patient is consulted for tracheostomy. Patient is currently intubated and sedated, therefore review of systems was not obtained. PMD: Dr. Smith PMHx: HTN, Mitral valve replacement, CABG (2016), CKD, CHF, Afib SurgHx: CABG (2016), mitral valve replacement FamHx: denies SocHx: denies tobacco, alcohol, and drug use; lives with sonPolo Allergies: Fish (reaction unknown) Medications: See EMR (History obtained by son/previous medical records) Review of Systems - Review of Systems Systems not reviewed;Unavailable: Intubated Past Patient History - Past Medical History & Family History Past Medical History?: Yes - Past Social History Smoking Status: Unknown If Ever Smoked - CARDIAC Hx Cardiac Disorders: Yes Hx Hypercholesterolemia: Yes Hx Hypertension: Yes Other/Comment: heart valve surgery as per son - PULMONARY Hx Respiratory Disorders: No - NEUROLOGICAL Hx Neurological Disorder: No - HEENT Hx HEENT Problems: No - RENAL Hx Chronic Kidney Disease: No - ENDOCRINE/METABOLIC Hx Endocrine Disorders: No - HEMATOLOGICAL/ONCOLOGICAL Hx Blood Disorders: No - INTEGUMENTARY Hx Dermatological Problems: No - MUSCULOSKELETAL/RHEUMATOLOGICAL Hx Musculoskeletal Disorders: No Hx Falls: No - GASTROINTESTINAL Hx Gastrointestinal Disorders: No - GENITOURINARY/GYNECOLOGICAL Hx Genitourinary Disorders: Yes - PSYCHIATRIC Hx Substance Use: No - SURGICAL HISTORY Hx Surgeries: Yes Other/Comment: cardiac surgery- valve - ANESTHESIA Hx Anesthesia: Yes Hx Anesthesia Reactions: No Hx Malignant Hyperthermia: No Has any member of the family had a problem w/ anesthesia?: No Meds Allergies/Adverse Reactions: Allergies Allergy/AdvReac Type Severity Reaction Status Date / Time SEAFOOD Allergy Uncoded 12/27/16 08:30 - Medications Medications: Current Medications Albuterol/Ipratropium (Duoneb 3 Mg/0.5 Mg (3 Ml) Ud) 3 ml INH RQ6 [facility] Last Admin: 01/08/17 07:57 Dose: 3 ml Piperacillin Sod/Tazobactam Sod (Zosyn 2.25 Gm Iv Premix) 2.25 gm in 50 mls @ 100 mls/hr IVPB Q8H [facility] Last Admin: 01/08/17 06:22 Dose: 100 mls/hr Lorazepam (Ativan) 2 mg IVP Q6H PRN PRN Reason: Agitation Last Admin: 01/08/17 09:29 Dose: 2 mg Morphine Sulfate (Morphine) 1 mg IV Q4 PRN PRN Reason: Pain, moderate (4-7) Last Admin: 01/08/17 06:21 Dose: 1 mg Pantoprazole Sodium (Protonix Inj) 40 mg IVP DAILY [facility] Last Admin: 01/08/17 09:28 Dose: 40 mg Physical Exam - Head Exam Head Exam: ATRAUMATIC, NORMAL INSPECTION - Eye Exam Eye Exam: PERRL. absent: EOMI Pupil Exam: PERRL - ENT Exam ENT Exam: Mucous Membranes Dry. absent: Mucous Membranes Moist - Respiratory Exam Respiratory Exam: Decreased Breath Sounds. absent: Rales, Rhonchi, Wheezes - Cardiovascular Exam Cardiovascular Exam: Irregular Rhythm, +S1, +S2. absent: REGULAR RHYTHM - GI/Abdominal Exam GI & Abdominal Exam: Distended, Hyperactive Bowel Sounds, Soft. absent: Tenderness - Extremities Exam Extremities exam: Positive for: pedal edema. Negative for: normal inspection (b /l edema and cellulitis of LE) Results - Vital Signs Recent Vital Signs: Last Vital Signs Temp 97.7 F 01/08/17 08:00 Pulse 92 H 01/08/17 11:14 Resp 19 01/08/17 11:14 BP 94/46 L 01/08/17 11:14 Pulse Ox 96 01/08/17 11:14 - Labs Result Diagrams: 01/08/17 06:25 01/08/17 06:25 Labs: Laboratory Results - last 24 hr 01/08/17 01/08/17 01/08/17 04:40 06:25 06:25 WBC 8.1 RBC 3.20 L Hgb 9.4 L Hct 28.9 L MCV 90.6 MCH 29.3 MCHC 32.4 L RDW 16.8 H Plt Count 195 MPV 9.2 Neut % (Auto) 79.9 H Lymph % (Auto) 7.9 L [place] % (Auto) 7.6 Eos % (Auto) 3.3 Baso % (Auto) 1.3 Neut # 6.5 Lymph # 0.6 L [place] # 0.6 Eos # 0.3 Baso # 0.1 Neutrophils % (Manual) 79 H Lymphocytes % (Manual) 8 L Monocytes % (Manual) 7 Eosinophils % (Manual) 6 H Platelet Estimate Normal Hypochromasia (manual) Slight Poikilocytosis (manual Slight Basophilic Stippling Slight Anisocytosis (manual) Slight Target Cells Slight Ovalocytes Slight Puncture Site Rb pCO2 45 pO2 160 H HCO3 25.9 ABG pH 7.38 ABG Total CO2 28.0 ABG O2 Saturation 99.8 H ABG Base Excess 1.2 ABG Hemoglobin 8.9 L ABG Carboxyhemoglobin 2.2 H POC ABG HHb (Measured) 0.2 ABG Methemoglobin 1.0 Jordno Test Na A-a O2 Difference 69.0 Respiratory Index 0.4 Hgb O2 Saturation 96.6 Vent Mode Prvc Mechanical Rate 16 FiO2 40.0 Tidal Volume 350 PEEP 5 Sodium 142 Potassium 4.1 Chloride 105 Carbon Dioxide 25 Anion Gap 16 BUN 44 H Creatinine 1.5 H Est GFR ( Amer) 40 Est GFR (Non-Af Amer) 33 Random Glucose 124 H Calcium 8.5 L Phosphorus 3.0 Magnesium 2.6 H Total Bilirubin 0.9 AST 18 ALT 18 Alkaline Phosphatase 72 Total Protein 5.5 L Albumin 3.1 L Globulin 2.4 Albumin/Globulin Ratio 1.3 Assessment & Plan (1) Respiratory distress Assessment and Plan: 86 year old female with medical history of HTN, CABG, CKD, CHF, Afib, who presented with respiratory distress, sepsis, and altered mental status, is consulted for tracheostomy. - Planned tracheostomy in OR on 01/10/17. - NPO after midnight and hold anticoagulation prior to procedure - Continue medical management as per ICU team. Status: Acute <Elvis Garcia - Last Filed: 01/08/17 19:36> Meds - Medications Medications: Current Medications Albuterol/Ipratropium (Duoneb 3 Mg/0.5 Mg (3 Ml) Ud) 3 ml INH RQ6 [facility]AHRA Last Admin: 01/08/17 19:06 Dose: 3 ml Piperacillin Sod/Tazobactam Sod (Zosyn 2.25 Gm Iv Premix) 2.25 gm in 50 mls @ 100 mls/hr IVPB Q8H [facility] Last Admin: 01/08/17 15:41 Dose: 100 mls/hr Lorazepam (Ativan) 2 mg IVP Q6H PRN PRN Reason: Agitation Last Admin: 01/08/17 18:20 Dose: 2 mg Morphine Sulfate (Morphine) 1 mg IV Q4 PRN PRN Reason: Pain, moderate (4-7) Last Admin: 01/08/17 12:49 Dose: 1 mg Pantoprazole Sodium (Protonix Inj) 40 mg IVP DAILY [facility] Last Admin: 01/08/17 09:28 Dose: 40 mg Results - Vital Signs Recent Vital Signs: Last Vital Signs Temp 98 F 01/08/17 16:00 Pulse 92 H 01/08/17 19:28 Resp 17 01/08/17 19:28 BP 83/43 L 01/08/17 19:28 Pulse Ox 97 01/08/17 19:06 - Labs Result Diagrams: 01/08/17 06:25 01/08/17 06:25 Labs: Laboratory Results - last 24 hr 01/08/17 01/08/17 01/08/17 04:40 06:25 06:25 WBC 8.1 RBC 3.20 L Hgb 9.4 L Hct 28.9 L MCV 90.6 MCH 29.3 MCHC 32.4 L RDW 16.8 H Plt Count 195 MPV 9.2 Neut % (Auto) 79.9 H Lymph % (Auto) 7.9 L [place] % (Auto) 7.6 Eos % (Auto) 3.3 Baso % (Auto) 1.3 Neut # 6.5 Lymph # 0.6 L [place] # 0.6 Eos # 0.3 Baso # 0.1 Neutrophils % (Manual) 79 H Lymphocytes % (Manual) 8 L Monocytes % (Manual) 7 Eosinophils % (Manual) 6 H Platelet Estimate Normal Hypochromasia (manual) Slight Poikilocytosis (manual Slight Basophilic Stippling Slight Anisocytosis (manual) Slight Target Cells Slight Ovalocytes Slight Puncture Site Rb pCO2 45 pO2 160 H HCO3 25.9 ABG pH 7.38 ABG Total CO2 28.0 ABG O2 Saturation 99.8 H ABG Base Excess 1.2 ABG Hemoglobin 8.9 L ABG Carboxyhemoglobin 2.2 H POC ABG HHb (Measured) 0.2 ABG Methemoglobin 1.0 Jordon Test Na A-a O2 Difference 69.0 Respiratory Index 0.4 Hgb O2 Saturation 96.6 Vent Mode Prvc Mechanical Rate 16 FiO2 40.0 Tidal Volume 350 PEEP 5 Sodium 142 Potassium 4.1 Chloride 105 Carbon Dioxide 25 Anion Gap 16 BUN 44 H Creatinine 1.5 H Est GFR ( Amer) 40 Est GFR (Non-Af Amer) 33 Random Glucose 124 H Calcium 8.5 L Phosphorus 3.0 Magnesium 2.6 H Total Bilirubin 0.9 AST 18 ALT 18 Alkaline Phosphatase 72 Total Protein 5.5 L Albumin 3.1 L Globulin 2.4 Albumin/Globulin Ratio 1.3 Attending/Attestation - Attestation I have personally seen and examined this patient.: Yes I have fully participated in the care of the patient.: Yes I have reviewed all pertinent clinical information: Yes Notes (Text): 01/08/17 19:35 Pt was seen and examined at bedside Agree with above note and assessment Pt with VDRF Neck exam: Supple, No thyromegaly, No JVD Skin: warm ,dry no ulceration Labs and radiology reivewed C.w IV antibiotics Medical clearance for Trach Plan d.w Son and ICU team in detail Risk and benefit explained in detail.
--- NOTE | 2017-01-08 15:00 | CP.PCM.PN ---
Subjective - Date & Time of Evaluation Date of Evaluation: 01/08/17 Time of Evaluation: 13:00 - Subjective Subjective: Patient seen and examined in ICU. Patient is intubated and sedated. Chest tube in place. Objective - Vital Signs/Intake and Output Vital Signs (last 24 hours): Temp Pulse Resp BP Pulse Ox 98.8 F 88 16 92/41 L 100 01/08/17 12:00 01/08/17 14:06 01/08/17 14:06 01/08/17 14:06 01/08/17 14:06 Intake and Output: 01/08/17 01/08/17 06:59 18:59 Intake Total 580 480 Output Total 255 205 Balance 325 275 - Medications Medications: Current Medications Albuterol/Ipratropium (Duoneb 3 Mg/0.5 Mg (3 Ml) Ud) 3 ml INH RQ6 [facility]AHRA Last Admin: 01/08/17 14:13 Dose: 3 ml Piperacillin Sod/Tazobactam Sod (Zosyn 2.25 Gm Iv Premix) 2.25 gm in 50 mls @ 100 mls/hr IVPB Q8H [facility] Last Admin: 01/08/17 06:22 Dose: 100 mls/hr Lorazepam (Ativan) 2 mg IVP Q6H PRN PRN Reason: Agitation Last Admin: 01/08/17 09:29 Dose: 2 mg Morphine Sulfate (Morphine) 1 mg IV Q4 PRN PRN Reason: Pain, moderate (4-7) Last Admin: 01/08/17 12:49 Dose: 1 mg Pantoprazole Sodium (Protonix Inj) 40 mg IVP DAILY [facility] Last Admin: 01/08/17 09:28 Dose: 40 mg - Labs Labs: 01/08/17 06:25 01/08/17 06:25 PT 13.5 SECONDS (9.7-12.2) H 01/02/17 06:32 INR 1.2 01/02/17 06:32 APTT 42 SECONDS (21-34) H 01/02/17 06:32 - Head Exam Head Exam: ATRAUMATIC, NORMOCEPHALIC - Eye Exam Eye Exam: Normal appearance - Respiratory Exam Additional comments: Patient is on ventilator support. Chest tube is in place. - Cardiovascular Exam Cardiovascular Exam: +S1, +S2 - Extremities Exam Extremities Exam: Pedal Edema Assessment and Plan (1) CHF (congestive heart failure) Status: Acute (2) Cellulitis and abscess of foot Status: Acute (3) H/O mitral valve replacement Status: Acute (4) Hypotension Status: Acute (5) Pneumonia Status: Acute (6) Septic shock Status: Acute - Assessment and Plan (Free Text) Plan: Continue antibiotic treatment for sepsis. Continue weaning trial as per ICU team. Discussed the plan of care with the ICU team.
--- NOTE | 2017-01-08 16:40 | CP.CCUPN ---
<ClairDom R - Last Filed: 01/08/17 16:32> CCU Subjective - Physician Review Subjective (Free Text): Patient was seen and examined at bedside in the morning. Patient is awake and alert during examination. Patient is intubated, unable to obtain review of systems. 01/08/17 16:32 CCU Objective - Vital Signs / Intake & Output Vital Signs (Last 4 hours): Vital Signs Pulse Resp BP Pulse Ox 01/08/17 15:06 98/51 L 01/08/17 15:00 96 H 20 98/51 L 100 01/08/17 14:06 88 16 92/41 L 100 01/08/17 13:09 112 H 40 H 109/40 L Intake and Output (Last 8hrs): Intake & Output 01/08/17 01/08/17 01/08/17 06:59 14:59 22:59 Intake Total 320 480 90 Output Total 130 205 Balance 190 275 90 Weight 154 lb 12.232 oz Intake: Intake, IV Amount 50 Right Proximal Port 50 Subclavian Tube Feeding 320 280 40 Other 200 Output: Urine 130 205 Urethral ([place]) 130 205 Other: # Bowel Movements 1 1 - Physical Exam Head: Negative for: Atraumatic, Normocephalic Pupils: Positive for: PERRL Extroacular Muscles: Positive for: EOMI Mouth: Positive for: Moist Mucous Membranes Neck: Positive for: Trachea Midline Respiratory/Chest: Positive for: Decreased Breath Sounds. Negative for: Rales, Rhonchi Cardiovascular: Positive for: Normal S1, S2, Irregular Rhythm, Tachycardic Abdomen: Positive for: Distention. Negative for: Tenderness, Normal Bowel Sounds (hypoactive) Upper Extremity: Positive for: Normal Inspection Lower Extremity: Positive for: Edema, Swelling, Other (serosanginous fluid blisters on LE B/L). Negative for: Normal Inspection Skin: Positive for: Warm, Erythematous, Other (serosanginous fluid blisters on LE B/L). Negative for: Dry, Normal Color Psychiatric: Positive for: Alert - Medications Active Medications: Active Medications Generic Name Dose Route Start Last Admin Trade Name Freq PRN Reason Stop Dose Admin Albuterol/Ipratropium 3 ml 01/06/17 14:00 01/08/17 14:13 Duoneb 3 Mg/0.5 Mg (3 Ml) Ud INH 3 ml RQ6 ZAHRA Administration Piperacillin Sod/Tazobactam Sod 2.25 gm in 50 mls @ 100 mls/hr 12/27/16 15:00 01/08/17 15:41 Zosyn 2.25 Gm Iv Premix IVPB 100 mls/hr Q8H ZAHRA Administration Lorazepam 2 mg 01/02/17 00:17 01/08/17 09:29 Ativan IVP 2 mg Q6H PRN Administration Agitation Morphine Sulfate 1 mg 01/04/17 11:05 01/08/17 12:49 Morphine IV 1 mg Q4 PRN Administration Pain, moderate (4-7) Pantoprazole Sodium 40 mg 01/04/17 10:00 01/08/17 09:28 Protonix Inj IVP 40 mg DAILY ZAHRA Administration - Patient Studies Lab Studies: Lab Studies 01/08/17 01/08/17 01/08/17 Range/Units 06:25 06:25 04:40 WBC 8.1 (4.8-10.8) K/uL RBC 3.20 L (3.80-5.20) Mil/uL Hgb 9.4 L (11.0-16.0) g/dL Hct 28.9 L (34.0-47.0) % MCV 90.6 (81.0-99.0) fL MCH 29.3 (27.0-31.0) pg MCHC 32.4 L (33.0-37.0) g/dL RDW 16.8 H (11.5-14.5) % Plt Count 195 (130-400) K/uL MPV 9.2 (7.2-11.7) fL Neut % (Auto) 79.9 H (50.0-75.0) % Lymph % (Auto) 7.9 L (20.0-40.0) % Bent % (Auto) 7.6 (0.0-10.0) % Eos % (Auto) 3.3 (0.0-4.0) % Baso % (Auto) 1.3 (0.0-2.0) % Neut # 6.5 (1.8-7.0) K/uL Lymph # 0.6 L (1.0-4.3) K/uL Bent # 0.6 (0.0-0.8) K/uL Eos # 0.3 (0.0-0.7) K/uL Baso # 0.1 (0.0-0.2) K/uL Neutrophils % (Manual) 79 H (50-75) % Lymphocytes % (Manual) 8 L (20-40) % Monocytes % (Manual) 7 (0-10) % Eosinophils % (Manual) 6 H (0-4) % Platelet Estimate Normal (NORMAL) Hypochromasia (manual) Slight Poikilocytosis (manual Slight Basophilic Stippling Slight Anisocytosis (manual) Slight Target Cells Slight Ovalocytes Slight Puncture Site Rb pCO2 45 (35-45) mm/Hg pO2 160 H (80-100) mm/Hg HCO3 25.9 (21-28) mmol/L ABG pH 7.38 (7.35-7.45) ABG Total CO2 28.0 (22-28) mmol/L ABG O2 Saturation 99.8 H (95-98) % ABG Base Excess 1.2 (-2.0-3.0) mmol/L ABG Hemoglobin 8.9 L (11.7-17.4) g/dL ABG Carboxyhemoglobin 2.2 H (0.5-1.5) % POC ABG HHb (Measured) 0.2 (0.0-5.0) % ABG Methemoglobin 1.0 (0.0-3.0) % Jordon Test Na A-a O2 Difference 69.0 mm/Hg Respiratory Index 0.4 Hgb O2 Saturation 96.6 (95.0-98.0) % Vent Mode Prvc Mechanical Rate 16 FiO2 40.0 % Tidal Volume 350 PEEP 5 Sodium 142 (132-148) mmol/L Potassium 4.1 (3.6-5.2) mmol/L Chloride 105 (98-107) mmol/L Carbon Dioxide 25 (22-30) mmol/L Anion Gap 16 (10-20) BUN 44 H (7-17) mg/dL Creatinine 1.5 H (0.7-1.2) MG/DL Est GFR ( Amer) 40 Est GFR (Non-Af Amer) 33 Random Glucose 124 H (65-105) mg/dL Calcium 8.5 L (8.6-10.4) mg/dl Phosphorus 3.0 (2.5-4.5) mg/dL Magnesium 2.6 H (1.6-2.3) mg/dL Total Bilirubin 0.9 (0.2-1.3) mg/dL AST 18 (14-36) U/L ALT 18 (9-52) U/L Alkaline Phosphatase 72 (38-126) U/L Total Protein 5.5 L (6.3-8.3) g/dL Albumin 3.1 L (3.5-5.0) g/dL Globulin 2.4 (2.2-3.9) gm/dL Albumin/Globulin Ratio 1.3 (1.0-2.1) Laboratory Results - last 24 hr 01/08/17 01/08/17 01/08/17 04:40 06:25 06:25 WBC 8.1 RBC 3.20 L Hgb 9.4 L Hct 28.9 L MCV 90.6 MCH 29.3 MCHC 32.4 L RDW 16.8 H Plt Count 195 MPV 9.2 Neut % (Auto) 79.9 H Lymph % (Auto) 7.9 L Bent % (Auto) 7.6 Eos % (Auto) 3.3 Baso % (Auto) 1.3 Neut # 6.5 Lymph # 0.6 L Bent # 0.6 Eos # 0.3 Baso # 0.1 Neutrophils % (Manual) 79 H Lymphocytes % (Manual) 8 L Monocytes % (Manual) 7 Eosinophils % (Manual) 6 H Platelet Estimate Normal Hypochromasia (manual) Slight Poikilocytosis (manual Slight Basophilic Stippling Slight Anisocytosis (manual) Slight Target Cells Slight Ovalocytes Slight Puncture Site Rb pCO2 45 pO2 160 H HCO3 25.9 ABG pH 7.38 ABG Total CO2 28.0 ABG O2 Saturation 99.8 H ABG Base Excess 1.2 ABG Hemoglobin 8.9 L ABG Carboxyhemoglobin 2.2 H POC ABG HHb (Measured) 0.2 ABG Methemoglobin 1.0 Jordon Test Na A-a O2 Difference 69.0 Respiratory Index 0.4 Hgb O2 Saturation 96.6 Vent Mode Prvc Mechanical Rate 16 FiO2 40.0 Tidal Volume 350 PEEP 5 Sodium 142 Potassium 4.1 Chloride 105 Carbon Dioxide 25 Anion Gap 16 BUN 44 H Creatinine 1.5 H Est GFR ( Amer) 40 Est GFR (Non-Af Amer) 33 Random Glucose 124 H Calcium 8.5 L Phosphorus 3.0 Magnesium 2.6 H Total Bilirubin 0.9 AST 18 ALT 18 Alkaline Phosphatase 72 Total Protein 5.5 L Albumin 3.1 L Globulin 2.4 Albumin/Globulin Ratio 1.3 Fingerstick Blood Sugar Results: 124 Review of Systems - Review of Systems Systems not reviewed;Unavailable: Intubated Critical Care Progress Note - Vent Settings TIDAL VOLUME:: 450 FIO2:: 40 PEEP:: 5 Assessment/Plan - Assessment and Plan (Free Text) Assessment: 86 year old female with medical history of HTN, CHF, CKD, and CABG, presents to the ED by ambulance with shortness of breath. The patient's son, Polo, reports she felt nauseas, feverish, and had chills this morning. As he was helping her to the restroom, patient urinated on self, passed out, and remained unresponsive. In the ED, patient was hypotensive and in respiratory distress. Code sepsis was called. Patient is consulted in the ICU for respiratory distress , hypotension, and sepsis. Patient's chest xray showed opacification of right hemithorax with midline shift. Review of systems was not obtained due to patients status. Patient was intubated, pigtail chest tube placed, waterseal, and pleural fluid drained. Repeat chest xray showed improvement. Underlying infiltrate likely pneumonia- started Zosyn and Vancomycin. Patient was hypotensive, required pressors. Patient has persistent pleural effusion - consider chest tube replacement if drainage of residual pleural effusion stops. Patient's leukocytosis and bandemia are improving. As per cardiology, patient should have CT angio to rule out PE, and if negative, possibly start patient on inotropic medication for CHF/Right heart dysfunction. CT Angio done on 01/05/17. Patient still poor prognosis. Continue to monitor. Neuro: off sedation - prn versed for agitation Pulm: Respiratory distress - Intubated - CXR: opacification of right hemithorax with midline shift - Repeat CXR (post Chest tube): markedly decreased pleural effusion; patchy opacities in right hemithorax - CXR (12/29/16): improving right lower lobe airspace disease; stable small right pleural effusion with loculated component at right lateral wall, persistent cardiomegaly with small left pleural effusion. - Pigtail chest tube placed, drained pleural fluid - Pleural fluid studies: Cloudy, WBC 99, RBC 2007, Neutrophils 11, Lymphocytes 78, Monocyte/Macrophage 10 - Chest CT: increasing right pleural effusion, increasing right lower lobe atelectasis; patchy opacity in lingula; small right hydro-pneumothorax; ascites , hepatic cirrhosis - Consulted Thoracic surgery regarding persistent pleural effusion: Dr. Aragon, help appreciated - No intervention at this time. - Consider chest tube replacement if current tube does not drain residual pleural effusion - CT Angio to r/o PE: f/u - Gen Surg consulted, Dr Garcia, for tracheostomy CV: Hypotensive, CHF, Afib - Central line placed - Patient on pressors - IV Fluids + Albumin - Troponin: 0.1280 - BNP: 39702 - ECHO: LVEF 14%, severely dilated and mildly hypertrophied RV, RV systolic function mild-mod reduced; LA/RA severely dilated, restriction of posterior MV leaflet; mild MR; severe TR, pulm HTN, mild-mod pulmonic valvular regurgitation , mod pulmonary artery dilatation; severely dilated IVC. - Cardiology consulted: Dr. Hill, help appreciated - As per Dr. Hill, patient has severe pulmonary HTN, CAD s/p CABG, s/p MVR - Venous dupluex LE B/L: no DVTs - Afib: rate-controlled Endo: no acute issues GI: - Tube feeding - Distended abdomen - Abdominal US: liver cirrhosis, large abdominal/pelvic ascites, small right pleural effusion, cholelithiasis, diffuse gallbladder wall thickening likely secondary to liver cirrhosis. - s/p Paracentesis (01/02/17)- removed 2L fluid. - Fluid analysis: LDH 81, albumin 1.5, Fluid RBCs- 8529, Total cell count- 100, Neutrophil- 69, Lymphocytes-30, monocyte/macro 1. - Peritoneal cx: no growth x 3days Heme: thrombocytopenic - Hematology consulted- Dr. Posey, help appreciated Renal: history of kidney disease - BUN/Cr: 28/1.5 - Monitor kidney function - Hypokalemic- gave KCl ID: Code Sepsis - Likely secondary to pneumonia and/or LE cellulitis - Bandemia: improving - UA: 1+ protein, 2 urobilinogen, 9 squam epith cells - Blood cx: no growth x5days - Urine cx: no growth - Sputum cx: normal oral [place] - Wound cx: Staph aureius + - Wound care consulted - ID consulted- Dr. Ramires, help appreciated - As per ID, Continue zosyn Prophylaxis: - DVT: Discontinued Heparin 5,000units SC (thrombocytopenia) - GI: Protonix <Inna Chen - Last Filed: 01/08/17 18:04> CCU Objective - Vital Signs / Intake & Output Vital Signs (Last 4 hours): Vital Signs Temp Pulse Resp BP Pulse Ox 01/08/17 16:06 96/53 L 01/08/17 16:00 98 F 94 H 19 100 01/08/17 15:06 98/51 L 01/08/17 15:00 96 H 20 98/51 L 100 01/08/17 14:06 88 16 92/41 L 100 Intake and Output (Last 8hrs): Intake & Output 01/08/17 01/08/17 01/08/17 06:59 14:59 22:59 Intake Total 320 480 130 Output Total 130 205 50 Balance 190 275 80 Weight 154 lb 12.232 oz Intake: Intake, IV Amount 50 Right Proximal Port 50 Subclavian Tube Feeding 320 280 80 Other 200 Output: Urine 130 205 50 Urethral ([place]) 130 205 50 Other: # Bowel Movements 1 1 - Medications Active Medications: Active Medications Generic Name Dose Route Start Last Admin Trade Name Freq PRN Reason Stop Dose Admin Albuterol/Ipratropium 3 ml 01/06/17 14:00 01/08/17 14:13 Duoneb 3 Mg/0.5 Mg (3 Ml) Ud INH 3 ml RQ6 ZAHRA Administration Piperacillin Sod/Tazobactam Sod 2.25 gm in 50 mls @ 100 mls/hr 12/27/16 15:00 01/08/17 15:41 Zosyn 2.25 Gm Iv Premix IVPB 100 mls/hr Q8H ZAHRA Administration Lorazepam 2 mg 01/02/17 00:17 01/08/17 09:29 Ativan IVP 2 mg Q6H PRN Administration Agitation Morphine Sulfate 1 mg 01/04/17 11:05 01/08/17 12:49 Morphine IV 1 mg Q4 PRN Administration Pain, moderate (4-7) Pantoprazole Sodium 40 mg 01/04/17 10:00 01/08/17 09:28 Protonix Inj IVP 40 mg DAILY ZAHRA Administration - Patient Studies Lab Studies: Lab Studies 01/08/17 01/08/17 01/08/17 Range/Units 06:25 06:25 04:40 WBC 8.1 (4.8-10.8) K/uL RBC 3.20 L (3.80-5.20) Mil/uL Hgb 9.4 L (11.0-16.0) g/dL Hct 28.9 L (34.0-47.0) % MCV 90.6 (81.0-99.0) fL MCH 29.3 (27.0-31.0) pg MCHC 32.4 L (33.0-37.0) g/dL RDW 16.8 H (11.5-14.5) % Plt Count 195 (130-400) K/uL MPV 9.2 (7.2-11.7) fL Neut % (Auto) 79.9 H (50.0-75.0) % Lymph % (Auto) 7.9 L (20.0-40.0) % Bent % (Auto) 7.6 (0.0-10.0) % Eos % (Auto) 3.3 (0.0-4.0) % Baso % (Auto) 1.3 (0.0-2.0) % Neut # 6.5 (1.8-7.0) K/uL Lymph # 0.6 L (1.0-4.3) K/uL Bent # 0.6 (0.0-0.8) K/uL Eos # 0.3 (0.0-0.7) K/uL Baso # 0.1 (0.0-0.2) K/uL Neutrophils % (Manual) 79 H (50-75) % Lymphocytes % (Manual) 8 L (20-40) % Monocytes % (Manual) 7 (0-10) % Eosinophils % (Manual) 6 H (0-4) % Platelet Estimate Normal (NORMAL) Hypochromasia (manual) Slight Poikilocytosis (manual Slight Basophilic Stippling Slight Anisocytosis (manual) Slight Target Cells Slight Ovalocytes Slight Puncture Site Rb pCO2 45 (35-45) mm/Hg pO2 160 H (80-100) mm/Hg HCO3 25.9 (21-28) mmol/L ABG pH 7.38 (7.35-7.45) ABG Total CO2 28.0 (22-28) mmol/L ABG O2 Saturation 99.8 H (95-98) % ABG Base Excess 1.2 (-2.0-3.0) mmol/L ABG Hemoglobin 8.9 L (11.7-17.4) g/dL ABG Carboxyhemoglobin 2.2 H (0.5-1.5) % POC ABG HHb (Measured) 0.2 (0.0-5.0) % ABG Methemoglobin 1.0 (0.0-3.0) % Jordon Test Na A-a O2 Difference 69.0 mm/Hg Respiratory Index 0.4 Hgb O2 Saturation 96.6 (95.0-98.0) % Vent Mode Prvc Mechanical Rate 16 FiO2 40.0 % Tidal Volume 350 PEEP 5 Sodium 142 (132-148) mmol/L Potassium 4.1 (3.6-5.2) mmol/L Chloride 105 (98-107) mmol/L Carbon Dioxide 25 (22-30) mmol/L Anion Gap 16 (10-20) BUN 44 H (7-17) mg/dL Creatinine 1.5 H (0.7-1.2) MG/DL Est GFR ( Amer) 40 Est GFR (Non-Af Amer) 33 Random Glucose 124 H (65-105) mg/dL Calcium 8.5 L (8.6-10.4) mg/dl Phosphorus 3.0 (2.5-4.5) mg/dL Magnesium 2.6 H (1.6-2.3) mg/dL Total Bilirubin 0.9 (0.2-1.3) mg/dL AST 18 (14-36) U/L ALT 18 (9-52) U/L Alkaline Phosphatase 72 (38-126) U/L Total Protein 5.5 L (6.3-8.3) g/dL Albumin 3.1 L (3.5-5.0) g/dL Globulin 2.4 (2.2-3.9) gm/dL Albumin/Globulin Ratio 1.3 (1.0-2.1) Laboratory Results - last 24 hr 01/08/17 01/08/17 01/08/17 04:40 06:25 06:25 WBC 8.1 RBC 3.20 L Hgb 9.4 L Hct 28.9 L MCV 90.6 MCH 29.3 MCHC 32.4 L RDW 16.8 H Plt Count 195 MPV 9.2 Neut % (Auto) 79.9 H Lymph % (Auto) 7.9 L Bent % (Auto) 7.6 Eos % (Auto) 3.3 Baso % (Auto) 1.3 Neut # 6.5 Lymph # 0.6 L Bent # 0.6 Eos # 0.3 Baso # 0.1 Neutrophils % (Manual) 79 H Lymphocytes % (Manual) 8 L Monocytes % (Manual) 7 Eosinophils % (Manual) 6 H Platelet Estimate Normal Hypochromasia (manual) Slight Poikilocytosis (manual Slight Basophilic Stippling Slight Anisocytosis (manual) Slight Target Cells Slight Ovalocytes Slight Puncture Site Rb pCO2 45 pO2 160 H HCO3 25.9 ABG pH 7.38 ABG Total CO2 28.0 ABG O2 Saturation 99.8 H ABG Base Excess 1.2 ABG Hemoglobin 8.9 L ABG Carboxyhemoglobin 2.2 H POC ABG HHb (Measured) 0.2 ABG Methemoglobin 1.0 Jordon Test Na A-a O2 Difference 69.0 Respiratory Index 0.4 Hgb O2 Saturation 96.6 Vent Mode Prvc Mechanical Rate 16 FiO2 40.0 Tidal Volume 350 PEEP 5 Sodium 142 Potassium 4.1 Chloride 105 Carbon Dioxide 25 Anion Gap 16 BUN 44 H Creatinine 1.5 H Est GFR ( Amer) 40 Est GFR (Non-Af Amer) 33 Random Glucose 124 H Calcium 8.5 L Phosphorus 3.0 Magnesium 2.6 H Total Bilirubin 0.9 AST 18 ALT 18 Alkaline Phosphatase 72 Total Protein 5.5 L Albumin 3.1 L Globulin 2.4 Albumin/Globulin Ratio 1.3 Assessment/Plan - Assessment and Plan (Free Text) Assessment: patient was examined and the bedside. Spoke to the patient's son today. Patient is still having episodes of apnea, tachypnea, tachycardia, hypoxia. After multiple discussions with the family, they agreed for tracheostomy and feeding tube. Spoke to the surgery, patient will be possibly having tracheostomy on Sunday We'll continue the supportive care. diuretics Antibiotic. And will follow the patient with ICU team
--- NOTE | 2017-01-08 22:49 | CP.PCM.PN ---
Subjective - Date & Time of Evaluation Date of Evaluation: 01/08/17 Time of Evaluation: 09:15 - Subjective Subjective: Patient seen and evaluated On mechanical ventilation Not in distress Objective - Vital Signs/Intake and Output Vital Signs (last 24 hours): Temp Pulse Resp BP Pulse Ox 98.4 F 103 H 22 104/60 95 01/08/17 20:00 01/08/17 21:07 01/08/17 21:07 01/08/17 21:07 01/08/17 21:07 Intake and Output: 01/08/17 01/09/17 18:59 06:59 Intake Total 790 120 Output Total 305 80 Balance 485 40 - Medications Medications: Current Medications Albuterol/Ipratropium (Duoneb 3 Mg/0.5 Mg (3 Ml) Ud) 3 ml INH RQ6 ZAHRA Last Admin: 01/08/17 19:06 Dose: 3 ml Piperacillin Sod/Tazobactam Sod (Zosyn 2.25 Gm Iv Premix) 2.25 gm in 50 mls @ 100 mls/hr IVPB Q8H ZAHRA Last Admin: 01/08/17 15:41 Dose: 100 mls/hr Lorazepam (Ativan) 2 mg IVP Q6H PRN PRN Reason: Agitation Last Admin: 01/08/17 18:20 Dose: 2 mg Morphine Sulfate (Morphine) 1 mg IV Q4 PRN PRN Reason: Pain, moderate (4-7) Last Admin: 01/08/17 20:15 Dose: 1 mg Pantoprazole Sodium (Protonix Inj) 40 mg IVP DAILY ZAHRA Last Admin: 01/08/17 09:28 Dose: 40 mg - Labs Labs: 01/08/17 06:25 01/08/17 06:25 PT 13.5 SECONDS (9.7-12.2) H 01/02/17 06:32 INR 1.2 01/02/17 06:32 APTT 42 SECONDS (21-34) H 01/02/17 06:32 - Head Exam Head Exam: ATRAUMATIC - Eye Exam Eye Exam: EOMI, PERRL - ENT Exam ENT Exam: Mucous Membranes Moist - Cardiovascular Exam Cardiovascular Exam: RRR, +S1, +S2 - GI/Abdominal Exam GI & Abdominal Exam: Soft, Normal Bowel Sounds - Skin Skin Exam: Warm Assessment and Plan - Assessment and Plan (Free Text) Assessment: 86 year old female with medical history of HTN, CHF, CKD, and CABG, presents to the ED by ambulance with shortness of breath. The patient's son, Polo, reports she felt nauseas, feverish, and had chills this morning. As he was helping her to the restroom, patient urinated on self, passed out, and remained unresponsive. In the ED, patient was hypotensive and in respiratory distress. Code sepsis was called. Patient is consulted in the ICU for respiratory distress , hypotension, and sepsis. Patient's chest xray showed opacification of right hemithorax with midline shift. Review of systems was not obtained due to patients status. Patient was intubated, pigtail chest tube placed, waterseal, and pleural fluid drained. Repeat chest xray showed improvement. Underlying infiltrate likely pneumonia- started Zosyn and Vancomycin. Patient was hypotensive, required pressors. Patient has persistent pleural effusion - consider chest tube replacement if drainage of residual pleural effusion stops. Patient's leukocytosis and bandemia are improving. As per cardiology, patient should have CT angio to rule out PE, and if negative, possibly start patient on inotropic medication for CHF/Right heart dysfunction. CT Angio done on 01/05/17. Patient still poor prognosis. Continue to monitor. Neuro: off sedation - prn versed for agitation Pulm: Respiratory distress - Intubated - CXR: opacification of right hemithorax with midline shift - Repeat CXR (post Chest tube): markedly decreased pleural effusion; patchy opacities in right hemithorax - CXR (12/29/16): improving right lower lobe airspace disease; stable small right pleural effusion with loculated component at right lateral wall, persistent cardiomegaly with small left pleural effusion. - Pigtail chest tube placed, drained pleural fluid - Pleural fluid studies: Cloudy, WBC 99, RBC 2007, Neutrophils 11, Lymphocytes 78, Monocyte/Macrophage 10 - Chest CT: increasing right pleural effusion, increasing right lower lobe atelectasis; patchy opacity in lingula; small right hydro-pneumothorax; ascites , hepatic cirrhosis - Consulted Thoracic surgery regarding persistent pleural effusion: Dr. Aragon, help appreciated - No intervention at this time. - Consider chest tube replacement if current tube does not drain residual pleural effusion - CT Angio to r/o PE: f/u - Gen Surg consulted, Dr Garcia, for tracheostomy CV: Hypotensive, CHF, Afib - Central line placed - Patient on pressors - IV Fluids + Albumin - Troponin: 0.1280 - BNP: 44024 - ECHO: LVEF 14%, severely dilated and mildly hypertrophied RV, RV systolic function mild-mod reduced; LA/RA severely dilated, restriction of posterior MV leaflet; mild MR; severe TR, pulm HTN, mild-mod pulmonic valvular regurgitation , mod pulmonary artery dilatation; severely dilated IVC. - Cardiology consulted: Dr. Hill, help appreciated - As per Dr. Hill, patient has severe pulmonary HTN, CAD s/p CABG, s/p MVR - Venous dupluex LE B/L: no DVTs - Afib: rate-controlled Endo: no acute issues GI: - Tube feeding - Distended abdomen - Abdominal US: liver cirrhosis, large abdominal/pelvic ascites, small right pleural effusion, cholelithiasis, diffuse gallbladder wall thickening likely secondary to liver cirrhosis. - s/p Paracentesis (01/02/17)- removed 2L fluid. - Fluid analysis: LDH 81, albumin 1.5, Fluid RBCs- 8529, Total cell count- 100, Neutrophil- 69, Lymphocytes-30, monocyte/macro 1. - Peritoneal cx: no growth x 3days Heme: thrombocytopenic - Hematology consulted- Dr. Posey, help appreciated Renal: history of kidney disease - BUN/Cr: 28/1.5 - Monitor kidney function - Hypokalemic- gave KCl ID: Code Sepsis - Likely secondary to pneumonia and/or LE cellulitis - Bandemia: improving - UA: 1+ protein, 2 urobilinogen, 9 squam epith cells - Blood cx: no growth x5days - Urine cx: no growth - Sputum cx: normal oral [place] - Wound cx: Staph aureius + - Wound care consulted - ID consulted- Dr. Ramires, help appreciated - As per ID, Continue zosyn Prophylaxis: - DVT: Discontinued Heparin 5,000units SC (thrombocytopenia) - GI: Protonix
[2017-01-09] MEDS: Albuterol-Ipratrop 3 mg / 0.5 (3 ml) UD INH SCH ×4 (01:43→20:31)
[2017-01-09 06:10] LABS: ABG ALLEN TEST POS; ABG MECHANICAL RATE 16; ARTERIAL BLOOD GAS MODE PRVC; ARTERIAL BLOOD HGB O2 SAT 94.4 % (95.0-98.0); ATERIAL BLOOD GAS PEEP 5; CARBOXYHEMOGLOBIN 2.6 % (0.5-1.5); DRAW SITE R RAD; METHEMOGLOBIN 2.1 % (0.0-3.0)
[2017-01-09 06:46] LABS: BASO # 0.1 K/uL (0.0-0.2); EOS # 0.3 K/uL (0.0-0.7); EOS % 4.8 % (0.0-4.0); HEMATOCRIT 27.4 % (34.0-47.0); LYMPH # 0.6 K/uL (1.0-4.3); LYMPH % 7.9 % (20.0-40.0); MEAN CELL VOLUME 91.4 fL (81.0-99.0); MEAN CORPUSCULAR HEMOGLOBIN 29.7 pg (27.0-31.0); MEAN CORPUSCULAR HGB CONC 32.5 g/dL (33.0-37.0); MEAN PLATELET VOLUME 8.7 fL (7.2-11.7); MONO # 0.7 K/uL (0.0-0.8); MONO % 9.9 % (0.0-10.0); NRBC % 0.1 % (0.0-2.0); PLATELET COUNT 197 K/uL (130-400); RED CELL DISTRIBUTION WIDTH 16.6 % (11.5-14.5); WHITE BLOOD COUNT 7.2 K/uL (4.8-10.8)
[2017-01-09] MEDS: Piperacill/Tazo 2.25gm in Dex 2.25 GM/50 ML BAG IVPB SCH ×3 (06:50→23:00)
[2017-01-09 07:01] LABS: BILIRUBIN,TOTAL 0.9 mg/dL (0.2-1.3); CALCIUM 8.4 mg/dl (8.6-10.4); MAGNESIUM 2.7 mg/dL (1.6-2.3); PHOSPHOROUS 3.3 mg/dL (2.5-4.5); TOTAL PROTEIN 5.4 g/dL (6.3-8.3)
[2017-01-09 07:09] LABS: ALB/GLOB RATIO 1.3 (1.0-2.1)
--- NOTE | 2017-01-09 08:28 | CP.PCM.PN ---
Addendum entered and electronically signed by Gaby Zhou 01/09/17 09:15 : - Patient tentatively scheduled for tracheostomy 01/10/17. - NPO after midnight. Original Note: <Gaby Zhou. - Last Filed: 01/09/17 08:58> Subjective - Date & Time of Evaluation Date of Evaluation: 01/09/17 Time of Evaluation: 08:26 - Subjective Subjective: Patient was seen and examined at bedside. Patient remains intubated. Review of systems not obtained due to patient's condition. Objective - Vital Signs/Intake and Output Vital Signs (last 24 hours): Temp Pulse Resp BP Pulse Ox 97.9 F 102 H 23 112/61 84 L 01/09/17 04:00 01/09/17 07:06 01/09/17 07:06 01/09/17 07:06 01/09/17 07:06 Intake and Output: 01/09/17 01/09/17 06:59 18:59 Intake Total 480 40 Output Total 320 Balance 160 40 - Medications Medications: Current Medications Albuterol/Ipratropium (Duoneb 3 Mg/0.5 Mg (3 Ml) Ud) 3 ml INH RQ6 ZAHRA Last Admin: 01/09/17 07:36 Dose: 3 ml Piperacillin Sod/Tazobactam Sod (Zosyn 2.25 Gm Iv Premix) 2.25 gm in 50 mls @ 100 mls/hr IVPB Q8H ZAHRA Last Admin: 01/09/17 06:50 Dose: 100 mls/hr Lorazepam (Ativan) 2 mg IVP Q6H PRN PRN Reason: Agitation Last Admin: 01/09/17 00:50 Dose: 2 mg Morphine Sulfate (Morphine) 1 mg IV Q4 PRN PRN Reason: Pain, moderate (4-7) Last Admin: 01/09/17 05:00 Dose: 1 mg Pantoprazole Sodium (Protonix Inj) 40 mg IVP DAILY ZAHRA Last Admin: 01/08/17 09:28 Dose: 40 mg - Labs Labs: 01/09/17 06:38 01/09/17 06:36 PT 13.5 SECONDS (9.7-12.2) H 01/02/17 06:32 INR 1.2 01/02/17 06:32 APTT 42 SECONDS (21-34) H 01/02/17 06:32 - Head Exam Head Exam: ATRAUMATIC, NORMAL INSPECTION - Eye Exam Additional comments: periorbital ecchymosis - ENT Exam ENT Exam: Mucous Membranes Dry - Respiratory Exam Respiratory Exam: Rhonchi. absent: Clear to Ausculation Bilateral, Rales, Wheezes - Cardiovascular Exam Cardiovascular Exam: Tachycardia, Irregular Rhythm, +S1, +S2 - GI/Abdominal Exam GI & Abdominal Exam: Distended, Soft, Normal Bowel Sounds - Extremities Exam Extremities Exam: Pedal Edema. absent: Normal Inspection (B/L LE cellulitis and edema) - Neurological Exam Neurological Exam: Alert, Awake - Skin Skin Exam: Warm Assessment and Plan (1) Respiratory distress Status: Acute - Assessment and Plan (Free Text) Assessment: 86 year old female with medical history of HTN, CABG, CKD, CHF, Afib, who presented with respiratory distress, sepsis, and altered mental status, is consulted for tracheostomy. - As per ICU, patient is on weaning trial. - Tracheostomy on hold depending how patient tolerates weaning off vent. - Continue medical management as per ICU team. <Elvis Garcia - Last Filed: 01/10/17 19:26> Objective - Vital Signs/Intake and Output Vital Signs (last 24 hours): Temp Pulse Resp BP Pulse Ox 97.0 F L 72 18 94/48 L 100 01/10/17 16:25 01/10/17 19:00 01/10/17 19:00 01/10/17 18:38 01/10/17 19:00 Intake and Output: 01/10/17 01/11/17 18:59 06:59 Intake Total 234 47 Output Total 340 35 Balance -106 12 - Medications Medications: Current Medications Albuterol/Ipratropium (Duoneb 3 Mg/0.5 Mg (3 Ml) Ud) 3 ml INH RQ6 ZAHRA Last Admin: 01/10/17 19:08 Dose: 3 ml Diphenhydramine HCl (Benadryl) 50 mg IVP ONCE ONE Stop: 01/10/17 20:01 Last Admin: 01/10/17 19:21 Dose: 50 mg Piperacillin Sod/Tazobactam Sod (Zosyn 2.25 Gm Iv Premix) 2.25 gm in 50 mls @ 100 mls/hr IVPB Q8H ZAHRA Last Admin: 01/10/17 14:23 Dose: 100 mls/hr Dexmedetomidine HCl 200 mcg/ (Sodium Chloride) 50 mls @ 3.5 mls/hr IV TITR PRN ; Protocol; 0.2 MCG/KG/HR PRN Reason: Agitation Last Admin: 01/10/17 12:33 Dose: 0.4 mcg/kg/hr, 7.01 mls/hr Lorazepam (Ativan) 2 mg IVP Q6H PRN PRN Reason: Agitation Last Admin: 01/10/17 07:55 Dose: 2 mg Methylprednisolone (Solu-Medrol) 60 mg IVP ONCE ONE Stop: 01/10/17 20:01 Last Admin: 01/10/17 19:21 Dose: 60 mg Morphine Sulfate (Morphine) 1 mg IV Q4 PRN PRN Reason: Pain, moderate (4-7) Last Admin: 01/10/17 17:16 Dose: 1 mg Pantoprazole Sodium (Protonix Inj) 40 mg IVP DAILY [facility] Last Admin: 01/10/17 09:42 Dose: 40 mg - Labs Labs: 01/10/17 06:04 01/10/17 06:04 PT 14.2 SECONDS (9.7-12.2) H 01/09/17 22:14 INR 1.2 01/09/17 22:14 APTT 32 SECONDS (21-34) 01/09/17 22:14 Attending/Attestation - Attestation I have personally seen and examined this patient.: Yes I have fully participated in the care of the patient.: Yes I have reviewed all pertinent clinical information, including history, physical exam and plan: Yes Notes (Text): 01/10/17 19:26 Pt was seen and examined at bedside Agree with above note and assessment Pt with VDRF, PNA OR for Tracheostomy Consent Plan d.w pt's and ICU attending Risk and benefit explained in detail.
[2017-01-09 08:39] LABS: BASOPHIL 1 % (0-2); EOSINOPHIL 4 % (0-4); NEUTROPHIL 78 % (50-75); TOTAL CELLS COUNTED 100
--- NOTE | 2017-01-09 10:14 | RAD ---
HISTORY: intubation COMPARISON: Comparison is made to 01/08/2017 FINDINGS: LUNGS: No significant interval change in the lungs. Mild pulmonary congestion is seen. Partial collapse of the right lower lobe due to right pleural effusion is again noted. The ET tube is seen with the tip approximately 2.6 centimeter above the julio cesar. PLEURA: Small right-sided pleural effusion is again seen. There is a drainage catheter again noted in the right the oral cavity. CARDIOVASCULAR: The cardiac silhouette is enlarged. Post sternotomy changes are again seen. There are also surgical clips seen at the left aspect of the cardiac silhouette. OSSEOUS STRUCTURES: No significant abnormalities. VISUALIZED UPPER ABDOMEN: The NG tube seen extending to the stomach. OTHER FINDINGS: None. IMPRESSION: Overall no significant interval change. Cardiomegaly and right pleural effusion. No significant interval change in the support devices since the previous exam.
--- NOTE | 2017-01-09 13:32 | CP.CCUPN ---
<Nishant Mosqueda - Last Filed: 01/09/17 16:40> CCU Subjective - Physician Review Events Since Last Encounter (Free Text): CCM chart reviewed. Pt examined.discussed with housestaff Intubated, responsive Lungs- bilat bs Heart-irreg irreg Abd-benign eXt- bilat edema, dressings intact Labs, [id number] A&P Resp Failure Sepsis Anasarca CHF R heart failure A-fib HTN CKD CABG/MVR s/p thoracentesis/ Paracentecis cont meds SBT CPAP/PS as tolerated assessing weanablity as pt scheduled for poss. Trach justin. maintain optimal lytes complete Ab rx CCU Objective - Vital Signs / Intake & Output Vital Signs (Last 4 hours): Vital Signs Pulse Resp BP Pulse Ox 01/09/17 15:06 84 22 91/41 L 100 01/09/17 15:00 91 H 27 H 100 01/09/17 14:06 87 14 96/48 L 100 01/09/17 14:00 98 H 30 H 100 01/09/17 13:06 99 H 29 H 119/62 100 01/09/17 13:00 124 H 17 97 Intake and Output (Last 8hrs): Intake & Output 01/09/17 01/09/17 01/09/17 06:59 14:59 22:59 Intake Total 320 420 83.5 Output Total 220 470 80 Balance 100 -50 3.5 Weight 154 lb 11.2 oz Intake: Intake, IV Amount 0 3.5 Right Distal Port 0 3.5 Subclavian Right Medial Port 0 0 Subclavian Right Proximal Port 0 0 Subclavian Oral 100 40 Tube Feeding 320 320 40 Output: Chest Tube Drainage 0 0 Right Posterior Chest 0 0 Urine 220 470 80 Urethral ([place]) 220 470 80 Other: # Bowel Movements 0 0 - Medications Active Medications: Active Medications Generic Name Dose Route Start Last Admin Trade Name Freq PRN Reason Stop Dose Admin Albuterol/Ipratropium 3 ml 01/06/17 14:00 01/09/17 14:11 Duoneb 3 Mg/0.5 Mg (3 Ml) Ud INH 3 ml RQ6 ZAHRA Administration Piperacillin Sod/Tazobactam Sod 2.25 gm in 50 mls @ 100 mls/hr 12/27/16 15:00 01/09/17 15:17 Zosyn 2.25 Gm Iv Premix IVPB 100 mls/hr Q8H ZAHRA Administration Dexmedetomidine HCl 200 mcg/ 50 mls @ 3.5 mls/hr 01/09/17 12:40 01/09/17 13: 48 Sodium Chloride IV 0.2 mcg/kg/hr TITR PRN 3.5 mls/hr Agitation Administration Protocol 0.2 MCG/KG/HR Lorazepam 2 mg 01/02/17 00:17 01/09/17 08:34 Ativan IVP 2 mg Q6H PRN Administration Agitation Morphine Sulfate 1 mg 01/04/17 11:05 01/09/17 05:00 Morphine IV 1 mg Q4 PRN Administration Pain, moderate (4-7) Pantoprazole Sodium 40 mg 01/04/17 10:00 01/09/17 09:48 Protonix Inj IVP 40 mg DAILY ZAHRA Administration - Patient Studies Lab Studies: Lab Studies 01/09/17 01/09/17 01/09/17 Range/Units 06:38 06:36 05:02 WBC 7.2 (4.8-10.8) K/uL RBC 3.00 L (3.80-5.20) Mil/uL Hgb 8.9 L (11.0-16.0) g/dL Hct 27.4 L (34.0-47.0) % MCV 91.4 (81.0-99.0) fL MCH 29.7 (27.0-31.0) pg MCHC 32.5 L (33.0-37.0) g/dL RDW 16.6 H (11.5-14.5) % Plt Count 197 (130-400) K/uL MPV 8.7 (7.2-11.7) fL Neut % (Auto) 76.4 H (50.0-75.0) % Lymph % (Auto) 7.9 L (20.0-40.0) % [place] % (Auto) 9.9 (0.0-10.0) % Eos % (Auto) 4.8 H (0.0-4.0) % Baso % (Auto) 1.0 (0.0-2.0) % Neut # 5.5 (1.8-7.0) K/uL Lymph # 0.6 L (1.0-4.3) K/uL [place] # 0.7 (0.0-0.8) K/uL Eos # 0.3 (0.0-0.7) K/uL Baso # 0.1 (0.0-0.2) K/uL Neutrophils % (Manual) 78 H (50-75) % Band Neutrophils % 1 (0-2) % Lymphocytes % (Manual) 7 L (20-40) % Monocytes % (Manual) 9 (0-10) % Eosinophils % (Manual) 4 (0-4) % Basophils % (Manual) 1 (0-2) % Platelet Estimate Normal (NORMAL) Hypochromasia (manual) Slight Poikilocytosis (manual Slight Anisocytosis (manual) Slight Target Cells Slight Ovalocytes Slight Puncture Site R rad pCO2 52 H (35-45) mm/Hg pO2 111 H (80-100) mm/Hg HCO3 28.7 H (21-28) mmol/L ABG pH 7.38 (7.35-7.45) ABG Total CO2 32.4 H (22-28) mmol/L ABG O2 Saturation 99.0 H (95-98) % ABG Base Excess 4.9 H (-2.0-3.0) mmol/L ABG Hemoglobin 9.0 L (11.7-17.4) g/dL ABG Carboxyhemoglobin 2.6 H (0.5-1.5) % POC ABG HHb (Measured) 1.0 (0.0-5.0) % ABG Methemoglobin 2.1 (0.0-3.0) % Jordon Test Pos A-a O2 Difference 109.0 mm/Hg Respiratory Index 1.0 Hgb O2 Saturation 94.4 L (95.0-98.0) % Vent Mode Prvc Mechanical Rate 16 FiO2 40.0 % Tidal Volume 350 PEEP 5 Sodium 141 (132-148) mmol/L Potassium 4.0 (3.6-5.2) mmol/L Chloride 106 (98-107) mmol/L Carbon Dioxide 24 (22-30) mmol/L Anion Gap 15 (10-20) BUN 46 H (7-17) mg/dL Creatinine 1.4 H (0.7-1.2) MG/DL Est GFR ( Amer) 43 Est GFR (Non-Af Amer) 36 Random Glucose 117 H (65-105) mg/dL Calcium 8.4 L (8.6-10.4) mg/dl Phosphorus 3.3 (2.5-4.5) mg/dL Magnesium 2.7 H (1.6-2.3) mg/dL Total Bilirubin 0.9 (0.2-1.3) mg/dL AST 21 (14-36) U/L ALT 19 (9-52) U/L Alkaline Phosphatase 59 (38-126) U/L Total Protein 5.4 L (6.3-8.3) g/dL Albumin 3.0 L (3.5-5.0) g/dL Globulin 2.4 (2.2-3.9) gm/dL Albumin/Globulin Ratio 1.3 (1.0-2.1) Laboratory Results - last 24 hr 01/09/17 01/09/17 01/09/17 05:02 06:36 06:38 WBC 7.2 RBC 3.00 L Hgb 8.9 L Hct 27.4 L MCV 91.4 MCH 29.7 MCHC 32.5 L RDW 16.6 H Plt Count 197 MPV 8.7 Neut % (Auto) 76.4 H Lymph % (Auto) 7.9 L [place] % (Auto) 9.9 Eos % (Auto) 4.8 H Baso % (Auto) 1.0 Neut # 5.5 Lymph # 0.6 L [place] # 0.7 Eos # 0.3 Baso # 0.1 Neutrophils % (Manual) 78 H Band Neutrophils % 1 Lymphocytes % (Manual) 7 L Monocytes % (Manual) 9 Eosinophils % (Manual) 4 Basophils % (Manual) 1 Platelet Estimate Normal Hypochromasia (manual) Slight Poikilocytosis (manual Slight Anisocytosis (manual) Slight Target Cells Slight Ovalocytes Slight Puncture Site R rad pCO2 52 H pO2 111 H HCO3 28.7 H ABG pH 7.38 ABG Total CO2 32.4 H ABG O2 Saturation 99.0 H ABG Base Excess 4.9 H ABG Hemoglobin 9.0 L ABG Carboxyhemoglobin 2.6 H POC ABG HHb (Measured) 1.0 ABG Methemoglobin 2.1 Jordon Test Pos A-a O2 Difference 109.0 Respiratory Index 1.0 Hgb O2 Saturation 94.4 L Vent Mode Prvc Mechanical Rate 16 FiO2 40.0 Tidal Volume 350 PEEP 5 Sodium 141 Potassium 4.0 Chloride 106 Carbon Dioxide 24 Anion Gap 15 BUN 46 H Creatinine 1.4 H Est GFR ( Amer) 43 Est GFR (Non-Af Amer) 36 Random Glucose 117 H Calcium 8.4 L Phosphorus 3.3 Magnesium 2.7 H Total Bilirubin 0.9 AST 21 ALT 19 Alkaline Phosphatase 59 Total Protein 5.4 L Albumin 3.0 L Globulin 2.4 Albumin/Globulin Ratio 1.3 Critical Care Progress Note - Nutrition Nutrition: Nutrition Category Date Time Status NPO Diet [DIET] Diets 01/10/17 Breakfast Active <Dom Self R - Last Filed: 01/09/17 19:39> CCU Subjective - Physician Review Subjective (Free Text): Patient was seen and examined at bedside in the morning. Patient is awake and alert during examination. Patient is intubated, unable to obtain review of systems. 01/09/17 19:36 CCU Objective - Vital Signs / Intake & Output Vital Signs (Last 4 hours): Vital Signs Temp Pulse Resp BP Pulse Ox 01/09/17 12:06 91 H 19 108/66 100 01/09/17 12:00 98.0 F 83 15 100 01/09/17 11:06 94 H 15 110/55 L 01/09/17 11:00 87 26 H 100 01/09/17 10:06 90 17 104/55 L 100 01/09/17 10:00 89 16 100 Intake and Output (Last 8hrs): Intake & Output 01/08/17 01/09/17 01/09/17 22:59 06:59 14:59 Intake Total 470 320 340 Output Total 200 220 210 Balance 270 100 130 Weight 154 lb 11.2 oz Intake: Intake, IV Amount 50 0 Right Distal Port 0 Subclavian Right Medial Port 0 Subclavian Right Proximal Port 50 0 Subclavian Oral 100 Tube Feeding 320 320 240 Other 100 Output: Chest Tube Drainage 5 0 0 Right Posterior Chest 5 0 0 Urine 195 220 210 Urethral ([place]) 195 220 210 Other: # Bowel Movements 0 - Physical Exam Head: Negative for: Atraumatic, Normocephalic Pupils: Positive for: PERRL Extroacular Muscles: Positive for: EOMI Mouth: Positive for: Moist Mucous Membranes Neck: Positive for: Trachea Midline Respiratory/Chest: Positive for: Decreased Breath Sounds. Negative for: Rales, Rhonchi Cardiovascular: Positive for: Normal S1, S2, Irregular Rhythm, Tachycardic Abdomen: Positive for: Distention. Negative for: Tenderness, Normal Bowel Sounds (hypoactive) Upper Extremity: Positive for: Normal Inspection Lower Extremity: Positive for: Edema, Swelling, Other (serosanginous fluid blisters on LE B/L). Negative for: Normal Inspection Skin: Positive for: Warm, Erythematous, Other (serosanginous fluid blisters on LE B/L). Negative for: Dry, Normal Color Psychiatric: Positive for: Alert - Medications Active Medications: Active Medications Generic Name Dose Route Start Last Admin Trade Name Freq PRN Reason Stop Dose Admin Albuterol/Ipratropium 3 ml 01/06/17 14:00 01/09/17 07:36 Duoneb 3 Mg/0.5 Mg (3 Ml) Ud INH 3 ml RQ6 ZAHRA Administration Piperacillin Sod/Tazobactam Sod 2.25 gm in 50 mls @ 100 mls/hr 12/27/16 15:00 01/09/17 06:50 Zosyn 2.25 Gm Iv Premix IVPB 100 mls/hr Q8H ZAHRA Administration Dexmedetomidine HCl 200 mcg/ 50 mls @ 3.5 mls/hr 01/09/17 12:40 Sodium Chloride IV TITR PRN Agitation Protocol 0.2 MCG/KG/HR Lorazepam 2 mg 01/02/17 00:17 01/09/17 08:34 Ativan IVP 2 mg Q6H PRN Administration Agitation Morphine Sulfate 1 mg 01/04/17 11:05 01/09/17 05:00 Morphine IV 1 mg Q4 PRN Administration Pain, moderate (4-7) Pantoprazole Sodium 40 mg 01/04/17 10:00 01/09/17 09:48 Protonix Inj IVP 40 mg DAILY [facility]AHRA Administration - Patient Studies Lab Studies: Lab Studies 01/09/17 01/09/17 01/09/17 Range/Units 06:38 06:36 05:02 WBC 7.2 (4.8-10.8) K/uL RBC 3.00 L (3.80-5.20) Mil/uL Hgb 8.9 L (11.0-16.0) g/dL Hct 27.4 L (34.0-47.0) % MCV 91.4 (81.0-99.0) fL MCH 29.7 (27.0-31.0) pg MCHC 32.5 L (33.0-37.0) g/dL RDW 16.6 H (11.5-14.5) % Plt Count 197 (130-400) K/uL MPV 8.7 (7.2-11.7) fL Neut % (Auto) 76.4 H (50.0-75.0) % Lymph % (Auto) 7.9 L (20.0-40.0) % [place] % (Auto) 9.9 (0.0-10.0) % Eos % (Auto) 4.8 H (0.0-4.0) % Baso % (Auto) 1.0 (0.0-2.0) % Neut # 5.5 (1.8-7.0) K/uL Lymph # 0.6 L (1.0-4.3) K/uL [place] # 0.7 (0.0-0.8) K/uL Eos # 0.3 (0.0-0.7) K/uL Baso # 0.1 (0.0-0.2) K/uL Neutrophils % (Manual) 78 H (50-75) % Band Neutrophils % 1 (0-2) % Lymphocytes % (Manual) 7 L (20-40) % Monocytes % (Manual) 9 (0-10) % Eosinophils % (Manual) 4 (0-4) % Basophils % (Manual) 1 (0-2) % Platelet Estimate Normal (NORMAL) Hypochromasia (manual) Slight Poikilocytosis (manual Slight Anisocytosis (manual) Slight Target Cells Slight Ovalocytes Slight Puncture Site R rad pCO2 52 H (35-45) mm/Hg pO2 111 H (80-100) mm/Hg HCO3 28.7 H (21-28) mmol/L ABG pH 7.38 (7.35-7.45) ABG Total CO2 32.4 H (22-28) mmol/L ABG O2 Saturation 99.0 H (95-98) % ABG Base Excess 4.9 H (-2.0-3.0) mmol/L ABG Hemoglobin 9.0 L (11.7-17.4) g/dL ABG Carboxyhemoglobin 2.6 H (0.5-1.5) % POC ABG HHb (Measured) 1.0 (0.0-5.0) % ABG Methemoglobin 2.1 (0.0-3.0) % Jordon Test Pos A-a O2 Difference 109.0 mm/Hg Respiratory Index 1.0 Hgb O2 Saturation 94.4 L (95.0-98.0) % Vent Mode Prvc Mechanical Rate 16 FiO2 40.0 % Tidal Volume 350 PEEP 5 Sodium 141 (132-148) mmol/L Potassium 4.0 (3.6-5.2) mmol/L Chloride 106 (98-107) mmol/L Carbon Dioxide 24 (22-30) mmol/L Anion Gap 15 (10-20) BUN 46 H (7-17) mg/dL Creatinine 1.4 H (0.7-1.2) MG/DL Est GFR ( Amer) 43 Est GFR (Non-Af Amer) 36 Random Glucose 117 H (65-105) mg/dL Calcium 8.4 L (8.6-10.4) mg/dl Phosphorus 3.3 (2.5-4.5) mg/dL Magnesium 2.7 H (1.6-2.3) mg/dL Total Bilirubin 0.9 (0.2-1.3) mg/dL AST 21 (14-36) U/L ALT 19 (9-52) U/L Alkaline Phosphatase 59 (38-126) U/L Total Protein 5.4 L (6.3-8.3) g/dL Albumin 3.0 L (3.5-5.0) g/dL Globulin 2.4 (2.2-3.9) gm/dL Albumin/Globulin Ratio 1.3 (1.0-2.1) Laboratory Results - last 24 hr 01/09/17 01/09/17 01/09/17 05:02 06:36 06:38 WBC 7.2 RBC 3.00 L Hgb 8.9 L Hct 27.4 L MCV 91.4 MCH 29.7 MCHC 32.5 L RDW 16.6 H Plt Count 197 MPV 8.7 Neut % (Auto) 76.4 H Lymph % (Auto) 7.9 L [place] % (Auto) 9.9 Eos % (Auto) 4.8 H Baso % (Auto) 1.0 Neut # 5.5 Lymph # 0.6 L [place] # 0.7 Eos # 0.3 Baso # 0.1 Neutrophils % (Manual) 78 H Band Neutrophils % 1 Lymphocytes % (Manual) 7 L Monocytes % (Manual) 9 Eosinophils % (Manual) 4 Basophils % (Manual) 1 Platelet Estimate Normal Hypochromasia (manual) Slight Poikilocytosis (manual Slight Anisocytosis (manual) Slight Target Cells Slight Ovalocytes Slight Puncture Site R rad pCO2 52 H pO2 111 H HCO3 28.7 H ABG pH 7.38 ABG Total CO2 32.4 H ABG O2 Saturation 99.0 H ABG Base Excess 4.9 H ABG Hemoglobin 9.0 L ABG Carboxyhemoglobin 2.6 H POC ABG HHb (Measured) 1.0 ABG Methemoglobin 2.1 Jordon Test Pos A-a O2 Difference 109.0 Respiratory Index 1.0 Hgb O2 Saturation 94.4 L Vent Mode Prvc Mechanical Rate 16 FiO2 40.0 Tidal Volume 350 PEEP 5 Sodium 141 Potassium 4.0 Chloride 106 Carbon Dioxide 24 Anion Gap 15 BUN 46 H Creatinine 1.4 H Est GFR ( Amer) 43 Est GFR (Non-Af Amer) 36 Random Glucose 117 H Calcium 8.4 L Phosphorus 3.3 Magnesium 2.7 H Total Bilirubin 0.9 AST 21 ALT 19 Alkaline Phosphatase 59 Total Protein 5.4 L Albumin 3.0 L Globulin 2.4 Albumin/Globulin Ratio 1.3 Fingerstick Blood Sugar Results: 124 Review of Systems - Review of Systems Systems not reviewed;Unavailable: Intubated Critical Care Progress Note - Vent Settings TIDAL VOLUME:: 350 RESP RATE:: 16 FIO2:: 40 PEEP:: 5 - Nutrition Nutrition: Nutrition Category Date Time Status NPO Diet [DIET] Diets 01/10/17 Breakfast Active Assessment/Plan - Assessment and Plan (Free Text) Assessment: 86 year old female with medical history of HTN, CHF, CKD, and CABG, presents to the ED by ambulance with shortness of breath. The patient's son, Polo, reports she felt nauseas, feverish, and had chills this morning. As he was helping her to the restroom, patient urinated on self, passed out, and remained unresponsive. In the ED, patient was hypotensive and in respiratory distress. Code sepsis was called. Patient is consulted in the ICU for respiratory distress , hypotension, and sepsis. Patient's chest xray showed opacification of right hemithorax with midline shift. Review of systems was not obtained due to patients status. Patient was intubated, pigtail chest tube placed, waterseal, and pleural fluid drained. Repeat chest xray showed improvement. Underlying infiltrate likely pneumonia- started Zosyn and Vancomycin. Patient was hypotensive, required pressors. Patient has persistent pleural effusion - consider chest tube replacement if drainage of residual pleural effusion stops. Patient's leukocytosis and bandemia are improving. As per cardiology, patient should have CT angio to rule out PE, and if negative, possibly start patient on inotropic medication for CHF/Right heart dysfunction. CT Angio done on 01/05/17. Patient still poor prognosis. Continue to monitor. Neuro: sedated - precedex Pulm: Respiratory distress - Intubated, CPAP trial - CXR: opacification of right hemithorax with midline shift - Repeat CXR (post Chest tube): markedly decreased pleural effusion; patchy opacities in right hemithorax - CXR (12/29/16): improving right lower lobe airspace disease; stable small right pleural effusion with loculated component at right lateral wall, persistent cardiomegaly with small left pleural effusion. - Pigtail chest tube placed, drained pleural fluid - Pleural fluid studies: Cloudy, WBC 99, RBC 2007, Neutrophils 11, Lymphocytes 78, Monocyte/Macrophage 10 - Chest CT: increasing right pleural effusion, increasing right lower lobe atelectasis; patchy opacity in lingula; small right hydro-pneumothorax; ascites , hepatic cirrhosis - Consulted Thoracic surgery regarding persistent pleural effusion: Dr. Aragon, help appreciated - No intervention at this time. - Consider chest tube replacement if current tube does not drain residual pleural effusion - CT Angio to r/o PE: f/u - Gen Surg consulted, Dr Garcia, for tracheostomy CV: Hypotensive, CHF, Afib - Central line placed - Patient on pressors - IV Fluids + Albumin - Troponin: 0.1280 - BNP: 95598 - ECHO: LVEF 14%, severely dilated and mildly hypertrophied RV, RV systolic function mild-mod reduced; LA/RA severely dilated, restriction of posterior MV leaflet; mild MR; severe TR, pulm HTN, mild-mod pulmonic valvular regurgitation , mod pulmonary artery dilatation; severely dilated IVC. - Cardiology consulted: Dr. Hill, help appreciated - As per Dr. Hill, patient has severe pulmonary HTN, CAD s/p CABG, s/p MVR - Venous dupluex LE B/L: no DVTs - Afib: rate-controlled Endo: no acute issues GI: - Tube feeding - Distended abdomen - Abdominal US: liver cirrhosis, large abdominal/pelvic ascites, small right pleural effusion, cholelithiasis, diffuse gallbladder wall thickening likely secondary to liver cirrhosis. - s/p Paracentesis (01/02/17)- removed 2L fluid. - Fluid analysis: LDH 81, albumin 1.5, Fluid RBCs- 8529, Total cell count- 100, Neutrophil- 69, Lymphocytes-30, monocyte/macro 1. - Peritoneal cx: no growth x 3days Heme: thrombocytopenic - Hematology consulted- Dr. Posey, help appreciated Renal: history of kidney disease - BUN/Cr: 28/1.5 - Monitor kidney function - Hypokalemic- gave KCl ID: Code Sepsis - Likely secondary to pneumonia and/or LE cellulitis - Bandemia: improving - UA: 1+ protein, 2 urobilinogen, 9 squam epith cells - Blood cx: no growth x5days - Urine cx: no growth - Sputum cx: normal oral [place] - Wound cx: Staph aureius + - Wound care consulted - ID consulted- Dr. Ramires, help appreciated - As per ID, Continue zosyn Prophylaxis: - DVT: Discontinued Heparin 5,000units SC (thrombocytopenia) - GI: Protonix
[2017-01-09] MEDS: Dexmedetomidine Hydrochloride 200 MCG in Sodium Chloride 0.9% 48 ML IV PRN ×2 (13:48→20:24)
--- NOTE | 2017-01-09 14:37 | CP.PCM.PN ---
Subjective - Date & Time of Evaluation Date of Evaluation: 01/09/17 Time of Evaluation: 14:00 - Subjective Subjective: Patient was seen and examined in ICU. Patient is intubated since sedated. Objective - Vital Signs/Intake and Output Vital Signs (last 24 hours): Temp Pulse Resp BP Pulse Ox 98.0 F 87 14 96/48 L 100 01/09/17 12:00 01/09/17 14:06 01/09/17 14:06 01/09/17 14:06 01/09/17 14:06 Intake and Output: 01/09/17 01/09/17 06:59 18:59 Intake Total 480 420 Output Total 320 470 Balance 160 -50 - Medications Medications: Current Medications Albuterol/Ipratropium (Duoneb 3 Mg/0.5 Mg (3 Ml) Ud) 3 ml INH RQ6 [facility] Last Admin: 01/09/17 14:11 Dose: 3 ml Piperacillin Sod/Tazobactam Sod (Zosyn 2.25 Gm Iv Premix) 2.25 gm in 50 mls @ 100 mls/hr IVPB Q8H [facility] Last Admin: 01/09/17 06:50 Dose: 100 mls/hr Dexmedetomidine HCl 200 mcg/ (Sodium Chloride) 50 mls @ 3.5 mls/hr IV TITR PRN ; Protocol; 0.2 MCG/KG/HR PRN Reason: Agitation Last Admin: 01/09/17 13:48 Dose: 0.2 mcg/kg/hr, 3.5 mls/hr Lorazepam (Ativan) 2 mg IVP Q6H PRN PRN Reason: Agitation Last Admin: 01/09/17 08:34 Dose: 2 mg Morphine Sulfate (Morphine) 1 mg IV Q4 PRN PRN Reason: Pain, moderate (4-7) Last Admin: 01/09/17 05:00 Dose: 1 mg Pantoprazole Sodium (Protonix Inj) 40 mg IVP DAILY [facility] Last Admin: 01/09/17 09:48 Dose: 40 mg - Labs Labs: 01/09/17 06:38 01/09/17 06:36 PT 13.5 SECONDS (9.7-12.2) H 01/02/17 06:32 INR 1.2 01/02/17 06:32 APTT 42 SECONDS (21-34) H 01/02/17 06:32 - Head Exam Head Exam: ATRAUMATIC, NORMOCEPHALIC - Eye Exam Eye Exam: Normal appearance - ENT Exam ENT Exam: Mucous Membranes Moist - Respiratory Exam Additional comments: Patient is intubated. Bilateral breath sounds audible. Patient has a chest tube to suction. - Cardiovascular Exam Cardiovascular Exam: REGULAR RHYTHM, +S1, +S2 - GI/Abdominal Exam GI & Abdominal Exam: Soft - Extremities Exam Extremities Exam: Pedal Edema Assessment and Plan (1) CHF (congestive heart failure) Status: Acute (2) Cellulitis and abscess of foot Status: Acute (3) H/O mitral valve replacement Status: Acute (4) Hypotension Status: Acute (5) Pneumonia Status: Acute (6) Septic shock Status: Acute - Assessment and Plan (Free Text) Plan: Continue weaning trial as per ICU team. Continue antibiotics for sepsis Prognosis is guarded Discussed the plan of care with the ICU team.
--- NOTE | 2017-01-09 22:17 | CP.PCM.PN ---
Subjective - Date & Time of Evaluation Date of Evaluation: 01/09/17 Time of Evaluation: 09:05 - Subjective Subjective: Patient seen and evaluated Intubated Responsive CHF A Fib Respiratory failure Will follow Objective - Vital Signs/Intake and Output Vital Signs (last 24 hours): Temp Pulse Resp BP Pulse Ox 97.6 F 66 16 85/40 L 98 01/09/17 20:00 01/09/17 20:06 01/09/17 20:06 01/09/17 20:06 01/09/17 20:06 Intake and Output: 01/09/17 01/10/17 18:59 06:59 Intake Total 674.5 101 Output Total 855 145 Balance -180.5 -44 - Medications Medications: Current Medications Albuterol/Ipratropium (Duoneb 3 Mg/0.5 Mg (3 Ml) Ud) 3 ml INH RQ6 [facility] Last Admin: 01/09/17 20:31 Dose: 3 ml Piperacillin Sod/Tazobactam Sod (Zosyn 2.25 Gm Iv Premix) 2.25 gm in 50 mls @ 100 mls/hr IVPB Q8H [facility] Last Admin: 01/09/17 15:17 Dose: 100 mls/hr Dexmedetomidine HCl 200 mcg/ (Sodium Chloride) 50 mls @ 3.5 mls/hr IV TITR PRN ; Protocol; 0.2 MCG/KG/HR PRN Reason: Agitation Last Admin: 01/09/17 20:24 Dose: 0.4 mcg/kg/hr, 7.01 mls/hr Lorazepam (Ativan) 2 mg IVP Q6H PRN PRN Reason: Agitation Last Admin: 01/09/17 08:34 Dose: 2 mg Morphine Sulfate (Morphine) 1 mg IV Q4 PRN PRN Reason: Pain, moderate (4-7) Last Admin: 01/09/17 05:00 Dose: 1 mg Pantoprazole Sodium (Protonix Inj) 40 mg IVP DAILY [facility] Last Admin: 01/09/17 09:48 Dose: 40 mg - Labs Labs: 01/09/17 06:38 01/09/17 06:36 PT 13.5 SECONDS (9.7-12.2) H 01/02/17 06:32 INR 1.2 01/02/17 06:32 APTT 42 SECONDS (21-34) H 01/02/17 06:32
[2017-01-09 22:25] LABS: INR 1.2
[2017-01-10] MEDS: Albuterol-Ipratrop 3 mg / 0.5 (3 ml) UD INH SCH ×4 (01:19→19:08)
[2017-01-10] MEDS: Dexmedetomidine Hydrochloride 200 MCG in Sodium Chloride 0.9% 48 ML IV PRN ×3 (04:12→21:12)
[2017-01-10 05:45] LABS: ABG ALLEN TEST NEG; ABG MECHANICAL RATE 16; ARTERIAL BLOOD GAS MODE A/C; ARTERIAL BLOOD HGB O2 SAT 95.5 % (95.0-98.0); ATERIAL BLOOD GAS PEEP 5; CARBOXYHEMOGLOBIN 2.6 % (0.5-1.5); DRAW SITE RBRACHIAL; HHB 0.9 % (0.0-5.0)
[2017-01-10 06:15] LABS: BASO # 0.1 K/uL (0.0-0.2); BASO % 1.4 % (0.0-2.0); EOS # 0.3 K/uL (0.0-0.7); EOS % 4.7 % (0.0-4.0); HEMATOCRIT 26.7 % (34.0-47.0); LYMPH # 0.5 K/uL (1.0-4.3); LYMPH % 8.3 % (20.0-40.0); MEAN CELL VOLUME 89.7 fL (81.0-99.0); MEAN CORPUSCULAR HEMOGLOBIN 28.9 pg (27.0-31.0); MEAN CORPUSCULAR HGB CONC 32.1 g/dL (33.0-37.0); MEAN PLATELET VOLUME 9.2 fL (7.2-11.7); MONO # 0.5 K/uL (0.0-0.8); MONO % 9.3 % (0.0-10.0); NRBC % 0.1 % (0.0-2.0); PLATELET COUNT 210 K/uL (130-400); RED CELL DISTRIBUTION WIDTH 16.5 % (11.5-14.5); WHITE BLOOD COUNT 5.6 K/uL (4.8-10.8)
[2017-01-10 06:26] LABS: BILIRUBIN,TOTAL 0.9 mg/dL (0.2-1.3); CALCIUM 7.9 mg/dl (8.6-10.4); MAGNESIUM 2.6 mg/dL (1.6-2.3); PHOSPHOROUS 3.7 mg/dL (2.5-4.5); POTASSIUM 3.4 mmol/L (3.6-5.2)
[2017-01-10] MEDS: Piperacill/Tazo 2.25gm in Dex 2.25 GM/50 ML BAG IVPB SCH ×3 (06:45→23:47)
--- NOTE | 2017-01-10 08:10 | CP.CCUPN ---
<Dom Self - Last Filed: 01/10/17 14:14> CCU Subjective - Physician Review Subjective (Free Text): Patient was seen and examined at bedside in the morning. Patient is awake and alert during examination. Patient is intubated, unable to obtain review of systems. 01/10/17 14:15 CCU Objective - Vital Signs / Intake & Output Vital Signs (Last 4 hours): Vital Signs Temp Pulse Resp BP Pulse Ox 01/10/17 08:06 70 16 94/45 L 100 01/10/17 08:00 97.4 F L 78 16 100 01/10/17 07:43 77 20 102/63 77 L 01/10/17 07:07 63 17 86/47 L 97 01/10/17 07:00 58 L 17 98 01/10/17 06:06 67 19 94/46 L 100 01/10/17 06:00 73 17 100 01/10/17 05:06 59 L 17 83/41 L 100 01/10/17 05:00 68 17 100 Intake and Output (Last 8hrs): Intake & Output 01/09/17 01/10/17 01/10/17 22:59 06:59 14:59 Intake Total 449.5 181.3 7 Output Total 595 330 40 Balance -145.5 -148.7 -33 Intake: IV 14 7 Intake, IV Amount 45.5 54.3 7 Right Distal Port 45.5 54.3 7 Subclavian Right Medial Port 0 0 0 Subclavian Right Proximal Port 0 0 Subclavian Oral 70 Tube Feeding 320 120 0 Output: Chest Tube Drainage 5 0 Right Posterior Chest 5 0 Urine 590 330 40 Urethral ([place]) 590 330 40 Other: # Bowel Movements 0 1 0 - Physical Exam Head: Negative for: Atraumatic, Normocephalic Pupils: Positive for: PERRL Extroacular Muscles: Positive for: EOMI Mouth: Positive for: Moist Mucous Membranes Neck: Positive for: Trachea Midline Respiratory/Chest: Positive for: Decreased Breath Sounds. Negative for: Rales, Rhonchi Cardiovascular: Positive for: Normal S1, S2, Irregular Rhythm, Tachycardic Abdomen: Positive for: Distention. Negative for: Tenderness, Normal Bowel Sounds (hypoactive) Upper Extremity: Positive for: Normal Inspection Lower Extremity: Positive for: Edema, Swelling, Other (serosanginous fluid blisters on LE B/L). Negative for: Normal Inspection Skin: Positive for: Warm, Erythematous, Other (serosanginous fluid blisters on LE B/L). Negative for: Dry, Normal Color Psychiatric: Positive for: Alert - Medications Active Medications: Active Medications Generic Name Dose Route Start Last Admin Trade Name Freq PRN Reason Stop Dose Admin Albuterol/Ipratropium 3 ml 01/06/17 14:00 01/10/17 07:26 Duoneb 3 Mg/0.5 Mg (3 Ml) Ud INH 3 ml RQ6 ZAHRA Administration Piperacillin Sod/Tazobactam Sod 2.25 gm in 50 mls @ 100 mls/hr 12/27/16 15:00 01/10/17 06:45 Zosyn 2.25 Gm Iv Premix IVPB 100 mls/hr Q8H ZAHRA Administration Dexmedetomidine HCl 200 mcg/ 50 mls @ 3.5 mls/hr 01/09/17 12:40 01/10/17 04: 12 Sodium Chloride IV 0.4 mcg/kg/hr TITR PRN 7.01 mls/hr Agitation Administration Protocol 0.2 MCG/KG/HR Lorazepam 2 mg 01/02/17 00:17 01/10/17 07:55 Ativan IVP 2 mg Q6H PRN Administration Agitation Morphine Sulfate 1 mg 01/04/17 11:05 01/09/17 05:00 Morphine IV 1 mg Q4 PRN Administration Pain, moderate (4-7) Pantoprazole Sodium 40 mg 01/04/17 10:00 01/09/17 09:48 Protonix Inj IVP 40 mg DAILY ZAHRA Administration - Patient Studies Lab Studies: Lab Studies 01/10/17 01/10/17 01/10/17 Range/Units 06:04 06:04 05:21 WBC 5.6 (4.8-10.8) K/uL RBC 2.97 L (3.80-5.20) Mil/uL Hgb 8.6 L (11.0-16.0) g/dL Hct 26.7 L (34.0-47.0) % MCV 89.7 (81.0-99.0) fL MCH 28.9 (27.0-31.0) pg MCHC 32.1 L (33.0-37.0) g/dL RDW 16.5 H (11.5-14.5) % Plt Count 210 (130-400) K/uL MPV 9.2 (7.2-11.7) fL Neut % (Auto) 76.3 H (50.0-75.0) % Lymph % (Auto) 8.3 L (20.0-40.0) % [place] % (Auto) 9.3 (0.0-10.0) % Eos % (Auto) 4.7 H (0.0-4.0) % Baso % (Auto) 1.4 (0.0-2.0) % Neut # 4.3 (1.8-7.0) K/uL Lymph # 0.5 L (1.0-4.3) K/uL [place] # 0.5 (0.0-0.8) K/uL Eos # 0.3 (0.0-0.7) K/uL Baso # 0.1 (0.0-0.2) K/uL Neutrophils % (Manual) (50-75) % Band Neutrophils % (0-2) % Lymphocytes % (Manual) (20-40) % Monocytes % (Manual) (0-10) % Eosinophils % (Manual) (0-4) % Basophils % (Manual) (0-2) % Platelet Estimate (NORMAL) Hypochromasia (manual) Poikilocytosis (manual Anisocytosis (manual) Target Cells Ovalocytes PT (9.7-12.2) SECONDS INR APTT (21-34) SECONDS Puncture Site pCO2 (35-45) mm/Hg pO2 (80-100) mm/Hg HCO3 (21-28) mmol/L ABG pH (7.35-7.45) ABG Total CO2 (22-28) mmol/L ABG O2 Saturation (95-98) % ABG Base Excess (-2.0-3.0) mmol/L ABG Hemoglobin (11.7-17.4) g/dL ABG Carboxyhemoglobin (0.5-1.5) % POC ABG HHb (Measured) (0.0-5.0) % ABG Methemoglobin (0.0-3.0) % Jordon Test A-a O2 Difference mm/Hg Respiratory Index Hgb O2 Saturation (95.0-98.0) % Vent Mode Mechanical Rate FiO2 % Tidal Volume PEEP Sodium 143 (132-148) mmol/L Potassium 3.4 L (3.6-5.2) mmol/L Chloride 105 (98-107) mmol/L Carbon Dioxide 27 (22-30) mmol/L Anion Gap 14 (10-20) BUN 43 H (7-17) mg/dL Creatinine 1.3 H (0.7-1.2) MG/DL Est GFR ( Amer) 47 Est GFR (Non-Af Amer) 39 POC Glucose (mg/dL) 93 (65-110) mg/dL Random Glucose 100 (65-105) mg/dL Calcium 7.9 L (8.6-10.4) mg/dl Phosphorus 3.7 (2.5-4.5) mg/dL Magnesium 2.6 H (1.6-2.3) mg/dL Total Bilirubin 0.9 (0.2-1.3) mg/dL AST 14 D (14-36) U/L ALT 20 (9-52) U/L Alkaline Phosphatase 51 (38-126) U/L Total Protein 5.0 L (6.3-8.3) g/dL Albumin 2.6 L (3.5-5.0) g/dL Globulin 2.5 (2.2-3.9) gm/dL Albumin/Globulin Ratio 1.0 (1.0-2.1) 01/10/17 01/09/17 01/09/17 Range/Units 05:20 22:14 06:38 WBC (4.8-10.8) K/uL RBC (3.80-5.20) Mil/uL Hgb (11.0-16.0) g/dL Hct (34.0-47.0) % MCV (81.0-99.0) fL MCH (27.0-31.0) pg MCHC (33.0-37.0) g/dL RDW (11.5-14.5) % Plt Count (130-400) K/uL MPV (7.2-11.7) fL Neut % (Auto) (50.0-75.0) % Lymph % (Auto) (20.0-40.0) % [place] % (Auto) (0.0-10.0) % Eos % (Auto) (0.0-4.0) % Baso % (Auto) (0.0-2.0) % Neut # (1.8-7.0) K/uL Lymph # (1.0-4.3) K/uL [place] # (0.0-0.8) K/uL Eos # (0.0-0.7) K/uL Baso # (0.0-0.2) K/uL Neutrophils % (Manual) 78 H (50-75) % Band Neutrophils % 1 (0-2) % Lymphocytes % (Manual) 7 L (20-40) % Monocytes % (Manual) 9 (0-10) % Eosinophils % (Manual) 4 (0-4) % Basophils % (Manual) 1 (0-2) % Platelet Estimate Normal (NORMAL) Hypochromasia (manual) Slight Poikilocytosis (manual Slight Anisocytosis (manual) Slight Target Cells Slight Ovalocytes Slight PT 14.2 H (9.7-12.2) SECONDS INR 1.2 APTT 32 (21-34) SECONDS Puncture Site Rbrachial pCO2 47 H (35-45) mm/Hg pO2 92 (80-100) mm/Hg HCO3 27.9 (21-28) mmol/L ABG pH 7.40 (7.35-7.45) ABG Total CO2 30.5 H (22-28) mmol/L ABG O2 Saturation 99.1 H (95-98) % ABG Base Excess 3.8 H (-2.0-3.0) mmol/L ABG Hemoglobin 8.8 L (11.7-17.4) g/dL ABG Carboxyhemoglobin 2.6 H (0.5-1.5) % POC ABG HHb (Measured) 0.9 (0.0-5.0) % ABG Methemoglobin 1.0 (0.0-3.0) % Jordon Test Neg A-a O2 Difference 134.0 mm/Hg Respiratory Index 1.5 Hgb O2 Saturation 95.5 (95.0-98.0) % Vent Mode A/c Mechanical Rate 16 FiO2 40.0 % Tidal Volume 350 PEEP 5 Sodium (132-148) mmol/L Potassium (3.6-5.2) mmol/L Chloride (98-107) mmol/L Carbon Dioxide (22-30) mmol/L Anion Gap (10-20) BUN (7-17) mg/dL Creatinine (0.7-1.2) MG/DL Est GFR ( Amer) Est GFR (Non-Af Amer) POC Glucose (mg/dL) (65-110) mg/dL Random Glucose (65-105) mg/dL Calcium (8.6-10.4) mg/dl Phosphorus (2.5-4.5) mg/dL Magnesium (1.6-2.3) mg/dL Total Bilirubin (0.2-1.3) mg/dL AST (14-36) U/L ALT (9-52) U/L Alkaline Phosphatase (38-126) U/L Total Protein (6.3-8.3) g/dL Albumin (3.5-5.0) g/dL Globulin (2.2-3.9) gm/dL Albumin/Globulin Ratio (1.0-2.1) Laboratory Results - last 24 hr 01/09/17 01/09/17 01/10/17 06:38 22:14 05:20 WBC RBC Hgb Hct MCV MCH MCHC RDW Plt Count MPV Neut % (Auto) Lymph % (Auto) [place] % (Auto) Eos % (Auto) Baso % (Auto) Neut # Lymph # [place] # Eos # Baso # Neutrophils % (Manual) 78 H Band Neutrophils % 1 Lymphocytes % (Manual) 7 L Monocytes % (Manual) 9 Eosinophils % (Manual) 4 Basophils % (Manual) 1 Platelet Estimate Normal Hypochromasia (manual) Slight Poikilocytosis (manual Slight Anisocytosis (manual) Slight Target Cells Slight Ovalocytes Slight PT 14.2 H INR 1.2 APTT 32 Puncture Site Rbrachial pCO2 47 H pO2 92 HCO3 27.9 ABG pH 7.40 ABG Total CO2 30.5 H ABG O2 Saturation 99.1 H ABG Base Excess 3.8 H ABG Hemoglobin 8.8 L ABG Carboxyhemoglobin 2.6 H POC ABG HHb (Measured) 0.9 ABG Methemoglobin 1.0 Jordon Test Neg A-a O2 Difference 134.0 Respiratory Index 1.5 Hgb O2 Saturation 95.5 Vent Mode A/c Mechanical Rate 16 FiO2 40.0 Tidal Volume 350 PEEP 5 Sodium Potassium Chloride Carbon Dioxide Anion Gap BUN Creatinine Est GFR ( Amer) Est GFR (Non-Af Amer) POC Glucose (mg/dL) Random Glucose Calcium Phosphorus Magnesium Total Bilirubin AST ALT Alkaline Phosphatase Total Protein Albumin Globulin Albumin/Globulin Ratio 01/10/17 01/10/17 01/10/17 05:21 06:04 06:04 WBC 5.6 RBC 2.97 L Hgb 8.6 L Hct 26.7 L MCV 89.7 MCH 28.9 MCHC 32.1 L RDW 16.5 H Plt Count 210 MPV 9.2 Neut % (Auto) 76.3 H Lymph % (Auto) 8.3 L [place] % (Auto) 9.3 Eos % (Auto) 4.7 H Baso % (Auto) 1.4 Neut # 4.3 Lymph # 0.5 L [place] # 0.5 Eos # 0.3 Baso # 0.1 Neutrophils % (Manual) Band Neutrophils % Lymphocytes % (Manual) Monocytes % (Manual) Eosinophils % (Manual) Basophils % (Manual) Platelet Estimate Hypochromasia (manual) Poikilocytosis (manual Anisocytosis (manual) Target Cells Ovalocytes PT INR APTT Puncture Site pCO2 pO2 HCO3 ABG pH ABG Total CO2 ABG O2 Saturation ABG Base Excess ABG Hemoglobin ABG Carboxyhemoglobin POC ABG HHb (Measured) ABG Methemoglobin Jordon Test A-a O2 Difference Respiratory Index Hgb O2 Saturation Vent Mode Mechanical Rate FiO2 Tidal Volume PEEP Sodium 143 Potassium 3.4 L Chloride 105 Carbon Dioxide 27 Anion Gap 14 BUN 43 H Creatinine 1.3 H Est GFR ( Amer) 47 Est GFR (Non-Af Amer) 39 POC Glucose (mg/dL) 93 Random Glucose 100 Calcium 7.9 L Phosphorus 3.7 Magnesium 2.6 H Total Bilirubin 0.9 AST 14 D ALT 20 Alkaline Phosphatase 51 Total Protein 5.0 L Albumin 2.6 L Globulin 2.5 Albumin/Globulin Ratio 1.0 Fingerstick Blood Sugar Results: 124 Review of Systems - Review of Systems Systems not reviewed;Unavailable: Intubated Critical Care Progress Note - Vent Settings TIDAL VOLUME:: 350 RESP RATE:: 16 FIO2:: 40 PEEP:: 5 - Nutrition Nutrition: Nutrition Category Date Time Status NPO Diet [DIET] Diets 01/10/17 Breakfast Active Assessment/Plan - Assessment and Plan (Free Text) Assessment: 86 year old female with medical history of HTN, CHF, CKD, and CABG, presents to the ED by ambulance with shortness of breath. The patient's son, Polo, reports she felt nauseas, feverish, and had chills this morning. As he was helping her to the restroom, patient urinated on self, passed out, and remained unresponsive. In the ED, patient was hypotensive and in respiratory distress. Code sepsis was called. Patient is consulted in the ICU for respiratory distress , hypotension, and sepsis. Patient's chest xray showed opacification of right hemithorax with midline shift. Review of systems was not obtained due to patients status. Patient was intubated, pigtail chest tube placed, waterseal, and pleural fluid drained. Repeat chest xray showed improvement. Underlying infiltrate likely pneumonia- started Zosyn and Vancomycin. Patient was hypotensive, required pressors. Patient has persistent pleural effusion - consider chest tube replacement if drainage of residual pleural effusion stops. Patient's leukocytosis and bandemia are improving. As per cardiology, patient should have CT angio to rule out PE, and if negative, possibly start patient on inotropic medication for CHF/Right heart dysfunction. Neuro: sedated - precedex Pulm: Respiratory distress; pleural effusion - Intubated - CT Angio to r/o PE, F/U - CXR: opacification of right hemithorax with midline shift - Repeat CXR (post Chest tube): markedly decreased pleural effusion; patchy opacities in right hemithorax - CXR (12/29/16): improving right lower lobe airspace disease; stable small right pleural effusion with loculated component at right lateral wall, persistent cardiomegaly with small left pleural effusion. - Pigtail chest tube placed, drained pleural fluid - Pleural fluid studies: Cloudy, WBC 99, RBC 2007, Neutrophils 11, Lymphocytes 78, Monocyte/Macrophage 10 - Chest CT: increasing right pleural effusion, increasing right lower lobe atelectasis; patchy opacity in lingula; small right hydro-pneumothorax; ascites , hepatic cirrhosis - Consulted Thoracic surgery regarding persistent pleural effusion: Dr. Aragon, help appreciated - No intervention at this time. - Consider chest tube replacement if current tube does not drain residual pleural effusion - Gen Surg consulted, Dr Garcia, for tracheostomy CV: Hypotensive, Severe right ventricle dilation; Afib - Central line placed - discontinued pressors - IV Fluids + Albumin - Troponin: 0.1280 - BNP: 87068 - ECHO: LVEF within normal range. Right ventricle severely dilated. RV systolic function is mildly to moderately reduced. Left atrium is severely dilated. Right atrium is severely dilated. Severe tricuspid regurgitation. Severe pulmonary hypertension. Severely dilated ivc with minimal change with inspiration. Mild to moderate pulmonic valvular regurgitation. Moderate pulmonary artery dilation. - Cardiology consulted: Dr. Hill, help appreciated - As per Dr. Hill, patient has severe pulmonary HTN, CAD s/p CABG, s/p MVR - Venous dupluex LE B/L: no DVTs - Afib: rate-controlled Endo: no acute issues GI: - Tube feeding - Distended abdomen - Abdominal US: liver cirrhosis, large abdominal/pelvic ascites, small right pleural effusion, cholelithiasis, diffuse gallbladder wall thickening likely secondary to liver cirrhosis. - s/p Paracentesis (01/02/17)- removed 2L fluid. - Fluid analysis: LDH 81, albumin 1.5, Fluid RBCs- 8529, Total cell count- 100, Neutrophil- 69, Lymphocytes-30, monocyte/macro 1. - Peritoneal cx: no growth x 3days Heme: thrombocytopenic - Hematology consulted- Dr. Posey, help appreciated Renal: history of kidney disease - BUN/Cr: 28/1.5 - Monitor kidney function - Hypokalemic- gave KCl ID: Code Sepsis - Likely secondary to pneumonia and/or LE cellulitis - WBC normal; afebrile - Bandemia: improving - zosyn 2.25gm iv q8 - UA: 1+ protein, 2 urobilinogen, 9 squam epith cells - Blood cx: no growth x5days - Urine cx: no growth - Sputum cx: normal oral [place] - Wound cx: Staph aureius + - Wound care consulted - ID consulted- Dr. Ramires, help appreciated Prophylaxis: - DVT: Discontinued Heparin 5,000units SC (thrombocytopenia) - GI: Protonix <Brayden Chung S - Last Filed: 01/10/17 17:27> CCU Objective - Vital Signs / Intake & Output Vital Signs (Last 4 hours): Vital Signs Temp Pulse Resp BP Pulse Ox 01/10/17 17:00 92 H 18 99 01/10/17 16:53 112 H 29 H 115/58 L 98 01/10/17 16:38 131 H 28 H 117/63 93 L 01/10/17 16:25 97.0 F L 98 01/10/17 16:20 93 H 21 97/56 L 100 01/10/17 16:18 88 19 01/10/17 15:35 97/55 L 01/10/17 15:34 74 97 01/10/17 15:06 75 20 104/44 L 97 01/10/17 15:00 77 22 97 01/10/17 14:06 71 16 101/50 L 99 01/10/17 14:05 70 16 99 01/10/17 14:00 70 16 99 Intake and Output (Last 8hrs): Intake & Output 01/10/17 01/10/17 01/10/17 06:59 14:59 22:59 Intake Total 181.3 106 71 Output Total 330 230 90 Balance -148.7 -124 -19 Weight 154 lb 3.2 oz Intake: IV 7 50 Intake, IV Amount 54.3 56 71 Right Distal Port 54.3 56 21 Subclavian Right Medial Port 0 0 50 Subclavian Right Proximal Port 0 Subclavian Tube Feeding 120 0 Output: Chest Tube Drainage 0 5 Right Posterior Chest 0 5 Urine 330 230 85 Urethral ([place]) 330 230 85 Other: # Bowel Movements 1 0 0 - Medications Active Medications: Active Medications Generic Name Dose Route Start Last Admin Trade Name Freq PRN Reason Stop Dose Admin Albuterol/Ipratropium 3 ml 01/06/17 14:00 01/10/17 13:33 Duoneb 3 Mg/0.5 Mg (3 Ml) Ud INH 3 ml RQ6 ZAHRA Administration Piperacillin Sod/Tazobactam Sod 2.25 gm in 50 mls @ 100 mls/hr 12/27/16 15:00 01/10/17 14:23 Zosyn 2.25 Gm Iv Premix IVPB 100 mls/hr Q8H ZAHRA Administration Dexmedetomidine HCl 200 mcg/ 50 mls @ 3.5 mls/hr 01/09/17 12:40 01/10/17 12: 33 Sodium Chloride IV 0.4 mcg/kg/hr TITR PRN 7.01 mls/hr Agitation Administration Protocol 0.2 MCG/KG/HR Lorazepam 2 mg 01/02/17 00:17 01/10/17 07:55 Ativan IVP 2 mg Q6H PRN Administration Agitation Morphine Sulfate 1 mg 01/04/17 11:05 01/10/17 17:16 Morphine IV 1 mg Q4 PRN Administration Pain, moderate (4-7) Pantoprazole Sodium 40 mg 01/04/17 10:00 01/10/17 09:42 Protonix Inj IVP 40 mg DAILY ZAHRA Administration - Patient Studies Lab Studies: Lab Studies 01/10/17 01/10/17 01/10/17 Range/Units 06:04 06:04 05:21 WBC 5.6 (4.8-10.8) K/uL RBC 2.97 L (3.80-5.20) Mil/uL Hgb 8.6 L (11.0-16.0) g/dL Hct 26.7 L (34.0-47.0) % MCV 89.7 (81.0-99.0) fL MCH 28.9 (27.0-31.0) pg MCHC 32.1 L (33.0-37.0) g/dL RDW 16.5 H (11.5-14.5) % Plt Count 210 (130-400) K/uL MPV 9.2 (7.2-11.7) fL Neut % (Auto) 76.3 H (50.0-75.0) % Lymph % (Auto) 8.3 L (20.0-40.0) % [place] % (Auto) 9.3 (0.0-10.0) % Eos % (Auto) 4.7 H (0.0-4.0) % Baso % (Auto) 1.4 (0.0-2.0) % Neut # 4.3 (1.8-7.0) K/uL Lymph # 0.5 L (1.0-4.3) K/uL [place] # 0.5 (0.0-0.8) K/uL Eos # 0.3 (0.0-0.7) K/uL Baso # 0.1 (0.0-0.2) K/uL Neutrophils % (Manual) 78 H (50-75) % Band Neutrophils % 4 H (0-2) % Lymphocytes % (Manual) 6 L (20-40) % Monocytes % (Manual) 8 (0-10) % Eosinophils % (Manual) 3 (0-4) % Basophils % (Manual) 1 (0-2) % Platelet Estimate Normal (NORMAL) Large Platelets Present Hypochromasia (manual) Slight Poikilocytosis (manual Slight Basophilic Stippling Slight Anisocytosis (manual) Slight Target Cells Slight Ovalocytes Slight PT (9.7-12.2) SECONDS INR APTT (21-34) SECONDS Puncture Site pCO2 (35-45) mm/Hg pO2 (80-100) mm/Hg HCO3 (21-28) mmol/L ABG pH (7.35-7.45) ABG Total CO2 (22-28) mmol/L ABG O2 Saturation (95-98) % ABG Base Excess (-2.0-3.0) mmol/L ABG Hemoglobin (11.7-17.4) g/dL ABG Carboxyhemoglobin (0.5-1.5) % POC ABG HHb (Measured) (0.0-5.0) % ABG Methemoglobin (0.0-3.0) % Jordon Test A-a O2 Difference mm/Hg Respiratory Index Hgb O2 Saturation (95.0-98.0) % Vent Mode Mechanical Rate FiO2 % Tidal Volume PEEP Sodium 143 (132-148) mmol/L Potassium 3.4 L (3.6-5.2) mmol/L Chloride 105 (98-107) mmol/L Carbon Dioxide 27 (22-30) mmol/L Anion Gap 14 (10-20) BUN 43 H (7-17) mg/dL Creatinine 1.3 H (0.7-1.2) MG/DL Est GFR ( Amer) 47 Est GFR (Non-Af Amer) 39 POC Glucose (mg/dL) 93 (65-110) mg/dL Random Glucose 100 (65-105) mg/dL Calcium 7.9 L (8.6-10.4) mg/dl Phosphorus 3.7 (2.5-4.5) mg/dL Magnesium 2.6 H (1.6-2.3) mg/dL Total Bilirubin 0.9 (0.2-1.3) mg/dL AST 14 D (14-36) U/L ALT 20 (9-52) U/L Alkaline Phosphatase 51 (38-126) U/L Total Protein 5.0 L (6.3-8.3) g/dL Albumin 2.6 L (3.5-5.0) g/dL Globulin 2.5 (2.2-3.9) gm/dL Albumin/Globulin Ratio 1.0 (1.0-2.1) 01/10/17 01/09/17 Range/Units 05:20 22:14 WBC (4.8-10.8) K/uL RBC (3.80-5.20) Mil/uL Hgb (11.0-16.0) g/dL Hct (34.0-47.0) % MCV (81.0-99.0) fL MCH (27.0-31.0) pg MCHC (33.0-37.0) g/dL RDW (11.5-14.5) % Plt Count (130-400) K/uL MPV (7.2-11.7) fL Neut % (Auto) (50.0-75.0) % Lymph % (Auto) (20.0-40.0) % [place] % (Auto) (0.0-10.0) % Eos % (Auto) (0.0-4.0) % Baso % (Auto) (0.0-2.0) % Neut # (1.8-7.0) K/uL Lymph # (1.0-4.3) K/uL [place] # (0.0-0.8) K/uL Eos # (0.0-0.7) K/uL Baso # (0.0-0.2) K/uL Neutrophils % (Manual) (50-75) % Band Neutrophils % (0-2) % Lymphocytes % (Manual) (20-40) % Monocytes % (Manual) (0-10) % Eosinophils % (Manual) (0-4) % Basophils % (Manual) (0-2) % Platelet Estimate (NORMAL) Large Platelets Hypochromasia (manual) Poikilocytosis (manual Basophilic Stippling Anisocytosis (manual) Target Cells Ovalocytes PT 14.2 H (9.7-12.2) SECONDS INR 1.2 APTT 32 (21-34) SECONDS Puncture Site Rbrachial pCO2 47 H (35-45) mm/Hg pO2 92 (80-100) mm/Hg HCO3 27.9 (21-28) mmol/L ABG pH 7.40 (7.35-7.45) ABG Total CO2 30.5 H (22-28) mmol/L ABG O2 Saturation 99.1 H (95-98) % ABG Base Excess 3.8 H (-2.0-3.0) mmol/L ABG Hemoglobin 8.8 L (11.7-17.4) g/dL ABG Carboxyhemoglobin 2.6 H (0.5-1.5) % POC ABG HHb (Measured) 0.9 (0.0-5.0) % ABG Methemoglobin 1.0 (0.0-3.0) % Jordon Test Neg A-a O2 Difference 134.0 mm/Hg Respiratory Index 1.5 Hgb O2 Saturation 95.5 (95.0-98.0) % Vent Mode A/c Mechanical Rate 16 FiO2 40.0 % Tidal Volume 350 PEEP 5 Sodium (132-148) mmol/L Potassium (3.6-5.2) mmol/L Chloride (98-107) mmol/L Carbon Dioxide (22-30) mmol/L Anion Gap (10-20) BUN (7-17) mg/dL Creatinine (0.7-1.2) MG/DL Est GFR ( Amer) Est GFR (Non-Af Amer) POC Glucose (mg/dL) (65-110) mg/dL Random Glucose (65-105) mg/dL Calcium (8.6-10.4) mg/dl Phosphorus (2.5-4.5) mg/dL Magnesium (1.6-2.3) mg/dL Total Bilirubin (0.2-1.3) mg/dL AST (14-36) U/L ALT (9-52) U/L Alkaline Phosphatase (38-126) U/L Total Protein (6.3-8.3) g/dL Albumin (3.5-5.0) g/dL Globulin (2.2-3.9) gm/dL Albumin/Globulin Ratio (1.0-2.1) Laboratory Results - last 24 hr 01/09/17 01/10/17 01/10/17 22:14 05:20 05:21 WBC RBC Hgb Hct MCV MCH MCHC RDW Plt Count MPV Neut % (Auto) Lymph % (Auto) [place] % (Auto) Eos % (Auto) Baso % (Auto) Neut # Lymph # [place] # Eos # Baso # Neutrophils % (Manual) Band Neutrophils % Lymphocytes % (Manual) Monocytes % (Manual) Eosinophils % (Manual) Basophils % (Manual) Platelet Estimate Large Platelets Hypochromasia (manual) Poikilocytosis (manual Basophilic Stippling Anisocytosis (manual) Target Cells Ovalocytes PT 14.2 H INR 1.2 APTT 32 Puncture Site Rbrachial pCO2 47 H pO2 92 HCO3 27.9 ABG pH 7.40 ABG Total CO2 30.5 H ABG O2 Saturation 99.1 H ABG Base Excess 3.8 H ABG Hemoglobin 8.8 L ABG Carboxyhemoglobin 2.6 H POC ABG HHb (Measured) 0.9 ABG Methemoglobin 1.0 Jordon Test Neg A-a O2 Difference 134.0 Respiratory Index 1.5 Hgb O2 Saturation 95.5 Vent Mode A/c Mechanical Rate 16 FiO2 40.0 Tidal Volume 350 PEEP 5 Sodium Potassium Chloride Carbon Dioxide Anion Gap BUN Creatinine Est GFR ( Amer) Est GFR (Non-Af Amer) POC Glucose (mg/dL) 93 Random Glucose Calcium Phosphorus Magnesium Total Bilirubin AST ALT Alkaline Phosphatase Total Protein Albumin Globulin Albumin/Globulin Ratio 01/10/17 01/10/17 06:04 06:04 WBC 5.6 RBC 2.97 L Hgb 8.6 L Hct 26.7 L MCV 89.7 MCH 28.9 MCHC 32.1 L RDW 16.5 H Plt Count 210 MPV 9.2 Neut % (Auto) 76.3 H Lymph % (Auto) 8.3 L [place] % (Auto) 9.3 Eos % (Auto) 4.7 H Baso % (Auto) 1.4 Neut # 4.3 Lymph # 0.5 L [place] # 0.5 Eos # 0.3 Baso # 0.1 Neutrophils % (Manual) 78 H Band Neutrophils % 4 H Lymphocytes % (Manual) 6 L Monocytes % (Manual) 8 Eosinophils % (Manual) 3 Basophils % (Manual) 1 Platelet Estimate Normal Large Platelets Present Hypochromasia (manual) Slight Poikilocytosis (manual Slight Basophilic Stippling Slight Anisocytosis (manual) Slight Target Cells Slight Ovalocytes Slight PT INR APTT Puncture Site pCO2 pO2 HCO3 ABG pH ABG Total CO2 ABG O2 Saturation ABG Base Excess ABG Hemoglobin ABG Carboxyhemoglobin POC ABG HHb (Measured) ABG Methemoglobin Jordon Test A-a O2 Difference Respiratory Index Hgb O2 Saturation Vent Mode Mechanical Rate FiO2 Tidal Volume PEEP Sodium 143 Potassium 3.4 L Chloride 105 Carbon Dioxide 27 Anion Gap 14 BUN 43 H Creatinine 1.3 H Est GFR ( Amer) 47 Est GFR (Non-Af Amer) 39 POC Glucose (mg/dL) Random Glucose 100 Calcium 7.9 L Phosphorus 3.7 Magnesium 2.6 H Total Bilirubin 0.9 AST 14 D ALT 20 Alkaline Phosphatase 51 Total Protein 5.0 L Albumin 2.6 L Globulin 2.5 Albumin/Globulin Ratio 1.0 Critical Care Progress Note - Nutrition Nutrition: Nutrition Category Date Time Status NPO Diet [DIET] Diets 01/10/17 Breakfast Active Assessment/Plan (1) Respiratory failure Current Visit: Yes Status: Acute Comment: Continue ventilatory support and wean as tolerated. Continue IV antibiotics Continue with pigtail catheter Increase feeding as tolerated Status post paracentesis NG feeding IV albumin Case discussed with son at length Potassium and magnesium supplements (2) Pneumonia Current Visit: Yes Status: Acute (3) Sepsis Current Visit: Yes Status: Acute Attending/Attestation - Attestation I have personally seen and examined this patient.: Yes I have fully participated in the care of the patient.: Yes I have reviewed all pertinent clinical information: Yes Notes (Text): 01/10/17 17:26 Patient seen and examined in the intensive care unit. Case discussed with house staff in the morning rounds. Status post tracheostomy For CT angio to rule out pulmonary embolism Pigtail catheter not draining much fluid Continue sedation and start weaning as tolerated Continue antibiotics and feeding
[2017-01-10 08:31] LABS: BASOPHIL 1 % (0-2); EOSINOPHIL 3 % (0-4); TOTAL CELLS COUNTED 100
[2017-01-10 08:32] LABS: NEUTROPHIL 78 % (50-75)
[2017-01-10 08:33] LABS: LARGE PLATELETS PRESENT
--- NOTE | 2017-01-10 10:13 | RAD ---
HISTORY: intubated COMPARISON: 01/09/2017 at 6:57 a.m. FINDINGS: LUNGS: No definite infiltrate. PLEURA: Moderate right pleural effusion essentially unchanged. Right pleural pigtail catheter unchanged. No pneumothorax. No left pleural effusion or pneumothorax. CARDIOVASCULAR: CABG. Mitral valve replacement. Sternotomy wires noted. Endotracheal tube and nasogastric tube are unchanged in position. Right PICC catheter again noted unchanged, with tip in the region of the superior vena cava. OSSEOUS STRUCTURES: No significant abnormalities. VISUALIZED UPPER ABDOMEN: Normal. OTHER FINDINGS: None. IMPRESSION: No interval change.
[2017-01-10] MEDS ORDERED: DiphenhydrAMINE 50 mg/ml Inj IVP ONE ×2 (10:51→20:00)
[2017-01-10] MEDS ORDERED: Potassium Chloride 20 mEq/15 ml LIQ UD PO ONE (10:54)
--- NOTE | 2017-01-10 12:26 | CP.PCM.PN ---
Subjective - Date & Time of Evaluation Date of Evaluation: 01/10/17 Time of Evaluation: 11:30 - Subjective Subjective: Patient was seen and examined at bedside in ICU Patient is intubated and sedated. Right-sided chest tube is in place. Objective - Vital Signs/Intake and Output Vital Signs (last 24 hours): Temp Pulse Resp BP Pulse Ox 97.4 F L 68 19 84/43 L 100 01/10/17 08:00 01/10/17 10:06 01/10/17 10:06 01/10/17 10:06 01/10/17 10:06 Intake and Output: 01/10/17 01/10/17 06:59 18:59 Intake Total 376.3 28 Output Total 540 150 Balance -163.7 -122 - Medications Medications: Current Medications Albuterol/Ipratropium (Duoneb 3 Mg/0.5 Mg (3 Ml) Ud) 3 ml INH RQ6 ZAHRA Last Admin: 01/10/17 07:26 Dose: 3 ml Piperacillin Sod/Tazobactam Sod (Zosyn 2.25 Gm Iv Premix) 2.25 gm in 50 mls @ 100 mls/hr IVPB Q8H ZAHRA Last Admin: 01/10/17 06:45 Dose: 100 mls/hr Dexmedetomidine HCl 200 mcg/ (Sodium Chloride) 50 mls @ 3.5 mls/hr IV TITR PRN ; Protocol; 0.2 MCG/KG/HR PRN Reason: Agitation Last Admin: 01/10/17 04:12 Dose: 0.4 mcg/kg/hr, 7.01 mls/hr Lorazepam (Ativan) 2 mg IVP Q6H PRN PRN Reason: Agitation Last Admin: 01/10/17 07:55 Dose: 2 mg Morphine Sulfate (Morphine) 1 mg IV Q4 PRN PRN Reason: Pain, moderate (4-7) Last Admin: 01/09/17 05:00 Dose: 1 mg Pantoprazole Sodium (Protonix Inj) 40 mg IVP DAILY ZAHRA Last Admin: 01/10/17 09:42 Dose: 40 mg - Labs Labs: 01/10/17 06:04 01/10/17 06:04 PT 14.2 SECONDS (9.7-12.2) H 01/09/17 22:14 INR 1.2 01/09/17 22:14 APTT 32 SECONDS (21-34) 01/09/17 22:14 - Head Exam Head Exam: ATRAUMATIC, NORMOCEPHALIC - Eye Exam Eye Exam: Normal appearance - ENT Exam ENT Exam: Mucous Membranes Moist - Respiratory Exam Additional comments: Patient is intubated and bilateral breath sounds audible. Right-sided chest tube is in place. Drainage noted. - Cardiovascular Exam Cardiovascular Exam: REGULAR RHYTHM, +S1, +S2 - Extremities Exam Extremities Exam: Pedal Edema Assessment and Plan (1) CHF (congestive heart failure) Status: Acute (2) Cellulitis and abscess of foot Status: Acute (3) H/O mitral valve replacement Status: Acute (4) Hypotension Status: Acute (5) Pneumonia Status: Acute (6) Septic shock Status: Acute - Assessment and Plan (Free Text) Plan: Continue antibiotics for pneumonia/sepsis Patient is off pressors non- Weaning from ventilator as per ICU team. Follow up CT scan of the chest report Discussed the plan of care with the ICU team .
[2017-01-10] MEDS ORDERED: Lactated Ringer's 1,000 ML IV ONE (15:53)
--- NOTE | 2017-01-10 15:56 | CP.PCM.PN ---
Subjective - Date & Time of Evaluation Date of Evaluation: 01/10/17 Time of Evaluation: 11:00 - Subjective Subjective: Patient is intubatd, unable to offer any complaints. Son at bed side, advocates for the patient. Objective - Vital Signs/Intake and Output Vital Signs (last 24 hours): Temp Pulse Resp BP Pulse Ox 97.3 F L 75 20 104/44 L 97 01/10/17 12:00 01/10/17 15:06 01/10/17 15:06 01/10/17 15:06 01/10/17 15:06 Intake and Output: 01/10/17 01/10/17 06:59 18:59 Intake Total 376.3 163 Output Total 540 295 Balance -163.7 -132 - Medications Medications: Current Medications Albuterol/Ipratropium (Duoneb 3 Mg/0.5 Mg (3 Ml) Ud) 3 ml INH RQ6 ZAHRA Last Admin: 01/10/17 13:33 Dose: 3 ml Piperacillin Sod/Tazobactam Sod (Zosyn 2.25 Gm Iv Premix) 2.25 gm in 50 mls @ 100 mls/hr IVPB Q8H ZAHRA Last Admin: 01/10/17 14:23 Dose: 100 mls/hr Dexmedetomidine HCl 200 mcg/ (Sodium Chloride) 50 mls @ 3.5 mls/hr IV TITR PRN ; Protocol; 0.2 MCG/KG/HR PRN Reason: Agitation Last Admin: 01/10/17 12:33 Dose: 0.4 mcg/kg/hr, 7.01 mls/hr Lorazepam (Ativan) 2 mg IVP Q6H PRN PRN Reason: Agitation Last Admin: 01/10/17 07:55 Dose: 2 mg Morphine Sulfate (Morphine) 1 mg IV Q4 PRN PRN Reason: Pain, moderate (4-7) Last Admin: 01/09/17 05:00 Dose: 1 mg Pantoprazole Sodium (Protonix Inj) 40 mg IVP DAILY ZAHRA Last Admin: 01/10/17 09:42 Dose: 40 mg - Labs Labs: 01/10/17 06:04 01/10/17 06:04 PT 14.2 SECONDS (9.7-12.2) H 01/09/17 22:14 INR 1.2 01/09/17 22:14 APTT 32 SECONDS (21-34) 01/09/17 22:14 - Constitutional Appears: In Acute Distress - Head Exam Head Exam: ATRAUMATIC, NORMAL INSPECTION, NORMOCEPHALIC - Eye Exam Eye Exam: EOMI, Normal appearance, PERRL Pupil Exam: NORMAL ACCOMODATION, PERRL - ENT Exam ENT Exam: Mucous Membranes Dry, Normal Exam - Neck Exam Neck Exam: Normal Inspection Additional comments: ETT - Cardiovascular Exam Cardiovascular Exam: Tachycardia - GI/Abdominal Exam GI & Abdominal Exam: Hypoactive Bowel Sounds - Rectal Exam Rectal Exam: Deferred - Extremities Exam Extremities Exam: Normal Inspection, Pedal Edema - Back Exam Back Exam: NORMAL INSPECTION - Neurological Exam Neurological Exam: Alert Neuro motor strength exam: Left Upper Extremity: 2/1, Right Upper Extremity: 2/ , Left Lower Extremity: 2/, Right Lower Extremity: 2/ - Psychiatric Exam Psychiatric exam: Agitated - Skin Skin Exam: Normal Color, Warm Assessment and Plan - Assessment and Plan (Free Text) Assessment: Patient is on MV , agitated, moving upper extremities. Uyen orbital bruises are fading slowly. Skin is pale and dry. ETT in place. Patient scheduled for trach creation today. Patient is still being treated with Zosyn for pneumonia. Patient had failed multiple weaning trials. I elicited patient's son Mr. Berg understanding regarding the trach creation and corrected his knowledge about time frame trach is planned to be used for. With help from Doctor Sheldon, it was explained to the son, that creation of trach will not cure the patient but will make it more comfortable to use assistance from MV. If patient's overall condition improves and patient is able to breath on her own , than she may be a candidate for weaning of the MV. As of now, patient is not able to sup[port respiratory drive and depends on the MV support. The expected steps post trach were explained as well, including LTAC or [facility]. It was made clear to the son, that patient will not be able to return home as long as she may need the support from MV. Impression * Patient is too weak to support respiratory drive due to pneumonia and sepsis and is planned for trach creation today * Patient's son had wrong impression that after the trach creation patient was to return home Suggestion * Family ( the son) needs a lot of support and education regarding patient's condition and care needed * Supportive care
--- NOTE | 2017-01-10 17:00 | PCM.SURG1 ---
Surgeon's Initial Post Op Note - Surgeon's Notes Surgeon: Radha Full Stack Software Engineer: PGY4 Type of Anesthesia: General Endo Pre-Operative Diagnosis: Vent dependent respiratory failure Operative Findings: see op note Post-Operative Diagnosis: Vent dependent respiratory failure Operation Performed: Modified Percutaneous tracheostomy with intraoperative bronchoscopy Specimen/Specimens Removed: n/a Estimated Blood Loss: EBL {In ML}: 5 Blood Products Given: N/A Drains Used: No Drains Post-Op Condition: Good Date of Surgery/Procedure: 01/10/17 Time of Surgery/Procedure: 15:15
[2017-01-10] MEDS ORDERED: MethylPREDNISolone 40 mg Vial IVP ONE (20:00)
--- NOTE | 2017-01-10 23:11 | CP.PCM.PN ---
Subjective - Date & Time of Evaluation Date of Evaluation: 01/10/17 Time of Evaluation: 08:35 - Subjective Subjective: Patient seen and evaluated On Mechanical ventilation No cardiac events noted Objective - Vital Signs/Intake and Output Vital Signs (last 24 hours): Temp Pulse Resp BP Pulse Ox 97.3 F L 77 18 93/50 L 99 01/10/17 20:00 01/10/17 22:45 01/10/17 22:45 01/10/17 22:45 01/10/17 22:45 Intake and Output: 01/10/17 01/11/17 18:59 06:59 Intake Total 234 158 Output Total 340 135 Balance -106 23 - Medications Medications: Current Medications Albuterol/Ipratropium (Duoneb 3 Mg/0.5 Mg (3 Ml) Ud) 3 ml INH RQ6 ZAHRA Last Admin: 01/10/17 19:08 Dose: 3 ml Piperacillin Sod/Tazobactam Sod (Zosyn 2.25 Gm Iv Premix) 2.25 gm in 50 mls @ 100 mls/hr IVPB Q8H ZAHRA Last Admin: 01/10/17 14:23 Dose: 100 mls/hr Dexmedetomidine HCl 200 mcg/ (Sodium Chloride) 50 mls @ 3.5 mls/hr IV TITR PRN ; Protocol; 0.2 MCG/KG/HR PRN Reason: Agitation Last Admin: 01/10/17 21:12 Dose: 0.4 mcg/kg/hr, 7.01 mls/hr Lorazepam (Ativan) 2 mg IVP Q6H PRN PRN Reason: Agitation Last Admin: 01/10/17 20:48 Dose: 2 mg Morphine Sulfate (Morphine) 1 mg IV Q4 PRN PRN Reason: Pain, moderate (4-7) Last Admin: 01/10/17 17:16 Dose: 1 mg Pantoprazole Sodium (Protonix Inj) 40 mg IVP DAILY ZAHRA Last Admin: 01/10/17 09:42 Dose: 40 mg - Labs Labs: 01/10/17 06:04 01/10/17 06:04 PT 14.2 SECONDS (9.7-12.2) H 01/09/17 22:14 INR 1.2 01/09/17 22:14 APTT 32 SECONDS (21-34) 01/09/17 22:14
[2017-01-10] MEDS ORDERED: Iodixanol 320 MG/ML 100 ML BOTTLE IV ONE (23:19)
[2017-01-11] MEDS: Albuterol-Ipratrop 3 mg / 0.5 (3 ml) UD INH SCH ×3 (02:43→13:40)
[2017-01-11 05:53] LABS: ABG ALLEN TEST NEG; ABG MECHANICAL RATE 16; ARTERIAL BLOOD GAS MODE A/C; ARTERIAL BLOOD HGB O2 SAT 93.8 % (95.0-98.0); ATERIAL BLOOD GAS PEEP 5; CARBOXYHEMOGLOBIN 2.4 % (0.5-1.5); DRAW SITE RBRACHIAL; HHB 2.6 % (0.0-5.0); METHEMOGLOBIN 1.2 % (0.0-3.0)
[2017-01-11] MEDS: Piperacill/Tazo 2.25gm in Dex 2.25 GM/50 ML BAG IVPB SCH ×3 (06:10→23:14)
[2017-01-11] MEDS: Dexmedetomidine Hydrochloride 200 MCG in Sodium Chloride 0.9% 48 ML IV PRN ×4 (06:11→22:50)
[2017-01-11 06:47] LABS: BASO % 0.1 % (0.0-2.0); HEMATOCRIT 30.5 % (34.0-47.0); LYMPH # 0.3 K/uL (1.0-4.3); MEAN CELL VOLUME 89.2 fL (81.0-99.0); MEAN CORPUSCULAR HEMOGLOBIN 29.3 pg (27.0-31.0); MEAN CORPUSCULAR HGB CONC 32.9 g/dL (33.0-37.0); MEAN PLATELET VOLUME 8.9 fL (7.2-11.7); MONO # 0.1 K/uL (0.0-0.8); MONO % 2.4 % (0.0-10.0); NRBC % 0.1 % (0.0-2.0); PLATELET COUNT 271 K/uL (130-400); WHITE BLOOD COUNT 5.5 K/uL (4.8-10.8)
[2017-01-11 06:55] LABS: POTASSIUM 4.2 mmol/L (3.6-5.2)
[2017-01-11 06:57] LABS: BILIRUBIN,TOTAL 1.2 mg/dL (0.2-1.3); PHOSPHOROUS 4.2 mg/dL (2.5-4.5); TOTAL PROTEIN 5.7 g/dL (6.3-8.3)
[2017-01-11 06:58] LABS: CALCIUM 8.7 mg/dl (8.6-10.4); MAGNESIUM 2.7 mg/dL (1.6-2.3)
--- NOTE | 2017-01-11 08:30 | OP ---
PROCEDURE DATE: 01/10/2017 PREOPERATIVE DIAGNOSES: 1. Vent-dependent respiratory failure. 2. Unable to wean. POSTOPERATIVE DIAGNOSES: 1. Vent-dependent respiratory failure. 2. Unable to wean. PROCEDURE: 1. Percutaneous tracheostomy. 2. Bronchoscopy. SURGEON: Dr. Garcia. MANUFACTURING WEAVER: Akira Fraga, PGY4 resident. TYPE OF ANESTHESIA: General anesthesia. ESTIMATED BLOOD LOSS: Around 5 mL. DRAIN: None. PATHOLOGY: None. COMPLICATIONS: None. INTRAOPERATIVE FINDINGS: The patient had very mild mucus secretion in the lower respiratory tract. There is no erythema and there was no mucus plug identified. DESCRIPTION OF PROCEDURE: On intraoperative steps, this 86-year-old female who was diagnosed with a vent-dependent respiratory failure and the patient was unable to wean and the patient's family was consented for the percutaneous tracheoscopy under bronchoscopy guidance. The patient was brought to the OR, placed on the patient's bed and after induction of the anesthesia, the bronchoscopy was done by me and complete evaluation oft he upper and the lower respiratory tract was done and the patient had a very mild mucus secretion. There was no mucus plug. There is no erythema and after that the neck was prepped and draped, the lower midline incision was made after incising skin and subcutaneous tissue. The tracheal ring was identified and under bronchoscopy guidance, the needle was passed, guidewire was placed and using the blue Rhino kit, the #8 tracheostomy tube was placed and the tube was connected to the hand-handle CO2. There was normal end tidal CO2 and after that the tracheostomy tube was secured to the skin and strapped and balloon was inflated and the patient was sent to the ICU for further care. There was no apparent complications. Count of the instruments and gauze was correct. The patient tolerated the procedure well. Elvis Garcia MD
[2017-01-11 08:34] LABS: NEUTROPHIL 90 % (50-75); TOTAL CELLS COUNTED 100
--- NOTE | 2017-01-11 08:34 | CP.PCM.PN ---
<Gaby Zhou - Last Filed: 01/11/17 09:11> Subjective - Date & Time of Evaluation Date of Evaluation: 01/11/17 Time of Evaluation: 08:30 - Subjective Subjective: Patient was seen and examined at bedside s/p tracheostomy. Patient was in no acute distress. Patient is sedated, review of systems not obtained. Objective - Vital Signs/Intake and Output Vital Signs (last 24 hours): Temp Pulse Resp BP Pulse Ox 97.9 F 79 27 H 104/60 99 01/11/17 04:00 01/11/17 07:15 01/11/17 07:15 01/11/17 07:15 01/11/17 07:15 Intake and Output: 01/11/17 01/11/17 06:59 18:59 Intake Total 504 37 Output Total 410 25 Balance 94 12 - Medications Medications: Current Medications Albuterol/Ipratropium (Duoneb 3 Mg/0.5 Mg (3 Ml) Ud) 3 ml INH RQ6 ZAHRA Last Admin: 01/11/17 07:35 Dose: 3 ml Piperacillin Sod/Tazobactam Sod (Zosyn 2.25 Gm Iv Premix) 2.25 gm in 50 mls @ 100 mls/hr IVPB Q8H ZAHRA Last Admin: 01/11/17 06:10 Dose: 100 mls/hr Dexmedetomidine HCl 200 mcg/ (Sodium Chloride) 50 mls @ 3.5 mls/hr IV TITR PRN ; Protocol; 0.2 MCG/KG/HR PRN Reason: Agitation Last Admin: 01/11/17 06:11 Dose: 0.4 mcg/kg/hr, 7.01 mls/hr Lorazepam (Ativan) 2 mg IVP Q6H PRN PRN Reason: Agitation Last Admin: 01/11/17 03:09 Dose: 2 mg Morphine Sulfate (Morphine) 1 mg IV Q4 PRN PRN Reason: Pain, moderate (4-7) Last Admin: 01/10/17 23:50 Dose: 1 mg Pantoprazole Sodium (Protonix Inj) 40 mg IVP DAILY ZAHRA Last Admin: 01/10/17 09:42 Dose: 40 mg - Labs Labs: 01/11/17 06:34 01/11/17 06:34 PT 14.2 SECONDS (9.7-12.2) H 01/09/17 22:14 INR 1.2 01/09/17 22:14 APTT 32 SECONDS (21-34) 01/09/17 22:14 - Head Exam Head Exam: ATRAUMATIC, NORMAL INSPECTION - Eye Exam Additional comments: periorbital ecchymosis - ENT Exam ENT Exam: Mucous Membranes Dry - Respiratory Exam Respiratory Exam: Clear to Ausculation Bilateral, NORMAL BREATHING PATTERN. absent: Rales, Rhonchi, Wheezes, Respiratory Distress - Cardiovascular Exam Cardiovascular Exam: Irregular Rhythm, +S1, +S2. absent: Bradycardia, Tachycardia - GI/Abdominal Exam GI & Abdominal Exam: Distended, Soft, Hypoactive Bowel Sounds. absent: Guarding - Extremities Exam Extremities Exam: absent: Normal Inspection (B/L LE edema and cellulitis) - Neurological Exam Neurological Exam: absent: Alert, Awake - Skin Skin Exam: Warm Additional comments: B/L LE cellulitis and pitting edema. Assessment and Plan (1) Respiratory distress Assessment & Plan: 86 year old female s/p tracheostomy, POD#1. - Will remove gauze tomorrow, POD#2 - Suture removal on POD#10 - Continue medical management as per ICU team. Status: Acute <Elvis Garcia - Last Filed: 01/11/17 09:54> Objective - Vital Signs/Intake and Output Vital Signs (last 24 hours): Temp Pulse Resp BP Pulse Ox 97.9 F 79 27 H 104/60 99 01/11/17 04:00 01/11/17 07:15 01/11/17 07:15 01/11/17 07:15 01/11/17 07:15 Intake and Output: 01/11/17 01/11/17 06:59 18:59 Intake Total 504 37 Output Total 410 25 Balance 94 12 - Medications Medications: Current Medications Albuterol/Ipratropium (Duoneb 3 Mg/0.5 Mg (3 Ml) Ud) 3 ml INH RQ6 ZAHRA Last Admin: 01/11/17 07:35 Dose: 3 ml Piperacillin Sod/Tazobactam Sod (Zosyn 2.25 Gm Iv Premix) 2.25 gm in 50 mls @ 100 mls/hr IVPB Q8H ZAHRA Last Admin: 01/11/17 06:10 Dose: 100 mls/hr Dexmedetomidine HCl 200 mcg/ (Sodium Chloride) 50 mls @ 3.5 mls/hr IV TITR PRN ; Protocol; 0.2 MCG/KG/HR PRN Reason: Agitation Last Admin: 01/11/17 06:11 Dose: 0.4 mcg/kg/hr, 7.01 mls/hr Lorazepam (Ativan) 2 mg IVP Q6H PRN PRN Reason: Agitation Last Admin: 01/11/17 03:09 Dose: 2 mg Morphine Sulfate (Morphine) 1 mg IV Q4 PRN PRN Reason: Pain, moderate (4-7) Last Admin: 01/10/17 23:50 Dose: 1 mg Pantoprazole Sodium (Protonix Inj) 40 mg IVP DAILY ZAHRA Last Admin: 01/11/17 09:34 Dose: 40 mg - Labs Labs: 01/11/17 06:34 01/11/17 06:34 PT 14.2 SECONDS (9.7-12.2) H 01/09/17 22:14 INR 1.2 01/09/17 22:14 APTT 32 SECONDS (21-34) 01/09/17 22:14 Attending/Attestation - Attestation I have personally seen and examined this patient.: Yes I have fully participated in the care of the patient.: Yes I have reviewed all pertinent clinical information, including history, physical exam and plan: Yes Notes (Text): 01/11/17 09:53 Pt was seen and examined at bedside Agree with above note and assessment c/w current mx as per ICU team
--- NOTE | 2017-01-11 09:40 | CT ---
PROCEDURE: CT Chest with contrast (Pulmonary Angiogram) HISTORY: r/o PE COMPARISON: Chest CT without contrast 01/01/2017 TECHNIQUE: Axial computed tomography images were obtained of the chest in the pulmonary arterial phase of enhancement. Coronal and sagittal reformatted images were created and reviewed. Intravenous contrast dose: Visipaque 320, 100 cc Radiation dose: Total exam DLP = mGy-cm. This CT exam was performed using one or more of the following dose reduction techniques: Automated exposure control, adjustment of the mA and/or kV according to patient size, and/or use of iterative reconstruction technique. FINDINGS: PULMONARY ARTERIES: Deposit for mild pulmonary embolus in segmental branches the right pulmonary artery at the right lower lobe (see images 121 through 133, series 2 as well as the coronal series and bracket. No additional pulmonary are emboli are identified including the main pulmonary artery segment. Main pulmonary artery is nearly as large as the ascending aorta thoracic aorta. AORTA: No acute findings. No thoracic aortic aneurysm. LUNGS: Endotracheal tube is not simply changed in position with patchy infiltrate again seen the left upper lobe and upper segments of the right middle lobe. Compression atelectasis remains at the right lower lobe with underlying pneumonia not excluded. Extensive of the endotracheal tube, central airways remain clear. Nasogastric identified placed entry into the stomach. PLEURAL SPACES: Prior right pneumothorax has resolved with right pleural effusion mildly increased posteriorly and unchanged anteriorly at the right hemithorax. Left pleural effusion remains very mild but is slightly increased as well. HEART: Cardiomegaly persists but with no apparent pericardial effusion. Mitral valve replacement again identified. Further, there is contrast reflux into the hepatic veins and inferior vena cava suspicious for possible right heart failure. LYMPH NODES: Mild paratracheal lymphadenopathy is appreciated including lymph node up to 1.2 cm in the inferior right peritracheal space. BONES, CHEST WALL: Unremarkable. No fracture or destructive lesion OTHER FINDINGS: Incidental views through the upper abdomen reveal ascites. Chest wall and abdominal wall are also edematous suggesting anasarca. IMPRESSION: 1. Mild pulmonary emboli are identified at segmental branches of the right lower lobe as discussed above. 2. Moderate right pleural effusion appears increased with pneumothorax resolved however. Very limited left pleural effusion is slightly increased interval as well. 3. Patchy infiltrate left upper lobe and right middle lobe again evident with likely compressive atelectasis right lower lobe favored over pneumonia although pneumonia is not excluded. 4. Stable cardiomegaly. 5. Incidental abdominal ascites as well as chest and abdominal wall edema suspicious for anasarca. 6. Additional lesser findings as discussed above. Findings discussed with Dr. Self 01/11/2017 9:15 a.m. with write down read back verification.
--- NOTE | 2017-01-11 11:15 | RAD ---
HISTORY: tracheostomy COMPARISON: Portable chest 01/10/2017 FINDINGS: LUNGS: Tracheostomy tube and right PICC are unchanged in position. Nasogastric tube is again identified placed. Improved aeration is identified in the left base with linear atelectasis remaining. Limited patchy atelectasis or infiltrate seen the right base which is also on improvement. Prostatic cardiac valve again identified. PLEURA: Right pleural effusion is likely diminished mildly. Left pleural effusion is more definitively smaller in volume and remains minimal. CARDIOVASCULAR: Stable cardiomegaly is noted. No definite pulmonary vascular derangement is appreciated at this time. OSSEOUS STRUCTURES: No significant abnormalities. VISUALIZED UPPER ABDOMEN: Normal. OTHER FINDINGS: None. IMPRESSION: Improving cardiopulmonary status including diminishing bilateral pleural effusions and left basilar retrocardiac atelectasis or infiltrate. Medial right basilar opacity is slightly diminished as well.
--- NOTE | 2017-01-11 12:22 | RAD ---
HISTORY: post tracheostomy COMPARISON: 01/09/2017 FINDINGS: LUNGS: Interval left basal triangular opacity/infiltrate/atelectasis with interval small left pleural effusion suggested PLEURA: Interval small left pleural effusion. No pneumothorax apparent. Mild moderate right pleural effusion -slightly decreased CARDIOVASCULAR: Cardiomegaly. Coronary artery clips. Midline sternotomy and mitral valve prosthesis OSSEOUS STRUCTURES: Diffuse thoracic spondylosis. VISUALIZED UPPER ABDOMEN: Normal. OTHER FINDINGS: Interval tracheostomy insertion Right subclavian PICC line tip superior vena cava unchanged. Lateral right mid lung zone pigtail catheter placement in similar no interval change in the contiguous right pleural parenchymal minimal opacity here. Interval NG tube removal IMPRESSION: Interval left lower lobe triangular infiltrate and/or atelectasis interval small left pleural effusion. Other findings as above Interval tracheostomy tube in satisfactory position suggested per frontal view Other support lines and tubes smaller appearing except NG tube -which has been removed
--- NOTE | 2017-01-11 16:58 | CP.CCUPN ---
<Dom Self R - Last Filed: 01/11/17 16:50> CCU Subjective - Physician Review Subjective (Free Text): Patient was seen and examined at bedside in the morning. Patient was in no acute distress. Patient is sedated, review of systems not obtained. 01/11/17 16:50 CCU Objective - Vital Signs / Intake & Output Vital Signs (Last 4 hours): Vital Signs Temp Pulse Resp BP Pulse Ox 01/11/17 16:00 97.1 F L 77 23 101/54 L 99 01/11/17 15:00 91 H 24 106/71 99 01/11/17 14:00 87 25 H 96/51 L 99 01/11/17 13:00 89 23 99/53 L 100 Intake and Output (Last 8hrs): Intake & Output 01/11/17 01/11/17 01/11/17 06:59 14:59 22:59 Intake Total 346 481 40 Output Total 275 25 Balance 71 456 40 Weight 154 lb 8.705 oz Intake: IV 50 50 Intake, IV Amount 106 71 10 Right Distal Port 56 71 10 Subclavian Right Medial Port 50 Subclavian Tube Feeding 190 240 30 Other 120 Output: Urine 275 25 Urethral ([place]) 275 25 Other: # Bowel Movements 0 0 - Physical Exam Head: Negative for: Atraumatic, Normocephalic Pupils: Positive for: PERRL Extroacular Muscles: Positive for: EOMI Mouth: Positive for: Moist Mucous Membranes Neck: Positive for: Trachea Midline Respiratory/Chest: Positive for: Decreased Breath Sounds. Negative for: Rales, Rhonchi Cardiovascular: Positive for: Normal S1, S2, Irregular Rhythm, Tachycardic Abdomen: Positive for: Distention. Negative for: Tenderness, Normal Bowel Sounds (hypoactive) Upper Extremity: Positive for: Normal Inspection Lower Extremity: Positive for: Edema, Swelling, Other (serosanginous fluid blisters on LE B/L). Negative for: Normal Inspection Skin: Positive for: Warm, Erythematous, Other (serosanginous fluid blisters on LE B/L). Negative for: Dry, Normal Color Psychiatric: Positive for: Alert - Medications Active Medications: Active Medications Generic Name Dose Route Start Last Admin Trade Name Freq PRN Reason Stop Dose Admin Apixaban 10 mg 01/11/17 12:15 01/11/17 13:20 Eliquis PO 10 mg BID ZAHRA Administration Piperacillin Sod/Tazobactam Sod 2.25 gm in 50 mls @ 100 mls/hr 12/27/16 15:00 01/11/17 14:21 Zosyn 2.25 Gm Iv Premix IVPB 100 mls/hr Q8H ZAHRA Administration Dexmedetomidine HCl 200 mcg/ 50 mls @ 3.5 mls/hr 01/09/17 12:40 01/11/17 11: 42 Sodium Chloride IV 0.6 mcg/kg/hr TITR PRN 10.52 mls/hr Agitation Administration Protocol 0.2 MCG/KG/HR Lorazepam 2 mg 01/02/17 00:17 01/11/17 03:09 Ativan IVP 2 mg Q6H PRN Administration Agitation Morphine Sulfate 1 mg 01/04/17 11:05 01/10/17 23:50 Morphine IV 1 mg Q4 PRN Administration Pain, moderate (4-7) Pantoprazole Sodium 40 mg 01/04/17 10:00 01/11/17 09:34 Protonix Inj IVP 40 mg DAILY ZAHRA Administration - Patient Studies Lab Studies: Lab Studies 01/11/17 01/11/17 01/11/17 Range/Units 06:58 06:34 06:34 WBC 5.5 (4.8-10.8) K/uL RBC 3.42 L (3.80-5.20) Mil/uL Hgb 10.0 L (11.0-16.0) g/dL Hct 30.5 L (34.0-47.0) % MCV 89.2 (81.0-99.0) fL MCH 29.3 (27.0-31.0) pg MCHC 32.9 L (33.0-37.0) g/dL RDW 17.0 H (11.5-14.5) % Plt Count 271 (130-400) K/uL MPV 8.9 (7.2-11.7) fL Neut % (Auto) 91.5 H (50.0-75.0) % Lymph % (Auto) 6.0 L (20.0-40.0) % [place] % (Auto) 2.4 (0.0-10.0) % Eos % (Auto) 0.0 (0.0-4.0) % Baso % (Auto) 0.1 (0.0-2.0) % Neut # 5.0 (1.8-7.0) K/uL Lymph # 0.3 L (1.0-4.3) K/uL [place] # 0.1 (0.0-0.8) K/uL Eos # 0.0 (0.0-0.7) K/uL Baso # 0.0 (0.0-0.2) K/uL Neutrophils % (Manual) 90 H (50-75) % Band Neutrophils % 9 H (0-2) % Lymphocytes % (Manual) 5 L (20-40) % Monocytes % (Manual) 2 (0-10) % Platelet Estimate Normal (NORMAL) Hypochromasia (manual) Slight Poikilocytosis (manual Slight Anisocytosis (manual) Slight Microcytosis (manual) Slight Ovalocytes Slight Puncture Site pCO2 (35-45) mm/Hg pO2 (80-100) mm/Hg HCO3 (21-28) mmol/L ABG pH (7.35-7.45) ABG Total CO2 (22-28) mmol/L ABG O2 Saturation (95-98) % ABG Base Excess (-2.0-3.0) mmol/L ABG Hemoglobin (11.7-17.4) g/dL ABG Carboxyhemoglobin (0.5-1.5) % POC ABG HHb (Measured) (0.0-5.0) % ABG Methemoglobin (0.0-3.0) % Jordon Test A-a O2 Difference mm/Hg Respiratory Index Hgb O2 Saturation (95.0-98.0) % Vent Mode Mechanical Rate FiO2 % Tidal Volume PEEP Sodium 147 (132-148) mmol/L Potassium 4.2 (3.6-5.2) mmol/L Chloride 106 (98-107) mmol/L Carbon Dioxide 26 (22-30) mmol/L Anion Gap 19 (10-20) BUN 46 H (7-17) mg/dL Creatinine 1.4 H (0.7-1.2) MG/DL Est GFR ( Amer) 43 Est GFR (Non-Af Amer) 36 POC Glucose (mg/dL) 123 H (65-110) mg/dL Random Glucose 156 H (65-105) mg/dL Calcium 8.7 (8.6-10.4) mg/dl Phosphorus 4.2 (2.5-4.5) mg/dL Magnesium 2.7 H (1.6-2.3) mg/dL Total Bilirubin 1.2 (0.2-1.3) mg/dL AST 16 (14-36) U/L ALT 20 (9-52) U/L Alkaline Phosphatase 59 (38-126) U/L Total Protein 5.7 L (6.3-8.3) g/dL Albumin 2.8 L (3.5-5.0) g/dL Globulin 2.9 (2.2-3.9) gm/dL Albumin/Globulin Ratio 1.0 (1.0-2.1) 01/11/17 Range/Units 05:20 WBC (4.8-10.8) K/uL RBC (3.80-5.20) Mil/uL Hgb (11.0-16.0) g/dL Hct (34.0-47.0) % MCV (81.0-99.0) fL MCH (27.0-31.0) pg MCHC (33.0-37.0) g/dL RDW (11.5-14.5) % Plt Count (130-400) K/uL MPV (7.2-11.7) fL Neut % (Auto) (50.0-75.0) % Lymph % (Auto) (20.0-40.0) % [place] % (Auto) (0.0-10.0) % Eos % (Auto) (0.0-4.0) % Baso % (Auto) (0.0-2.0) % Neut # (1.8-7.0) K/uL Lymph # (1.0-4.3) K/uL [place] # (0.0-0.8) K/uL Eos # (0.0-0.7) K/uL Baso # (0.0-0.2) K/uL Neutrophils % (Manual) (50-75) % Band Neutrophils % (0-2) % Lymphocytes % (Manual) (20-40) % Monocytes % (Manual) (0-10) % Platelet Estimate (NORMAL) Hypochromasia (manual) Poikilocytosis (manual Anisocytosis (manual) Microcytosis (manual) Ovalocytes Puncture Site Rbrachial pCO2 33 L (35-45) mm/Hg pO2 68 L (80-100) mm/Hg HCO3 26.9 (21-28) mmol/L ABG pH 7.50 H (7.35-7.45) ABG Total CO2 26.7 (22-28) mmol/L ABG O2 Saturation 97.3 (95-98) % ABG Base Excess 2.6 (-2.0-3.0) mmol/L ABG Hemoglobin 9.7 L (11.7-17.4) g/dL ABG Carboxyhemoglobin 2.4 H (0.5-1.5) % POC ABG HHb (Measured) 2.6 (0.0-5.0) % ABG Methemoglobin 1.2 (0.0-3.0) % Jordon Test Neg A-a O2 Difference 176.0 mm/Hg Respiratory Index 2.6 Hgb O2 Saturation 93.8 L (95.0-98.0) % Vent Mode A/c Mechanical Rate 16 FiO2 40.0 % Tidal Volume 350 PEEP 5 Sodium (132-148) mmol/L Potassium (3.6-5.2) mmol/L Chloride (98-107) mmol/L Carbon Dioxide (22-30) mmol/L Anion Gap (10-20) BUN (7-17) mg/dL Creatinine (0.7-1.2) MG/DL Est GFR ( Amer) Est GFR (Non-Af Amer) POC Glucose (mg/dL) (65-110) mg/dL Random Glucose (65-105) mg/dL Calcium (8.6-10.4) mg/dl Phosphorus (2.5-4.5) mg/dL Magnesium (1.6-2.3) mg/dL Total Bilirubin (0.2-1.3) mg/dL AST (14-36) U/L ALT (9-52) U/L Alkaline Phosphatase (38-126) U/L Total Protein (6.3-8.3) g/dL Albumin (3.5-5.0) g/dL Globulin (2.2-3.9) gm/dL Albumin/Globulin Ratio (1.0-2.1) Laboratory Results - last 24 hr 01/11/17 01/11/17 01/11/17 05:20 06:34 06:34 WBC 5.5 RBC 3.42 L Hgb 10.0 L Hct 30.5 L MCV 89.2 MCH 29.3 MCHC 32.9 L RDW 17.0 H Plt Count 271 MPV 8.9 Neut % (Auto) 91.5 H Lymph % (Auto) 6.0 L [place] % (Auto) 2.4 Eos % (Auto) 0.0 Baso % (Auto) 0.1 Neut # 5.0 Lymph # 0.3 L [place] # 0.1 Eos # 0.0 Baso # 0.0 Neutrophils % (Manual) 90 H Band Neutrophils % 9 H Lymphocytes % (Manual) 5 L Monocytes % (Manual) 2 Platelet Estimate Normal Hypochromasia (manual) Slight Poikilocytosis (manual Slight Anisocytosis (manual) Slight Microcytosis (manual) Slight Ovalocytes Slight Puncture Site Rbrachial pCO2 33 L pO2 68 L HCO3 26.9 ABG pH 7.50 H ABG Total CO2 26.7 ABG O2 Saturation 97.3 ABG Base Excess 2.6 ABG Hemoglobin 9.7 L ABG Carboxyhemoglobin 2.4 H POC ABG HHb (Measured) 2.6 ABG Methemoglobin 1.2 Jordon Test Neg A-a O2 Difference 176.0 Respiratory Index 2.6 Hgb O2 Saturation 93.8 L Vent Mode A/c Mechanical Rate 16 FiO2 40.0 Tidal Volume 350 PEEP 5 Sodium 147 Potassium 4.2 Chloride 106 Carbon Dioxide 26 Anion Gap 19 BUN 46 H Creatinine 1.4 H Est GFR ( Amer) 43 Est GFR (Non-Af Amer) 36 POC Glucose (mg/dL) Random Glucose 156 H Calcium 8.7 Phosphorus 4.2 Magnesium 2.7 H Total Bilirubin 1.2 AST 16 ALT 20 Alkaline Phosphatase 59 Total Protein 5.7 L Albumin 2.8 L Globulin 2.9 Albumin/Globulin Ratio 1.0 01/11/17 06:58 WBC RBC Hgb Hct MCV MCH MCHC RDW Plt Count MPV Neut % (Auto) Lymph % (Auto) [place] % (Auto) Eos % (Auto) Baso % (Auto) Neut # Lymph # [place] # Eos # Baso # Neutrophils % (Manual) Band Neutrophils % Lymphocytes % (Manual) Monocytes % (Manual) Platelet Estimate Hypochromasia (manual) Poikilocytosis (manual Anisocytosis (manual) Microcytosis (manual) Ovalocytes Puncture Site pCO2 pO2 HCO3 ABG pH ABG Total CO2 ABG O2 Saturation ABG Base Excess ABG Hemoglobin ABG Carboxyhemoglobin POC ABG HHb (Measured) ABG Methemoglobin Jordon Test A-a O2 Difference Respiratory Index Hgb O2 Saturation Vent Mode Mechanical Rate FiO2 Tidal Volume PEEP Sodium Potassium Chloride Carbon Dioxide Anion Gap BUN Creatinine Est GFR ( Amer) Est GFR (Non-Af Amer) POC Glucose (mg/dL) 123 H Random Glucose Calcium Phosphorus Magnesium Total Bilirubin AST ALT Alkaline Phosphatase Total Protein Albumin Globulin Albumin/Globulin Ratio Fingerstick Blood Sugar Results: 124 Review of Systems - Review of Systems Systems not reviewed;Unavailable: Other (sedated) Critical Care Progress Note - Vent Settings TIDAL VOLUME:: 350 RESP RATE:: 16 FIO2:: 40 PEEP:: 5 - Nutrition Nutrition: Nutrition Category Date Time Status NPO Diet [DIET] Diets 01/10/17 Breakfast Active Assessment/Plan - Assessment and Plan (Free Text) Assessment: 86 year old female with medical history of HTN, CHF, CKD, and CABG, presents to the ED by ambulance with shortness of breath. The patient's son, Polo, reports she felt nauseas, feverish, and had chills this morning. As he was helping her to the restroom, patient urinated on self, passed out, and remained unresponsive. In the ED, patient was hypotensive and in respiratory distress. Code sepsis was called. Patient is consulted in the ICU for respiratory distress , hypotension, and sepsis. Patient's chest xray showed opacification of right hemithorax with midline shift. Review of systems was not obtained due to patients status. Patient was intubated, pigtail chest tube placed, waterseal, and pleural fluid drained. Repeat chest xray showed improvement. Underlying infiltrate likely pneumonia- started Zosyn and Vancomycin. Patient was hypotensive, required pressors. Patient has persistent pleural effusion - consider chest tube replacement if drainage of residual pleural effusion stops. Patient's leukocytosis and bandemia are improving. As per cardiology, patient should have CT angio to rule out PE, and if negative, possibly start patient on inotropic medication for CHF/Right heart dysfunction. Neuro: sedated - precedex Pulm: Respiratory distress; pleural effusion; right lower lobe PE - s/p percutaneous tracheostomy with intraoperative bronchoscopy 01/10 - CT Angio: deposit for mild pulmonary embolus at the right lower lobe (see full report) -> apixban 10mg bid - CXR: opacification of right hemithorax with midline shift - Repeat CXR (post Chest tube): markedly decreased pleural effusion; patchy opacities in right hemithorax - CXR (12/29/16): improving right lower lobe airspace disease; stable small right pleural effusion with loculated component at right lateral wall, persistent cardiomegaly with small left pleural effusion. - pigtail removed 01/11 - Pleural fluid studies: Cloudy, WBC 99, RBC 2007, Neutrophils 11, Lymphocytes 78, Monocyte/Macrophage 10 - Chest CT: increasing right pleural effusion, increasing right lower lobe atelectasis; patchy opacity in lingula; small right hydro-pneumothorax; ascites , hepatic cirrhosis - Consulted Thoracic surgery regarding persistent pleural effusion: Dr. Aragon, help appreciated - No intervention at this time. - Consider chest tube replacement if current tube does not drain residual pleural effusion - Gen Surg consulted, Dr Garcia, for tracheostomy CV: Hypotensive, Severe right ventricle dilation; Afib - Central line placed - discontinued pressors - IV Fluids + Albumin - Troponin: 0.1280 - BNP: 56702 - ECHO: LVEF within normal range. Right ventricle severely dilated. RV systolic function is mildly to moderately reduced. Left atrium is severely dilated. Right atrium is severely dilated. Severe tricuspid regurgitation. Severe pulmonary hypertension. Severely dilated ivc with minimal change with inspiration. Mild to moderate pulmonic valvular regurgitation. Moderate pulmonary artery dilation. - Cardiology consulted: Dr. Hill, help appreciated - As per Dr. Hill, patient has severe pulmonary HTN, CAD s/p CABG, s/p MVR - Venous dupluex LE B/L: no DVTs - Afib: rate-controlled Endo: no acute issues GI: - Tube feeding - Distended abdomen - Abdominal US: liver cirrhosis, large abdominal/pelvic ascites, small right pleural effusion, cholelithiasis, diffuse gallbladder wall thickening likely secondary to liver cirrhosis. - s/p Paracentesis (01/02/17)- removed 2L fluid. - Fluid analysis: LDH 81, albumin 1.5, Fluid RBCs- 8529, Total cell count- 100, Neutrophil- 69, Lymphocytes-30, monocyte/macro 1. - Peritoneal cx: no growth x 3days Heme: thrombocytopenic; right lower lobe PE - Hematology consulted- Dr. Posey, help appreciated - CT Angio: deposit for mild pulmonary embolus at the right lower lobe (see full report) -> apixban 10mg po bid for 7 days then switch to 5mg po bid Renal: history of kidney disease - BUN/Cr: 28/1.5 - Monitor kidney function - Hypokalemic- gave KCl ID: Code Sepsis - Likely secondary to pneumonia and/or LE cellulitis - WBC normal; afebrile - Bandemia: improving - zosyn 2.25gm iv q8 - UA: 1+ protein, 2 urobilinogen, 9 squam epith cells - Blood cx: no growth x5days - Urine cx: no growth - Sputum cx: normal oral [place] - Wound cx: Staph aureius + - Wound care consulted - ID consulted- Dr. Ramires, help appreciated Prophylaxis: - DVT: Discontinued Heparin 5,000units SC (thrombocytopenia) - GI: Protonix <Sj Dorsey P - Last Filed: 01/11/17 22:09> CCU Objective - Vital Signs / Intake & Output Vital Signs (Last 4 hours): Vital Signs Temp Pulse Resp BP Pulse Ox 01/11/17 21:15 76 17 86/54 L 98 01/11/17 21:00 75 26 H 99 01/11/17 20:45 70 28 H 93/52 L 01/11/17 20:15 74 21 97/51 L 100 01/11/17 20:00 97.6 F 70 21 100 01/11/17 19:45 76 20 101/53 L 100 01/11/17 19:15 89 25 H 112/64 100 01/11/17 19:00 86 25 H 114/74 86 L 01/11/17 18:45 96 H 22 117/76 99 01/11/17 18:16 114 H 36 H 110/85 Intake and Output (Last 8hrs): Intake & Output 01/11/17 01/11/17 01/11/17 06:59 14:59 22:59 Intake Total 346 481 204.3 Output Total 275 240 155 Balance 71 241 49.3 Weight 154 lb 8.705 oz Intake: IV 50 50 50 Intake, IV Amount 106 71 64.3 Right Distal Port 56 71 64.3 Subclavian Right Medial Port 50 Subclavian Tube Feeding 190 240 90 Other 120 Output: Chest Tube Drainage 5 Right Posterior Chest 5 Urine 275 240 150 Urethral ([place]) 275 240 150 Other: # Bowel Movements 0 0 - Medications Active Medications: Active Medications Generic Name Dose Route Start Last Admin Trade Name Freq PRN Reason Stop Dose Admin Apixaban 10 mg 01/11/17 12:15 01/11/17 17:33 Eliquis PO 10 mg BID ZAHRA Administration Piperacillin Sod/Tazobactam Sod 2.25 gm in 50 mls @ 100 mls/hr 12/27/16 15:00 01/11/17 14:21 Zosyn 2.25 Gm Iv Premix IVPB 100 mls/hr Q8H ZAHRA Administration Dexmedetomidine HCl 200 mcg/ 50 mls @ 3.5 mls/hr 01/09/17 12:40 01/11/17 17: 31 Sodium Chloride IV 0.6 mcg/kg/hr TITR PRN 10.52 mls/hr Agitation Administration Protocol 0.2 MCG/KG/HR Lorazepam 2 mg 01/02/17 00:17 01/11/17 19:07 Ativan IVP 2 mg Q6H PRN Administration Agitation Morphine Sulfate 1 mg 01/04/17 11:05 01/11/17 21:16 Morphine IV 1 mg Q4 PRN Administration Pain, moderate (4-7) Pantoprazole Sodium 40 mg 01/04/17 10:00 01/11/17 09:34 Protonix Inj IVP 40 mg DAILY ZAHRA Administration - Patient Studies Lab Studies: Lab Studies 01/11/17 01/11/17 01/11/17 Range/Units 06:58 06:34 06:34 WBC 5.5 (4.8-10.8) K/uL RBC 3.42 L (3.80-5.20) Mil/uL Hgb 10.0 L (11.0-16.0) g/dL Hct 30.5 L (34.0-47.0) % MCV 89.2 (81.0-99.0) fL MCH 29.3 (27.0-31.0) pg MCHC 32.9 L (33.0-37.0) g/dL RDW 17.0 H (11.5-14.5) % Plt Count 271 (130-400) K/uL MPV 8.9 (7.2-11.7) fL Neut % (Auto) 91.5 H (50.0-75.0) % Lymph % (Auto) 6.0 L (20.0-40.0) % [place] % (Auto) 2.4 (0.0-10.0) % Eos % (Auto) 0.0 (0.0-4.0) % Baso % (Auto) 0.1 (0.0-2.0) % Neut # 5.0 (1.8-7.0) K/uL Lymph # 0.3 L (1.0-4.3) K/uL [place] # 0.1 (0.0-0.8) K/uL Eos # 0.0 (0.0-0.7) K/uL Baso # 0.0 (0.0-0.2) K/uL Neutrophils % (Manual) 90 H (50-75) % Band Neutrophils % 9 H (0-2) % Lymphocytes % (Manual) 5 L (20-40) % Monocytes % (Manual) 2 (0-10) % Platelet Estimate Normal (NORMAL) Hypochromasia (manual) Slight Poikilocytosis (manual Slight Anisocytosis (manual) Slight Microcytosis (manual) Slight Ovalocytes Slight Puncture Site pCO2 (35-45) mm/Hg pO2 (80-100) mm/Hg HCO3 (21-28) mmol/L ABG pH (7.35-7.45) ABG Total CO2 (22-28) mmol/L ABG O2 Saturation (95-98) % ABG Base Excess (-2.0-3.0) mmol/L ABG Hemoglobin (11.7-17.4) g/dL ABG Carboxyhemoglobin (0.5-1.5) % POC ABG HHb (Measured) (0.0-5.0) % ABG Methemoglobin (0.0-3.0) % Jordon Test A-a O2 Difference mm/Hg Respiratory Index Hgb O2 Saturation (95.0-98.0) % Vent Mode Mechanical Rate FiO2 % Tidal Volume PEEP Sodium 147 (132-148) mmol/L Potassium 4.2 (3.6-5.2) mmol/L Chloride 106 (98-107) mmol/L Carbon Dioxide 26 (22-30) mmol/L Anion Gap 19 (10-20) BUN 46 H (7-17) mg/dL Creatinine 1.4 H (0.7-1.2) MG/DL Est GFR ( Amer) 43 Est GFR (Non-Af Amer) 36 POC Glucose (mg/dL) 123 H (65-110) mg/dL Random Glucose 156 H (65-105) mg/dL Calcium 8.7 (8.6-10.4) mg/dl Phosphorus 4.2 (2.5-4.5) mg/dL Magnesium 2.7 H (1.6-2.3) mg/dL Total Bilirubin 1.2 (0.2-1.3) mg/dL AST 16 (14-36) U/L ALT 20 (9-52) U/L Alkaline Phosphatase 59 (38-126) U/L Total Protein 5.7 L (6.3-8.3) g/dL Albumin 2.8 L (3.5-5.0) g/dL Globulin 2.9 (2.2-3.9) gm/dL Albumin/Globulin Ratio 1.0 (1.0-2.1) 01/11/17 Range/Units 05:20 WBC (4.8-10.8) K/uL RBC (3.80-5.20) Mil/uL Hgb (11.0-16.0) g/dL Hct (34.0-47.0) % MCV (81.0-99.0) fL MCH (27.0-31.0) pg MCHC (33.0-37.0) g/dL RDW (11.5-14.5) % Plt Count (130-400) K/uL MPV (7.2-11.7) fL Neut % (Auto) (50.0-75.0) % Lymph % (Auto) (20.0-40.0) % [place] % (Auto) (0.0-10.0) % Eos % (Auto) (0.0-4.0) % Baso % (Auto) (0.0-2.0) % Neut # (1.8-7.0) K/uL Lymph # (1.0-4.3) K/uL [place] # (0.0-0.8) K/uL Eos # (0.0-0.7) K/uL Baso # (0.0-0.2) K/uL Neutrophils % (Manual) (50-75) % Band Neutrophils % (0-2) % Lymphocytes % (Manual) (20-40) % Monocytes % (Manual) (0-10) % Platelet Estimate (NORMAL) Hypochromasia (manual) Poikilocytosis (manual Anisocytosis (manual) Microcytosis (manual) Ovalocytes Puncture Site Rbrachial pCO2 33 L (35-45) mm/Hg pO2 68 L (80-100) mm/Hg HCO3 26.9 (21-28) mmol/L ABG pH 7.50 H (7.35-7.45) ABG Total CO2 26.7 (22-28) mmol/L ABG O2 Saturation 97.3 (95-98) % ABG Base Excess 2.6 (-2.0-3.0) mmol/L ABG Hemoglobin 9.7 L (11.7-17.4) g/dL ABG Carboxyhemoglobin 2.4 H (0.5-1.5) % POC ABG HHb (Measured) 2.6 (0.0-5.0) % ABG Methemoglobin 1.2 (0.0-3.0) % Jordon Test Neg A-a O2 Difference 176.0 mm/Hg Respiratory Index 2.6 Hgb O2 Saturation 93.8 L (95.0-98.0) % Vent Mode A/c Mechanical Rate 16 FiO2 40.0 % Tidal Volume 350 PEEP 5 Sodium (132-148) mmol/L Potassium (3.6-5.2) mmol/L Chloride (98-107) mmol/L Carbon Dioxide (22-30) mmol/L Anion Gap (10-20) BUN (7-17) mg/dL Creatinine (0.7-1.2) MG/DL Est GFR ( Amer) Est GFR (Non-Af Amer) POC Glucose (mg/dL) (65-110) mg/dL Random Glucose (65-105) mg/dL Calcium (8.6-10.4) mg/dl Phosphorus (2.5-4.5) mg/dL Magnesium (1.6-2.3) mg/dL Total Bilirubin (0.2-1.3) mg/dL AST (14-36) U/L ALT (9-52) U/L Alkaline Phosphatase (38-126) U/L Total Protein (6.3-8.3) g/dL Albumin (3.5-5.0) g/dL Globulin (2.2-3.9) gm/dL Albumin/Globulin Ratio (1.0-2.1) Laboratory Results - last 24 hr 01/11/17 01/11/17 01/11/17 05:20 06:34 06:34 WBC 5.5 RBC 3.42 L Hgb 10.0 L Hct 30.5 L MCV 89.2 MCH 29.3 MCHC 32.9 L RDW 17.0 H Plt Count 271 MPV 8.9 Neut % (Auto) 91.5 H Lymph % (Auto) 6.0 L [place] % (Auto) 2.4 Eos % (Auto) 0.0 Baso % (Auto) 0.1 Neut # 5.0 Lymph # 0.3 L [place] # 0.1 Eos # 0.0 Baso # 0.0 Neutrophils % (Manual) 90 H Band Neutrophils % 9 H Lymphocytes % (Manual) 5 L Monocytes % (Manual) 2 Platelet Estimate Normal Hypochromasia (manual) Slight Poikilocytosis (manual Slight Anisocytosis (manual) Slight Microcytosis (manual) Slight Ovalocytes Slight Puncture Site Rbrachial pCO2 33 L pO2 68 L HCO3 26.9 ABG pH 7.50 H ABG Total CO2 26.7 ABG O2 Saturation 97.3 ABG Base Excess 2.6 ABG Hemoglobin 9.7 L ABG Carboxyhemoglobin 2.4 H POC ABG HHb (Measured) 2.6 ABG Methemoglobin 1.2 Jordon Test Neg A-a O2 Difference 176.0 Respiratory Index 2.6 Hgb O2 Saturation 93.8 L Vent Mode A/c Mechanical Rate 16 FiO2 40.0 Tidal Volume 350 PEEP 5 Sodium 147 Potassium 4.2 Chloride 106 Carbon Dioxide 26 Anion Gap 19 BUN 46 H Creatinine 1.4 H Est GFR ( Amer) 43 Est GFR (Non-Af Amer) 36 POC Glucose (mg/dL) Random Glucose 156 H Calcium 8.7 Phosphorus 4.2 Magnesium 2.7 H Total Bilirubin 1.2 AST 16 ALT 20 Alkaline Phosphatase 59 Total Protein 5.7 L Albumin 2.8 L Globulin 2.9 Albumin/Globulin Ratio 1.0 01/11/17 06:58 WBC RBC Hgb Hct MCV MCH MCHC RDW Plt Count MPV Neut % (Auto) Lymph % (Auto) [place] % (Auto) Eos % (Auto) Baso % (Auto) Neut # Lymph # [place] # Eos # Baso # Neutrophils % (Manual) Band Neutrophils % Lymphocytes % (Manual) Monocytes % (Manual) Platelet Estimate Hypochromasia (manual) Poikilocytosis (manual Anisocytosis (manual) Microcytosis (manual) Ovalocytes Puncture Site pCO2 pO2 HCO3 ABG pH ABG Total CO2 ABG O2 Saturation ABG Base Excess ABG Hemoglobin ABG Carboxyhemoglobin POC ABG HHb (Measured) ABG Methemoglobin Jordon Test A-a O2 Difference Respiratory Index Hgb O2 Saturation Vent Mode Mechanical Rate FiO2 Tidal Volume PEEP Sodium Potassium Chloride Carbon Dioxide Anion Gap BUN Creatinine Est GFR ( Amer) Est GFR (Non-Af Amer) POC Glucose (mg/dL) 123 H Random Glucose Calcium Phosphorus Magnesium Total Bilirubin AST ALT Alkaline Phosphatase Total Protein Albumin Globulin Albumin/Globulin Ratio Critical Care Progress Note - Nutrition Nutrition: Nutrition Category Date Time Status NPO Diet [DIET] Diets 01/10/17 Breakfast Active Attending/Attestation - Attestation I have personally seen and examined this patient.: Yes I have fully participated in the care of the patient.: Yes I have reviewed all pertinent clinical information: Yes Notes (Text): 01/11/17 22:03 Assessment/Plan Resp failure on vent/s/p trach, worsening fio2 Anasarca with right pl effusion, s/p pig tail not draining, ascitis s/p , leg edema with blister all the fluid compartments filling back again 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
--- NOTE | 2017-01-11 17:00 | CP.PCM.PN ---
Subjective - Date & Time of Evaluation Date of Evaluation: 01/11/17 Time of Evaluation: 13:00 - Subjective Subjective: Patient was seen and examined at bedside in ICU. Patient is status post tracheostomy now. On ventilator. Objective - Vital Signs/Intake and Output Vital Signs (last 24 hours): Temp Pulse Resp BP Pulse Ox 97.1 F L 77 23 101/54 L 99 01/11/17 16:00 01/11/17 16:00 01/11/17 16:00 01/11/17 16:00 01/11/17 16:00 Intake and Output: 01/11/17 01/11/17 06:59 18:59 Intake Total 504 521 Output Total 410 25 Balance 94 496 - Medications Medications: Current Medications Apixaban (Eliquis) 10 mg PO BID [facility] Last Admin: 01/11/17 13:20 Dose: 10 mg Piperacillin Sod/Tazobactam Sod (Zosyn 2.25 Gm Iv Premix) 2.25 gm in 50 mls @ 100 mls/hr IVPB Q8H [facility] Last Admin: 01/11/17 14:21 Dose: 100 mls/hr Dexmedetomidine HCl 200 mcg/ (Sodium Chloride) 50 mls @ 3.5 mls/hr IV TITR PRN ; Protocol; 0.2 MCG/KG/HR PRN Reason: Agitation Last Admin: 01/11/17 11:42 Dose: 0.6 mcg/kg/hr, 10.52 mls/hr Lorazepam (Ativan) 2 mg IVP Q6H PRN PRN Reason: Agitation Last Admin: 01/11/17 03:09 Dose: 2 mg Morphine Sulfate (Morphine) 1 mg IV Q4 PRN PRN Reason: Pain, moderate (4-7) Last Admin: 01/10/17 23:50 Dose: 1 mg Pantoprazole Sodium (Protonix Inj) 40 mg IVP DAILY [facility] Last Admin: 01/11/17 09:34 Dose: 40 mg - Labs Labs: 01/11/17 06:34 01/11/17 06:34 PT 14.2 SECONDS (9.7-12.2) H 01/09/17 22:14 INR 1.2 01/09/17 22:14 APTT 32 SECONDS (21-34) 01/09/17 22:14 - Head Exam Head Exam: ATRAUMATIC, NORMOCEPHALIC - Eye Exam Eye Exam: Normal appearance - Neck Exam Additional comments: Tracheostomy. - Respiratory Exam Additional comments: On ventilator support. Decrease but sounds at bases. - Cardiovascular Exam Cardiovascular Exam: REGULAR RHYTHM, +S1, +S2 - GI/Abdominal Exam GI & Abdominal Exam: Soft. absent: Tenderness - Extremities Exam Extremities Exam: Pedal Edema Assessment and Plan (1) CHF (congestive heart failure) Status: Acute (2) Cellulitis and abscess of foot Status: Acute (3) H/O mitral valve replacement Status: Acute (4) Hypotension Status: Acute (5) Pneumonia Status: Acute (6) Septic shock Status: Acute - Assessment and Plan (Free Text) Plan: Patient is status post tracheostomy. Continue ventilator support. Continue antibiotics for sepsis Continue antibiotics for pneumonia Discussed the plan of care with the ICU team.
--- NOTE | 2017-01-11 18:02 | CP.PCM.PN ---
Subjective - Date & Time of Evaluation Date of Evaluation: 01/11/17 Time of Evaluation: 10:00 - Subjective Subjective: patient seen and examined Status post tracheostomy on ventilatory support CT angio consistent with small subsegmental right pulmonary embolism Chest tube in place with no drainage Afebrile Tolerating feeding Objective - Vital Signs/Intake and Output Vital Signs (last 24 hours): Temp Pulse Resp BP Pulse Ox 97.1 F L 78 24 100/54 L 99 01/11/17 16:00 01/11/17 17:00 01/11/17 17:00 01/11/17 17:00 01/11/17 17:00 Intake and Output: 01/11/17 01/11/17 06:59 18:59 Intake Total 504 643.3 Output Total 410 25 Balance 94 618.3 - Medications Medications: Current Medications Apixaban (Eliquis) 10 mg PO BID [facility] Last Admin: 01/11/17 17:33 Dose: 10 mg Piperacillin Sod/Tazobactam Sod (Zosyn 2.25 Gm Iv Premix) 2.25 gm in 50 mls @ 100 mls/hr IVPB Q8H [facility] Last Admin: 01/11/17 14:21 Dose: 100 mls/hr Dexmedetomidine HCl 200 mcg/ (Sodium Chloride) 50 mls @ 3.5 mls/hr IV TITR PRN ; Protocol; 0.2 MCG/KG/HR PRN Reason: Agitation Last Admin: 01/11/17 17:31 Dose: 0.6 mcg/kg/hr, 10.52 mls/hr Lorazepam (Ativan) 2 mg IVP Q6H PRN PRN Reason: Agitation Last Admin: 01/11/17 03:09 Dose: 2 mg Morphine Sulfate (Morphine) 1 mg IV Q4 PRN PRN Reason: Pain, moderate (4-7) Last Admin: 01/10/17 23:50 Dose: 1 mg Pantoprazole Sodium (Protonix Inj) 40 mg IVP DAILY [facility] Last Admin: 01/11/17 09:34 Dose: 40 mg - Labs Labs: 01/11/17 06:34 01/11/17 06:34 PT 14.2 SECONDS (9.7-12.2) H 01/09/17 22:14 INR 1.2 01/09/17 22:14 APTT 32 SECONDS (21-34) 01/09/17 22:14 - Head Exam Head Exam: ATRAUMATIC, NORMOCEPHALIC - Eye Exam Eye Exam: Normal appearance - ENT Exam ENT Exam: Mucous Membranes Moist - Respiratory Exam Respiratory Exam: Decreased Breath Sounds - Cardiovascular Exam Cardiovascular Exam: REGULAR RHYTHM - GI/Abdominal Exam GI & Abdominal Exam: Soft, Normal Bowel Sounds Assessment and Plan (1) Respiratory failure Assessment & Plan: Status post tracheostomy Ventilatory support Weaning as tolerated Started on eliquis for pulmonary embolism Prognosis poor Status: Acute (2) Pneumonia Status: Acute (3) Sepsis Status: Acute
--- NOTE | 2017-01-11 22:41 | CP.PCM.PN ---
Subjective - Date & Time of Evaluation Date of Evaluation: 01/11/17 Time of Evaluation: 09:25 - Subjective Subjective: Patient seen and evaluated Clinical condition remains same On Mechanical ventilation Objective - Vital Signs/Intake and Output Vital Signs (last 24 hours): Temp Pulse Resp BP Pulse Ox 97.6 F 76 17 86/54 L 98 01/11/17 20:00 01/11/17 21:15 01/11/17 21:15 01/11/17 21:15 01/11/17 21:15 Intake and Output: 01/11/17 01/12/17 18:59 06:59 Intake Total 653.8 31.5 Output Total 340 55 Balance 313.8 -23.5 - Medications Medications: Current Medications Apixaban (Eliquis) 10 mg PO BID [facility] Last Admin: 01/11/17 17:33 Dose: 10 mg Piperacillin Sod/Tazobactam Sod (Zosyn 2.25 Gm Iv Premix) 2.25 gm in 50 mls @ 100 mls/hr IVPB Q8H [facility] Last Admin: 01/11/17 14:21 Dose: 100 mls/hr Dexmedetomidine HCl 200 mcg/ (Sodium Chloride) 50 mls @ 3.5 mls/hr IV TITR PRN ; Protocol; 0.2 MCG/KG/HR PRN Reason: Agitation Last Admin: 01/11/17 17:31 Dose: 0.6 mcg/kg/hr, 10.52 mls/hr Lorazepam (Ativan) 2 mg IVP Q6H PRN PRN Reason: Agitation Last Admin: 01/11/17 19:07 Dose: 2 mg Morphine Sulfate (Morphine) 1 mg IV Q4 PRN PRN Reason: Pain, moderate (4-7) Last Admin: 01/11/17 21:16 Dose: 1 mg Pantoprazole Sodium (Protonix Inj) 40 mg IVP DAILY [facility] Last Admin: 01/11/17 09:34 Dose: 40 mg - Labs Labs: 01/11/17 06:34 01/11/17 06:34 PT 14.2 SECONDS (9.7-12.2) H 01/09/17 22:14 INR 1.2 01/09/17 22:14 APTT 32 SECONDS (21-34) 01/09/17 22:14
[2017-01-12] MEDS: Dexmedetomidine Hydrochloride 200 MCG in Sodium Chloride 0.9% 48 ML IV PRN ×2 (04:50→09:48)
[2017-01-12 06:05] LABS: ABG ALLEN TEST POS; ABG MECHANICAL RATE 16; ARTERIAL BLOOD GAS MODE PRVC; ARTERIAL BLOOD HGB O2 SAT 95.2 % (95.0-98.0); ATERIAL BLOOD GAS PEEP 5; CARBOXYHEMOGLOBIN 2.2 % (0.5-1.5); DRAW SITE R RAD; METHEMOGLOBIN 1.6 % (0.0-3.0)
[2017-01-12] MEDS: Piperacill/Tazo 2.25gm in Dex 2.25 GM/50 ML BAG IVPB SCH (06:12)
[2017-01-12 06:34] LABS: BASO % 0.3 % (0.0-2.0); EOS % 0.1 % (0.0-4.0); HEMATOCRIT 29.4 % (34.0-47.0); LYMPH # 0.5 K/uL (1.0-4.3); LYMPH % 6.3 % (20.0-40.0); MEAN CELL VOLUME 89.6 fL (81.0-99.0); MEAN CORPUSCULAR HEMOGLOBIN 29.3 pg (27.0-31.0); MEAN CORPUSCULAR HGB CONC 32.7 g/dL (33.0-37.0); MEAN PLATELET VOLUME 8.7 fL (7.2-11.7); MONO # 0.9 K/uL (0.0-0.8); MONO % 10.4 % (0.0-10.0); NRBC % 0.1 % (0.0-2.0); PLATELET COUNT 257 K/uL (130-400); WHITE BLOOD COUNT 8.6 K/uL (4.8-10.8)
[2017-01-12 06:45] LABS: POTASSIUM 3.6 mmol/L (3.6-5.2)
[2017-01-12 06:47] LABS: BILIRUBIN,TOTAL 1.2 mg/dL (0.2-1.3); TOTAL PROTEIN 5.6 g/dL (6.3-8.3)
[2017-01-12 06:48] LABS: CALCIUM 8.7 mg/dl (8.6-10.4); PHOSPHOROUS 3.8 mg/dL (2.5-4.5)
[2017-01-12 08:23] LABS: NEUTROPHIL 73 % (50-75); REACTIVE LYMPHOCYTES 1 % (0-0); TOTAL CELLS COUNTED 100
--- NOTE | 2017-01-12 11:56 | RAD ---
HISTORY: trachestomy COMPARISON: Comparison is made to 01/11/2017 FINDINGS: LUNGS: The tracheostomy tube is again seen in place. [id number] pulmonary vascular congestion is again noted. Partial collapse of the right lower lung likely due to pleural effusion. PLEURA: Moderate right pleural effusion is again noted. Right-sided drainage catheter is again seen in place. CARDIOVASCULAR: Cardiomegaly is again noted. There is right-sided subclavian catheter in place. OSSEOUS STRUCTURES: No significant abnormalities. VISUALIZED UPPER ABDOMEN: Normal. OTHER FINDINGS: None. IMPRESSION: No significant interval change since the previous exam.
--- NOTE | 2017-01-12 13:31 | CP.PCM.PN ---
Subjective - Date & Time of Evaluation Date of Evaluation: 01/12/17 Time of Evaluation: 14:00 - Subjective Subjective: Patient was seen and examined at bedside in ICU. Patient has tracheostomy. Chest tube is in place. Patient opens eyes but is nonverbal. Objective - Vital Signs/Intake and Output Vital Signs (last 24 hours): Temp Pulse Resp BP Pulse Ox 97.4 F L 66 21 100/55 L 100 01/12/17 08:00 01/12/17 10:15 01/12/17 10:15 01/12/17 10:15 01/12/17 10:15 Intake and Output: 01/12/17 01/12/17 06:59 18:59 Intake Total 342.0 193.0 Output Total 320 75 Balance 22.0 118.0 - Medications Medications: Current Medications Apixaban (Eliquis) 10 mg PO BID [facility] Last Admin: 01/12/17 09:49 Dose: 10 mg Piperacillin Sod/Tazobactam Sod (Zosyn 2.25 Gm Iv Premix) 2.25 gm in 50 mls @ 100 mls/hr IVPB Q8H [facility] Last Admin: 01/12/17 06:12 Dose: 100 mls/hr Dexmedetomidine HCl 200 mcg/ (Sodium Chloride) 50 mls @ 3.5 mls/hr IV TITR PRN ; Protocol; 0.2 MCG/KG/HR PRN Reason: Agitation Last Admin: 01/12/17 09:48 Dose: 0.6 mcg/kg/hr, 10.52 mls/hr Lorazepam (Ativan) 2 mg IVP Q6H PRN PRN Reason: Agitation Last Admin: 01/12/17 03:45 Dose: 2 mg Morphine Sulfate (Morphine) 1 mg IV Q4 PRN PRN Reason: Pain, moderate (4-7) Last Admin: 01/12/17 10:01 Dose: 1 mg Pantoprazole Sodium (Protonix Inj) 40 mg IVP DAILY [facility] Last Admin: 01/12/17 09:49 Dose: 40 mg - Labs Labs: 01/12/17 06:19 01/12/17 06:19 PT 14.2 SECONDS (9.7-12.2) H 01/09/17 22:14 INR 1.2 01/09/17 22:14 APTT 32 SECONDS (21-34) 01/09/17 22:14 - Head Exam Head Exam: ATRAUMATIC, NORMOCEPHALIC - Eye Exam Eye Exam: EOMI - ENT Exam ENT Exam: Mucous Membranes Moist - Neck Exam Neck Exam: Normal Inspection - Respiratory Exam Respiratory Exam: Decreased Breath Sounds Additional comments: Chest tube is in place. Tracheostomy tube in place. - GI/Abdominal Exam GI & Abdominal Exam: Soft - Extremities Exam Extremities Exam: Pedal Edema Assessment and Plan (1) CHF (congestive heart failure) Status: Acute (2) Cellulitis and abscess of foot Status: Acute (3) H/O mitral valve replacement Status: Acute (4) Hypotension Status: Acute (5) Pneumonia Status: Acute (6) Septic shock Status: Acute - Assessment and Plan (Free Text) Assessment: Continue IV antibiotics. Patient is on Zosyn. Chest tubes in place. But minimal drainage and chest tube will be removed by ICU team. Patient is off all pressors at this time. Continue weaning rise as per ICU team. Discussed the plan of care with the ICU attending. Discussed with the family at bedside
[2017-01-12] MEDS ORDERED: Sodium Chloride 0.9% 1,000 ML IV ONE (18:37)
[2017-01-12] MEDS ORDERED: Sodium Chloride 0.9% 250 ML IV ONE (18:59)
[2017-01-13 06:11] LABS: ABG ALLEN TEST POS; ABG MECHANICAL RATE 16; ARTERIAL BLOOD GAS MODE PRVC; ARTERIAL BLOOD HGB O2 SAT 94.8 % (95.0-98.0); ATERIAL BLOOD GAS PEEP 5; DRAW SITE R RAD; HHB 1.6 % (0.0-5.0); METHEMOGLOBIN 0.6 % (0.0-3.0)
[2017-01-13 06:24] LABS: BASO # 0.1 K/uL (0.0-0.2); BASO % 0.9 % (0.0-2.0); EOS # 0.1 K/uL (0.0-0.7); EOS % 1.3 % (0.0-4.0); HEMATOCRIT 28.8 % (34.0-47.0); LYMPH # 1.1 K/uL (1.0-4.3); LYMPH % 11.2 % (20.0-40.0); MEAN CELL VOLUME 90.3 fL (81.0-99.0); MEAN CORPUSCULAR HEMOGLOBIN 29.3 pg (27.0-31.0); MEAN CORPUSCULAR HGB CONC 32.4 g/dL (33.0-37.0); MEAN PLATELET VOLUME 8.7 fL (7.2-11.7); MONO # 1.4 K/uL (0.0-0.8); MONO % 14.5 % (0.0-10.0); NRBC % 0.1 % (0.0-2.0); RED CELL DISTRIBUTION WIDTH 18.2 % (11.5-14.5); WHITE BLOOD COUNT 9.5 K/uL (4.8-10.8)
[2017-01-13 06:48] LABS: ALB/GLOB RATIO 1.2 (1.0-2.1); BILIRUBIN,TOTAL 1.3 mg/dL (0.2-1.3); CALCIUM 8.5 mg/dl (8.6-10.4); PHOSPHOROUS 3.7 mg/dL (2.5-4.5); POTASSIUM 3.4 mmol/L (3.6-5.2); TOTAL PROTEIN 5.6 g/dL (6.3-8.3)
--- NOTE | 2017-01-13 07:17 | CP.PCM.PN ---
Subjective - Date & Time of Evaluation Date of Evaluation: 01/12/17 Time of Evaluation: 17:35 - Subjective Subjective: Patient seen and evaluated Intubated S/P Tracheostomy Objective - Vital Signs/Intake and Output Vital Signs (last 24 hours): Temp Pulse Resp BP Pulse Ox 97.4 F L 116 H 26 H 136/103 H 100 01/12/17 08:00 01/13/17 06:44 01/13/17 06:44 01/13/17 06:45 01/13/17 06:44 Intake and Output: 01/13/17 01/13/17 06:59 18:59 Intake Total 380 Output Total 315 Balance 65 - Medications Medications: Current Medications Apixaban (Eliquis) 10 mg PO BID [facility] Last Admin: 01/12/17 17:38 Dose: 10 mg Furosemide (Lasix) 40 mg PO DAILY [facility] Last Admin: 01/12/17 15:26 Dose: 40 mg Lorazepam (Ativan) 2 mg IVP Q6H PRN PRN Reason: Agitation Last Admin: 01/13/17 01:00 Dose: 2 mg Morphine Sulfate (Morphine) 1 mg IV Q4 PRN PRN Reason: Pain, moderate (4-7) Last Admin: 01/13/17 05:51 Dose: 1 mg Pantoprazole Sodium (Protonix Inj) 40 mg IVP DAILY [facility] Last Admin: 01/12/17 09:49 Dose: 40 mg Rifaximin (Xifaxan) 200 mg PO DAILY [facility] Stop: 01/14/17 14:16 Last Admin: 01/12/17 15:25 Dose: 200 mg Spironolactone (Aldactone) 100 mg PO DAILY [facility] Last Admin: 01/12/17 15:25 Dose: 100 mg - Labs Labs: 01/13/17 06:13 01/13/17 06:10 PT 14.2 SECONDS (9.7-12.2) H 01/09/17 22:14 INR 1.2 01/09/17 22:14 APTT 32 SECONDS (21-34) 01/09/17 22:14 - Head Exam Head Exam: NORMOCEPHALIC - Eye Exam Eye Exam: EOMI, PERRL - ENT Exam ENT Exam: Mucous Membranes Moist - Respiratory Exam Respiratory Exam: Rales - Cardiovascular Exam Cardiovascular Exam: REGULAR RHYTHM, +S1, +S2 - GI/Abdominal Exam GI & Abdominal Exam: Soft, Normal Bowel Sounds - Skin Skin Exam: Warm Assessment and Plan - Assessment and Plan (Free Text) Assessment: Patient is a 86-year-old female with history of hypertension heart failure renal insufficiency coronary it to bypass grafting admitted with acute septic shock. Respiratory failure s/p Trach on Mechanical ventilation CAD Hx of CABG Severe Pulmonary HTN Pulmonary Embolism on Eliquis Poor prognosis
[2017-01-13 08:06] VITALS: TEMP 98.2
--- NOTE | 2017-01-13 08:53 | RAD ---
HISTORY: Respiratory insufficiency COMPARISON: Portable chest 01/12/2017 FINDINGS: LUNGS: Tracheostomy tube is unchanged in position as well as right central venous line and right pleural drainage catheter. Nasogastric tube again identified as well as prosthetic cardiac valve. Diminishing atelectasis or infiltrate seen at the inferior right lung zone with none on the left. PLEURA: Right pleural effusion may be diminished at this time with none identified the left. No pneumothorax. CARDIOVASCULAR: Stable prominent cardiac silhouette. Limited pulmonary venous congestion is noted as well as reticular markings in the periphery of the mid and inferior lung zones, bilaterally. OSSEOUS STRUCTURES: Sternotomy wires again evident. VISUALIZED UPPER ABDOMEN: Normal. OTHER FINDINGS: None. IMPRESSION: Diminishing right basilar infiltrate/ atelectasis and pleural effusion. None is seen at the left. Mild CHF is in question at this time.
[2017-01-13] MEDS ORDERED: Piperacill/Tazo 2.25gm in Dex 2.25 GM/50 ML BAG IVPB SCH (14:00)
[2017-01-13 15:06] VITALS: O2SAT 100
[2017-01-13 17:19] VITALS: BP 110/42; PULSE 92; RESP 19
--- NOTE | 2017-01-13 17:35 | RAD ---
HISTORY: s/p R pigtail removal COMPARISON: Frontal chest radiograph 01/13/2017 07:17 a.m. FINDINGS: LUNGS: Tracheostomy tube and right PICC catheter unchanged in position as well as nasogastric tube. Right-sided chest tube is been removed with trace right pleural effusion difficult to exclude at this time. Trace left pleural effusion also ending in question. Status sternotomy wires and prosthetic cardiac valve are again identified with cardiomegaly stable. Pulmonary vascular pattern appears to be diminishing. Limited are limited right basilar atelectasis or infiltrate remains with none on the left. No pneumothorax bilaterally. PLEURA: As above CARDIOVASCULAR: As above OSSEOUS STRUCTURES: No significant abnormalities. VISUALIZED UPPER ABDOMEN: Normal. OTHER FINDINGS: None. IMPRESSION: Interval removal of right chest tube with trace right pleural effusion difficult to exclude. Limited right basilar patchy atelectasis or infiltrate remains. Diminishing limited CHF.
--- NOTE | 2017-01-13 21:24 | CP.PCM.PN ---
Subjective - Date & Time of Evaluation Date of Evaluation: 01/12/17 Time of Evaluation: 12:15 - Subjective Subjective: Vented, s/p trach opens eyes. Objective - Vital Signs/Intake and Output Vital Signs (last 24 hours): Temp Pulse Resp BP Pulse Ox 98.2 F 92 H 19 110/42 L 100 01/13/17 08:00 01/13/17 17:16 01/13/17 17:16 01/13/17 17:16 01/13/17 17:16 Intake and Output: 01/13/17 01/14/17 18:59 06:59 Intake Total 325 Output Total 475 Balance -150 - Medications Medications: Current Medications Apixaban (Eliquis) 10 mg PO BID [facility] Last Admin: 01/13/17 17:26 Dose: 10 mg Furosemide (Lasix) 40 mg PO DAILY [facility] Last Admin: 01/13/17 09:24 Dose: 40 mg Piperacillin Sod/Tazobactam Sod (Zosyn 2.25 Gm Iv Premix) 2.25 gm in 50 mls @ 100 mls/hr IVPB Q8 [facility] Last Admin: 01/13/17 14:50 Dose: 100 mls/hr Lorazepam (Ativan) 2 mg IVP Q6H PRN PRN Reason: Agitation Last Admin: 01/13/17 08:51 Dose: 2 mg Morphine Sulfate (Morphine) 1 mg IV Q4 PRN PRN Reason: Pain, moderate (4-7) Last Admin: 01/13/17 05:51 Dose: 1 mg Pantoprazole Sodium (Protonix Inj) 40 mg IVP DAILY [facility] Last Admin: 01/13/17 09:25 Dose: 40 mg Rifaximin (Xifaxan) 200 mg PO DAILY [facility] Stop: 01/14/17 14:16 Last Admin: 01/13/17 09:25 Dose: 200 mg Spironolactone (Aldactone) 100 mg PO DAILY [facility] Last Admin: 01/13/17 09:24 Dose: 100 mg - Labs Labs: 01/13/17 06:13 01/13/17 06:10 PT 14.2 SECONDS (9.7-12.2) H 01/09/17 22:14 INR 1.2 01/09/17 22:14 APTT 32 SECONDS (21-34) 01/09/17 22:14 - Head Exam Head Exam: ATRAUMATIC - Eye Exam Eye Exam: Normal appearance - ENT Exam ENT Exam: Mucous Membranes Dry - Respiratory Exam Respiratory Exam: Decreased Breath Sounds - Cardiovascular Exam Cardiovascular Exam: +S1, +S2 - GI/Abdominal Exam GI & Abdominal Exam: Normal Bowel Sounds Assessment and Plan (1) Anemia Assessment & Plan: anemia of chronic disease and renal disease Status: Acute (2) Coagulopathy Assessment & Plan: mild nutritional Status: Acute
--- NOTE | 2017-01-13 21:29 | CP.PCM.PN ---
Subjective - Date & Time of Evaluation Date of Evaluation: 01/13/17 Time of Evaluation: 07:45 - Subjective Subjective: Patient intubated Not responsive to verbal commands Objective - Vital Signs/Intake and Output Vital Signs (last 24 hours): Temp Pulse Resp BP Pulse Ox 98.2 F 92 H 19 110/42 L 100 01/13/17 08:00 01/13/17 17:16 01/13/17 17:16 01/13/17 17:16 01/13/17 17:16 Intake and Output: 01/13/17 01/14/17 18:59 06:59 Intake Total 325 Output Total 475 Balance -150 - Medications Medications: Current Medications Apixaban (Eliquis) 10 mg PO BID [facility] Last Admin: 01/13/17 17:26 Dose: 10 mg Furosemide (Lasix) 40 mg PO DAILY [facility] Last Admin: 01/13/17 09:24 Dose: 40 mg Piperacillin Sod/Tazobactam Sod (Zosyn 2.25 Gm Iv Premix) 2.25 gm in 50 mls @ 100 mls/hr IVPB Q8 [facility] Last Admin: 01/13/17 14:50 Dose: 100 mls/hr Lorazepam (Ativan) 2 mg IVP Q6H PRN PRN Reason: Agitation Last Admin: 01/13/17 08:51 Dose: 2 mg Morphine Sulfate (Morphine) 1 mg IV Q4 PRN PRN Reason: Pain, moderate (4-7) Last Admin: 01/13/17 05:51 Dose: 1 mg Pantoprazole Sodium (Protonix Inj) 40 mg IVP DAILY [facility] Last Admin: 01/13/17 09:25 Dose: 40 mg Rifaximin (Xifaxan) 200 mg PO DAILY [facility] Stop: 01/14/17 14:16 Last Admin: 01/13/17 09:25 Dose: 200 mg Spironolactone (Aldactone) 100 mg PO DAILY [facility] Last Admin: 01/13/17 09:24 Dose: 100 mg - Labs Labs: 01/13/17 06:13 01/13/17 06:10 PT 14.2 SECONDS (9.7-12.2) H 01/09/17 22:14 INR 1.2 01/09/17 22:14 APTT 32 SECONDS (21-34) 01/09/17 22:14 - Head Exam Head Exam: ATRAUMATIC - Eye Exam Eye Exam: PERRL - ENT Exam ENT Exam: Mucous Membranes Moist - Respiratory Exam Additional comments: Decreased basal breath sounds - Cardiovascular Exam Cardiovascular Exam: Irregular Rhythm, +S1, +S2 - GI/Abdominal Exam GI & Abdominal Exam: Soft - Skin Skin Exam: Warm Assessment and Plan - Assessment and Plan (Free Text) Assessment: Patient is a 86-year-old female with history of hypertension heart failure renal insufficiency coronary it to bypass grafting admitted with acute septic shock. Respiratory failure s/p Trach on Mechanical ventilation CAD Hx of CABG Severe Pulmonary HTN Pulmonary Embolism on Eliquis Poor prognosis
--- NOTE | 2017-01-13 23:48 | CP.PCM.PN ---
Subjective - Date & Time of Evaluation Date of Evaluation: 01/13/17 Time of Evaluation: 15:00 - Subjective Subjective: Patient was seen and examined at bedside in ICU. Patient is alert but nonverbal. Objective - Vital Signs/Intake and Output Vital Signs (last 24 hours): Temp Pulse Resp BP Pulse Ox 98.2 F 92 H 19 110/42 L 100 01/13/17 08:00 01/13/17 17:16 01/13/17 17:16 01/13/17 17:16 01/13/17 17:16 Intake and Output: 01/13/17 01/14/17 18:59 06:59 Intake Total 325 Output Total 475 Balance -150 - Medications Medications: Current Medications Apixaban (Eliquis) 10 mg PO BID [facility] Last Admin: 01/13/17 17:26 Dose: 10 mg Furosemide (Lasix) 40 mg PO DAILY [facility] Last Admin: 01/13/17 09:24 Dose: 40 mg Piperacillin Sod/Tazobactam Sod (Zosyn 2.25 Gm Iv Premix) 2.25 gm in 50 mls @ 100 mls/hr IVPB Q8 [facility] Last Admin: 01/13/17 14:50 Dose: 100 mls/hr Lorazepam (Ativan) 2 mg IVP Q6H PRN PRN Reason: Agitation Last Admin: 01/13/17 08:51 Dose: 2 mg Morphine Sulfate (Morphine) 1 mg IV Q4 PRN PRN Reason: Pain, moderate (4-7) Last Admin: 01/13/17 05:51 Dose: 1 mg Pantoprazole Sodium (Protonix Inj) 40 mg IVP DAILY [facility] Last Admin: 01/13/17 09:25 Dose: 40 mg Rifaximin (Xifaxan) 200 mg PO DAILY [facility] Stop: 01/14/17 14:16 Last Admin: 01/13/17 09:25 Dose: 200 mg Spironolactone (Aldactone) 100 mg PO DAILY [facility] Last Admin: 01/13/17 09:24 Dose: 100 mg - Labs Labs: 01/13/17 06:13 01/13/17 06:10 PT 14.2 SECONDS (9.7-12.2) H 01/09/17 22:14 INR 1.2 01/09/17 22:14 APTT 32 SECONDS (21-34) 01/09/17 22:14 - Head Exam Head Exam: ATRAUMATIC, NORMOCEPHALIC - Eye Exam Eye Exam: Normal appearance - Neck Exam Additional comments: Tracheostomy present. - Respiratory Exam Respiratory Exam: Decreased Breath Sounds - Cardiovascular Exam Cardiovascular Exam: Tachycardia, +S1, +S2 - GI/Abdominal Exam GI & Abdominal Exam: Soft - Extremities Exam Extremities Exam: Pedal Edema Assessment and Plan (1) CHF (congestive heart failure) Status: Acute (2) Cellulitis and abscess of foot Status: Acute (3) H/O mitral valve replacement Status: Acute (4) Hypotension Status: Acute (5) Pneumonia Status: Acute (6) Septic shock Status: Acute - Assessment and Plan (Free Text) Assessment: We will continue antibiotics the for sepsis/pneumonia. Chest tube to be removed today by the ICU attending Continue mechanical ventilation. Plan for transfer the the patient to LTAC today.
--- NOTE | 2017-01-17 13:29 | CP.PCM.DIS ---
Provider - Provider Date of Admission: 12/27/16 10:51 Attending physician: Marcos Gregorio DO Time Spent in preparation of Discharge (in minutes): 25 Diagnosis - Discharge Diagnosis (1) CHF (congestive heart failure) Status: Acute (2) Cellulitis and abscess of foot Status: Acute (3) H/O mitral valve replacement Status: Acute (4) Hypotension Status: Acute (5) Pneumonia Status: Acute (6) Septic shock Status: Acute Hospital Course - Lab Results Lab Results: Micro Results 01/02/17 14:07 Ascitic Fluid Gram Stain - Final 01/02/17 14:07 Ascitic Fluid Body Fluid Culture - Final No growth. 12/27/16 Unknown Pleural Fluid Gram Stain - Final 12/27/16 Unknown Pleural Fluid Body Fluid Culture - Final No growth. 12/27/16 Unknown Trachasp Gram Stain - Final 12/27/16 Unknown Trachasp Sputum Culture - Final NORMAL ORAL CARISA 12/27/16 Unknown Leg - Left Gram Stain - Final 12/27/16 Unknown Leg - Left Wound Culture - Final Staphylococcus Aureus 12/27/16 Unknown Naris MRSA Culture (Admit) - Final MRSA NOT DETECTED Most Recent Lab Values WBC 9.5 K/uL (4.8-10.8) 01/13/17 06:13 RBC 3.20 Mil/uL (3.80-5.20) L 01/13/17 06:13 Hgb 9.4 g/dL (11.0-16.0) L 01/13/17 06:13 Hct 28.8 % (34.0-47.0) L 01/13/17 06:13 MCV 90.3 fL (81.0-99.0) 01/13/17 06:13 MCH 29.3 pg (27.0-31.0) 01/13/17 06:13 MCHC 32.4 g/dL (33.0-37.0) L 01/13/17 06:13 RDW 18.2 % (11.5-14.5) H 01/13/17 06:13 Plt Count 270 K/uL (130-400) 01/13/17 06:13 MPV 8.7 fL (7.2-11.7) 01/13/17 06:13 Neut % (Auto) 72.1 % (50.0-75.0) 01/13/17 06:13 Lymph % (Auto) 11.2 % (20.0-40.0) L 01/13/17 06:13 [place] % (Auto) 14.5 % (0.0-10.0) H 01/13/17 06:13 Eos % (Auto) 1.3 % (0.0-4.0) 01/13/17 06:13 Baso % (Auto) 0.9 % (0.0-2.0) 01/13/17 06:13 Neut # 6.9 K/uL (1.8-7.0) 01/13/17 06:13 Lymph # 1.1 K/uL (1.0-4.3) 01/13/17 06:13 [place] # 1.4 K/uL (0.0-0.8) H 01/13/17 06:13 Eos # 0.1 K/uL (0.0-0.7) 01/13/17 06:13 Baso # 0.1 K/uL (0.0-0.2) 01/13/17 06:13 Neutrophils % (Manual) 73 % (50-75) 01/12/17 06:19 Band Neutrophils % 9 % (0-2) H 01/12/17 06:19 Lymphocytes % (Manual) 8 % (20-40) L 01/12/17 06:19 Reactive Lymphs % 1 % (0-0) H 01/12/17 06:19 Monocytes % (Manual) 9 % (0-10) 01/12/17 06:19 Eosinophils % (Manual) 3 % (0-4) 01/10/17 06:04 Basophils % (Manual) 1 % (0-2) 01/10/17 06:04 Toxic Granulation Present 01/07/17 06:24 Platelet Estimate Normal (NORMAL) 01/12/17 06:19 Large Platelets Present 01/10/17 06:04 Giant Platelets Present 01/04/17 06:27 RBC Morphology Normal 12/27/16 09:15 Polychromasia Slight 01/07/17 06:24 Hypochromasia (manual) Slight 01/11/17 06:34 Poikilocytosis (manual Slight 01/11/17 06:34 Basophilic Stippling Slight 01/10/17 06:04 Anisocytosis (manual) Slight 01/12/17 06:19 Microcytosis (manual) Slight 01/11/17 06:34 Target Cells Slight 01/10/17 06:04 Tear Drop Cells Slight 01/02/17 06:32 Ovalocytes Slight 01/12/17 06:19 [place] Cells Slight 12/29/16 06:16 Retic Count 0.8 % (0.5-1.5) 01/02/17 06:32 PT 14.2 SECONDS (9.7-12.2) H 01/09/17 22:14 INR 1.2 01/09/17 22:14 APTT 32 SECONDS (21-34) 01/09/17 22:14 Fibrinogen 303 mg/dL (200-400) 01/02/17 06:32 Puncture Site R rad 01/13/17 05:27 pCO2 43 mm/Hg (35-45) 01/13/17 05:27 pO2 76 mm/Hg (80-100) L 01/13/17 05:27 HCO3 26.1 mmol/L (21-28) 01/13/17 05:27 ABG pH 7.40 (7.35-7.45) 01/13/17 05:27 ABG Total CO2 27.9 mmol/L (22-28) 01/13/17 05:27 ABG O2 Saturation 98.3 % (95-98) H 01/13/17 05:27 ABG Base Excess 1.6 mmol/L (-2.0-3.0) 01/13/17 05:27 ABG Hemoglobin 9.5 g/dL (11.7-17.4) L 01/13/17 05:27 ABG Carboxyhemoglobin 3.0 % (0.5-1.5) H 01/13/17 05:27 POC ABG HHb (Measured) 1.6 % (0.0-5.0) 01/13/17 05:27 ABG Methemoglobin 0.6 % (0.0-3.0) 01/13/17 05:27 Jordon Test Pos 01/13/17 05:27 ABG Potassium 3.1 mmol/L (3.6-5.2) L 12/27/16 09:30 VBG pH 7.19 (7.32-7.43) L* 12/27/16 11:54 VBG pCO2 81 mmHg (40-60) H* 12/27/16 11:54 VBG HCO3 24.1 mmol/L 12/27/16 11:54 VBG Total CO2 33.4 mmol/L (22-28) H 12/27/16 11:54 VBG O2 Sat (Calc) 70.4 % (40-65) H 12/27/16 11:54 VBG Base Excess 0.3 mmol/L (0.0-2.0) 12/27/16 11:54 VBG Potassium 2.7 mmol/L (3.6-5.2) L 12/27/16 11:54 A-a O2 Difference 155.0 mm/Hg 01/13/17 05:27 Respiratory Index 2.0 01/13/17 05:27 Hgb O2 Saturation 94.8 % (95.0-98.0) L 01/13/17 05:27 Sodium 138.0 mmol/l (132-148) 12/27/16 11:54 Chloride 99.0 mmol/L (98-107) 12/27/16 11:54 Glucose 77 mg/dl (65-105) 12/27/16 11:54 Lactate 2.1 mmol/L (0.7-2.1) 12/27/16 11:54 Vent Mode Prvc 01/13/17 05:27 Mechanical Rate 16 01/13/17 05:27 FiO2 40.0 % 01/13/17 05:27 Tidal Volume 350 01/13/17 05:27 PEEP 5 01/13/17 05:27 Blood Gas Comments Attempted several times...mixed venous saple 01/01/17 05: 28 Crit Value Called To Callie hernandez rn 01/01/17 05:28 Crit Value Called By Himanshu gasoline tractor operator 01/01/17 05:28 Crit Value Read Back Y 01/01/17 05:28 Blood Gas Notified Time 615 01/01/17 05:28 Sodium 146 mmol/L (132-148) 01/13/17 06:10 Potassium 3.4 mmol/L (3.6-5.2) L 01/13/17 06:10 Chloride 107 mmol/L (98-107) 01/13/17 06:10 Carbon Dioxide 25 mmol/L (22-30) 01/13/17 06:10 Anion Gap 17 (10-20) 01/13/17 06:10 BUN 51 mg/dL (7-17) H 01/13/17 06:10 Creatinine 1.6 MG/DL (0.7-1.2) H 01/13/17 06:10 Est GFR ( Amer) 37 01/13/17 06:10 Est GFR (Non-Af Amer) 31 01/13/17 06:10 POC Glucose (mg/dL) 160 mg/dL (65-110) H 01/13/17 17:50 Random Glucose 93 mg/dL (65-105) 01/13/17 06:10 Calcium 8.5 mg/dl (8.6-10.4) L 01/13/17 06:10 Phosphorus 3.7 mg/dL (2.5-4.5) 01/13/17 06:10 Magnesium 2.7 mg/dL (1.6-2.3) H 01/11/17 06:34 Ferritin 62.4 ng/mL 01/02/17 06:32 Total Bilirubin 1.3 mg/dL (0.2-1.3) 01/13/17 06:10 Direct Bilirubin 0.7 mg/dL (0.0-0.4) H 01/02/17 06:32 AST 20 U/L (14-36) 01/13/17 06:10 ALT 18 U/L (9-52) 01/13/17 06:10 Alkaline Phosphatase 72 U/L (38-126) 01/13/17 06:10 Ammonia < 9 umol/L (9-33) L 01/12/17 14:51 Lactate Dehydrogenase 259 U/L (313-618) L 01/03/17 05:59 Total Creatine Kinase 153 U/L (30-135) H 12/28/16 04:35 CK-MB (Mass) 4.64 ng/mL (0.0-3.38) H 12/28/16 04:35 Troponin I 0.1280 ng/mL (0.00-0.120) H* 12/27/16 09:15 Troponin I, Quant 0.3270 ng/mL (0.00-0.120) H* 12/28/16 04:35 NT-Pro-B Natriuret Pep 21464 pg/mL (0-900) H 12/27/16 09:15 Total Protein 5.6 g/dL (6.3-8.3) L 01/13/17 06:10 Albumin 3.0 g/dL (3.5-5.0) L 01/13/17 06:10 Globulin 2.6 gm/dL (2.2-3.9) 01/13/17 06:10 Albumin/Globulin Ratio 1.2 (1.0-2.1) 01/13/17 06:10 UF Heparin Interp Negative (Negative) 01/02/17 07:33 Vitamin B12 868 pg/mL (239-931) 01/02/17 06:32 Folate 10.4 ng/mL 01/02/17 06:32 Arterial Blood Potassium 3.1 mmol/L (3.6-5.2) L 12/27/16 09:30 Venous Blood Potassium 2.7 mmol/L (3.6-5.2) L 12/27/16 11:54 Urine Color Yellow (YELLOW) 12/27/16 09:30 Urine Clarity Clear (Clear) 12/27/16 09:30 Urine pH 5.0 (5.0-8.0) 12/27/16 09:30 Ur Specific [place] 1.013 (1.003-1.030) 12/27/16 09:30 Urine Protein 1+ mg/dL (NEGATIVE) H 12/27/16 09:30 Urine Glucose (UA) Normal mg/dL (Normal) 12/27/16 09:30 Urine Ketones Negative mg/dL (NEGATIVE) 12/27/16 09:30 Urine Blood Negative (NEGATIVE) 12/27/16 09:30 Urine Nitrate Negative (NEGATIVE) 12/27/16 09:30 Urine Bilirubin Negative (NEGATIVE) 12/27/16 09:30 Urine Urobilinogen 2.0 mg/dL (0.2-1.0) H 12/27/16 09:30 Ur Leukocyte Esterase Neg Oral/uL (Negative) 12/27/16 09:30 Urine WBC (Auto) 2 /hpf (0-5) 12/27/16 09:30 Urine RBC (Auto) 2 /hpf (0-3) 12/27/16 09:30 Ur Squamous Epith Cells 9 /hpf (0-5) H 12/27/16 09:30 Urine Bacteria Rare (<OCC) 12/27/16 09:30 Fluid Source Peritoneal/ascites 01/02/17 14:52 Fluid Appearance Sl cloudy (CLEAR) 01/02/17 14:52 Fluid WBC 98.0 /mm3 (0.0-300.0) 01/02/17 14:52 Fluid RBC 8529.0 /mm3 (0.0-0.0) H 01/02/17 14:52 Fluid Tot Cell Count 100 (0-0) H 01/02/17 14:52 Fluid Neutrophils 69.0 % (0-0) H 01/02/17 14:52 Fluid Lymphocytes 30.0 % (0-0) H 01/02/17 14:52 Fld Monocyte/Macrophag 1 % (0-0) H 01/02/17 14:52 Fluid Albumin 1.5 g/dL 01/02/17 14:52 Fluid Comment 01/02/17 14:52 Peritoneal LDH 81 U/L (<63) H 01/02/17 14:52 Pleural Total Protein <3.0 g/dL 12/27/16 14:49 Pleural LDH 127 U/L 12/27/16 14:49 Pleural Glucose 100 mg/dL 12/27/16 14:49 Heparin-induced Plt Ab Negative (Negative) 01/02/17 07:33 KATRIN UFH Low Dose 0.1 0 % Release 01/02/17 07:33 KATRIN UFH Low Dose 0.5 0 % Release 01/02/17 07:33 KATRIN UFH High Dose 100 0 % Release 01/02/17 07:33 - Hospital Course Hospital Course: patient was admitted to the hospital with severe sepsis and septic shock. She was intubated. He had a chest tube placed Patient was treated with IV antibiotics Clinical course the was luis and patient ended up with a tracheostomy tube. She was discharged to [facility]. Discharge Exam - Head Exam Head Exam: ATRAUMATIC, NORMOCEPHALIC Discharge Plan - Discharge Medications Prescriptions: Piperacill/Tazo 2.25gm in Dex [Zosyn 2.25 Gm IV Premix] 2.25 gm IV Q8H #15 bag - Follow Up Plan Condition: STABLE Disposition: [facility] Instructions: Chronic Respiratory Failure (DC)
== END 2017-01-13 18:30 | DRG 4 ==
LOC: C.ER 08:27 → C.9I 10:51
PROVIDERS: ADMIT Internal Medicine; ATTEND Hospitalist
PROC: 5A1955Z Respiratory Ventilation, Greater than 96 Consecutive Hours (ICD-10-PCS; 2016-12-27)
PROC: 0BH17EZ Insertion of Endotracheal Airway into Trachea, Via Natural or Artificial Opening (ICD-10-PCS; 2016-12-27)
PROC: 0W9930Z Drainage of Right Pleural Cavity with Drainage Device, Percutaneous Approach (ICD-10-PCS; 2016-12-27)
PROC: 02HV33Z Insertion of Infusion Device into Superior Vena Cava, Percutaneous Approach (ICD-10-PCS; 2016-12-27)
PROC: 0BJ08ZZ Inspection of Tracheobronchial Tree, Via Natural or Artificial Opening Endoscopic (ICD-10-PCS; 2017-01-10)
PROC: 0B113F4 Bypass Trachea to Cutaneous with Tracheostomy Device, Percutaneous Approach (ICD-10-PCS; principal; 2017-01-10 15:15)
DX: A41.9 Sepsis, unspecified organism (principal); R65.21 Severe sepsis with septic shock; I26.99 Other pulmonary embolism without acute cor pulmonale; J18.9 Pneumonia, unspecified organism; G93.40 Encephalopathy, unspecified; J94.8 Other specified pleural conditions; J91.8 Pleural effusion in other conditions classified elsewhere; I11.0 Hypertensive heart disease with heart failure; I50.9 Heart failure, unspecified; J96.02 Acute respiratory failure with hypercapnia; J96.01 Acute respiratory failure with hypoxia; R18.8 Other ascites; L03.115 Cellulitis of right lower limb; L03.116 Cellulitis of left lower limb; Z99.11 Dependence on respirator [ventilator] status; L02.612 Cutaneous abscess of left foot; L02.611 Cutaneous abscess of right foot; D69.6 Thrombocytopenia, unspecified; I27.2 Other secondary pulmonary hypertension; D64.9 Anemia, unspecified; Z95.1 Presence of aortocoronary bypass graft; R14.0 Abdominal distension (gaseous); Z95.2 Presence of prosthetic heart valve; I25.10 Atherosclerotic heart disease of native coronary artery without angina pectoris; E78.00 Pure hypercholesterolemia, unspecified; E87.6 Hypokalemia; I48.91 Unspecified atrial fibrillation; K21.9 Gastro-esophageal reflux disease without esophagitis; K74.60 Unspecified cirrhosis of liver; K80.20 Calculus of gallbladder without cholecystitis without obstruction; Z51.5 Encounter for palliative care; I08.1 Rheumatic disorders of both mitral and tricuspid valves; B95.8 Unspecified staphylococcus as the cause of diseases classified elsewhere